=== PATIENT | female | born 1995 | race Caucasian/White ===

== ENCOUNTER 2021-09-29 00:12 | Emergency (ER) | payer OTHER, SELFPAY ==
[2021-09-29 00:45] VITALS: BP 146/98; PULSE 113; RESP 22; TEMP 36.7; O2SAT 97; BMI 19.0
== END 2021-09-29 04:37 | disposition left against medical advice (07) ==
PROVIDERS: Emergency Provider Emergency Medicine
DX: S61.512A Laceration without foreign body of left wrist, initial encounter (principal); W45.8XXA Other foreign body or object entering through skin, initial encounter; Y93.89 Activity, other specified; Y92.9 Unspecified place or not applicable; Y99.9 Unspecified external cause status
CPT/HCPCS: 99281; 99282

== ENCOUNTER 2021-09-29 07:40 | Emergency (ER) | payer OTHER, SELFPAY ==
[2021-09-29 08:26] VITALS: BP 147/110; PULSE 85; RESP 16; TEMP 36.1; O2SAT 100; BMI 18.8
[2021-09-29] MEDS: Lidocaine HCl 2 % MPF 5 ML VIAL SUBCUT (08:56)
--- NOTE | 2021-09-29 09:24 | ED.WOUNDLAC ---
HPI - Wound/Laceration General Chief Complaint: Wound/Laceration Stated Complaint: wrist laceration Time Seen by Provider: 09/29/21 08:42 Source: patient and family Mode of arrival: ambulatory Limitations: no limitations History of Present Illness HPI narrative: 25 yo female here with laceration to left wrist after attempting to remove an AC unit from her window last evening. tetanus UTD. Came last night but to long a wait so came back. Denies numbness, tingling, redness, warmth, drainage or fever. Related Data Allergies Allergy/AdvReac Type Severity Reaction Status Date / Time garcia Allergy Hives Verified 09/29/21 00:49 Review of Systems Review of Systems: Yes all other systems are reviewed and are negative Constitutional: Constitutional: Reports no additional constitutional complaints, Denies body ache(s), Denies chills, Denies fever(s), Denies headache(s) and Denies weakness Eyes: Eyes: Reports no additional eye complaints and Denies change in vision ENT: Reports system reviewed and no additional complaints, except as documented, Denies dizziness, Denies headache(s), Denies nasal congestion, Denies nasal discharge and Denies neck pain Cardiovascular: Cardiovascular: Reports no additional cardiovascular complaints, Denies chest pain, Denies leg edema and Denies dyspnea Respiratory: Respiratory: Reports no additional respiratory complaints, Denies cough and Denies dyspnea Gastrointestinal: Gastrointestinal: Reports no additional gastrointestinal complaints, Denies abdominal pain, Denies diarrhea, Denies nausea and Denies vomiting Genitourinary: Genitourinary: Reports no additional female genitourinary complaints and Denies urinary incontinence Musculoskeletal: Musculoskeletal: Reports no additional musculoskeletal complaints, Denies back pain, Denies arthralgias, Denies joint swelling, Denies neck pain, Denies numbness and Denies tingling Integumentary/Breasts: Skin/Breast: Reports system reviewed and no additional complaints, except as docu and Denies rash Comments: +laceration Neurologic: Reports system reviewed and no additional complaints, except as documented, Denies Abnormal speech present, Denies dizziness, Denies headache(s), Denies numbness, Denies tingling and Denies weakness PMFSH Past Medical History Attestation statement: The following information was validated with the patient. Source: old records reviewed and nursing notes reviewed Medical History Kidney stones Social History Social History Patient Tobacco Use Status: Never used Tobacco Substance Use Type: Marijuana Substance Use Frequency: Daily Any prior treatment program specific to substance use: No Advance Directives: No Advance Directives Information Provided: No Physical Exam Vital Signs: Vital Signs: Last Vital Signs Temp 97.0 F 09/29/21 08:26 Pulse 85 09/29/21 08:26 Resp 16 09/29/21 08:26 BP 147/110 H 09/29/21 08:26 Pulse Ox 100 09/29/21 08:26 BMI result Body Mass Index 18.8 Const: General: cooperative, healthy appearing, comfortable and no acute distress Orientation/consciousness: patient oriented x3 Limitations: no limitations HENMT: Head: Yes normal to inspection Ears: hearing grossly normal bilaterally General nose exam: Normal external nose present Face and sinus: Yes normal facial exam Mouth: Normal oral and palatal mucosa present Throat: Yes posterior oropharynx normal Eyes: General: appearance normal, both eyes and all related structures Pupils: Equal, round and reactive pupils present Neck: Neck: Yes normal visual inspection Chest: Chest palpation & inspection: normal inspection of the chest Resp: Effort & Inspection: normal respiratory effort Auscultation: clear to auscultation bilaterally Cardio: Rate: regular rate Rhythm: regular rhythm Peripheral pulses: Peripheral pulses 2+ throughout GI: Inspection: Yes normal to inspection Palpation (GI): Soft to palpation and nontender Auscultation: normal bowel sounds Back/Spine/Pelvis: Thoracic/Lumbar Spine: thoracic and lumbar spine normal to inspection Skin: General skin exam: no rashes or lesions noted Neuro: General: patient oriented x3, no focal motor deficits and normal sensation to monofilament Cranial nerves: Yes Equal, round and reactive pupils present Cognition (Neuro): normal cognition Speech: No Abnormal speech present Gait exam (Neuro): Normal gait present Motor exam (neuro): 5/5 motor strength present throughout Extrem: Other: Over the volar left wrist there is a 3cm laceration. No active bleeding. NV intact distally. General: Yes normal to inspection Course Course Course Narrative: 25 yo female here with complaints of laceration to left wrist since 11pm. See procedure note. Tetanus UTD. Reviewed worrisome signs/symptoms and when to seek additional care. Comfortable with plan for discharge home. MDM - Wound/Laceration Differential Diagnosis Differential diagnosis: Likely laceration Medical Records Attestation: I reviewed the patient's medical records. Lab Data Attestation: I reviewed the patient's lab results. Procedures Laceration Laceration 1: Site: upper extremity Side (If applicable): left Size (cm): 3 Description: linear Depth: simple, single layer Local Anesthetic: lidocaine 2% Amount of anesthesia used (mL): 5 Pre-repair: wound explored, irrigated extensively and deep structures intact Skin layer closed with: vicryl Size (cm): 5-0 Number of sutures: 3 Technique: simple, interrupted Discharge Plan Discharge Clinical Impression: Laceration Patient Disposition: Home, Self-Care Instructions: Laceration (DC) Additional Instructions: Sutures out in 7-10 days Wash with soap and water daily Referrals: Physician,None [Primary Care Provider] - 2 days Stand Alone Forms: Work/School Release Interventions: ED Discharge Assessment Last Done: 09/29/21 09:34 Discharge Date/Time: 09/29/21 09:35
--- NOTE | 2021-09-29 09:32 | PC.NURSE ---
PT EVALUATED BY PROVIDER. 3 SUTURES TO LEFT WRIST WOUND. SITE CLEANSED AND DRESSED BY PROVIDER. PT AWARE AND AGREEABLE TO DC PLAN. CONTINUES TO DENY INTENT TO HARM SELF. FRIEND AT BEDSIDE. +[facility] NO DISTRESS NOTED.
== END 2021-09-29 09:35 | disposition home or self-care (01) ==
PROVIDERS: Emergency Provider Emergency Medicine
DX: S61.512A Laceration without foreign body of left wrist, initial encounter (principal); W26.8XXA Contact with other sharp object(s), not elsewhere classified, initial encounter; Y93.89 Activity, other specified; Y92.019 Unspecified place in single-family (private) house as the place of occurrence of the external cause; Y99.9 Unspecified external cause status
CPT/HCPCS: 12002; 99284

== ENCOUNTER 2023-04-09 15:43 | Emergency (ER) | payer SELFPAY ==
[2023-04-09 16:24] VITALS: BP 152/100; BP 154/103; PULSE 87; PULSE 98; RESP 19; TEMP 36.8; O2SAT 94; O2SAT 99; BMI 17.7
--- NOTE | 2023-04-09 16:24 | ED_ITS ---
HPI - General Adult General Chief complaint: General Medical Stated complaint: anxiety, depression, high BP Time Seen by Provider: 04/09/23 20:21 Source: patient and family Mode of arrival: EMS Limitations: no limitations History of Present Illness HPI narrative: 27 yo female here with mom and partner had panic attack at home reportedly hyperventilated - patient has hx of low mag and hasn't been taking it. she is vague with me but then mom notes patient has been threatening SI will not stop drinking has lost 4 jobs. patient is refusing detox at this time. she states I am fine and is vague complaint: ETOH abuse panic attacks Onset (ago): week(s) Radiation: non-radiation Severity: moderate Quality: dull Relieving factors: none Exacerbating factors: other (anxiety, etoh use) Associated symptoms: other (had panic attack but denies all medical complaints to me at this time) Treatments prior to arrival: none Related Data Previous Rx's Medication Instructions Recorded hydroxyzine HCl 25 mg tablet 25 mg PO Q8H PRN anxiety #20 tabs 04/09/23 Allergies Allergy/AdvReac Type Severity Reaction Status Date / Time josewi Allergy Hives Verified 09/29/21 00:49 Review of Systems Review of Systems: Constitutional : No Fever, No Chills, No Fatigue ENT/Mouth : No sore throat, No Rhinorrhea Eyes: No Eye Pain, No Swelling, No Redness Cardiovascular : No Chest Pain, No SOB, No Dyspnea on Exertion Respiratory : No Cough, No Sputum Gastrointestinal : No Nausea, No Vomiting, No Diarrhea, No abdominal Pain Genitourinary : No Dysuria, No Urinary Frequency, No Hematuria, Musculoskeletal : No joint pain, No Myalgias, No Joint Swelling Skin : No Skin Lesions, No rash Neuro : No Weakness, No Numbness, No Dizziness, no Headache Psych : pos Anxiety/Panic, pos Depression, denies SI Heme/Lymph: No Bruising, No Bleeding,No Lymphadenopathy Endocrine : No Polyuria, No Polydipsia All other systems reviewed and are negative [facility] Past Medical History Attestation statement: The following information was validated with the patient. Medical History (Updated 04/09/23 @ 21:38 by Chelsy Abreu DO) Alcohol abuse Kidney stones Social History Social History Alcohol intake: current Alcohol intake frequency: 3 or more drinks per day Patient Tobacco Use Status: Never used Tobacco Smoked in Last 30 Days: Yes Use of substances other than those prescribed or required for medical reasons: No Substance Use Type: Marijuana Advance Directives: No Advance Directives Information Provided: No Patient : No Physical Exam ED Vital Signs: Vital Signs - 24 hr 04/09/23 16:24 04/09/23 21:31 Temperature 98.2 F 97.9 F Pulse Rate 87 91 Respiratory Rate 19 18 Blood Pressure 154/103 H 140/108 H Pulse Oximetry 94 98 Oxygen Delivery Method Room Air Room Air BMI result Body Mass Index 17.7 Appearance: Alert. Oriented X3. No acute distress. anxious Eyes: Pupils equal, round and reactive to light. ENT: Pharynx normal. Neck: Normal inspection. Neck supple. CVS: Normal heart rate and rhythm. Pulses normal. Respiratory: No respiratory distress. Breath sounds normal. Abdomen: Soft and nontender. Skin: Skin warm and dry. Normal skin color. Normal skin turgor. Extremities: No lower extremity edema. No calf ttp Neuro: Oriented X 3. No motor deficit. No sensory deficit. Course Course Course Narrative: This is a rapid medical exam: Additional HPI, ROS, PE not included below will be deferred to primary provider. Patient is a 27-year-old female with history of anxiety, depression, presenting to the emergency department with complaint of anxiety and depression, nausea, vomiting, extremity weakness for four days. Also complains of generalized abdominal pain and states I think I'm bulimic because every time I eat I throw up. EMS reports that upon arrival patient was hyperventilating and was noted to have carpal-pedal spasms. Patient stating I can't move my arms as she moves her arms equally in triage, able to answer/speak on phone. NIH score 0. Reports last drank alcohol 3 days ago. Hyperfixating on obtaining weight in triage. EMS reported suicidal ideation which patient denies in triage. Patient states she has history of SI in the past but denies current SI. Denies homicidal ideation, visual or auditory hallucinations. Plan: UA, urine drug screen, labs, ASA/tylenol levels Reevaluation(s) Reevaluation #1: Patient placed in physician observation at 936pm. The indication for observati on is that the patient needs more time to see CARE team given reports of SI although I think this may be concerns for detox on mother's part. At this time the patient is well developed well nourished, lungs clear, CV RRR, abd nontender, neuro is intact. Reevaluation #2: Physician observation ended at 1005pm patient refuses to stay has no SI mom w as the one relaying it and when she asked what she thought the patient would do mom states she'll keep drinking it is not actual attempt at life. at this time no SI/HI. I cannot section her she wants to leave, we did discuss section 35. Plan to dc home. Disposition is for home. Medications Administered Discontinued Medications Generic Name Dose Route Start Last Admin Trade Name Freq PRN Reason Stop Dose Admin Potassium Chloride 40 meq 04/09/23 20:48 04/09/23 20:58 Potassium Chloride Er 20 Meq Tab.Er.Prt PO 04/09/23 20:49 40 meq ONCE ONE Administration Medical Decision Making Medical Decision Making [facility] Narrative: 27 yo female with ETOH abuse here with c/o SI statements at home though she denies this I am not sure if this is 2ndary gain for detox from family - at this time will obtain labs and defer to CARE team as the patient is not forthcoming with me. Differential Diagnosis Differential Diagnoses: The differential diagnosis associated with the presentation includes anxiety, alcohol abuse, SI Admission/Observation Consideration of admission/observation: Escalation of care including admission/observation considered observation until CARE team assessess Lab Data [facility] Lab Attestation statement: I reviewed the patient's lab results. 04/09/23 18:26 04/09/23 18:26 Labs: Lab Results 04/09/23 04/09/23 04/09/23 Range/Units 18:26 18:26 18:26 WBC 3.6 L (4.8-10.8) X10*3/uL RBC 4.84 (4.20-5.50) X10*6/uL Hgb 15.0 (12.0-16.0) g/dl Hct 42.9 (37.0-47.0) % MCV 88.6 (80.0-98.0) fL MCH 31.0 (27.0-33.0) pg MCHC 35.0 (31.0-35.0) g/dl RDW 13.2 (11.0-16.0) % Plt Count 171 (160-400) X10*3/uL MPV 10.5 (9.4-12.3) fL Immature Gran % (Auto) 0.3 (0.0-0.4) % Neut % (Auto) 49.5 (45-73) % Lymph % (Auto) 37.4 (20-40) % Bourbon % (Auto) 7.8 (2-11) % Eos % (Auto) 2.5 (0-4) % Baso % (Auto) 2.5 H (0-2) % Lymph # (Auto) 1.4 (1.2-4.9) X10*3/uL Bourbon # (Auto) 0.3 (0.1-1.2) X10*3/uL Eos # (Auto) 0.1 (0.0-0.4) X10*3/uL Baso # (Auto) 0.1 (0.0-0.2) X10*3/uL Abs Immat Gran (auto) 0.01 (0.00-0.03) X10*3/uL Absolute Neuts (auto) 1.8 L (2.0-8.3) x10*3/uL Absolute Nucleated RBC 0.000 (0.0-0.012) X10*3/uL Nucleated RBC % (auto) 0.0 (0.0-0.2) /100WBC Sodium 147 H (135-145) mmol/L Potassium 3.1 L (3.3-5.1) mmol/L Chloride 106 (96-108) mmol/L Carbon Dioxide 26 (22-29) mmol/L Anion Gap 18 (12-20) BUN 8 L (9-16) mg/dL Creatinine 0.67 (0.5-1.4) mg/dL Estim Creat Clear Calc 89.5 Estimated GFR > 60 Random Glucose 85 (60-115) mg/dL Calcium 9.4 (8.4-10.2) mg/dL Magnesium 1.7 (1.6-2.6) mg/dL Total Bilirubin 0.6 (0.0-1.0) mg/dL AST 342 H (5-31) U/L ALT 137 H (0-31) U/L Alkaline Phosphatase 90 (39-117) U/L Total Protein 8.5 H (6.5-8.0) g/dL Albumin 4.9 (3.5-5.0) g/dL Beta HCG, Quant mIU/mL Urine Color Urine Appearance Urine pH (5.0-9.0) Ur Specific Accident (1.005-1.025) Urine Protein (Neg-Trace) mg/dL Urine Glucose (UA) (Negative) mg/dL Urine Ketones (Negative) mg/dL Urine Blood (Negative) Urine Nitrite (Negative) Ur Leukocyte Esterase (Negative) Urine RBC (0-2) /HPF Urine WBC (0-5) /HPF Ur Squamous Epith Cells (0-2) /HPF Urine Bacteria (None Seen) Hyaline Casts (0-2) /LPF Salicylates < 5.0 L (15-30) mg/dL Urine Opiates Screen (Not Detect) Urine Fentanyl Screen (Not Detect) Acetaminophen < 17 (<30) mcg/mL Ur Barbiturates Screen (Not Detect) Ur Phencyclidine Scrn (Not Detect) Ur Amphetamines Screen (Not Detect) U Benzodiazepines Scrn (Not Detect) Urine Cocaine Screen (Not Detect) U Marijuana (THC) Screen (Not Detect) Ethyl Alcohol 389 H* mg/dL COVID-19 ([facility]) (Negative) COVID-19 Clin Com 04/09/23 04/09/23 04/09/23 Range/Units 18:26 18:26 20:21 WBC (4.8-10.8) X10*3/uL RBC (4.20-5.50) X10*6/uL Hgb (12.0-16.0) g/dl Hct (37.0-47.0) % MCV (80.0-98.0) fL MCH (27.0-33.0) pg MCHC (31.0-35.0) g/dl RDW (11.0-16.0) % Plt Count (160-400) X10*3/uL MPV (9.4-12.3) fL Immature Gran % (Auto) (0.0-0.4) % Neut % (Auto) (45-73) % Lymph % (Auto) (20-40) % Bourbon % (Auto) (2-11) % Eos % (Auto) (0-4) % Baso % (Auto) (0-2) % Lymph # (Auto) (1.2-4.9) X10*3/uL Bourbon # (Auto) (0.1-1.2) X10*3/uL Eos # (Auto) (0.0-0.4) X10*3/uL Baso # (Auto) (0.0-0.2) X10*3/uL Abs Immat Gran (auto) (0.00-0.03) X10*3/uL Absolute Neuts (auto) (2.0-8.3) x10*3/uL Absolute Nucleated RBC (0.0-0.012) X10*3/uL Nucleated RBC % (auto) (0.0-0.2) /100WBC Sodium (135-145) mmol/L Potassium (3.3-5.1) mmol/L Chloride (96-108) mmol/L Carbon Dioxide (22-29) mmol/L Anion Gap (12-20) BUN (9-16) mg/dL Creatinine (0.5-1.4) mg/dL Estim Creat Clear Calc Estimated GFR Random Glucose (60-115) mg/dL Calcium (8.4-10.2) mg/dL Magnesium (1.6-2.6) mg/dL Total Bilirubin (0.0-1.0) mg/dL AST (5-31) U/L ALT (0-31) U/L Alkaline Phosphatase (39-117) U/L Total Protein (6.5-8.0) g/dL Albumin (3.5-5.0) g/dL Beta HCG, Quant < 2 mIU/mL Urine Color Yellow Urine Appearance Clear Urine pH 6.0 (5.0-9.0) Ur Specific Accident <= 1.005 (1.005-1.025) Urine Protein 30 (1+) H (Neg-Trace) mg/dL Urine Glucose (UA) Negative (Negative) mg/dL Urine Ketones Negative (Negative) mg/dL Urine Blood Moderate (2+) H (Negative) Urine Nitrite Negative (Negative) Ur Leukocyte Esterase Trace H (Negative) Urine RBC 0-2 (0-2) /HPF Urine WBC 0-5 (0-5) /HPF Ur Squamous Epith Cells 0-2 (0-2) /HPF Urine Bacteria None Seen (None Seen) Hyaline Casts 0-2 (0-2) /LPF Salicylates (15-30) mg/dL Urine Opiates Screen (Not Detect) Urine Fentanyl Screen (Not Detect) Acetaminophen (<30) mcg/mL Ur Barbiturates Screen (Not Detect) Ur Phencyclidine Scrn (Not Detect) Ur Amphetamines Screen (Not Detect) U Benzodiazepines Scrn (Not Detect) Urine Cocaine Screen (Not Detect) U Marijuana (THC) Screen (Not Detect) Ethyl Alcohol mg/dL COVID-19 ([facility]) Negative (Negative) COVID-19 Clin Com See Note 04/09/23 Range/Units 20:21 WBC (4.8-10.8) X10*3/uL RBC (4.20-5.50) X10*6/uL Hgb (12.0-16.0) g/dl Hct (37.0-47.0) % MCV (80.0-98.0) fL MCH (27.0-33.0) pg MCHC (31.0-35.0) g/dl RDW (11.0-16.0) % Plt Count (160-400) X10*3/uL MPV (9.4-12.3) fL Immature Gran % (Auto) (0.0-0.4) % Neut % (Auto) (45-73) % Lymph % (Auto) (20-40) % Bourbon % (Auto) (2-11) % Eos % (Auto) (0-4) % Baso % (Auto) (0-2) % Lymph # (Auto) (1.2-4.9) X10*3/uL Bourbon # (Auto) (0.1-1.2) X10*3/uL Eos # (Auto) (0.0-0.4) X10*3/uL Baso # (Auto) (0.0-0.2) X10*3/uL Abs Immat Gran (auto) (0.00-0.03) X10*3/uL Absolute Neuts (auto) (2.0-8.3) x10*3/uL Absolute Nucleated RBC (0.0-0.012) X10*3/uL Nucleated RBC % (auto) (0.0-0.2) /100WBC Sodium (135-145) mmol/L Potassium (3.3-5.1) mmol/L Chloride (96-108) mmol/L Carbon Dioxide (22-29) mmol/L Anion Gap (12-20) BUN (9-16) mg/dL Creatinine (0.5-1.4) mg/dL Estim Creat Clear Calc Estimated GFR Random Glucose (60-115) mg/dL Calcium (8.4-10.2) mg/dL Magnesium (1.6-2.6) mg/dL Total Bilirubin (0.0-1.0) mg/dL AST (5-31) U/L ALT (0-31) U/L Alkaline Phosphatase (39-117) U/L Total Protein (6.5-8.0) g/dL Albumin (3.5-5.0) g/dL Beta HCG, Quant mIU/mL Urine Color Urine Appearance Urine pH (5.0-9.0) Ur Specific Accident (1.005-1.025) Urine Protein (Neg-Trace) mg/dL Urine Glucose (UA) (Negative) mg/dL Urine Ketones (Negative) mg/dL Urine Blood (Negative) Urine Nitrite (Negative) Ur Leukocyte Esterase (Negative) Urine RBC (0-2) /HPF Urine WBC (0-5) /HPF Ur Squamous Epith Cells (0-2) /HPF Urine Bacteria (None Seen) Hyaline Casts (0-2) /LPF Salicylates (15-30) mg/dL Urine Opiates Screen Not Detected (Not Detect) Urine Fentanyl Screen Not Detected (Not Detect) Acetaminophen (<30) mcg/mL Ur Barbiturates Screen Not Detected (Not Detect) Ur Phencyclidine Scrn Not Detected (Not Detect) Ur Amphetamines Screen Not Detected (Not Detect) U Benzodiazepines Scrn Not Detected (Not Detect) Urine Cocaine Screen Not Detected (Not Detect) U Marijuana (THC) Screen POSITIVE H (Not Detect) Ethyl Alcohol mg/dL COVID-19 ([facility]) (Negative) COVID-19 Clin Com Independent Historian Clinical information obtained from an independent historian. History obtained from or confirmed by: Parent External Record Review External record reviewed: Inpatient record Discharge Plan Discharge Clinical Impression: Acute hypokalemia, Alcohol abuse Patient Disposition: Home, Self-Care Instructions: Hypokalemia (ED), Abuse of Alcohol (ED) Additional Instructions: you can follow up with [facility] counseling. take your magnesium please consider detox on your own. we are here for you to help at whenever you are ready and need us. [facility] [phone] Prescriptions: New hydroxyzine HCl 25 mg tablet 25 mg PO Q8H PRN (Reason: anxiety) Qty: 20 0RF
[2023-04-09 18:30] LABS: MANUAL DIFF FLAG NO
[2023-04-09 18:44] LABS: COVID-19 Test Negative (Negative); IDNOW Serial# BCCEAD1C
[2023-04-09 18:57] LABS: Basophils Absolute Auto 0.1 X10*3/uL (0.0-0.2); Basophils Percent Auto 2.5 % (0-2); Eosinophils Absolute Auto 0.1 X10*3/uL (0.0-0.4); Eosinophils Percent Auto 2.5 % (0-4); Hematocrit 42.9 % (37.0-47.0); Imm Gran Abs Auto 0.01 X10*3/uL (0.00-0.03); Imm Gran Pct Auto 0.3 % (0.0-0.4); Lymphocytes Absolute Auto 1.4 X10*3/uL (1.2-4.9); Lymphocytes Percent Auto 37.4 % (20-40); Mean Corpuscular Volume 88.6 fL (80.0-98.0); Mean Platelet Volume 10.5 fL (9.4-12.3); Monocytes Absolute Auto 0.3 X10*3/uL (0.1-1.2); Monocytes Percent Auto 7.8 % (2-11); Neutrophils Absolute Auto 1.8 x10*3/uL (2.0-8.3); Neutrophils Percent Auto 49.5 % (45-73); Platelet Count 171 X10*3/uL (160-400); Red Blood Count 4.84 X10*6/uL (4.20-5.50); Red Cell Distribution Width 13.2 % (11.0-16.0); White Blood Count 3.6 X10*3/uL (4.8-10.8)
[2023-04-09 18:58] LABS: Alanine Aminotransferase 137 U/L (0-31); Albumin Level 4.9 g/dL (3.5-5.0); Alkaline Phosphatase 90 U/L (39-117); Anion Gap 18 (12-20); Aspartate Amino Transferase 342 U/L (5-31); Bilirubin Total 0.6 mg/dL (0.0-1.0); Blood Urea Nitrogen 8 mg/dL (9-16); Calcium 9.4 mg/dL (8.4-10.2); Carbon Dioxide 26 mmol/L (22-29); Chloride 106 mmol/L (96-108); Creatinine Clr Calc Pharmacy 89.5; Estimated Glomerular Filt Rate > 60; Ethanol 389 mg/dL; Glucose Random 85 mg/dL (60-115); Potassium 3.1 mmol/L (3.3-5.1); Sodium 147 mmol/L (135-145); Total Protein 8.5 g/dL (6.5-8.0)
[2023-04-09 19:02] LABS: Acetaminophen LAB < 17 mcg/mL (<30); Salicylate < 5.0 mg/dL (15-30)
[2023-04-09 19:07] LABS: HCG Quantitative < 2 mIU/mL
[2023-04-09 20:31] LABS: Appearance Urine Clear; Color Urine Yellow; Glucose Urine UA Negative (Negative); Leukocyte Esterase Urine Trace (Negative); Nitrite Urine Negative (Negative); Specific Gravity - Urine <= 1.005 (1.005-1.025); UMIC TRIGGER UACC YES; Urine Blood Moderate (2+) (Negative); Urine Ketones Negative (Negative); Urine Protein 30 (1+) mg/dL (Neg-Trace)
--- NOTE | 2023-04-09 20:35 | PC.NURSE ---
this rn assumed care of pt @ 2019. pt placed in hallbed. pt changed over into hospital attire. pt mother at bedside. pt calm and cooperative. pt denies si/hi
[2023-04-09 20:40] LABS: Amphetamine Screen Urine Not Detected (Not Detect); Bacteria Urine None Seen (None Seen); Barbiturates, Urine Not Detected (Not Detect); Benzodiazepines Screen Urine Not Detected (Not Detect); Cannabinoid Screen Urine POSITIVE (Not Detect); Cocaine Screen Urine Not Detected (Not Detect); Fentanyl, urine Not Detected (Not Detect); Hyaline Casts Urine 0-2 /LPF (0-2); Opiate Screen Urine Not Detected (Not Detect); Phencyclidine Screen Urine Not Detected (Not Detect); RBC Urine 0-2 /HPF (0-2); Squamous Epithelial Cell Urine 0-2 /HPF (0-2); WBC Urine 0-5 /HPF (0-5)
[2023-04-09] MEDS: Potassium Chloride ER 20 MEQ TAB.ER.PRT 40 MEQ PO (20:58)
[2023-04-09 21:05] LABS: Magnesium 1.7 mg/dL (1.6-2.6)
[2023-04-09 21:31] VITALS: BP 140/108; PULSE 91; RESP 18; TEMP 36.6; O2SAT 98
--- NOTE | 2023-04-09 22:19 | PC.NURSE ---
per dr navarro pt okay to discharge to family. pt continues to deny si/hi at this time. pt restless stating i want to leave, i am not staying here . pt redirectable. family remains at bedside. pt ambulatory at discharge. pt given belongs back at discharge. pt provided with discharge packet. pt and family verbalized understanding of discharge plan
== END 2023-04-09 22:23 | disposition home or self-care (01) ==
PROVIDERS: Registered Nurse Emergency; Emergency Provider Emergency Medicine
DX: F41.1 Generalized anxiety disorder (principal); F33.1 Major depressive disorder, recurrent, moderate; E87.6 Hypokalemia; F10.129 Alcohol abuse with intoxication, unspecified; Y90.8 Blood alcohol level of 240 mg/100 ml or more; Z20.822 Contact with and (suspected) exposure to COVID-19; Z20.828 Contact with and (suspected) exposure to other viral communicable diseases; Z79.899 Other long term (current) drug therapy
CPT/HCPCS: 36415; 80053; 80143; 80179; 80307; 81001; 83735; 84702; 85025; 87635; 99284

== ENCOUNTER 2023-06-13 14:00 | Emergency (ER) | payer MEDICAID, SELFPAY ==
--- NOTE | ~2023-06-13 | CT_ITS ---
EXAMINATION: CT HEAD WITHOUT CONTRAST CT CERVICAL SPINE WITHOUT CONTRAST CLINICAL INFORMATION: Fall. COMPARISON: None available. TECHNIQUE: Contiguous axial imaging was performed from the skull base to vertex without intravenous administration of contrast. Contiguous axial imaging was performed from the upper chest through the skull base without intravenous administration of contrast. Coronal and sagittal reformats were obtained at the acquisition workstation. This CT examination was performed using dose optimization techniques as appropriate, variously including the following: *Automated exposure control. *Adjustment of mA and/or kV according to patient size (this includes techniques or standardized protocols for targeted exams where dose is matched to indication/reason for exam; i.e. extremities or head). *Use of iterative reconstruction technique. DLP: 1329 mGy-cm FINDINGS: Head: There is no evidence of acute intracranial hemorrhage or edematous territorial infarction. Slaughter-white matter differentiation is preserved. There is no abnormal attenuation within the brain parenchyma. The ventricles are normal in morphology and size. No evidence for obstructive hydrocephalus. No abnormal mass effect or midline shift. No extra-axial fluid collections. No acute soft tissue or osseous abnormalities. The mastoid air cells and visualized paranasal sinuses are clear. Cervical Spine: The atlantooccipital and atlantoaxial articulations remain well aligned. Reversal the normal cervical lordosis centered on C5. Otherwise, there is anatomic alignment of the vertebral bodies and posterior elements. No evidence of acute fracture or subluxation. The vertebral body heights and disc spaces are maintained. There is no prevertebral soft tissue swelling. The thyroid gland and remaining cervical soft tissues are within normal limits. The lung apices demonstrate no abnormalities. CT/CT cervical spine wo IV con IMPRESSION: 1. No evidence of acute intracranial hemorrhage or edematous territorial infarction. 2. No evidence of acute fracture or traumatic subluxation of the cervical spine.
--- NOTE | ~2023-06-13 | CT_ITS ---
CT/CT abdomen pelvis w IV con IMPRESSION: 1. No acute traumatic injuries are identified in the chest, abdomen, and pelvis. 2. No fracture or malalignment in the thoracolumbar spine. 3. Minimally obstructing left proximal ureteral stone as above. EXAMINATION: CT CHEST, ABDOMEN AND PELVIS WITH CONTRAST. CT THORACIC AND LUMBAR SPINE WITHOUT CONTRAST (REFORMATS) CLINICAL INFORMATION: Reason for Exam fall left chest flank bruise COMPARISON: No pertinent prior studies are available for comparison TECHNIQUE: Multidetector volumetric imaging was performed from the thoracic inlet through the pubic symphysis following the administration of: Oral contrast: No Intravenous contrast: 130 mL Omnipaque 350 No contrast reaction reported. Sagittal and coronal reformatted images were obtained on the technologist workstation. In addition, thin section, high resolution reconstruction, targeted reformatted images through the thoracic and lumbar spine were obtained with coronal and sagittal high resolution reformatted images as well. This CT examination was performed using dose optimization techniques as appropriate, variously including the following: *Automated exposure control *Adjustment of mA and/or kV according to patient size (this includes techniques or standardized protocols for targeted exams where dose is matched to indication/reason for exam; i.e. extremities or head) *Use of iterative reconstruction technique DLP: 175 and 377 mGy-cm FINDINGS: CHEST: VASCULAR: The aorta is normal; no evidence of dissection, aneurysm, or traumatic aortic injury. The central pulmonary arteries enhance normally. MEDIASTINUM: No mediastinal fluid or hematoma. No hilar or mediastinal lymphadenopathy. LUNG: No nodules, mass, or focal consolidation. PLEURA: No pleural effusion. No pneumothorax. No pleural mass or thickening. CHEST WALL/AXILLA: Unremarkable. ABDOMEN/PELVIS : LIVER : Moderate hepatomegaly changes of diffuse hepatic steatosis. No focal lesion. GALLBLADDER, AND BILIARY TREE The gallbladder is unremarkable with no evidence of radiopaque gallstones, gallbladder wall thickening, or obvious pericholecystic inflammatory changes. PANCREAS: Normal; no mass or surrounding fluid. SPLEEN: Normal size. No focal lesion. ADRENAL GLANDS: Normal; no mass. KIDNEYS AND URETERS: Mild left-sided hydronephrosis secondary to a proximal approximate 4 mm ureteral stone. No tandem stone. Right kidney unremarkable. URINARY BLADDER: No focal mass or wall thickening seen. No bladder calculi. GASTROINTESTINAL TRACT: Stomach and small bowel non-dilated. No colonic wall thickening or pericolonic inflammatory changes. No fluid collection. VASCULAR STRUCTURES: There is no evidence of aortic or iliac injury. The inferior vena cava is intact. LYMPH NODES: No lymphadenopathy. PELVIC VISCERA: Unremarkable. FREE FLUID: None. ABDOMINAL WALL: No significant hernia is appreciated. OSSEOUS STRUCTURES AND THORACIC AND LUMBAR SPINE: No clavicle or scapula fracture. No displaced rib fracture seen. No sternal fracture seen. Normal sagittal alignment of the thoracic and lumbar spine. Vertebral body and disc heights are maintained; no compression fracture. Posterior elements intact. No sacral or pelvic fracture. The visualized hips are intact.
[2023-06-13 14:18] VITALS: BP 140/90; BP 151/101; PULSE 88; PULSE 94; RESP 16; TEMP 36.7; O2SAT 100; O2SAT 97; BMI 17.4
[2023-06-13 14:22] VITALS: TEMP 36.7
[2023-06-13 16:25] LABS: Imm Gran Abs Auto 0.01 X10*3/uL (0.00-0.03); Imm Gran Pct Auto 0.2 % (0.0-0.4); Mean Corpuscular HGB Conc 34.9 g/dl (31.0-35.0); Mean Platelet Volume 9.6 fL (9.4-12.3); PLT CLUMP 1; SCAN SMEAR FLAG 1
[2023-06-13 16:26] LABS: Appearance Urine Clear; Color Urine Yellow; Glucose Urine UA Negative (Negative); Leukocyte Esterase Urine Trace (Negative); Nitrite Urine Negative (Negative); PH 6.5 (5.0-9.0); Specific Gravity - Urine <= 1.005 (1.005-1.025); UMIC TRIGGER UACC YES; Urine Blood Large (3+) (Negative); Urine Ketones Negative (Negative); Urine Protein 100 (2+) mg/dL (Neg-Trace)
[2023-06-13 16:27] LABS: UPreg QC Valid YES; Urine Pregnancy NEGATIVE (NEGATIVE)
[2023-06-13 16:27] LABS: Basophils Absolute Auto 0.1 X10*3/uL (0.0-0.2); Basophils Percent Auto 1.9 % (0-2); Eosinophils Percent Auto 0.7 % (0-4); Hematocrit 39.3 % (37.0-47.0); Hemoglobin 13.7 g/dl (12.0-16.0); Lymphocytes Absolute Auto 0.8 X10*3/uL (1.2-4.9); Mean Corpuscular Hemoglobin 30.9 pg (27.0-33.0); Mean Corpuscular Volume 88.5 fL (80.0-98.0); Monocytes Absolute Auto 0.2 X10*3/uL (0.1-1.2); Monocytes Percent Auto 5.8 % (2-11); Neutrophils Percent Auto 72.4 % (45-73); Red Blood Count 4.44 X10*6/uL (4.20-5.50)
[2023-06-13 16:29] LABS: White Blood Count 4.2 X10*3/uL (4.8-10.8)
[2023-06-13 16:32] LABS: MANUAL DIFF FLAG NO; Platelet Count 143 X10*3/uL (160-400)
[2023-06-13 16:38] LABS: Bacteria Urine None Seen (None Seen); Hyaline Casts Urine 0-2 /LPF (0-2); WBC Urine 0-5 /HPF (0-5)
[2023-06-13 16:41] VITALS: BP 140/78; PULSE 84; RESP 18; TEMP 36.7; O2SAT 98
[2023-06-13 16:51] LABS: Alanine Aminotransferase 95 U/L (0-31); Alkaline Phosphatase 99 U/L (39-117); Anion Gap 24 (12-20); Aspartate Amino Transferase 216 U/L (5-31); Bilirubin Total 0.7 mg/dL (0.0-1.0); Blood Urea Nitrogen 8 mg/dL (9-16); Calcium 9.7 mg/dL (8.4-10.2); Carbon Dioxide 23 mmol/L (22-29); Chloride 102 mmol/L (96-108); Creatinine Clr Calc Pharmacy 96.7; Estimated Glomerular Filt Rate > 60; Ethanol 390 mg/dL; Glucose Random 78 mg/dL (60-115); HCG Quantitative < 2 mIU/mL; Sodium 145 mmol/L (135-145); Total Protein 8.6 g/dL (6.5-8.0)
[2023-06-13] MEDS: iohexoL 350 MG/ML 100 ML INFUS..BTL IV (18:05)
--- NOTE | 2023-06-13 18:55 | ED_ITS ---
HPI - General Adult General Chief complaint: Fall Stated complaint: FALL DOWN STEPS 2 DAYS AGO,HIP/RIB PAIN PER EMS Time Seen by Provider: 06/13/23 15:24 Source: patient Mode of arrival: ambulatory Limitations: no limitations History of Present Illness HPI narrative: 27 yold female presents to the ED for left rib and left hip pain after falling down stairs 2 days ago. Patient admits to drinking alcohol today, but denies falling today. patient denies any dizziness, chest pain, shortness of breath, rectal bleeding, or vomiting blood Related Data Previous Rx's Medication Instructions Recorded hydroxyzine HCl 25 mg tablet 25 mg PO Q8H PRN anxiety #20 tabs 04/09/23 cephalexin 500 mg capsule 500 mg PO QID 7 days #28 caps 06/13/23 naproxen 500 mg tablet 500 mg PO BID PRN pain 7 days #14 06/13/23 tabs tamsulosin 0.4 mg capsule (Flomax) 0.4 mg PO DAILY 7 days #7 caps 06/13/23 Allergies Allergy/AdvReac Type Severity Reaction Status Date / Time kiwi Allergy Hives Verified 09/29/21 00:49 Review of Systems 2 Review of Systems: left rib left hip pain/ bruising fall 2 days ago Yes all other systems are reviewed and are negative [facility] Past Medical History Medical History (Updated 06/14/23 @ 00:01 by Taran Montero) Alcohol abuse Kidney stones Social History Social History Alcohol intake: current Alcohol intake frequency: 3 or more drinks per day Patient Tobacco Use Status: Never used Tobacco Smoked in Last 30 Days: No Substance Use Type: Marijuana Advance Directives: No Advance Directives Information Provided: No Physical Exam ED Vital Signs: Vital Signs - 24 hr 06/13/23 14:18 06/13/23 14:22 06/13/23 16:41 Temperature 98.0 F 98.0 F 98.1 F Pulse Rate 88 84 Respiratory Rate 16 18 Blood Pressure 151/101 H 140/78 H Pulse Oximetry 97 98 Oxygen Delivery Method Room Air Room Air BMI result Body Mass Index 17.4 Const General: cooperative, healthy appearing, comfortable, no acute distress, well developed, alert and awake Orientation/consciousness: oriented to person, oriented to place, oriented to time and patient oriented x3 HENMT Head: Yes normal to inspection, Yes No palpable skull fracture present, Yes normocephalic and Yes atraumatic Eyes General: appearance normal, both eyes and all related structures Neck Neck: Yes normal visual inspection, Yes full ROM, Yes no lymphadenopathy, Yes no meningeal signs, Yes trachea midline, Yes supple, No anterior neck swelling and No tender Chest Chest palpation & inspection: normal inspection of the chest and normal palpation of entire chest wall Chest/axillae images: 2 1. positive for ecchymosis with tenderness on palpation. negative crepitus Resp Effort & Inspection: normal respiratory effort and able to speak in complete sentences Auscultation: clear to auscultation bilaterally Cardio Jugular venous distension: no JVD Heart sounds: S1 normal heart sound present and S2 normal heart sound present GI Inspection: Yes normal to inspection Palpation (GI): Soft to palpation, not firm, nontender, no guarding and not rigid General: No CVA tenderness and Yes no CVA tenderness Back/Spine/Pelvis Back: no CVA tenderness, No CVA tenderness and No back tenderness Back/spine/pelvis image: 2 1. positive for left hip ecchymosis without any crepitus or deformities. Negative external or internal rotation of hip. Negative for erythema. Patient has normal gait Skin General skin exam: no rashes or lesions noted, elasticity normal and turgor normal Neuro General: oriented to person, oriented to place, oriented to time, patient oriented x3, gait normal, tone normal, moves all extremities, Normal light touch and pain sensation, no meningeal signs, no focal motor deficits, CN's II-XI intact bilaterally and normal sensation to monofilament Extrem General: Yes normal to inspection and Yes full ROM Psych Appearance: grossly normal, well kempt and not disheveled Medications Administered Discontinued Medications Generic Name Dose Route Start Last Admin Trade Name Freq PRN Reason Stop Dose Admin Iohexol 100 ml 06/13/23 18:05 06/13/23 18:05 Iohexol 350 Mg/Ml 100 Ml Infus..Btl IV 06/13/23 18:06 75 ml ONCE ONE Administration Medical Decision Making Medical Decision Making MDM Narrative: 27-year-old female presents to ED for left rib and left hip pain after falling 2 days ago. Patient admits to drinking alcohol today but denies falling. Patient denies any suicidal homicidal ideation. Positive for left lower rib flank ecchymosis with left hip ecchymosis. Head, neck, chest, and abdomen negative for any signs of traumatic injury. CT scan of abdomen shows left ureteral stone. UA shows UTI. Patient does not want detox. Patient's friend is coming to belt picker patient Differential Diagnosis Differential Diagnoses: The differential diagnosis associated with the presentation includes ( brain bleed, skull fracture, cervical spine fracture, rib fracture, pneumothorax, hemothorax, left hip fracture, abdominal organ injury) Admission/Observation Consideration of admission/observation: Escalation of care including admission/observation considered Lab Data MDM Lab Attestation statement: I reviewed the patient's lab results. 06/13/23 16:15 06/13/23 16:15 Labs: Lab Results 06/13/23 06/13/23 Range/Units 16:15 16:16 WBC 4.2 L (4.8-10.8) X10*3/uL RBC 4.44 (4.20-5.50) X10*6/uL Hgb 13.7 (12.0-16.0) g/dl Hct 39.3 (37.0-47.0) % MCV 88.5 (80.0-98.0) fL MCH 30.9 (27.0-33.0) pg MCHC 34.9 (31.0-35.0) g/dl RDW 15.0 (11.0-16.0) % Plt Count 143 L (160-400) X10*3/uL MPV 9.6 (9.4-12.3) fL Immature Gran % (Auto) 0.2 (0.0-0.4) % Neut % (Auto) 72.4 (45-73) % Lymph % (Auto) 19.0 L (20-40) % [place] % (Auto) 5.8 (2-11) % Eos % (Auto) 0.7 (0-4) % Baso % (Auto) 1.9 (0-2) % Lymph # (Auto) 0.8 L (1.2-4.9) X10*3/uL [place] # (Auto) 0.2 (0.1-1.2) X10*3/uL Eos # (Auto) 0.0 (0.0-0.4) X10*3/uL Baso # (Auto) 0.1 (0.0-0.2) X10*3/uL Abs Immat Gran (auto) 0.01 (0.00-0.03) X10*3/uL Absolute Neuts (auto) 3.0 (2.0-8.3) x10*3/uL Absolute Nucleated RBC 0.000 (0.0-0.012) X10*3/uL Nucleated RBC % (auto) 0.0 (0.0-0.2) /100WBC Sodium 145 (135-145) mmol/L Potassium 4.0 D (3.3-5.1) mmol/L Chloride 102 (96-108) mmol/L Carbon Dioxide 23 (22-29) mmol/L Anion Gap 24 H (12-20) BUN 8 L (9-16) mg/dL Creatinine 0.63 (0.5-1.4) mg/dL Estim Creat Clear Calc 96.7 Estimated GFR > 60 Random Glucose 78 (60-115) mg/dL Calcium 9.7 (8.4-10.2) mg/dL Total Bilirubin 0.7 (0.0-1.0) mg/dL AST 216 H (5-31) U/L ALT 95 H (0-31) U/L Alkaline Phosphatase 99 (39-117) U/L Total Protein 8.6 H (6.5-8.0) g/dL Albumin 5.0 (3.5-5.0) g/dL Beta HCG, Quant < 2 mIU/mL Urine Color Yellow Urine Appearance Clear Urine pH 6.5 (5.0-9.0) Ur Specific [place] <= 1.005 (1.005-1.025) Urine Protein 100 (2+) H (Neg-Trace) mg/dL Urine Glucose (UA) Negative (Negative) mg/dL Urine Ketones Negative (Negative) mg/dL Urine Blood Large (3+) H (Negative) Urine Nitrite Negative (Negative) Ur Leukocyte Esterase Trace H (Negative) Urine RBC 11-20 H (0-2) /HPF Urine WBC 0-5 (0-5) /HPF Ur Squamous Epith Cells 3-5 (0-2) /HPF Urine Bacteria None Seen (None Seen) Hyaline Casts 0-2 (0-2) /LPF Urine Test NEGATIVE (NEGATIVE) Ethyl Alcohol 390 H* mg/dL Independent Interpretation I performed an independent interpretation of an: CT Scan Radiology Impression Discussion of test interpretation with radiology: I have reviewed the radiologist's reading. Independent Historian Clinical information obtained from an independent historian. History obtained from or confirmed by: EMS External Record Review External record reviewed: Other (Prior ED visits) Discharge Plan Discharge Clinical Impression: Contusion, Calculi, ureter, UTI (urinary tract infection), Alcohol abuse Patient Disposition: Home, Self-Care Instructions: Urinary Tract Infection in Women (ED), Abuse of Alcohol (ED), Contusion in Adults (ED), Ureteral Stones (ED) Additional Instructions: return to ED immediately for any headache, dizziness, nausea, vomiting, abdominal pain, fever, chills, dysuria, hematuria, rectal bleeding, vomiting blood, coughing up blood, tremors, suicidal, homicidal, or any other concerning symptoms. Please follow-up with primary care provider. Prescriptions: New cephalexin 500 mg capsule 500 mg PO QID 7 Days Qty: 28 0RF tamsulosin [Flomax] 0.4 mg capsule 0.4 mg PO DAILY 7 Days Qty: 7 0RF naproxen 500 mg tablet 500 mg PO BID PRN (Reason: pain) 7 Days Qty: 14 0RF No Action hydroxyzine HCl 25 mg tablet 25 mg PO Q8H PRN (Reason: anxiety) Qty: 20 0RF Referrals: [facility] [Provider Group] (Left Uretal stone) Interventions: ED Discharge Assessment Last Done: 06/13/23 19:13 Discharge Date/Time: 06/13/23 19:14 Print Language: Hungarian
== END 2023-06-13 19:14 | disposition home or self-care (01) ==
PROVIDERS: Physician Assistant; Emergency Provider Student in an Organized Health Care Education/Training Program
DX: S20.212A Contusion of left front wall of thorax, initial encounter (principal); S79.912A Unspecified injury of left hip, initial encounter; F10.129 Alcohol abuse with intoxication, unspecified; N39.0 Urinary tract infection, site not specified; N20.1 Calculus of ureter; R10.2 Pelvic and perineal pain; M54.2 Cervicalgia; R51.9 Headache, unspecified; Y90.8 Blood alcohol level of 240 mg/100 ml or more; W10.9XXA Fall (on) (from) unspecified stairs and steps, initial encounter; Y93.9 Activity, unspecified; Y92.9 Unspecified place or not applicable; Y99.9 Unspecified external cause status; Z79.899 Other long term (current) drug therapy
CPT/HCPCS: 36415; 70450; 71260; 72125; 74177; 80053; 80307; 81001; 81025; 84702; 85025; 99284; Q9967

== ENCOUNTER 2023-07-02 22:28 | Emergency (ER) | payer OTHER, SELFPAY ==
--- NOTE | ~2023-07-02 | CT_ITS ---
EXAMINATION: CT head/brain wo IV con CLINICAL INFORMATION: Reason for Exam trauma COMPARISON: CT head without contrast 06/13/2023 TECHNIQUE: Contiguous axial imaging was performed from the skull base to vertex without intravenous contrast. Sagittal and coronal reformatted images were obtained. This CT examination was performed using dose optimization techniques as appropriate, variously including the following: * Automated exposure control * Adjustment of mA and/or kV according to patient size (this includes techniques or standardized protocols for targeted exams where dose is matched to indication/reason for exam; i.e. extremities or head) Use of iterative reconstruction technique DLP: 484 mGy-cm FINDINGS: No acute osseous or soft tissue abnormality. The mastoid air cells and visualized portions of the paranasal sinuses are well aerated. There is no evidence of acute intracranial hemorrhage or territorial infarction. No abnormal mass effect or midline shift is seen. Slaughter to white matter differentiation is well preserved. No extra-axial fluid collections are identified. No hydrocephalus. No significant volume loss. There is no abnormal attenuation within the brain parenchyma. CT/CT head/brain wo IV con IMPRESSION: No acute intracranial abnormality including hemorrhage, mass effect, hydrocephalus, or acute territorial edematous infarction.
[2023-07-02 22:29] VITALS: BP 147/99; PULSE 110; O2SAT 98
[2023-07-02 22:33] VITALS: BP 151/102; PULSE 108; RESP 18; TEMP 36.4; O2SAT 98
[2023-07-02 22:38] VITALS: BMI 16.9
--- NOTE | 2023-07-02 23:37 | ED_ITS ---
HPI - General Adult General Chief complaint: Fall Stated complaint: Lac to forehead due to fall, etoh, per ems Time Seen by Provider: 07/02/23 23:29 Source: patient, RN notes reviewed and old records reviewed Mode of arrival: EMS Limitations: no limitations History of Present Illness HPI narrative: 27-year-old female presents for evaluation after a fall. Patient was at home. She states that her dog walked behind her she did not see the dog pain She tripped and fell backwards into a glass TV stand she complains of right-sided headache and the small laceration she denies loss of consciousness she reports that she felt somewhat dizzy after the fall intermittently denies visual changes, nausea vomiting EMS reported suspected alcohol use tonight Related Data Previous Rx's Medication Instructions Recorded hydroxyzine HCl 25 mg tablet 25 mg PO Q8H PRN anxiety #20 tabs 04/09/23 cephalexin 500 mg capsule 500 mg PO QID 7 days #28 caps 06/13/23 naproxen 500 mg tablet 500 mg PO BID PRN pain 7 days #14 06/13/23 tabs tamsulosin 0.4 mg capsule (Flomax) 0.4 mg PO DAILY 7 days #7 caps 06/13/23 Allergies Allergy/AdvReac Type Severity Reaction Status Date / Time kiwi Allergy Hives Verified 09/29/21 00:49 Review of Systems Constitutional: Constitutional: Denies frequent falls and Reports headache(s) Eyes: Eyes: Denies blurry vision ENT: Reports headache(s) Cardiovascular: Cardiovascular: Denies chest pain, Denies syncope and Denies dyspnea Respiratory: Respiratory: Denies cough and Denies dyspnea Musculoskeletal: Musculoskeletal: Denies back pain Integumentary/Breasts: Skin/Breast: Reports wounds Neurologic: Denies syncope, Denies frequent falls, Reports headache(s) and Denies focal weakness [facility] Past Medical History Medical History (Updated 07/03/23 @ 00:20 by Emerson Enrique) Alcohol abuse Kidney stones Social History Social History Alcohol intake: current Alcohol intake frequency: 0-2 drinks per day Alcohol type: hard liquor Patient Tobacco Use Status: Never used Tobacco Smoked in Last 30 Days: Yes Use of substances other than those prescribed or required for medical reasons: Yes Substance Use Type: Marijuana Advance Directives: No Advance Directives Information Provided: No Patient : No Physical Exam ED Vital Signs: Vital Signs - 24 hr 07/02/23 22:33 Temperature 97.6 F Pulse Rate 108 H Respiratory Rate 18 Blood Pressure 151/102 H Pulse Oximetry 98 Oxygen Delivery Method Room Air BMI result Body Mass Index 16.9 Const General: healthy appearing, comfortable, no acute distress, alert and awake Nutritional Appearance: well nourished Orientation/consciousness: patient oriented x3 HENMT Other: patient has a 1 cm linear full-thickness laceration to the right side of the samaritan region. small subcutaneous hematoma to the right parietal region no open wound to this area Head: No normal to inspection and No atraumatic Eyes Eyelids: Yes eyelids normal Conjunctivae: conjunctivae normal Sclerae: sclerae normal Corneas: corneas normal Pupils: Equal, round and reactive pupils present EOM: EOMs intact bilaterally Neck Neck: Yes full ROM Resp Effort & Inspection: normal respiratory effort, able to speak in complete sentences and not labored Back/Spine/Pelvis Cervical Spine: No Cervical spine tenderness Skin General skin exam: elasticity normal Neuro General: patient oriented x3 Cranial nerves: Yes CN's II-XII intact bilaterally, Yes Equal, round and reactive pupils present and Yes Bilaterally intact EOM present Cognition (Neuro): normal cognition Extrem Other: Moving all extremities well without any obvious deformities Course Reevaluation(s) Reevaluation #1: patient admit that she is not , had negative test recently h as not been sexually active and is on control. She declines serum hCG cannot body and sample. She understands the risks of radiation from CT scan imaging if she were and would like to proceed with CT scan imaging as time regardless. Time: 23:45 Procedures Laceration Laceration 1: Site: face ( right temporal) Side (If applicable): right Size (cm): 1 Description: linear Depth: simple, single layer Local Anesthetic: lidocaine 1% and with epi Amount of anesthesia used (mL): 1 Pre-repair: wound explored and irrigated extensively Skin layer closed with: nylon Size (cm): 6-0 Number of sutures: 2 Technique: simple, interrupted Medical Decision Making Medical Decision Making MDM Narrative: 27-year-old female presents for evaluation after a fall. She has a small laceration that will require closure. She declines tetanus booster. We will CT scan the brain but awaiting U preg at this time. Differential Diagnosis Differential Diagnoses: The differential diagnosis associated with the presentation includes mechanical fall Syncope Alcohol intoxication Laceration Intracranial hemorrhage Independent Interpretation I performed an independent interpretation of an: CT Scan ( No acute intracranial hemorrhage) Radiology Impression Discussion of test interpretation with radiology: I have reviewed the radiologist's reading. ( no acute intracranial abnormality including hemorrhage mass effect hydrocephalus or territorial edematous infarction) Discharge Plan Discharge Clinical Impression: Facial laceration Patient Disposition: Home, Self-Care Instructions: Laceration (ED) Additional Instructions: Your CT scan did not show any traumatic injuries. You had 2 sutures placed today that can be removed in 5-7 days. Keep the area clean and dry in the meantime. You may apply topical antibiotic Prescriptions: No Action hydroxyzine HCl 25 mg tablet 25 mg PO Q8H PRN (Reason: anxiety) Qty: 20 0RF cephalexin 500 mg capsule 500 mg PO QID 7 Days Qty: 28 0RF tamsulosin [Flomax] 0.4 mg capsule 0.4 mg PO DAILY 7 Days Qty: 7 0RF naproxen 500 mg tablet 500 mg PO BID PRN (Reason: pain) 7 Days Qty: 14 0RF
[2023-07-03] MEDS: Lidocaine HCl 1%/Epi 1:100,000 10 ML VIAL INFILTRATI (00:35)
== END 2023-07-03 00:30 | disposition home or self-care (01) ==
PROVIDERS: Emergency Provider Internal Medicine
DX: S01.81XA Laceration without foreign body of other part of head, initial encounter (principal); R51.9 Headache, unspecified; W01.190A Fall on same level from slipping, tripping and stumbling with subsequent striking against furniture, initial encounter; Y93.9 Activity, unspecified; Y92.9 Unspecified place or not applicable; Y99.9 Unspecified external cause status; Z79.899 Other long term (current) drug therapy
CPT/HCPCS: 12011; 70450; 99284

== ENCOUNTER 2023-07-16 22:44 | Inpatient (IN) | payer OTHER, SELFPAY ==
--- NOTE | 2023-07-16 | ECG_ITS ---
Test Reason : HR ELEVATED Blood Pressure : / mmHG Vent. Rate : 125 BPM Atrial Rate : 125 BPM P-R Int : 128 ms QRS Dur : 080 ms QT Int : 358 ms P-R-T Axes : 072 080 -19 degrees QTc Int : [address] & T wave abnormality, consider inferior ischemia Abnormal ECG No previous ECGs available Referred By: Generic ED Physician Electronically Signed By:OLIVE HAGEN MD
--- NOTE | ~2023-07-16 | CT_ITS ---
EXAMINATION: CT ABDOMEN AND PELVIS WITH CONTRAST CLINICAL INFORMATION: Pancreatitis COMPARISON: CT abdomen pelvis 06/13/2023. TECHNIQUE: Multidetector volumetric images were obtained from the superior aspect of the liver through the pubic symphysis following administration 85 mL of Omnipaque 350 intravenous contrast. Sagittal and coronal reformatted images were obtained on the technologist's workstation. Oral contrast: No This CT examination was performed using dose optimization techniques as appropriate, variously including the following: *Automated exposure control *Adjustment of mA and/or kV according to patient size (this includes techniques or standardized protocols for targeted exams where dose is matched to indication/reason for exam; i.e. extremities or head) *Use of iterative reconstruction technique DLP: 270 mGy-cm FINDINGS: LUNG BASES: Unremarkable. LIVER AND BILIARY TREE: Hepatomegaly with liver spanning 20 cm in craniocaudal dimension. Redemonstrated marked diffuse hepatic steatosis. GALLBLADDER: Unremarkable. PANCREAS: Equivocal hazy fat stranding about the pancreatic uncinate process/mesenteric root (series 3, image 27). Otherwise unremarkable. SPLEEN: Unremarkable. ADRENAL GLANDS: Unremarkable. KIDNEYS AND URETERS: Unchanged punctate, 3 mm nonobstructing interpolar left renal calculus. Previously identified proximal left ureteral calculus no longer visualized. GASTROINTESTINAL TRACT: Unremarkable. Normal appendix. VASCULAR: Unremarkable LYMPH NODES: No lymphadenopathy. PERITONEUM: No ascites. BLADDER: Unremarkable. PELVIC VISCERA: Unremarkable. ABDOMINAL AND PELVIC WALL: Unremarkable. OSSEOUS STRUCTURES: Unremarkable. CT/CT abdomen pelvis w IV con IMPRESSION: 1. Minimal hazy fat stranding about the pancreatic uncinate process/mesenteric root, nonspecific but can be seen in the setting of uncomplicated interstitial edematous pancreatitis. Correlate with serum lipase. 2. Hepatomegaly and marked diffuse hepatic steatosis. 3. Unchanged punctate, 3 mm nonobstructing interpolar left renal calculus. Previously identified proximal left ureteral calculus no longer visualized.
[2023-07-16 23:15] VITALS: BP 140/92; PULSE 146; RESP 20; TEMP 36.1; O2SAT 98; BMI 16.8
[2023-07-16] MEDS: Ondansetron ODT 4 MG TAB.RAPDIS TRANSLINGU (23:26)
--- NOTE | 2023-07-16 23:36 | MHC.EDTECH ---
Patient brought back to ED 22,Patient was changed into hospital attire and placed on the sampler and test preparer,EKG taken per order and report given to tech
[2023-07-16 23:39] VITALS: BP 140/105; PULSE 139; RESP 26; O2SAT 97
[2023-07-16 23:47] LABS: Hematocrit 43.7 % (37.0-47.0); Mean Corpuscular HGB Conc 34.3 g/dl (31.0-35.0); Mean Corpuscular Hemoglobin 31.8 pg (27.0-33.0); Mean Corpuscular Volume 92.8 fL (80.0-98.0); Mean Platelet Volume 10.3 fL (9.4-12.3); Platelet Count 173 X10*3/uL (160-400); Red Blood Count 4.71 X10*6/uL (4.20-5.50); Red Cell Distribution Width 13.3 % (11.0-16.0); White Blood Count 5.6 X10*3/uL (4.8-10.8)
--- NOTE | 2023-07-16 23:51 | PC.NURSE ---
this rn assumed care of pt @ 2340 from waiting room. iv line placed in R AC 20 g bloodwork obtained and sent down to lab. pt awaiting to be seen by ed provider
--- NOTE | 2023-07-16 23:51 | ED.GENADULT ---
HPI - General Adult General Chief complaint: General Medical Stated complaint: alcohol withdrawal Time Seen by Provider: 07/16/23 23:51 History of Present Illness HPI narrative: Patient has a long history of alcoholism. She has not been feeling well over the last several days and has therefore not been drinking. She has been vomiting. She feels that she is in alcohol withdrawal. She says that her last regular alcohol use was about 1 week ago. She does not think she has had a fever. She has epigastric discomfort. Related Data Previous Rx's Medication Instructions Recorded hydroxyzine HCl 25 mg tablet 25 mg PO Q8H PRN anxiety #20 tabs 04/09/23 cephalexin 500 mg capsule 500 mg PO QID 7 days #28 caps 06/13/23 naproxen 500 mg tablet 500 mg PO BID PRN pain 7 days #14 06/13/23 tabs tamsulosin 0.4 mg capsule (Flomax) 0.4 mg PO DAILY 7 days #7 caps 06/13/23 Allergies Allergy/AdvReac Type Severity Reaction Status Date / Time kiwi Allergy Hives Verified 07/16/23 23:19 Review of Systems Review of Systems: Yes all other systems are reviewed and are negative [facility] Past Medical History Medical History (Updated 07/17/23 @ 04:19 by Vinh Garrido MD) Alcohol abuse Kidney stones Social History Social History Alcohol intake: current Alcohol intake frequency: 0-2 drinks per day Alcohol type: hard liquor Patient Tobacco Use Status: Never used Tobacco Substance Use Type: Marijuana Advance Directives: No Advance Directives Information Provided: Yes Physical Exam ED Vital Signs: Vital Signs - 24 hr 07/16/23 23:15 07/16/23 23:39 07/17/23 00:29 Temperature 97.0 F Pulse Rate 146 H 139 H 166 H Respiratory Rate 20 26 H Blood Pressure 140/92 H 140/105 H Pulse Oximetry 98 97 Oxygen Delivery Method Room Air Room Air 07/17/23 02:58 Temperature 98.3 F Pulse Rate 113 H Respiratory Rate 18 Blood Pressure 137/96 H Pulse Oximetry 99 Oxygen Delivery Method Room Air BMI result Body Mass Index 16.8 Const Other: Patient is a very cachectic 27-year-old. She is awake and alert. Her mental status seems clear but she looks as if he feels very unwell. She was retching occasionally. HENMT Other: There is some slight bruising to the skin around the right eye. No soft tissue swelling. Mucous membranes are dry. Eyes Other: Pupils are round equal reactive to light. Neck Other: No neck swelling. Moving her neck easily. Resp Other: Lungs are clear bilaterally. Some mild increased respiratory effort. Cardio Other: Patient is tachycardic. She has a regular rate and rhythm with no murmur. GI Other: The abdomen is flat soft. She has epigastric tenderness. Skin Other: The skin is pale and dry. Neuro Other: The patient looks weak and worn out but is awake and coherent. Face is symmetrical. Speech is clear. She moves her extremities symmetrically. No focal finding. No encephalopathy. Extrem Other: No peripheral edema Medications Administered Discontinued Medications Generic Name Dose Route Start Last Admin Trade Name Freq PRN Reason Stop Dose Admin Diphenhydramine HCl 25 mg 07/17/23 02:25 07/17/23 02:32 Diphenhydramine Hcl 50 Mg/Ml Vial IVPUSH 07/17/23 02:26 25 mg ONCE ONE Administration Sodium Chloride 1,000 mls @ 999 mls/hr 07/16/23 23:45 07/17/23 02:14 Ns IV 07/17/23 00:45 Infused .Q1H1M NGHIA Infusion Magnesium Sulfate 2 gm in 50 mls @ 25 mls/hr 07/17/23 00:30 07/17/23 02:47 Magnesium Sulfate/H2o IV 07/17/23 02:29 Infused ONCE ONE Infusion Dextrose/Sodium Chloride 1,000 mls @ 999 mls/hr 07/17/23 00:41 07/17/23 02:15 D5ns IVCONT 07/17/23 01:41 Infused .Q1H1M STA Infusion Thiamine HCl 100 mg/ Sodium 101 mls @ 202 mls/hr 07/17/23 02:07 07/17/23 03:20 Chloride IV 07/17/23 02:36 Infused ONCE ONE Infusion Sodium Chloride 1,000 mls @ 999 mls/hr 07/17/23 02:30 07/17/23 03:49 Ns IV 07/17/23 03:30 Infused .Q1H1M NGHIA Infusion Ondansetron HCl 4 mg 07/16/23 23:21 07/16/23 23:26 Ondansetron Odt 4 Mg Tab.Williammedardo TRANSLINGU 07/16/23 23:22 4 mg ONCE ONE Administration Phenobarbital Sodium 213 mg 07/17/23 00:30 07/17/23 00:31 Phenobarbital Sodium 130 Mg/Ml Im Once IM 07/17/23 00:31 213 mg ONCE ONE Administration Medical Decision Making Medical Decision Making [facility] Narrative: Patient is a 27-year-old female with a long history of alcoholism presents with vomiting and tachycardia. She says that she has been drinking much less than usual over the last week. Given this history and her clinical presentation and given her laboratory findings of a severe anion gap metabolic acidosis I think she most likely has alcoholic ketoacidosis. She was therefore given D5 normal saline in addition to other crystalloid fluids. Her initial EKG showed a prolonged QTC. She had been given magnesium empirically prior to her lab results. With hydration her tachycardia improved slightly. Additionally a repeat EKG showed Lab Data [facility] Lab Attestation statement: I reviewed the patient's lab results. 07/16/23 23:41 07/17/23 03:04 Labs: Lab Results 07/16/23 07/17/23 07/17/23 Range/Units 23:41 01:11 03:04 WBC 5.6 (4.8-10.8) X10*3/uL RBC 4.71 (4.20-5.50) X10*6/uL Hgb 15.0 (12.0-16.0) g/dl Hct 43.7 (37.0-47.0) % MCV 92.8 (80.0-98.0) fL MCH 31.8 (27.0-33.0) pg MCHC 34.3 (31.0-35.0) g/dl RDW 13.3 (11.0-16.0) % Plt Count 173 (160-400) X10*3/uL MPV 10.3 (9.4-12.3) fL Absolute Nucleated RBC 0.000 (0.0-0.012) X10*3/uL Nucleated RBC % (auto) 0.0 (0.0-0.2) /100WBC VBG pH 7.16 L* (7.32-7.43) VBG pCO2 21 mmHg VBG pO2 68 mmHg VBG HCO3 8 L (22-26) mmol/L VBG O2 Saturation 85.0 % VBG Base Excess -18.2 mmol/L Sodium 138 137 (135-145) mmol/L Potassium 4.0 4.1 (3.3-5.1) mmol/L Chloride 96 106 (96-108) mmol/L Carbon Dioxide 7 L* D < 5 L* D (22-29) mmol/L Anion Gap 40 H Not Reportable (12-20) BUN 11 8 L (9-16) mg/dL Creatinine 0.75 0.74 (0.5-1.4) mg/dL Estim Creat Clear Calc 78.3 79.4 Estimated GFR > 60 > 60 Random Glucose 120 H 297 H (60-115) mg/dL Calcium 9.3 6.8 L D (8.4-10.2) mg/dL Phosphorus 2.1 L (2.7-4.5) mg/dL Magnesium 2.1 (1.6-2.6) mg/dL Total Bilirubin 0.7 (0.0-1.0) mg/dL AST 324 H (5-31) U/L ALT 140 H (0-31) U/L Alkaline Phosphatase 140 H (39-117) U/L Total Protein 9.2 H (6.5-8.0) g/dL Albumin 5.0 (3.5-5.0) g/dL Lipase 105 H 148 H (8-78) U/L Beta-Hydroxybutyrate 14.51 H (0.02-0.27) mmol/L Beta HCG, Quant < 2 mIU/mL Urine Color Yellow Urine Appearance Clear Urine pH 6.0 (5.0-9.0) Ur Specific [place] 1.015 (1.005-1.025) Urine Protein 300 (3+) H (Neg-Trace) mg/dL Urine Glucose (UA) >=1000 H (Negative) mg/dL Urine Ketones 80 (Negative) mg/dL Urine Blood Small (1+) H (Negative) Urine Nitrite Negative (Negative) Ur Leukocyte Esterase Negative (Negative) Urine RBC 3-5 H (0-2) /HPF Urine WBC 0-5 (0-5) /HPF Ur Squamous Epith Cells 0-2 (0-2) /HPF Urine Bacteria None Seen (None Seen) Hyaline Casts 3-5 (0-2) /LPF Urine Opiates Screen Not Detected (Not Detect) Urine Fentanyl Screen Not Detected (Not Detect) Ur Barbiturates Screen POSITIVE H (Not Detect) Ur Phencyclidine Scrn Not Detected (Not Detect) Ur Amphetamines Screen Not Detected (Not Detect) U Benzodiazepines Scrn Not Detected (Not Detect) Urine Cocaine Screen Not Detected (Not Detect) U Marijuana (THC) Screen POSITIVE H (Not Detect) Ethyl Alcohol 229 mg/dL 07/17/23 Range/Units 03:11 WBC (4.8-10.8) X10*3/uL RBC (4.20-5.50) X10*6/uL Hgb (12.0-16.0) g/dl Hct (37.0-47.0) % MCV (80.0-98.0) fL MCH (27.0-33.0) pg MCHC (31.0-35.0) g/dl RDW (11.0-16.0) % Plt Count (160-400) X10*3/uL MPV (9.4-12.3) fL Absolute Nucleated RBC (0.0-0.012) X10*3/uL Nucleated RBC % (auto) (0.0-0.2) /100WBC VBG pH 7.21 L (7.32-7.43) VBG pCO2 16 mmHg VBG pO2 191 mmHg VBG HCO3 6 L (22-26) mmol/L VBG O2 Saturation 99.0 % VBG Base Excess -18.6 mmol/L Sodium (135-145) mmol/L Potassium (3.3-5.1) mmol/L Chloride (96-108) mmol/L Carbon Dioxide (22-29) mmol/L Anion Gap (12-20) BUN (9-16) mg/dL Creatinine (0.5-1.4) mg/dL Estim Creat Clear Calc Estimated GFR Random Glucose (60-115) mg/dL Calcium (8.4-10.2) mg/dL Phosphorus (2.7-4.5) mg/dL Magnesium (1.6-2.6) mg/dL Total Bilirubin (0.0-1.0) mg/dL AST (5-31) U/L ALT (0-31) U/L Alkaline Phosphatase (39-117) U/L Total Protein (6.5-8.0) g/dL Albumin (3.5-5.0) g/dL Lipase (8-78) U/L Beta-Hydroxybutyrate (0.02-0.27) mmol/L Beta HCG, Quant mIU/mL Urine Color Urine Appearance Urine pH (5.0-9.0) Ur Specific [place] (1.005-1.025) Urine Protein (Neg-Trace) mg/dL Urine Glucose (UA) (Negative) mg/dL Urine Ketones (Negative) mg/dL Urine Blood (Negative) Urine Nitrite (Negative) Ur Leukocyte Esterase (Negative) Urine RBC (0-2) /HPF Urine WBC (0-5) /HPF Ur Squamous Epith Cells (0-2) /HPF Urine Bacteria (None Seen) Hyaline Casts (0-2) /LPF Urine Opiates Screen (Not Detect) Urine Fentanyl Screen (Not Detect) Ur Barbiturates Screen (Not Detect) Ur Phencyclidine Scrn (Not Detect) Ur Amphetamines Screen (Not Detect) U Benzodiazepines Scrn (Not Detect) Urine Cocaine Screen (Not Detect) U Marijuana (THC) Screen (Not Detect) Ethyl Alcohol mg/dL ABG Data ABG Results: Patient's venous blood gas showed a pH of 7.16 with a pCO2 of 21 Attestation ABG: I personally reviewed and interpreted this ABG as follows: Interpretation: Significant metabolic acidosis Independent Interpretation I performed an independent interpretation of an: EKG Interpretation: Initial EKG showed sinus tachycardia at 125 beats per minute. QTC was 516 A repeat EKG shows sinus tachycardia 133 beats per minute with a QTc of 452. Critical Care Time Critical Care Time Critical Care Time: Yes Total Critical Care Time: 35 Attestation: The patient was critically ill with a high probability of imminent or life-threatening deterioration. I spent greater than 30 minutes of discontinuous time evaluating the patient, delivering critical care at the bedside, discussing evaluating data with consultants. Critical care time does not include time spent performing separately billable procedures or teaching. Time spent performing critical care with 35 minutes. Discharge Plan Discharge Prescriptions: No Action hydroxyzine HCl 25 mg tablet 25 mg PO Q8H PRN (Reason: anxiety) Qty: 20 0RF cephalexin 500 mg capsule 500 mg PO QID 7 Days Qty: 28 0RF tamsulosin [Flomax] 0.4 mg capsule 0.4 mg PO DAILY 7 Days Qty: 7 0RF naproxen 500 mg tablet 500 mg PO BID PRN (Reason: pain) 7 Days Qty: 14 0RF
[2023-07-17] VITALS (22 sets, daily range): BP systolic 128–159; BP diastolic 86–117; PULSE 85–166; RESP 13–24; TEMP 36.8–38; O2SAT 96–100
[2023-07-17] MEDS: 0.9 % Sodium Chloride 1,000 ML 999 ML IV ×2 (00:18→02:33)
[2023-07-17] MEDS: PHENobarbitaL sodium 130 MG/ML IM ONCE 213 MG IM (00:31)
[2023-07-17] MEDS: Magnesium Sulfate/H2O 2 GM/50 ML PIGGYBACK IV ×2 (00:35→20:57)
[2023-07-17 00:41] LABS: Alanine Aminotransferase 140 U/L (0-31); Alkaline Phosphatase 140 U/L (39-117); Anion Gap 40 (12-20); Aspartate Amino Transferase 324 U/L (5-31); Bilirubin Total 0.7 mg/dL (0.0-1.0); Blood Urea Nitrogen 11 mg/dL (9-16); Calcium 9.3 mg/dL (8.4-10.2); Carbon Dioxide 7 mmol/L (22-29); Chloride 96 mmol/L (96-108); Creatinine Clr Calc Pharmacy 78.3; Estimated Glomerular Filt Rate > 60; Ethanol 229 mg/dL; Glucose Random 120 mg/dL (60-115); HCG Quantitative < 2 mIU/mL; Lipase 105 U/L (8-78); Magnesium 2.1 mg/dL (1.6-2.6); Sodium 138 mmol/L (135-145); Total Protein 9.2 g/dL (6.5-8.0)
--- NOTE | 2023-07-17 00:42 | PC.NURSE ---
HR seen to be [address] gallardo and rn to bedside dr gallardo orders placed for iv magnesium. pt medicated according to mar
[2023-07-17] MEDS: Dextrose 5 % and 0.9 % NaCl 1,000 ML 999 ML IVCONT (01:09)
[2023-07-17 01:17] LABS: VBG Base Excess -18.2 mmol/L; VBG HCO3 8 mmol/L (22-26); VBG pCO2 21 mmHg; VBG pH 7.16 (7.32-7.43); VBG pO2 68 mmHg
[2023-07-17 01:18] LABS: Venous Blood Gas Refer to POC result
[2023-07-17 01:35] LABS: Beta-Hydroxybutyrate 14.51 mmol/L (0.02-0.27)
--- NOTE | 2023-07-17 02:24 | ECG_ITS ---
Test Reason : WITHDRAWS Blood Pressure : / mmHG Vent. Rate : 133 BPM Atrial Rate : 133 BPM P-R Int : 126 ms QRS Dur : 078 ms QT Int : 304 ms P-R-T Axes : 070 078 -24 degrees QTc Int : [address] & T wave abnormality, consider inferior ischemia Abnormal ECG When compared with ECG of 16-JUL-2023 23:31, No significant change was found Referred By: Vinh aGrrido Electronically Signed By:OLIVE HAGEN MD
[2023-07-17] MEDS: diphenhydrAMINE HCL 50 MG/ML VIAL 25 MG IVPUSH (02:32)
[2023-07-17] MEDS: Thiamine HCL 100 MG in 0.9 % Sodium Chloride 100 ML 202 MG IV (02:32)
--- NOTE | 2023-07-17 03:01 | MHC.EDTECH ---
This tech assumed care of patient at 0300AM hourly rounds and vitals completed, repeat labs drawn and a urine was obtained and sent to lab.
[2023-07-17 03:13] LABS: Appearance Urine Clear; Color Urine Yellow; Glucose Urine UA >=1000 mg/dL (Negative); Leukocyte Esterase Urine Negative (Negative); Nitrite Urine Negative (Negative); Specific Gravity - Urine 1.015 (1.005-1.025); UMIC TRIGGER UACC YES; Urine Blood Small (1+) (Negative); Urine Ketones 80 mg/dL (Negative); Urine Protein 300 (3+) mg/dL (Neg-Trace)
--- NOTE | 2023-07-17 03:15 | PC.NURSE ---
this rn made dr gallardo aware of ciwa of 11. awaiting new orders
[2023-07-17 03:16] LABS: Venous Blood Gas Refer to POC result
[2023-07-17 03:19] LABS: VBG Base Excess -18.6 mmol/L; VBG HCO3 6 mmol/L (22-26); VBG pCO2 16 mmHg; VBG pH 7.21 (7.32-7.43); VBG pO2 191 mmHg
[2023-07-17 03:21] LABS: Bacteria Urine None Seen (None Seen); Squamous Epithelial Cell Urine 0-2 /HPF (0-2); WBC Urine 0-5 /HPF (0-5)
[2023-07-17 03:23] LABS: Amphetamine Screen Urine Not Detected (Not Detect); Barbiturates, Urine POSITIVE (Not Detect); Benzodiazepines Screen Urine Not Detected (Not Detect); Cannabinoid Screen Urine POSITIVE (Not Detect); Cocaine Screen Urine Not Detected (Not Detect); Fentanyl, urine Not Detected (Not Detect); Opiate Screen Urine Not Detected (Not Detect); Phencyclidine Screen Urine Not Detected (Not Detect)
[2023-07-17 03:49] LABS: Blood Urea Nitrogen 8 mg/dL (9-16); Calcium 6.8 mg/dL (8.4-10.2); Carbon Dioxide < 5 mmol/L (22-29); Chloride 106 mmol/L (96-108); Creatinine Clr Calc Pharmacy 79.4; Estimated Glomerular Filt Rate > 60; Glucose Random 297 mg/dL (60-115); Lipase 148 U/L (8-78); Phosphorus 2.1 mg/dL (2.7-4.5); Potassium 4.1 mmol/L (3.3-5.1); Sodium 137 mmol/L (135-145)
[2023-07-17] MEDS: PHENobarbitaL sodium 130 MG/ML VIAL IM Q3Hx2 160 MG IM ×2 (04:08→08:21)
[2023-07-17] MEDS: droPERidol 5 MG/2 ML VIAL 0.625 MG IVPUSH (04:09)
--- NOTE | 2023-07-17 04:11 | PM.IMHP ---
History of Present Illness Date of Service: 07/17/23 Attending physician on admission: Mayur Jolley Chief Complaint: Alcohol withdrawal 27 year old white female who is an admitted alcoholic presents to the ED accompanied by her significant other for management of alcohol withdrawal. She reports drinking about half a pint of Vodka daily but then decided to stop drinking 3 days ago when she felt unwell and was urged to do so by her boyfriend. Since then, she has had persistent nausea and vomiting and has not been able to tolerate any oral intake since then. She also reports mild abdominal discomfort but denies any fevers, chills or diarrhea. Initial work up done in the ED was notable for HAGMA with a serum bicarbonate of 7, AG of 40, venous pH of 7.16, elevated BOH at 14.51, elevated serum lipase at 105 U/L and elevated liver enzymes with AST of 216 and ALT of 95. She was started on IV fluids and repeat lab work revealed critically low bicarbonate at <5. Although she denied drinking for 3 days, her serum ethanol was elevated at 229. Her urinalysis shows glucosuria, ketonuria and 300+ protenuria. Ner vitals are stable except for persistent tachycardia. Admission was requested for ongoing care. Review of Systems Review of Systems: 12 system review was comleted and is as noted above in the HPI. The rest of the system review was negative. [facility] Medical History (Updated 07/17/23 @ 06:00 by Mayur Jolley MD) Alcohol abuse Kidney stones Functional capacity: independent ambulation Patient : No Social History Alcohol intake: current Alcohol intake frequency: 0-2 drinks per day Alcohol type: hard liquor Patient Tobacco Use Status: Never used Tobacco Substance Use Type: Marijuana Advance Directives: No Advance Directives Information Provided: Yes Meds Allergies Allergy/AdvReac Type Severity Reaction Status Date / Time kiwi Allergy Hives Verified 07/16/23 23:19 Physical Exam Vital Signs and Narrative: Vital Signs: Last Vital Signs Temp 98.3 F 07/17/23 02:58 Pulse 113 H 07/17/23 02:58 Resp 18 07/17/23 02:58 BP 137/96 H 07/17/23 02:58 Pulse Ox 99 07/17/23 02:58 O2 Del Method Room Air 07/17/23 02:58 BMI result Body Mass Index 16.8 General: Ill appearing malnourished WF in bed in obvious discomfort and with keto breath. In no respiratory distress Eyes: No pallor or jaundice. CONG, EOMI HENT: Dry oral mucus membranes. Keto breath. No ally-pharyngeal lesions. Neck: Supple. No cervical adenopathy. No JVD Cardiovascular: Tachycardic but regular. Normal s1/s2. No murmurs, rubs or gallops. No JVD. No peripheral edema. Respiratory: Tachypneic. Not using accessory muscle use. CTAB. Gastrointestinal: Abdomen is scaphoid with mild epigastric discomfort. ND. NABS. No hepatosplenomegally Extremities: No edema. No calf tenderness. Good peripheral pulses Skin - Warm/Dry. No rashes. No motling. Capillary refill is < 2 seconds Neurological - AAOx4. Intact speech & cognition. gait & balance not tested. CN II - XII grossly intact but not individually tested. No motor or sensory deficits Hematologic: No bleeding. No ecchymosis. No swollen or tender lymph nodes. Psychiatric: Cooperative. Teary mood . Results Labs 07/16/23 23:41 07/17/23 03:04 Labs: Laboratory Results - last 24 hr 07/16/23 07/17/23 07/17/23 23:41 01:11 03:04 MCV 92.8 MCH 31.8 MCHC 34.3 RDW 13.3 Plt Count 173 MPV 10.3 Absolute Nucleated RBC 0.000 Nucleated RBC % (auto) 0.0 VBG pH 7.16 L* VBG pCO2 21 VBG pO2 68 VBG HCO3 8 L VBG O2 Saturation 85.0 VBG Base Excess -18.2 Anion Gap 40 H Not Reportable Estim Creat Clear Calc 78.3 79.4 Estimated GFR > 60 > 60 Random Glucose 120 H 297 H Calcium 9.3 6.8 L D Phosphorus 2.1 L Magnesium 2.1 Total Bilirubin 0.7 AST 324 H ALT 140 H Alkaline Phosphatase 140 H Total Protein 9.2 H Albumin 5.0 Lipase 105 H 148 H Beta-Hydroxybutyrate 14.51 H Beta HCG, Quant < 2 Urine Color Yellow Urine Appearance Clear Urine pH 6.0 Ur Specific [place] 1.015 Urine Protein 300 (3+) H Urine Glucose (UA) >=1000 H Urine Ketones 80 Urine Blood Small (1+) H Urine Nitrite Negative Ur Leukocyte Esterase Negative Urine RBC 3-5 H Urine WBC 0-5 Ur Squamous Epith Cells 0-2 Urine Bacteria None Seen Hyaline Casts 3-5 Urine Opiates Screen Not Detected Urine Fentanyl Screen Not Detected Ur Barbiturates Screen POSITIVE H Ur Phencyclidine Scrn Not Detected Ur Amphetamines Screen Not Detected U Benzodiazepines Scrn Not Detected Urine Cocaine Screen Not Detected U Marijuana (THC) Screen POSITIVE H Ethyl Alcohol 229 07/17/23 03:11 MCV MCH MCHC RDW Plt Count MPV Absolute Nucleated RBC Nucleated RBC % (auto) VBG pH 7.21 L VBG pCO2 16 VBG pO2 191 VBG HCO3 6 L VBG O2 Saturation 99.0 VBG Base Excess -18.6 Anion Gap Estim Creat Clear Calc Estimated GFR Random Glucose Calcium Phosphorus Magnesium Total Bilirubin AST ALT Alkaline Phosphatase Total Protein Albumin Lipase Beta-Hydroxybutyrate Beta HCG, Quant Urine Color Urine Appearance Urine pH Ur Specific [place] Urine Protein Urine Glucose (UA) Urine Ketones Urine Blood Urine Nitrite Ur Leukocyte Esterase Urine RBC Urine WBC Ur Squamous Epith Cells Urine Bacteria Hyaline Casts Urine Opiates Screen Urine Fentanyl Screen Ur Barbiturates Screen Ur Phencyclidine Scrn Ur Amphetamines Screen U Benzodiazepines Scrn Urine Cocaine Screen U Marijuana (THC) Screen Ethyl Alcohol ABG ABG results: Venous PH 7.16 => 7.21 ECG ECG interpretation date: 08/16/23 ECG interpretation time: 05:02 Prior ECG tracings: available for review Assessment and Plan (1) Alcoholic ketoacidosis: Status: Acute (2) DKA (diabetic ketoacidosis): Status: Acute (3) High anion gap metabolic acidosis: Status: Acute (4) Alcoholism: Status: Acute Plan 27 year old white female who is an admitted alcoholic here with Alcoholic Ketoacidosis DKA - she is an admitted alcoholic and here with HAGMA and elevated BOH and glucosuria with ketonemia - also with metabolic acidosis with venous pH of 7.16 - she has no h/o diabetes but presentation is concerning for new onset diabetes and possible alcoholic vs starvation ketosis - admit and continue IVF - consult ICU for possible transfer Alcohol abuse Alcohol withdrawal - she has a h/o alcoholism and states that she has not had alcohol for 3 days - however, her serum alcohol level is 220 and she has heto breath - it is likely that she is not withdrawing with such a high serum alcohol level and instead another pathology is driving her lab abnormalities - she was started on Phenobarbital which I will continue - start on CIWA - encourage sobriety Alcoholic pancreatitis - she has elevated serum lipase and also with abdominal pain - likely with alcoholic pancreatitis (vs gastritis) - admt and keep NPO (can have ice chips) Alcoholic hepatitis - noted with elevated AST and ALT - concerning for alcoholic hepatitis - encourage sobriety Hypocalcemia Hypophosphatemia - replete DVT: SC Lovenox CODE STATUS: Full code Admission for at least 2 midnights for management of DKA/alcoholic ketoacidosis [facility] Total time managing care of this patient today: 75 minutes. Quality Stroke Does the patient have a stroke diagnosis?: No VTE Prior VTE?: No VTE Risk Level:: Medical - moderate - high VTE Device Contraindication: N/A - Device Ordered VTE Drug Contraindication: N/A - Med Ordered
[2023-07-17 04:39] LABS: Glucose, Whole Blood 198 mg/dL (60-115)
[2023-07-17] MEDS: Lactated Ringers 1,000 ML 100 ML IVCONT (05:05)
[2023-07-17 05:17] LABS: ABG Base Excess -16.3 mmol/L; ABG HCO3 7 mmol/L (22-26); ABG pCO2 15 mmHg (32-45); ABG pH 7.28 (7.35-7.45); ABG pO2 125 mmHg (83-108)
[2023-07-17 05:22] LABS: ABG Refer to POC result
--- NOTE | 2023-07-17 05:34 | MHC.EDTECH ---
Belonging list completed and copy placed in chart,POC taken and is 173 RN Gerri aware.
[2023-07-17 05:43] LABS: Glucose, Whole Blood 173 mg/dL (60-115)
[2023-07-17] MEDS: Sodium Bicarbonate 8.4% 150 MEQ in Dextrose 5 % 850 ML 100 MEQ IV ×2 (05:53→16:22)
[2023-07-17] MEDS: Insulin Regular/NS 100 UNIT/100 ML PLAST..BAG IVCONT (05:59)
--- NOTE | 2023-07-17 06:03 | W.PM.CCCN ---
History of Present Illness Data of Consult Service Date: 07/17/23 Requesting physician: Mayur Jolley Primary Care Provider: Unknown Physician HPI Reason for consult: Metabolic Acidosis HPI: ?22-year-old female who has a history of alcoholism for several years and drinks half pt or a little over of [place] daily, whose last drink was 3 days ago, presents with her fiance who has been courage in her to stop drinking, patient also has a history of kidney stones with 2 surgical interventions for them, patient presented with complaints of generalized malaise, nausea, vomiting, inability to keep anything down which is unusual for her.? In addition she complains of mid abdominal discomfort which sometimes radiates towards the back, 03/25, sharp in nature, nothing makes it better, trying to drink anything makes it worse. Patient was seen emergency room were her workup showed no abnormal CBC, her chemistry however showed anion gap of 24 and subsequently of 40 with a BUN of 8 and creatinine of 0.63, blood glucose of 78, SAT 216, ALT 95, lipase 105, then 148 , beta hydroxybutyrate acid of 14.5, patient was given IV fluids, magnesium, started on phenobarbital for alcohol withdrawal and subsequently admitted to the hospitalist Service, while boarding in the emergency room, it was noted that the patient was significantly acidotic but they were not sure of the cause therefore this prompted the consult. Upon seeing the patient, she looks very uncomfortable, complaining of abdominal discomfort as above described, she is diaphoretic, nauseous, pale and shaky.? She is sexually active, last menstrual period 2 weeks ago, beta hCG is low.? Labs reviewed, no images available, it is clear to me that the patient is in significant secondary DKA likely new onset diabetic in the setting of alcoholism and pancreatic damage and has acute pancreatitis in addition to that, alcohol withdrawal, the patient will be admitted to the ICU for further care. ROS:? Unable to obtain Past Medical History:? As above Past Surgical History: Shockwave lithotripsy x2 Family history:? Father was type 2 diabetic Social History: ?Lives at home with her boyfriend, has been drinking daily for over 10 years, denies tobacco, denies drugs however her U tox is positive for barbiturates and marijuana, denies IV drug abuse. CODE STATUS: FULL CODE Allergies: NKDA Home Medications: See Med Rec PHYSICAL EXAM: VS: ?142/91, 120, 23, 99% room air, 98.4. ? General:? Alert oriented x3 shaky, diaphoretic, appears to be in pain, in mild distress..? Speaking full sentences.? Speech is well articulated, thought process is coherent.? Following all commands. Skin:? Intact, no lesions, edema, erythema, clubbing or cyanosis.? No ulcers. HEENT:? Head is normocephalic, atraumatic, pupils equal round reactive to light accommodation bilaterally.? Extraocular movements appear intact.? Buccal mucosa is moist, Neck is supple without lymphadenopathy. Cardiac:? Clear S1-S2, no murmurs rubs or gallops. Pulmonary:? Clear to auscultation, no wheezes, rales or rhonchi. Abdomen:? Flat, positive bowel sounds in all 4 quadrants.? Soft, tender in the epigastric area with involuntary guarding, no rebound. Musculoskeletal:? Moving all 4 extremities upon request a major joints, there is no crepitus or tenderness.? The strength is 5/5 bilaterally and throughout all 4 extremities.? There is no leg edema , no calf tenderness , no leg asymmetry.? Gait not assessed at this point. Neurologic:? As above, cranial nerves 2-12 are grossly intact.? No focal deficits noted. Vascular:? 2+ pulses upper and lower extremities distally. SIGNIFICANT LABORATORY DATA:? As above Most recent ABG shows pH of 7.28, pCO2 15, PO2 125, HC03 7. REVIEW OF IMAGES: ?Not available; will order CT abd and pelvis with IV contrast EKG REVIEW: ?To my view this is a poor quality study showing sinus tachycardia ventricular rate of 133 beats per minute.? There is no ST elevations, no true ST depressions.? QTC is 304 milliseconds.? No comparison available. ASSESSMENT : 1. Acute alcohol intoxication and risk of severe withdrawal 2. Diabetic ketoacidosis likely new onset diabetic in the setting of Etoh related Pancreatic damage 3. Acute pancreatitis rule out mass, cyst and pseudocyst, gallbladder disease; hypertriglyceridemia 4. Reactive tachycardia due to illness and withdrawal 5. Acute hypophosphatemia 6. Alcohol related hepatitis 7. Severe glucosuria and proteinuria 8. Polysubstance abuse 9. Severe hypocalcemia with corrected calcium level of 6 PLAN OF CARE: Patient will be admitted to the ICU, monitor vital signs, I's and O's, I do think the patient needs to be started on a Precedex drip at this point for her risk of withdrawal and seizures is high; I do not think the patient is capable taking phenobarbital or other benzodiazepines orally given her acute pancreatitis and recurrent nausea and vomiting. I will start her on insulin drip, check blood sugars every 1 hour, chemistries every 4, replete electrolytes, start her on lactated Ringer's along with D5 with bicarb due to her severe acidosis. ?There is no evidence of infection, I do not think the patient is septic.? Will give her calcium gluconate [address] x 2[address] A [address] of the abdomen and pelvis with IV contrast will be ordered, ?? GI PROPHYLAXIS: ?IV ppi DVT PROPHYLAXIS: ?SubQ Lovenox Critical care time used for critical evaluation of this patient, diagnosis, treatment and coordination of care, review her records and documentation TOTAL CRITICAL CARE TIME??120 MIN . discussion and coordination with consultants, completely separate from any procedures performed. Patient's care was discussed in detail with Dr. Carpenter.? He is aware of all the above as well as the plan of care for this patient. [facility] Past Medical History Medical History (Updated 07/17/23 @ 06:00 by Mayur Jolley MD) Alcohol abuse Kidney stones Functional capacity: independent ambulation Social History Social History Alcohol intake: current Alcohol intake frequency: 3 or more drinks per day Alcohol type: hard liquor Patient Tobacco Use Status: Never used Tobacco Substance Use Type: Marijuana service: No Meds Allergies Allergy/AdvReac Type Severity Reaction Status Date / Time kiwi Allergy Hives Verified 07/16/23 23:19 Active Medications: Current Medications Dextrose (Dextrose 50 % 25 Gm/50 Ml Syringe) 25 gm IVPUSH Q30M PRN PRN Reason: BG < 70 Enoxaparin Sodium (Enoxaparin Sodium 40 Mg/0.4 Ml Syringe) 40 mg SUBCUT Q24H [facility] Sodium Bicarbonate 150 meq/ (Dextrose) 1,000 mls @ 100 mls/hr IV .Q10H [facility] Last Admin: 07/17/23 05:53 Dose: 100 mls/hr Lactated Ringer's (Lr) 1,000 mls @ 100 mls/hr IVCONT .Q10H [facility] Last Admin: 07/17/23 05:05 Dose: 100 mls/hr Potassium Phosphate (Kphos) 15 mmol in 250 mls @ 62.5 mls/hr IV ONCE ONE Stop: 07/17/23 09:09 Insulin Human Regular (Myxredlin) 100 unit in 100 mls @ 5 mls/hr IVCONT .Q20H [facility]; Protocol Last Admin: 07/17/23 05:59 Dose: 5 unit/hr, 5 mls/hr Ondansetron HCl (Ondansetron Hcl 4 Mg/2 Ml Vial) 4 mg IVPUSH Q6H PRN PRN Reason: Nausea and Vomiting Pharmacy Consult (Consult Rx Etoh Phenob Im/Po) 1 each MISCELLANE ONCE PRN; Protocol PRN Reason: Consult order Phenobarbital (Phenobarbital 30 Mg Tablet) 30 mg PO 1000,2200 [facility]; Protocol Stop: 07/18/23 22:01 Phenobarbital (Phenobarbital 15 Mg Tablet) 15 mg PO BID [facility]; Protocol Stop: 07/20/23 21:01 Phenobarbital (Phenobarbital 15 Mg Tablet) 15 mg PO DAILY [facility]; Protocol Stop: 07/22/23 09:01 Phenobarbital Sodium (Phenobarbital Sodium 130 Mg/Ml Vial Im Q3hx2) 160 mg IM Q3H [facility]; Protocol Stop: 07/17/23 06:31 Last Admin: 07/17/23 04:08 Dose: 160 mg Home Medications Medication Instructions Recorded Confirmed Last Taken Type norgestimate-ethinyl estradiol 1 tab PO DAILY 07/17/23 07/17/23 07/15/23 History 0.18 mg/0.215mg/0.25mg-35 mcg(28)tablet (Tri-Estarylla) Physical Exam Vital Signs: Vital Signs: Last Vital Signs Temp 98.4 F 07/17/23 05:13 Pulse 106 H 07/17/23 05:50 Resp 24 H 07/17/23 05:50 BP 140/97 H 07/17/23 05:50 Pulse Ox 98 07/17/23 05:50 O2 Del Method Room Air 07/17/23 05:50 BMI result Body Mass Index 16.8 Results Labs 07/16/23 23:41 07/17/23 17:49 Labs: Short CBC 07/16/23 Range/Units 23:41 WBC 5.6 (4.8-10.8) X10*3/uL Hgb 15.0 (12.0-16.0) g/dl Hct 43.7 (37.0-47.0) % Plt Count 173 (160-400) X10*3/uL BMP 07/16/23 07/17/23 23:41 03:04 Sodium 138 137 Potassium 4.0 4.1 Chloride 96 106 Carbon Dioxide 7 L* D < 5 L* D BUN 11 8 L Creatinine 0.75 0.74 Calcium 9.3 6.8 L D Liver Function 07/16/23 Range/Units 23:41 Total Bilirubin 0.7 (0.0-1.0) mg/dL AST 324 H (5-31) U/L ALT 140 H (0-31) U/L Alkaline Phosphatase 140 H (39-117) U/L Albumin 5.0 (3.5-5.0) g/dL Urine 07/17/23 Range/Units 03:04 Urine Color Yellow Urine Appearance Clear Urine pH 6.0 (5.0-9.0) Ur Specific [place] 1.015 (1.005-1.025) Urine Protein 300 (3+) H (Neg-Trace) mg/dL Urine Glucose (UA) >=1000 H (Negative) mg/dL
--- NOTE | 2023-07-17 06:19 | PC.NURSE ---
revival clerk decided to admit to ICU. orders being placed pt medicated according to cyril unable to administer kphos as medication not available in ED pyxis per nursing medical transcription supervisor make icu nurse aware of this and while wait to administer once in icu
--- NOTE | 2023-07-17 06:28 | MHC.EDTECH ---
POC taken and is 150 RN aware
[2023-07-17 06:33] LABS: Glucose, Whole Blood 150 mg/dL (60-115)
[2023-07-17] MEDS: iohexoL 350 MG/ML 100 ML INFUS..BTL 85 ML IV (06:50)
[2023-07-17 07:06] LABS: Glucose, Whole Blood 101 mg/dL (60-115)
--- NOTE | 2023-07-17 07:09 | PC.NURSE ---
rn to rn report given to otilio fofana in icu. pt transferred to CT prior to transfer to bed assignment. pt calm and cooperative. this rn and seed sorter transferred pt to icu bed assignment
[2023-07-17 07:36] LABS: Estimated Average Glucose 91 mg/dL; Hemoglobin A1c % 4.8 % (<6.0)
[2023-07-17 08:05] LABS: Glucose, Whole Blood 117 mg/dL (60-115)
[2023-07-17] MEDS: Dextrose 5 % and Lactated Ring 1,000 ML 100 ML IVCONT ×3 (08:05→23:23)
[2023-07-17] MEDS: Potassium Phosphate/NS 15 MMOL/250 ML PLAST..BAG 62.5 MMOL IV ×3 (08:07→23:48)
[2023-07-17 08:11] LABS: VBG Base Excess -10.6 mmol/L; VBG HCO3 11 mmol/L (22-26); VBG pCO2 19 mmHg; VBG pH 7.39 (7.32-7.43); VBG pO2 50 mmHg
[2023-07-17 08:25] LABS: Estimated Average Glucose 94 mg/dL; Hemoglobin A1c % 4.9 % (<6.0)
[2023-07-17 08:35] LABS: Lipase 170 U/L (8-78)
--- NOTE | 2023-07-17 08:48 | PM.EVENT ---
Event Note Date of Service: 07/17/23 Event Note: of note, Ms. Boyle's mom was given updates this morning. She expressed that Ms. Boyle has endorsed depression and suicidal ideation in the past and has exhibited self-harm. Upon my evaluation, Ms. Boyle denies active suicidal nor homicidal ideation. We discussed we will continue to care for Ms. Boyle's medical issues, will monitor her safety closely in the ICU, and will have psychiatry see her on Wednesday. Time Spent With Patient Time: Total time managing care of this patient today ____ minutes.
[2023-07-17 08:58] LABS: Triglycerides 1555 mg/dL (<150)
[2023-07-17 09:04] LABS: Lactic Acid 2.4 mmol/L (0.5-2.0)
[2023-07-17 09:10] LABS: Glucose, Whole Blood 149 mg/dL (60-115)
--- NOTE | 2023-07-17 09:22 | PHA.MEDREC ---
Pharmacy Consult ? Medication Reconciliation Pharmacy has completed the medication reconciliation. Spoke to patient and pharmacy to confirm med.
[2023-07-17 10:03] LABS: Reflex Lactate? Lactic Acid Added
--- NOTE | 2023-07-17 10:09 | MHC.CM.PN ---
CM MET WITH PT AT BEDSIDE IN ICU. PT LIVES WITH S/O. [facility]END[facility] [place]. NO HCP BUT MAY BE WILLING TO DO ONE WHEN FEELING BETTER. NO PCP, BROCHURE PROVIDED. DP: HOME, NO SERVICES ANTICIPATED HAS NO PCP. PT WILL NEED DIABETIC TEACHING BEFORE DC. PT HAS OWN RIDE HOME. CM WILL CONTINUE TO FOLLOW FOR ANY CHANGE IN DC PLAN/NEEDS.
[2023-07-17 10:16] LABS: Glucose, Whole Blood 169 mg/dL (60-115)
[2023-07-17] MEDS: Calcium Gluconate/NaCl,Iso-Osm 2 GM/100 ML PLAST..BAG IV ×2 (10:22→12:25)
[2023-07-17] MEDS: PHENobarbitaL 30 MG TABLET PO ×2 (10:25→19:51)
[2023-07-17] MEDS: Pantoprazole Sodium 40 MG/10 ML VIAL IVPUSH ×3 (10:25→16:29)
[2023-07-17] MEDS: Lactated Ringers 500 ML IV ×2 (10:31→11:37)
[2023-07-17 10:46] LABS: ~Lactic Acid-LAB USE ONLY 1.6 mmol/L (0.5-2.0)
[2023-07-17 10:55] LABS: Venous Blood Gas Refer to POC result
[2023-07-17 11:17] LABS: Glucose, Whole Blood 192 mg/dL (60-115)
[2023-07-17 11:42] LABS: VBG Base Excess -6.2 mmol/L; VBG HCO3 16 mmol/L (22-26); VBG pCO2 25 mmHg; VBG pH 7.42 (7.32-7.43); VBG pO2 51 mmHg
[2023-07-17 11:59] LABS: Triglycerides 1173 mg/dL (<150)
[2023-07-17 12:12] LABS: Glucose, Whole Blood 188 mg/dL (60-115)
[2023-07-17 12:14] LABS: Anion Gap 23 (12-20); Blood Urea Nitrogen 4 mg/dL (9-16); Calcium 7.5 mg/dL (8.4-10.2); Carbon Dioxide 14 mmol/L (22-29); Chloride 100 mmol/L (96-108); Creatinine Clr Calc Pharmacy 78.3; Estimated Glomerular Filt Rate > 60; Glucose Random 183 mg/dL (60-115); Potassium 3.3 mmol/L (3.3-5.1); Sodium 134 mmol/L (135-145)
[2023-07-17 12:38] LABS: Venous Blood Gas Refer to POC result
[2023-07-17 12:58] LABS: Glucose, Whole Blood 198 mg/dL (60-115)
[2023-07-17 14:04] LABS: Glucose, Whole Blood 198 mg/dL (60-115)
[2023-07-17] MEDS: Calcium Gluconate/NaCl,Iso-Osm 1 GM/50 ML PLAST..BAG IV (15:04)
[2023-07-17 15:30] LABS: Glucose, Whole Blood 174 mg/dL (60-115)
[2023-07-17 15:38] LABS: VBG Base Excess 3.4 mmol/L; VBG HCO3 25 mmol/L (22-26); VBG pCO2 32 mmHg; VBG pH 7.51 (7.32-7.43); VBG pO2 48 mmHg
[2023-07-17 16:08] LABS: Glucose, Whole Blood 169 mg/dL (60-115)
[2023-07-17] MEDS: ondansetron HCL 4 MG/2 ML VIAL IVPUSH (16:29)
[2023-07-17 17:15] LABS: Glucose, Whole Blood 180 mg/dL (60-115)
[2023-07-17 18:08] LABS: Venous Blood Gas Refer to POC result
[2023-07-17 18:15] LABS: Glucose, Whole Blood 186 mg/dL (60-115)
[2023-07-17 18:27] LABS: Anion Gap 23 (12-20); Blood Urea Nitrogen 3 mg/dL (9-16); Carbon Dioxide 23 mmol/L (22-29); Chloride 91 mmol/L (96-108); Creatinine Clr Calc Pharmacy 73.4; Estimated Glomerular Filt Rate > 60; Glucose Random 168 mg/dL (60-115); Magnesium 1.2 mg/dL (1.6-2.6); Phosphorus < 0.7 mg/dL (2.7-4.5); Potassium 2.7 mmol/L (3.3-5.1); Sodium 134 mmol/L (135-145)
[2023-07-17] MEDS: Magnesium Sulfate/D5W 1 GM/100 ML PIGGYBACK IV (18:44)
[2023-07-17 19:07] LABS: Glucose, Whole Blood 170 mg/dL (60-115)
[2023-07-17 20:06] LABS: Glucose, Whole Blood 176 mg/dL (60-115)
[2023-07-17] MEDS: Sodium,Potassium Phosphates POWD.PACK 2 PACKET PO (20:59)
[2023-07-17 22:27] LABS: Glucose, Whole Blood 126 mg/dL (60-115)
[2023-07-17 22:27] LABS: Glucose, Whole Blood 75 mg/dL (60-115)
[2023-07-17 22:30] LABS: Alanine Aminotransferase 83 U/L (0-31); Albumin Level 4.2 g/dL (3.5-5.0); Alkaline Phosphatase 101 U/L (39-117); Anion Gap 19 (12-20); Aspartate Amino Transferase 108 U/L (5-31); Bilirubin Total 1.2 mg/dL (0.0-1.0); Blood Urea Nitrogen 3 mg/dL (9-16); Calcium 8.7 mg/dL (8.4-10.2); Carbon Dioxide 28 mmol/L (22-29); Chloride 91 mmol/L (96-108); Creatinine Clr Calc Pharmacy 77.3; Estimated Glomerular Filt Rate > 60; Glucose Random 83 mg/dL (60-115); Potassium 2.9 mmol/L (3.3-5.1); Sodium 135 mmol/L (135-145); Total Protein 7.3 g/dL (6.5-8.0)
[2023-07-17 23:22] LABS: Glucose, Whole Blood 93 mg/dL (60-115)
[2023-07-18] VITALS (24 sets, daily range): BP systolic 102–153; BP diastolic 64–112; PULSE 60–130; RESP 11–74; TEMP 36.2–37.2; O2SAT 93–99; BMI 18.8
[2023-07-18 00:15] LABS: Glucose, Whole Blood 114 mg/dL (60-115)
[2023-07-18 01:08] LABS: Glucose, Whole Blood 136 mg/dL (60-115)
[2023-07-18 02:07] LABS: Glucose, Whole Blood 148 mg/dL (60-115)
[2023-07-18 02:32] LABS: Alanine Aminotransferase 77 U/L (0-31); Albumin Level 4.2 g/dL (3.5-5.0); Alkaline Phosphatase 98 U/L (39-117); Anion Gap 22 (12-20); Aspartate Amino Transferase 96 U/L (5-31); Blood Urea Nitrogen < 3 mg/dL (9-16); Calcium 8.3 mg/dL (8.4-10.2); Carbon Dioxide 24 mmol/L (22-29); Chloride 92 mmol/L (96-108); Creatinine Clr Calc Pharmacy 86.4; Estimated Glomerular Filt Rate > 60; Glucose Random 139 mg/dL (60-115); Potassium 2.9 mmol/L (3.3-5.1); Sodium 135 mmol/L (135-145); Total Protein 7.3 g/dL (6.5-8.0)
[2023-07-18 03:00] LABS: Glucose, Whole Blood 155 mg/dL (60-115)
[2023-07-18 04:14] LABS: Glucose, Whole Blood 130 mg/dL (60-115)
--- NOTE | 2023-07-18 04:51 | PC.NURSE ---
Addendum entered by Kp Lomeli RN 07/18/23 05:07: DBP 100'S AT TIMES..ASYMPTOMATIC..PROVIDER AWARE Original Note: CARE ASSUMED 7PM..ALERT..ORIENTED X3...EMMANUEL...MILDLY ANXIOUS..SCHEDULED PO PHENOBARBITOL PER OCT....D5LR 100 CC/HR...INSULIN DRIP TITRATED FROM 0.5 UNITS/HR TO 1 U/HR TO 0.5 U/HR PER ICU PA AND SERIAL POC GLUCOSE LEVELS...MgSO4 AND KPO4 REPLACEMENTS PER OCT....OOB TO BEDSIDE COMMODE MULTIPLE TIMES TO VOID WITH STEADY GAIT...NSR/S.TACH TACH HR 80'S-100'S AT REST...HR TO 140'S WHEN OOB TO COMMODE...PO NEUTRA-PHOS W/O NAUSEA...SERIAL VBG'S HELD BY PA...FOR AM VBG AND LABS ORDERED...DENIES DISCOMFORT...RESPIRATIONS EASY ON ROOM AIR
[2023-07-18 05:37] LABS: VBG Base Excess 10.7 mmol/L; VBG HCO3 32 mmol/L (22-26); VBG pCO2 32 mmHg; VBG pO2 56 mmHg
[2023-07-18 05:39] LABS: Venous Blood Gas Refer to POC result
[2023-07-18 05:52] LABS: Glucose, Whole Blood 119 mg/dL (60-115)
[2023-07-18 06:06] LABS: MANUAL DIFF FLAG NO
[2023-07-18 06:19] LABS: Basophils Percent Auto 0.9 % (0-2); Eosinophils Absolute Auto 0.1 X10*3/uL (0.0-0.4); Eosinophils Percent Auto 2.1 % (0-4); Hematocrit 34.6 % (37.0-47.0); Hemoglobin 12.5 g/dl (12.0-16.0); Imm Gran Abs Auto 0.02 X10*3/uL (0.00-0.03); Imm Gran Pct Auto 0.5 % (0.0-0.4); Lipase 147 U/L (8-78); Lymphocytes Absolute Auto 1.2 X10*3/uL (1.2-4.9); Lymphocytes Percent Auto 26.7 % (20-40); Mean Corpuscular HGB Conc 36.1 g/dl (31.0-35.0); Mean Corpuscular Hemoglobin 31.7 pg (27.0-33.0); Mean Corpuscular Volume 87.8 fL (80.0-98.0); Mean Platelet Volume 11.4 fL (9.4-12.3); Monocytes Absolute Auto 0.3 X10*3/uL (0.1-1.2); Monocytes Percent Auto 6.8 % (2-11); Neutrophils Absolute Auto 2.8 x10*3/uL (2.0-8.3); Platelet Count 104 X10*3/uL (160-400); Red Blood Count 3.94 X10*6/uL (4.20-5.50); Red Cell Distribution Width 12.7 % (11.0-16.0); Triglycerides 392 mg/dL (<150); White Blood Count 4.4 X10*3/uL (4.8-10.8)
[2023-07-18] MEDS: Enoxaparin Sodium 40 MG/0.4 ML SYRINGE 30 MG SUBCUT (06:24)
[2023-07-18] MEDS: Pantoprazole Sodium 40 MG/10 ML VIAL IVPUSH ×2 (06:24→15:42)
[2023-07-18 06:25] LABS: Anion Gap 21 (12-20); Blood Urea Nitrogen < 3 mg/dL (9-16); Calcium 8.3 mg/dL (8.4-10.2); Carbon Dioxide 24 mmol/L (22-29); Chloride 93 mmol/L (96-108); Creatinine Clr Calc Pharmacy 99.5; Estimated Glomerular Filt Rate > 60; Glucose Random 107 mg/dL (60-115); Magnesium 2.2 mg/dL (1.6-2.6); Phosphorus 1.9 mg/dL (2.7-4.5); Potassium 2.8 mmol/L (3.3-5.1); Sodium 135 mmol/L (135-145)
[2023-07-18 07:23] LABS: Glucose, Whole Blood 112 mg/dL (60-115)
[2023-07-18 08:12] LABS: Glucose, Whole Blood 126 mg/dL (60-115)
[2023-07-18] MEDS: PHENobarbitaL 30 MG TABLET PO (08:17)
[2023-07-18] MEDS: Sodium,Potassium Phosphates POWD.PACK 2 PACKET PO (08:18)
[2023-07-18] MEDS: Potassium Chloride Packet 20 MEQ PACKET 40 MEQ PO (08:18)
[2023-07-18] MEDS: dexmedeTOMIDidine HCL/NS 400 MCG/100 ML INFUS..BTL 12.43 MCG IVCONT (08:21)
[2023-07-18] MEDS: Dextrose 5 % and Lactated Ring 1,000 ML 100 ML IVCONT (08:22)
[2023-07-18 09:13] LABS: Glucose, Whole Blood 123 mg/dL (60-115)
--- NOTE | 2023-07-18 09:13 | PM.CCPN ---
Subjective Subjective Date of Service: 07/18/23 Interval History: no significant overnight events Critical Care Time (minutes): 60 Physical Exam Vital Signs: Vital Signs: Last Vital Signs Temp 98.2 F 07/18/23 08:00 Pulse 91 07/18/23 08:00 Resp 13 07/18/23 08:00 BP 131/102 H 07/18/23 08:00 Pulse Ox 98 07/18/23 08:00 O2 Del Method Room Air 07/18/23 08:00 BMI result Body Mass Index 18.8 Const: General: cooperative, comfortable, no acute distress, well developed, alert, awake and Physically active Orientation/consciousness: patient oriented x3 HEENT: Head: Yes normal to inspection, Yes normocephalic and Yes atraumatic Eyes: General: appearance normal, both eyes and all related structures Neck: Neck: Yes normal visual inspection, Yes full ROM and Yes supple Chest: Chest palpation & inspection: normal inspection of the chest Resp: Other: no appreciable rales, rhonchi, wheezing Cardio: Rate: regular rate Rhythm: regular rhythm GI: Inspection: Yes normal to inspection, No Abdominal wall edema and No distended Palpation (GI): Soft to palpation, not firm, nontender, no guarding and not rigid Skin: General skin exam: no rashes or lesions noted Neuro: General: patient oriented x3, tone normal, moves all extremities and no focal motor deficits Extrem: General: Yes normal to inspection, Yes capillary refill normal and Yes no clubbing, cyanosis or edema Psych: Appearance: grossly normal Objective Data Labs 07/18/23 05:24 07/18/23 05:24 Labs: Laboratory Results - last 24 hr 07/17/23 07/17/23 07/17/23 10:12 10:20 11:11 WBC RBC Hgb Hct MCV MCH MCHC RDW Plt Count MPV Immature Gran % (Auto) Neut % (Auto) Lymph % (Auto) [place] % (Auto) Eos % (Auto) Baso % (Auto) Lymph # (Auto) [place] # (Auto) Eos # (Auto) Baso # (Auto) Abs Immat Gran (auto) Absolute Neuts (auto) Absolute Nucleated RBC Nucleated RBC % (auto) VBG pH VBG pCO2 VBG pO2 VBG HCO3 VBG O2 Saturation VBG Base Excess Sodium Potassium Chloride Carbon Dioxide Anion Gap BUN Creatinine Estim Creat Clear Calc Estimated GFR POC Glucose 169 H 192 H Random Glucose Lactic Acid F/U @ 2Hr 1.6 Calcium Phosphorus Magnesium Total Bilirubin AST ALT Alkaline Phosphatase Total Protein Albumin Triglycerides Lipase 07/17/23 07/17/23 07/17/23 11:35 11:37 12:07 WBC RBC Hgb Hct MCV MCH MCHC RDW Plt Count MPV Immature Gran % (Auto) Neut % (Auto) Lymph % (Auto) [place] % (Auto) Eos % (Auto) Baso % (Auto) Lymph # (Auto) [place] # (Auto) Eos # (Auto) Baso # (Auto) Abs Immat Gran (auto) Absolute Neuts (auto) Absolute Nucleated RBC Nucleated RBC % (auto) VBG pH 7.42 VBG pCO2 25 VBG pO2 51 VBG HCO3 16 L VBG O2 Saturation 83.0 VBG Base Excess -6.2 Sodium 134 L Potassium 3.3 Chloride 100 Carbon Dioxide 14 L Anion Gap 23 H BUN 4 L Creatinine 0.75 Estim Creat Clear Calc 78.3 Estimated GFR > 60 POC Glucose 188 H Random Glucose 183 H Lactic Acid F/U @ 2Hr Calcium 7.5 L D Phosphorus Magnesium Total Bilirubin AST ALT Alkaline Phosphatase Total Protein Albumin Triglycerides 1173 H Lipase 07/17/23 07/17/23 07/17/23 12:55 14:00 15:26 WBC RBC Hgb Hct MCV MCH MCHC RDW Plt Count MPV Immature Gran % (Auto) Neut % (Auto) Lymph % (Auto) [place] % (Auto) Eos % (Auto) Baso % (Auto) Lymph # (Auto) [place] # (Auto) Eos # (Auto) Baso # (Auto) Abs Immat Gran (auto) Absolute Neuts (auto) Absolute Nucleated RBC Nucleated RBC % (auto) VBG pH VBG pCO2 VBG pO2 VBG HCO3 VBG O2 Saturation VBG Base Excess Sodium Potassium Chloride Carbon Dioxide Anion Gap BUN Creatinine Estim Creat Clear Calc Estimated GFR POC Glucose 198 H 198 H 174 H Random Glucose Lactic Acid F/U @ 2Hr Calcium Phosphorus Magnesium Total Bilirubin AST ALT Alkaline Phosphatase Total Protein Albumin Triglycerides Lipase 07/17/23 07/17/23 07/17/23 15:32 16:05 17:11 WBC RBC Hgb Hct MCV MCH MCHC RDW Plt Count MPV Immature Gran % (Auto) Neut % (Auto) Lymph % (Auto) [place] % (Auto) Eos % (Auto) Baso % (Auto) Lymph # (Auto) [place] # (Auto) Eos # (Auto) Baso # (Auto) Abs Immat Gran (auto) Absolute Neuts (auto) Absolute Nucleated RBC Nucleated RBC % (auto) VBG pH 7.51 H VBG pCO2 32 VBG pO2 48 VBG HCO3 25 VBG O2 Saturation 83.0 VBG Base Excess 3.4 Sodium Potassium Chloride Carbon Dioxide Anion Gap BUN Creatinine Estim Creat Clear Calc Estimated GFR POC Glucose 169 H 180 H Random Glucose Lactic Acid F/U @ 2Hr Calcium Phosphorus Magnesium Total Bilirubin AST ALT Alkaline Phosphatase Total Protein Albumin Triglycerides Lipase 07/17/23 07/17/23 07/17/23 17:49 17:50 18:00 WBC RBC Hgb Hct MCV MCH MCHC RDW Plt Count MPV Immature Gran % (Auto) Neut % (Auto) Lymph % (Auto) [place] % (Auto) Eos % (Auto) Baso % (Auto) Lymph # (Auto) [place] # (Auto) Eos # (Auto) Baso # (Auto) Abs Immat Gran (auto) Absolute Neuts (auto) Absolute Nucleated RBC Nucleated RBC % (auto) VBG pH VBG pCO2 VBG pO2 VBG HCO3 VBG O2 Saturation VBG Base Excess Sodium 134 L Potassium 2.7 L Chloride 91 L Carbon Dioxide 23 Anion Gap 23 H BUN 3 L Creatinine 0.80 Estim Creat Clear Calc 73.4 Estimated GFR > 60 POC Glucose Random Glucose 168 H Lactic Acid F/U @ 2Hr Calcium 9.0 D Cancelled Phosphorus < 0.7 L* Cancelled Magnesium 1.2 L* Cancelled Total Bilirubin AST ALT Alkaline Phosphatase Total Protein Albumin Triglycerides Lipase 07/17/23 07/17/23 07/17/23 18:11 19:03 20:02 WBC RBC Hgb Hct MCV MCH MCHC RDW Plt Count MPV Immature Gran % (Auto) Neut % (Auto) Lymph % (Auto) [place] % (Auto) Eos % (Auto) Baso % (Auto) Lymph # (Auto) [place] # (Auto) Eos # (Auto) Baso # (Auto) Abs Immat Gran (auto) Absolute Neuts (auto) Absolute Nucleated RBC Nucleated RBC % (auto) VBG pH VBG pCO2 VBG pO2 VBG HCO3 VBG O2 Saturation VBG Base Excess Sodium Potassium Chloride Carbon Dioxide Anion Gap BUN Creatinine Estim Creat Clear Calc Estimated GFR POC Glucose 186 H 170 H 176 H Random Glucose Lactic Acid F/U @ 2Hr Calcium Phosphorus Magnesium Total Bilirubin AST ALT Alkaline Phosphatase Total Protein Albumin Triglycerides Lipase 07/17/23 07/17/23 07/17/23 20:59 22:09 22:23 WBC RBC Hgb Hct MCV MCH MCHC RDW Plt Count MPV Immature Gran % (Auto) Neut % (Auto) Lymph % (Auto) [place] % (Auto) Eos % (Auto) Baso % (Auto) Lymph # (Auto) [place] # (Auto) Eos # (Auto) Baso # (Auto) Abs Immat Gran (auto) Absolute Neuts (auto) Absolute Nucleated RBC Nucleated RBC % (auto) VBG pH VBG pCO2 VBG pO2 VBG HCO3 VBG O2 Saturation VBG Base Excess Sodium 135 Potassium 2.9 L Chloride 91 L Carbon Dioxide 28 Anion Gap 19 BUN 3 L Creatinine 0.76 Estim Creat Clear Calc 77.3 Estimated GFR > 60 POC Glucose 126 H 75 Random Glucose 83 Lactic Acid F/U @ 2Hr Calcium 8.7 Phosphorus Magnesium Total Bilirubin 1.2 H AST 108 H ALT 83 H Alkaline Phosphatase 101 Total Protein 7.3 Albumin 4.2 Triglycerides Lipase 07/17/23 07/18/23 07/18/23 23:18 00:10 01:04 WBC RBC Hgb Hct MCV MCH MCHC RDW Plt Count MPV Immature Gran % (Auto) Neut % (Auto) Lymph % (Auto) [place] % (Auto) Eos % (Auto) Baso % (Auto) Lymph # (Auto) [place] # (Auto) Eos # (Auto) Baso # (Auto) Abs Immat Gran (auto) Absolute Neuts (auto) Absolute Nucleated RBC Nucleated RBC % (auto) VBG pH VBG pCO2 VBG pO2 VBG HCO3 VBG O2 Saturation VBG Base Excess Sodium Potassium Chloride Carbon Dioxide Anion Gap BUN Creatinine Estim Creat Clear Calc Estimated GFR POC Glucose 93 114 136 H Random Glucose Lactic Acid F/U @ 2Hr Calcium Phosphorus Magnesium Total Bilirubin AST ALT Alkaline Phosphatase Total Protein Albumin Triglycerides Lipase 07/18/23 07/18/23 07/18/23 02:04 02:07 02:56 WBC RBC Hgb Hct MCV MCH MCHC RDW Plt Count MPV Immature Gran % (Auto) Neut % (Auto) Lymph % (Auto) [place] % (Auto) Eos % (Auto) Baso % (Auto) Lymph # (Auto) [place] # (Auto) Eos # (Auto) Baso # (Auto) Abs Immat Gran (auto) Absolute Neuts (auto) Absolute Nucleated RBC Nucleated RBC % (auto) VBG pH VBG pCO2 VBG pO2 VBG HCO3 VBG O2 Saturation VBG Base Excess Sodium 135 Potassium 2.9 L Chloride 92 L Carbon Dioxide 24 Anion Gap 22 H BUN < 3 L Creatinine 0.68 Estim Creat Clear Calc 86.4 Estimated GFR > 60 POC Glucose 148 H 155 H Random Glucose 139 H Lactic Acid F/U @ 2Hr Calcium 8.3 L Phosphorus Magnesium Total Bilirubin 1.0 AST 96 H ALT 77 H Alkaline Phosphatase 98 Total Protein 7.3 Albumin 4.2 Triglycerides Lipase 07/18/23 07/18/23 07/18/23 04:10 05:24 05:30 WBC 4.4 L RBC 3.94 L Hgb 12.5 Hct 34.6 L D MCV 87.8 D MCH 31.7 MCHC 36.1 H RDW 12.7 Plt Count 104 L D MPV 11.4 Immature Gran % (Auto) 0.5 H Neut % (Auto) 63.0 Lymph % (Auto) 26.7 [place] % (Auto) 6.8 Eos % (Auto) 2.1 Baso % (Auto) 0.9 Lymph # (Auto) 1.2 [place] # (Auto) 0.3 Eos # (Auto) 0.1 Baso # (Auto) 0.0 Abs Immat Gran (auto) 0.02 Absolute Neuts (auto) 2.8 Absolute Nucleated RBC 0.000 Nucleated RBC % (auto) 0.0 VBG pH 7.60 H* VBG pCO2 32 VBG pO2 56 VBG HCO3 32 H VBG O2 Saturation 89.0 VBG Base Excess 10.7 Sodium 135 Potassium 2.8 L Chloride 93 L Carbon Dioxide 24 Anion Gap 21 H BUN < 3 L Creatinine 0.66 Estim Creat Clear Calc 99.5 Estimated GFR > 60 POC Glucose 130 H Random Glucose 107 Lactic Acid F/U @ 2Hr Calcium 8.3 L Phosphorus 1.9 L Magnesium 2.2 Total Bilirubin AST ALT Alkaline Phosphatase Total Protein Albumin Triglycerides 392 H Lipase 147 H 07/18/23 07/18/23 07/18/23 05:49 07:10 08:09 WBC RBC Hgb Hct MCV MCH MCHC RDW Plt Count MPV Immature Gran % (Auto) Neut % (Auto) Lymph % (Auto) [place] % (Auto) Eos % (Auto) Baso % (Auto) Lymph # (Auto) [place] # (Auto) Eos # (Auto) Baso # (Auto) Abs Immat Gran (auto) Absolute Neuts (auto) Absolute Nucleated RBC Nucleated RBC % (auto) VBG pH VBG pCO2 VBG pO2 VBG HCO3 VBG O2 Saturation VBG Base Excess Sodium Potassium Chloride Carbon Dioxide Anion Gap BUN Creatinine Estim Creat Clear Calc Estimated GFR POC Glucose 119 H 112 126 H Random Glucose Lactic Acid F/U @ 2Hr Calcium Phosphorus Magnesium Total Bilirubin AST ALT Alkaline Phosphatase Total Protein Albumin Triglycerides Lipase 07/18/23 09:09 WBC RBC Hgb Hct MCV MCH MCHC RDW Plt Count MPV Immature Gran % (Auto) Neut % (Auto) Lymph % (Auto) [place] % (Auto) Eos % (Auto) Baso % (Auto) Lymph # (Auto) [place] # (Auto) Eos # (Auto) Baso # (Auto) Abs Immat Gran (auto) Absolute Neuts (auto) Absolute Nucleated RBC Nucleated RBC % (auto) VBG pH VBG pCO2 VBG pO2 VBG HCO3 VBG O2 Saturation VBG Base Excess Sodium Potassium Chloride Carbon Dioxide Anion Gap BUN Creatinine Estim Creat Clear Calc Estimated GFR POC Glucose 123 H Random Glucose Lactic Acid F/U @ 2Hr Calcium Phosphorus Magnesium Total Bilirubin AST ALT Alkaline Phosphatase Total Protein Albumin Triglycerides Lipase Progress Note: A&P Assessment and plan (1) DKA (diabetic ketoacidosis): Status: Acute (2) Alcoholic ketoacidosis: Status: Acute (3) High anion gap metabolic acidosis: Status: Acute (4) Alcoholism: Status: Acute Plan Patient is a 27 Y F with alcohol misuse, p/w nausea, found to have pancreatitis, c/b hypertriglyceridemia and hyperglycemia, resulting in anion-gap metabolic acidosis N: no acute issues CV: no acute issues R: no acute issues GI: NPO while on insulin gtt; pancreatitis c/b hypertriglyceridemia and hyperglycemia : no acute issues; anion-gap metabolic acidosis, previously on bicarbonate gtt, slowly improving H: no acute issues ID: no acute issues E: hyperglycemia, on insulin gtt P: prior suicidal ideation, currently does not endorse suicidal nor homicidal ideation; intermittent anxiety, though re-directable; psychiatry consult placed; alcohol misuse, on phenobarbital protocol Quality Stroke Does the patient have a stroke diagnosis?: No VTE Prior VTE?: No VTE Risk Level:: Medical - moderate - high VTE Device Contraindication: N/A - Device Ordered VTE Drug Contraindication: N/A - Med Ordered
[2023-07-18 10:06] LABS: Glucose, Whole Blood 123 mg/dL (60-115)
[2023-07-18 10:35] LABS: Anion Gap 19 (12-20); Blood Urea Nitrogen < 3 mg/dL (9-16); Calcium 7.8 mg/dL (8.4-10.2); Carbon Dioxide 24 mmol/L (22-29); Chloride 95 mmol/L (96-108); Creatinine Clr Calc Pharmacy 113.2; Estimated Glomerular Filt Rate > 60; Glucose Random 131 mg/dL (60-115); Magnesium 2.1 mg/dL (1.6-2.6); Phosphorus 1.7 mg/dL (2.7-4.5); Potassium 2.9 mmol/L (3.3-5.1); Sodium 135 mmol/L (135-145)
[2023-07-18 11:22] LABS: Glucose, Whole Blood 154 mg/dL (60-115)
[2023-07-18 11:59] LABS: Glucose, Whole Blood 160 mg/dL (60-115)
[2023-07-18 12:32] LABS: Alanine Aminotransferase 61 U/L (0-31); Albumin Level 3.7 g/dL (3.5-5.0); Alkaline Phosphatase 82 U/L (39-117); Anion Gap 20 (12-20); Aspartate Amino Transferase 71 U/L (5-31); Bilirubin Total 0.8 mg/dL (0.0-1.0); Blood Urea Nitrogen < 3 mg/dL (9-16); Calcium 7.8 mg/dL (8.4-10.2); Carbon Dioxide 24 mmol/L (22-29); Chloride 97 mmol/L (96-108); Creatinine Clr Calc Pharmacy 117.3; Estimated Glomerular Filt Rate > 60; Glucose Random 149 mg/dL (60-115); Magnesium 2.2 mg/dL (1.6-2.6); Phosphorus 2.4 mg/dL (2.7-4.5); Potassium 2.9 mmol/L (3.3-5.1); Sodium 138 mmol/L (135-145); Total Protein 6.5 g/dL (6.5-8.0); Triglycerides 346 mg/dL (<150)
[2023-07-18 13:10] LABS: Glucose, Whole Blood 158 mg/dL (60-115)
[2023-07-18 14:05] LABS: Glucose, Whole Blood 145 mg/dL (60-115)
[2023-07-18 14:34] LABS: Anion Gap 18 (12-20); Blood Urea Nitrogen < 3 mg/dL (9-16); Carbon Dioxide 24 mmol/L (22-29); Chloride 99 mmol/L (96-108); Creatinine Clr Calc Pharmacy 109.5; Estimated Glomerular Filt Rate > 60; Glucose Random 131 mg/dL (60-115); Magnesium 2.1 mg/dL (1.6-2.6); Phosphorus 2.3 mg/dL (2.7-4.5); Potassium 3.3 mmol/L (3.3-5.1); Sodium 138 mmol/L (135-145)
[2023-07-18 15:15] LABS: Glucose, Whole Blood 117 mg/dL (60-115)
[2023-07-18] MEDS: dexmedeTOMIDidine HCL/NS 400 MCG/100 ML INFUS..BTL 7.46 MCG IVCONT (15:42)
[2023-07-18] MEDS: Potassium Phosphate/NS 15 MMOL/250 ML PLAST..BAG 62.5 MMOL IV (15:42)
[2023-07-18 16:26] LABS: Glucose, Whole Blood 90 mg/dL (60-115)
[2023-07-18 16:40] LABS: Glucose, Whole Blood 88 mg/dL (60-115)
[2023-07-18 17:09] LABS: Glucose, Whole Blood 108 mg/dL (60-115)
[2023-07-18] MEDS: Dextrose 5 % and Lactated Ring 1,000 ML 150 ML IVCONT (17:29)
[2023-07-18 18:17] LABS: Glucose, Whole Blood 135 mg/dL (60-115)
[2023-07-18 18:17] LABS: Anion Gap 17 (12-20); Blood Urea Nitrogen < 3 mg/dL (9-16); Calcium 7.8 mg/dL (8.4-10.2); Carbon Dioxide 24 mmol/L (22-29); Chloride 98 mmol/L (96-108); Creatinine Clr Calc Pharmacy 111.4; Estimated Glomerular Filt Rate > 60; Glucose Random 117 mg/dL (60-115); Magnesium 1.9 mg/dL (1.6-2.6); Phosphorus 2.7 mg/dL (2.7-4.5); Potassium 3.2 mmol/L (3.3-5.1); Sodium 136 mmol/L (135-145)
[2023-07-18 19:08] LABS: Glucose, Whole Blood 142 mg/dL (60-115)
[2023-07-18 20:13] LABS: Glucose, Whole Blood 158 mg/dL (60-115)
[2023-07-18] MEDS: Insulin Regular/NS 100 UNIT/100 ML PLAST..BAG IVCONT (20:56)
[2023-07-18] MEDS: Magnesium Sulfate/H2O 2 GM/50 ML PIGGYBACK IV (20:57)
[2023-07-18 21:14] LABS: Glucose, Whole Blood 131 mg/dL (60-115)
[2023-07-18 22:11] LABS: Glucose, Whole Blood 115 mg/dL (60-115)
[2023-07-18 22:27] LABS: Anion Gap 15 (12-20); Blood Urea Nitrogen < 3 mg/dL (9-16); Carbon Dioxide 26 mmol/L (22-29); Chloride 99 mmol/L (96-108); Creatinine Clr Calc Pharmacy 117.3; Estimated Glomerular Filt Rate > 60; Glucose Random 123 mg/dL (60-115); Magnesium 2.5 mg/dL (1.6-2.6); Phosphorus 2.1 mg/dL (2.7-4.5); Potassium 3.1 mmol/L (3.3-5.1); Sodium 137 mmol/L (135-145)
[2023-07-18 22:58] LABS: Glucose, Whole Blood 122 mg/dL (60-115)
[2023-07-19] VITALS (21 sets, daily range): BP systolic 119–169; BP diastolic 77–126; PULSE 58–112; RESP 15–20; TEMP 36.1–36.9; O2SAT 95–99; BMI 18.5; BMI 19.4
[2023-07-19] MEDS: Sodium,Potassium Phosphates POWD.PACK 2 PACKET PO ×2 (00:01→05:15)
[2023-07-19] MEDS: Potassium Chloride Packet 20 MEQ PACKET 40 MEQ PO (00:01)
[2023-07-19 00:02] LABS: Glucose, Whole Blood 122 mg/dL (60-115)
[2023-07-19] MEDS: Dextrose 5 % and Lactated Ring 1,000 ML 150 ML IVCONT ×2 (00:03→06:08)
[2023-07-19 01:07] LABS: Glucose, Whole Blood 84 mg/dL (60-115)
[2023-07-19 02:04] LABS: Glucose, Whole Blood 126 mg/dL (60-115)
[2023-07-19 03:08] LABS: Glucose, Whole Blood 151 mg/dL (60-115)
[2023-07-19 03:21] LABS: Anion Gap 12 (12-20); Blood Urea Nitrogen < 3 mg/dL (9-16); Calcium 8.1 mg/dL (8.4-10.2); Carbon Dioxide 27 mmol/L (22-29); Chloride 103 mmol/L (96-108); Creatinine Clr Calc Pharmacy 115.3; Estimated Glomerular Filt Rate > 60; Glucose Random 146 mg/dL (60-115); Magnesium 2.4 mg/dL (1.6-2.6); Phosphorus 2.4 mg/dL (2.7-4.5); Potassium 3.9 mmol/L (3.3-5.1); Sodium 138 mmol/L (135-145)
[2023-07-19 04:08] LABS: Glucose, Whole Blood 144 mg/dL (60-115)
[2023-07-19] MEDS: dexmedeTOMIDidine HCL/NS 400 MCG/100 ML INFUS..BTL 9.94 MCG IVCONT (05:08)
[2023-07-19] MEDS: Pantoprazole Sodium 40 MG/10 ML VIAL IVPUSH (05:09)
[2023-07-19] MEDS: Enoxaparin Sodium 40 MG/0.4 ML SYRINGE 30 MG SUBCUT (05:15)
[2023-07-19 05:16] LABS: Glucose, Whole Blood 159 mg/dL (60-115)
[2023-07-19 06:11] LABS: Glucose, Whole Blood 162 mg/dL (60-115)
[2023-07-19 07:05] LABS: Glucose, Whole Blood 158 mg/dL (60-115)
[2023-07-19 07:25] LABS: Imm Gran Abs Auto 0.01 X10*3/uL (0.00-0.03); Imm Gran Pct Auto 0.3 % (0.0-0.4); Mean Corpuscular Hemoglobin 31.9 pg (27.0-33.0); Red Cell Distribution Width 13.2 % (11.0-16.0)
[2023-07-19 07:27] LABS: Basophils Absolute Auto 0.1 X10*3/uL (0.0-0.2); Basophils Percent Auto 1.9 % (0-2); Eosinophils Absolute Auto 0.2 X10*3/uL (0.0-0.4); Eosinophils Percent Auto 6.8 % (0-4); Hematocrit 31.9 % (37.0-47.0); Hemoglobin 11.1 g/dl (12.0-16.0); Lymphocytes Absolute Auto 1.1 X10*3/uL (1.2-4.9); Lymphocytes Percent Auto 35.3 % (20-40); Mean Corpuscular HGB Conc 34.8 g/dl (31.0-35.0); Mean Corpuscular Volume 91.7 fL (80.0-98.0); Mean Platelet Volume 11.1 fL (9.4-12.3); Monocytes Absolute Auto 0.2 X10*3/uL (0.1-1.2); Monocytes Percent Auto 7.1 % (2-11); Neutrophils Absolute Auto 1.5 x10*3/uL (2.0-8.3); Neutrophils Percent Auto 48.6 % (45-73); Red Blood Count 3.48 X10*6/uL (4.20-5.50)
[2023-07-19 07:30] LABS: Platelet Count 80 X10*3/uL (160-400); White Blood Count 3.1 X10*3/uL (4.8-10.8)
[2023-07-19] MEDS: PHENobarbitaL 15 MG TABLET PO ×2 (07:34→20:44)
[2023-07-19 07:39] LABS: Anion Gap 11 (12-20); Blood Urea Nitrogen < 3 mg/dL (9-16); Carbon Dioxide 27 mmol/L (22-29); Chloride 104 mmol/L (96-108); Cholesterol 419 mg/dL (<200); Creatinine Clr Calc Pharmacy 111.7; Estimated Glomerular Filt Rate > 60; Glucose Random 138 mg/dL (60-115); HDL Cholesterol 45 mg/dL (>40); LDL Cholesterol Calculated 345 mg/dL (<100); Magnesium 2.1 mg/dL (1.6-2.6); Phosphorus 2.9 mg/dL (2.7-4.5); Potassium 3.7 mmol/L (3.3-5.1); Sodium 138 mmol/L (135-145); Triglycerides 145 mg/dL (<150)
[2023-07-19] MEDS: Insulin Glargine,Hum.rec.anlog 100 UNIT/ML 10 ML VIAL SUBCUT (08:52)
[2023-07-19 11:24] LABS: Glucose, Whole Blood 79 mg/dL (60-115)
--- NOTE | 2023-07-19 11:27 | PM.CCPN ---
Subjective Subjective Date of Service: 07/19/23 Interval History: 27-year-old lady with underlying alcohol abuse admitted on 07/17/2023 with pancreatitis, alcohol intoxication, hyperglyceridemia, and diabetic ketoacidosis requiring insulin drip. CT abdomen pelvis with no evidence pancreatic necrosis. Triglycerides improved on insulin drip. Diabetic ketoacidosis resolved. No events overnight. Titrated off insulin drip. Critical Care Time (minutes): 0 Physical Exam Vital Signs: Vital Signs: Last Vital Signs Temp 97.8 F 07/19/23 08:00 Pulse 103 H 07/19/23 11:00 Resp 15 07/19/23 11:00 BP 153/123 H 07/19/23 11:00 Pulse Ox 95 07/19/23 11:00 O2 Del Method Room Air 07/19/23 11:00 BMI result Body Mass Index 19.4 Const: General: no acute distress, alert and awake Eyes: Sclerae: sclerae normal EOM: EOMs intact bilaterally Neck: Neck: Yes no lymphadenopathy, Yes trachea midline and Yes supple Resp: Effort & Inspection: normal respiratory effort and no respiratory distress Auscultation: clear to auscultation bilaterally Cardio: Rate: regular rate Rhythm: regular rhythm Heart sounds: no gallops, no murmurs and no rubs GI: Palpation (GI): Soft to palpation and Other GI palpation findings present ( Nontender) Auscultation: normal bowel sounds Extrem: General: Yes no pedal edema, No clubbing and No cyanosis Objective Data Labs 07/19/23 07:19 07/19/23 07:19 Labs: Laboratory Results - last 24 hr 07/18/23 07/18/23 07/18/23 11:55 12:05 13:06 WBC RBC Hgb Hct MCV MCH MCHC RDW Plt Count MPV Immature Gran % (Auto) Neut % (Auto) Lymph % (Auto) [place] % (Auto) Eos % (Auto) Baso % (Auto) Lymph # (Auto) [place] # (Auto) Eos # (Auto) Baso # (Auto) Abs Immat Gran (auto) Absolute Neuts (auto) Absolute Nucleated RBC Nucleated RBC % (auto) Sodium 138 Potassium 2.9 L Chloride 97 Carbon Dioxide 24 Anion Gap 20 BUN < 3 L Creatinine 0.56 Estim Creat Clear Calc 117.3 Estimated GFR > 60 POC Glucose 160 H 158 H Random Glucose 149 H Calcium 7.8 L Phosphorus 2.4 L Magnesium 2.2 Total Bilirubin 0.8 AST 71 H ALT 61 H Alkaline Phosphatase 82 Total Protein 6.5 Albumin 3.7 Triglycerides 346 H Cholesterol LDL Cholesterol, Calc HDL Cholesterol 07/18/23 07/18/23 07/18/23 14:01 14:12 15:11 WBC RBC Hgb Hct MCV MCH MCHC RDW Plt Count MPV Immature Gran % (Auto) Neut % (Auto) Lymph % (Auto) [place] % (Auto) Eos % (Auto) Baso % (Auto) Lymph # (Auto) [place] # (Auto) Eos # (Auto) Baso # (Auto) Abs Immat Gran (auto) Absolute Neuts (auto) Absolute Nucleated RBC Nucleated RBC % (auto) Sodium 138 Potassium 3.3 Chloride 99 Carbon Dioxide 24 Anion Gap 18 BUN < 3 L Creatinine 0.60 Estim Creat Clear Calc 109.5 Estimated GFR > 60 POC Glucose 145 H 117 H Random Glucose 131 H Calcium 8.0 L Phosphorus 2.3 L Magnesium 2.1 Total Bilirubin AST ALT Alkaline Phosphatase Total Protein Albumin Triglycerides Cholesterol LDL Cholesterol, Calc HDL Cholesterol 07/18/23 07/18/23 07/18/23 16:09 16:36 17:05 WBC RBC Hgb Hct MCV MCH MCHC RDW Plt Count MPV Immature Gran % (Auto) Neut % (Auto) Lymph % (Auto) [place] % (Auto) Eos % (Auto) Baso % (Auto) Lymph # (Auto) [place] # (Auto) Eos # (Auto) Baso # (Auto) Abs Immat Gran (auto) Absolute Neuts (auto) Absolute Nucleated RBC Nucleated RBC % (auto) Sodium Potassium Chloride Carbon Dioxide Anion Gap BUN Creatinine Estim Creat Clear Calc Estimated GFR POC Glucose 90 88 108 Random Glucose Calcium Phosphorus Magnesium Total Bilirubin AST ALT Alkaline Phosphatase Total Protein Albumin Triglycerides Cholesterol LDL Cholesterol, Calc HDL Cholesterol 07/18/23 07/18/23 07/18/23 17:51 18:11 19:04 WBC RBC Hgb Hct MCV MCH MCHC RDW Plt Count MPV Immature Gran % (Auto) Neut % (Auto) Lymph % (Auto) [place] % (Auto) Eos % (Auto) Baso % (Auto) Lymph # (Auto) [place] # (Auto) Eos # (Auto) Baso # (Auto) Abs Immat Gran (auto) Absolute Neuts (auto) Absolute Nucleated RBC Nucleated RBC % (auto) Sodium 136 Potassium 3.2 L Chloride 98 Carbon Dioxide 24 Anion Gap 17 BUN < 3 L Creatinine 0.59 Estim Creat Clear Calc 111.4 Estimated GFR > 60 POC Glucose 135 H 142 H Random Glucose 117 H Calcium 7.8 L Phosphorus 2.7 Magnesium 1.9 Total Bilirubin AST ALT Alkaline Phosphatase Total Protein Albumin Triglycerides Cholesterol LDL Cholesterol, Calc HDL Cholesterol 07/18/23 07/18/23 07/18/23 20:10 21:11 22:00 WBC RBC Hgb Hct MCV MCH MCHC RDW Plt Count MPV Immature Gran % (Auto) Neut % (Auto) Lymph % (Auto) [place] % (Auto) Eos % (Auto) Baso % (Auto) Lymph # (Auto) [place] # (Auto) Eos # (Auto) Baso # (Auto) Abs Immat Gran (auto) Absolute Neuts (auto) Absolute Nucleated RBC Nucleated RBC % (auto) Sodium 137 Potassium 3.1 L Chloride 99 Carbon Dioxide 26 Anion Gap 15 BUN < 3 L Creatinine 0.56 Estim Creat Clear Calc 117.3 Estimated GFR > 60 POC Glucose 158 H 131 H Random Glucose 123 H Calcium 8.0 L Phosphorus 2.1 L Magnesium 2.5 Total Bilirubin AST ALT Alkaline Phosphatase Total Protein Albumin Triglycerides Cholesterol LDL Cholesterol, Calc HDL Cholesterol 07/18/23 07/18/23 07/18/23 22:08 22:54 23:58 WBC RBC Hgb Hct MCV MCH MCHC RDW Plt Count MPV Immature Gran % (Auto) Neut % (Auto) Lymph % (Auto) [place] % (Auto) Eos % (Auto) Baso % (Auto) Lymph # (Auto) [place] # (Auto) Eos # (Auto) Baso # (Auto) Abs Immat Gran (auto) Absolute Neuts (auto) Absolute Nucleated RBC Nucleated RBC % (auto) Sodium Potassium Chloride Carbon Dioxide Anion Gap BUN Creatinine Estim Creat Clear Calc Estimated GFR POC Glucose 115 122 H 122 H Random Glucose Calcium Phosphorus Magnesium Total Bilirubin AST ALT Alkaline Phosphatase Total Protein Albumin Triglycerides Cholesterol LDL Cholesterol, Calc HDL Cholesterol 07/19/23 07/19/23 07/19/23 01:03 02:00 03:00 WBC RBC Hgb Hct MCV MCH MCHC RDW Plt Count MPV Immature Gran % (Auto) Neut % (Auto) Lymph % (Auto) [place] % (Auto) Eos % (Auto) Baso % (Auto) Lymph # (Auto) [place] # (Auto) Eos # (Auto) Baso # (Auto) Abs Immat Gran (auto) Absolute Neuts (auto) Absolute Nucleated RBC Nucleated RBC % (auto) Sodium 138 Potassium 3.9 D Chloride 103 Carbon Dioxide 27 Anion Gap 12 BUN < 3 L Creatinine 0.57 Estim Creat Clear Calc 115.3 Estimated GFR > 60 POC Glucose 84 126 H Random Glucose 146 H Calcium 8.1 L Phosphorus 2.4 L Magnesium 2.4 Total Bilirubin AST ALT Alkaline Phosphatase Total Protein Albumin Triglycerides Cholesterol LDL Cholesterol, Calc HDL Cholesterol 07/19/23 07/19/23 07/19/23 03:05 04:05 05:07 WBC RBC Hgb Hct MCV MCH MCHC RDW Plt Count MPV Immature Gran % (Auto) Neut % (Auto) Lymph % (Auto) [place] % (Auto) Eos % (Auto) Baso % (Auto) Lymph # (Auto) [place] # (Auto) Eos # (Auto) Baso # (Auto) Abs Immat Gran (auto) Absolute Neuts (auto) Absolute Nucleated RBC Nucleated RBC % (auto) Sodium Potassium Chloride Carbon Dioxide Anion Gap BUN Creatinine Estim Creat Clear Calc Estimated GFR POC Glucose 151 H 144 H 159 H Random Glucose Calcium Phosphorus Magnesium Total Bilirubin AST ALT Alkaline Phosphatase Total Protein Albumin Triglycerides Cholesterol LDL Cholesterol, Calc HDL Cholesterol 07/19/23 07/19/23 07/19/23 06:06 07:02 07:19 WBC 3.1 L RBC 3.48 L Hgb 11.1 L Hct 31.9 L MCV 91.7 MCH 31.9 MCHC 34.8 RDW 13.2 Plt Count 80 L MPV 11.1 Immature Gran % (Auto) 0.3 Neut % (Auto) 48.6 Lymph % (Auto) 35.3 [place] % (Auto) 7.1 Eos % (Auto) 6.8 H Baso % (Auto) 1.9 Lymph # (Auto) 1.1 L [place] # (Auto) 0.2 Eos # (Auto) 0.2 Baso # (Auto) 0.1 Abs Immat Gran (auto) 0.01 Absolute Neuts (auto) 1.5 L Absolute Nucleated RBC 0.000 Nucleated RBC % (auto) 0.0 Sodium 138 Potassium Chloride Carbon Dioxide Anion Gap BUN Creatinine Estim Creat Clear Calc Estimated GFR POC Glucose 162 H 158 H Random Glucose Calcium Phosphorus Magnesium Total Bilirubin AST ALT Alkaline Phosphatase Total Protein Albumin Triglycerides Cholesterol LDL Cholesterol, Calc HDL Cholesterol 07/19/23 07/19/23 07/19/23 07:19 07:19 07:19 WBC RBC Hgb Hct MCV MCH MCHC RDW Plt Count MPV Immature Gran % (Auto) Neut % (Auto) Lymph % (Auto) [place] % (Auto) Eos % (Auto) Baso % (Auto) Lymph # (Auto) [place] # (Auto) Eos # (Auto) Baso # (Auto) Abs Immat Gran (auto) Absolute Neuts (auto) Absolute Nucleated RBC Nucleated RBC % (auto) Sodium Cancelled Potassium 3.7 Cancelled Chloride 104 Cancelled Carbon Dioxide 27 Anion Gap BUN Creatinine Estim Creat Clear Calc Estimated GFR POC Glucose Random Glucose Calcium Phosphorus Magnesium Total Bilirubin AST ALT Alkaline Phosphatase Total Protein Albumin Triglycerides Cholesterol LDL Cholesterol, Calc HDL Cholesterol 07/19/23 07/19/23 07/19/23 07:19 07:19 07:19 WBC RBC Hgb Hct MCV MCH MCHC RDW Plt Count MPV Immature Gran % (Auto) Neut % (Auto) Lymph % (Auto) [place] % (Auto) Eos % (Auto) Baso % (Auto) Lymph # (Auto) [place] # (Auto) Eos # (Auto) Baso # (Auto) Abs Immat Gran (auto) Absolute Neuts (auto) Absolute Nucleated RBC Nucleated RBC % (auto) Sodium Potassium Chloride Carbon Dioxide Cancelled Anion Gap 11 L Cancelled BUN < 3 L Cancelled Creatinine 0.58 Estim Creat Clear Calc Estimated GFR POC Glucose Random Glucose Calcium Phosphorus Magnesium Total Bilirubin AST ALT Alkaline Phosphatase Total Protein Albumin Triglycerides Cholesterol LDL Cholesterol, Calc HDL Cholesterol 07/19/23 07/19/23 07/19/23 07:19 07:19 07:19 WBC RBC Hgb Hct MCV MCH MCHC RDW Plt Count MPV Immature Gran % (Auto) Neut % (Auto) Lymph % (Auto) [place] % (Auto) Eos % (Auto) Baso % (Auto) Lymph # (Auto) [place] # (Auto) Eos # (Auto) Baso # (Auto) Abs Immat Gran (auto) Absolute Neuts (auto) Absolute Nucleated RBC Nucleated RBC % (auto) Sodium Potassium Chloride Carbon Dioxide Anion Gap BUN Creatinine Cancelled Estim Creat Clear Calc 111.7 Cancelled Estimated GFR > 60 Cancelled POC Glucose Random Glucose 138 H Calcium Phosphorus Magnesium Total Bilirubin AST ALT Alkaline Phosphatase Total Protein Albumin Triglycerides Cholesterol LDL Cholesterol, Calc HDL Cholesterol 07/19/23 07/19/23 07/19/23 07:19 07:19 07:19 WBC RBC Hgb Hct MCV MCH MCHC RDW Plt Count MPV Immature Gran % (Auto) Neut % (Auto) Lymph % (Auto) [place] % (Auto) Eos % (Auto) Baso % (Auto) Lymph # (Auto) [place] # (Auto) Eos # (Auto) Baso # (Auto) Abs Immat Gran (auto) Absolute Neuts (auto) Absolute Nucleated RBC Nucleated RBC % (auto) Sodium Potassium Chloride Carbon Dioxide Anion Gap BUN Creatinine Estim Creat Clear Calc Estimated GFR POC Glucose Random Glucose Cancelled Calcium 8.0 L Cancelled Phosphorus 2.9 Cancelled Magnesium 2.1 Total Bilirubin AST ALT Alkaline Phosphatase Total Protein Albumin Triglycerides Cholesterol LDL Cholesterol, Calc HDL Cholesterol 07/19/23 07/19/23 07:19 11:21 WBC RBC Hgb Hct MCV MCH MCHC RDW Plt Count MPV Immature Gran % (Auto) Neut % (Auto) Lymph % (Auto) [place] % (Auto) Eos % (Auto) Baso % (Auto) Lymph # (Auto) [place] # (Auto) Eos # (Auto) Baso # (Auto) Abs Immat Gran (auto) Absolute Neuts (auto) Absolute Nucleated RBC Nucleated RBC % (auto) Sodium Potassium Chloride Carbon Dioxide Anion Gap BUN Creatinine Estim Creat Clear Calc Estimated GFR POC Glucose 79 Random Glucose Calcium Phosphorus Magnesium Cancelled Total Bilirubin AST ALT Alkaline Phosphatase Total Protein Albumin Triglycerides 145 Cholesterol 419 H LDL Cholesterol, Calc 345 H HDL Cholesterol 45 Progress Note: A&P Assessment and plan (1) Pancreatitis: Status: Acute (2) Hypertriglyceridemia: Status: Acute (3) DKA (diabetic ketoacidosis): Status: Acute (4) Alcoholism: Status: Acute Plan Assessment: 27-year-old lady with underlying history of alcohol abuse admitted with alcoholic/hypertriglyceridemia pancreatitis and diabetic ketoacidosis Plan: Neuro: No acute issues. Cardiac: No acute issues. Pulmonary: No acute issues. Renal: No acute issues. Endo: Pancreatitis secondary to alcohol abuse/hypertriglyceridemia, improving. Now pancreatic necrosis on initial CT scan. Diabetic ketoacidosis resolved, titrated off insulin drip. Continue on SC insulin. GI: No acute issues. ID: No acute issues Heme/Onc: No acute issues. Psych: No acute issues. Miscellaneous: No acute issues. Prophylaxis: Heparin Diet: Full liquid Quality Stroke Does the patient have a stroke diagnosis?: No VTE Prior VTE?: No VTE Risk Level:: Medical - moderate - high VTE Device Contraindication: N/A - Device Ordered VTE Drug Contraindication: N/A - Med Ordered
[2023-07-19 12:35] LABS: Anion Gap 13 (12-20); Blood Urea Nitrogen < 3 mg/dL (9-16); Calcium 8.6 mg/dL (8.4-10.2); Carbon Dioxide 27 mmol/L (22-29); Chloride 104 mmol/L (96-108); Creatinine Clr Calc Pharmacy 118.7; Estimated Glomerular Filt Rate > 60; Glucose Random 85 mg/dL (60-115); Potassium 3.5 mmol/L (3.3-5.1); Sodium 140 mmol/L (135-145)
[2023-07-19 15:20] LABS: Glucose, Whole Blood 97 mg/dL (60-115)
[2023-07-19] MEDS: gemfibroziL 600 MG TABLET PO (16:29)
--- NOTE | 2023-07-19 18:18 | PC.NURSE ---
no need to continue with Telemetry per Dr. Landrum
--- NOTE | 2023-07-19 20:54 | PC.NURSE ---
BP elevated 162/110 pulse 77,patient feeling anxious and has tremors,Dr. Jolley notified.
[2023-07-19 20:57] LABS: Glucose, Whole Blood 98 mg/dL (60-115)
[2023-07-19] MEDS: PHENobarbitaL sodium 130 MG/ML VIAL 260 MG IM (21:45)
[2023-07-20] VITALS (9 sets, daily range): BP systolic 128–162; BP diastolic 88–120; PULSE 65–118; RESP 16–18; TEMP 35.9–36.6; O2SAT 97–100; BMI 18.8
--- NOTE | 2023-07-20 07:04 | PC.NURSE ---
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 Attempts x2. day RN made aware, hospitalist also. patient is independent with position change and also ambulating
[2023-07-20 07:49] LABS: Glucose, Whole Blood 91 mg/dL (60-115)
--- NOTE | 2023-07-20 07:54 | PC.NURSE ---
pt refusing medications and vitals stating that she wants to be left alone and doesn't want to be bothered. Dr Mendosa aware
--- NOTE | 2023-07-20 08:25 | PC.NURSE ---
BP 158/[address] Mendosa aware.
[2023-07-20 09:34] LABS: MANUAL DIFF FLAG NO
[2023-07-20 09:37] LABS: Venous Blood Gas Refer to POC result
[2023-07-20 09:40] LABS: VBG HCO3 29 mmol/L (22-26); VBG pCO2 43 mmHg; VBG pH 7.44 (7.32-7.43); VBG pO2 32 mmHg
[2023-07-20 09:45] LABS: Mean Corpuscular HGB Conc 34.7 g/dl (31.0-35.0); PLT CLUMP 1; SCAN SMEAR FLAG 1
[2023-07-20 09:47] LABS: Basophils Percent Auto 1.1 % (0-2); Eosinophils Absolute Auto 0.2 X10*3/uL (0.0-0.4); Eosinophils Percent Auto 5.5 % (0-4); Estimated Average Glucose 94 mg/dL; Hematocrit 37.5 % (37.0-47.0); Hemoglobin A1c % 4.9 % (<6.0); Imm Gran Abs Auto 0.01 X10*3/uL (0.00-0.03); Imm Gran Pct Auto 0.3 % (0.0-0.4); Lymphocytes Absolute Auto 0.8 X10*3/uL (1.2-4.9); Lymphocytes Percent Auto 22.6 % (20-40); Mean Corpuscular Hemoglobin 31.7 pg (27.0-33.0); Mean Corpuscular Volume 91.5 fL (80.0-98.0); Mean Platelet Volume 11.3 fL (9.4-12.3); Monocytes Absolute Auto 0.3 X10*3/uL (0.1-1.2); Monocytes Percent Auto 8.5 % (2-11); Neutrophils Absolute Auto 2.3 x10*3/uL (2.0-8.3); Platelet Count 110 X10*3/uL (160-400); Red Cell Distribution Width 12.7 % (11.0-16.0); White Blood Count 3.6 X10*3/uL (4.8-10.8)
[2023-07-20 09:53] LABS: Alanine Aminotransferase 96 U/L (0-31); Albumin Level 4.3 g/dL (3.5-5.0); Alkaline Phosphatase 102 U/L (39-117); Anion Gap 15 (12-20); Aspartate Amino Transferase 206 U/L (5-31); Bilirubin Total 0.9 mg/dL (0.0-1.0); Blood Urea Nitrogen 4 mg/dL (9-16); Calcium 9.9 mg/dL (8.4-10.2); Carbon Dioxide 26 mmol/L (22-29); Chloride 97 mmol/L (96-108); Creatinine Clr Calc Pharmacy 104.3; Estimated Glomerular Filt Rate > 60; Glucose Random 140 mg/dL (60-115); Magnesium 1.6 mg/dL (1.6-2.6); Phosphorus 3.2 mg/dL (2.7-4.5); Sodium 135 mmol/L (135-145); Total Protein 7.4 g/dL (6.5-8.0)
--- NOTE | 2023-07-20 09:57 | HO.PM.IMPN ---
Subjective Subjective Date of Service: 07/20/23 Interval History: acute pancreatitis ,alcohol withdrawals,hypertriglyceremia Review of Systems has abd pain tramulous and anxious Physical Exam Vital Signs: Vital Signs: Last Vital Signs Temp 97.2 F 07/20/23 08:00 Pulse 118 H 07/20/23 08:00 Resp 16 07/20/23 08:00 BP 158/120 H 07/20/23 08:00 Pulse Ox 100 07/20/23 08:00 O2 Del Method Room Air 07/20/23 08:00 BMI result Body Mass Index 18.8 Appearance: Alert.? Oriented X3. cvs: rrr, [id number] , no murmur res: clear to auscultation ,no rhonchii or wheezing abd: no rebound or guarding ,abd pain, bs present. ext pulses present , no cyanosis . neuro: axo3 , nonfocal. Objective Data Active Medications Clonidine HCl (Clonidine Hcl 0.1 Mg Tablet) 0.1 mg PO BID [facility]; Protocol Dextrose (Dextrose 50 % 25 Gm/50 Ml Syringe) 25 gm IVPUSH Q30M PRN PRN Reason: BG < 70 Gemfibrozil (Gemfibrozil 600 Mg Tablet) 600 mg PO BIDAC [facility] Last Admin: 07/20/23 08:21 Dose: Not Given Documented By: CALLUM Non-Admin Reason: Physician Approved Insulin Glargine (Insulin Glargine,Hum.Rec.Anlog 100 Unit/Ml 10 Ml Vial) 5 unit SUBCUT DAILY [facility] Last Admin: 07/20/23 07:56 Dose: Not Given Documented By: CALLUM Non-Admin Reason: Physician Approved Insulin Human Lispro (Insulin Lispro 100 Unit/Ml 3 Ml Vial) 0 unit SUBCUT QIDACHS [facility]; Protocol Last Admin: 07/20/23 07:50 Dose: Not Given Documented By: CALLUM Non-Admin Reason: No Insulin Coverage Ondansetron HCl (Ondansetron Hcl 4 Mg/2 Ml Vial) 4 mg IVPUSH Q6H PRN PRN Reason: Nausea and Vomiting Last Admin: 07/17/23 16:29 Dose: 4 mg Documented By: MICHELLE Pharmacy Consult (Consult Rx Etoh Phenob Im/Po) 1 each MISCELLANE ONCE PRN; Protocol PRN Reason: Consult order Phenobarbital (Phenobarbital 15 Mg Tablet) 15 mg PO DAILY [facility]; Protocol Stop: 07/22/23 09:01 Phenobarbital (Phenobarbital 15 Mg Tablet) 15 mg PO BID [facility]; Protocol Stop: 07/20/23 21:01 Last Admin: 07/19/23 20:44 Dose: 15 mg Documented By: CONOR Labs 07/20/23 09:29 07/20/23 09:29 Labs: Laboratory Results - last 24 hr 07/19/23 07/19/23 07/19/23 11:21 12:08 15:16 MCV MCH MCHC RDW Plt Count MPV Immature Gran % (Auto) Neut % (Auto) Lymph % (Auto) [place] % (Auto) Eos % (Auto) Baso % (Auto) Lymph # (Auto) [place] # (Auto) Eos # (Auto) Baso # (Auto) Abs Immat Gran (auto) Absolute Neuts (auto) Absolute Nucleated RBC Nucleated RBC % (auto) VBG pH VBG pCO2 VBG pO2 VBG HCO3 VBG O2 Saturation VBG Base Excess Anion Gap 13 Estim Creat Clear Calc 118.7 Estimated GFR > 60 POC Glucose 79 97 Random Glucose 85 Estimat Average Glucose Hemoglobin A1c % Calcium 8.6 D Phosphorus Magnesium Total Bilirubin AST ALT Alkaline Phosphatase Total Protein Albumin 07/19/23 07/20/23 07/20/23 20:17 07:44 09:29 MCV 91.5 MCH 31.7 MCHC 34.7 RDW 12.7 Plt Count 110 L D MPV 11.3 Immature Gran % (Auto) 0.3 Neut % (Auto) 62.0 Lymph % (Auto) 22.6 [place] % (Auto) 8.5 Eos % (Auto) 5.5 H Baso % (Auto) 1.1 Lymph # (Auto) 0.8 L [place] # (Auto) 0.3 Eos # (Auto) 0.2 Baso # (Auto) 0.0 Abs Immat Gran (auto) 0.01 Absolute Neuts (auto) 2.3 Absolute Nucleated RBC 0.000 Nucleated RBC % (auto) 0.0 VBG pH VBG pCO2 VBG pO2 VBG HCO3 VBG O2 Saturation VBG Base Excess Anion Gap 15 Estim Creat Clear Calc Estimated GFR POC Glucose 98 91 Random Glucose Estimat Average Glucose Hemoglobin A1c % Calcium Phosphorus Magnesium Total Bilirubin AST ALT Alkaline Phosphatase Total Protein Albumin 12/01/0507/20/23 07/20/23 09:29 09:29 09:29 MCV MCH MCHC RDW Plt Count MPV Immature Gran % (Auto) Neut % (Auto) Lymph % (Auto) [place] % (Auto) Eos % (Auto) Baso % (Auto) Lymph # (Auto) [place] # (Auto) Eos # (Auto) Baso # (Auto) Abs Immat Gran (auto) Absolute Neuts (auto) Absolute Nucleated RBC Nucleated RBC % (auto) VBG pH VBG pCO2 VBG pO2 VBG HCO3 VBG O2 Saturation VBG Base Excess Anion Gap Cancelled Estim Creat Clear Calc 104.3 Cancelled Estimated GFR > 60 Cancelled POC Glucose Random Glucose 140 H Estimat Average Glucose Hemoglobin A1c % Calcium Phosphorus Magnesium Total Bilirubin AST ALT Alkaline Phosphatase Total Protein Albumin 07/20/23 07/20/23 07/20/23 09:29 09:29 09:35 MCV MCH MCHC RDW Plt Count MPV Immature Gran % (Auto) Neut % (Auto) Lymph % (Auto) [place] % (Auto) Eos % (Auto) Baso % (Auto) Lymph # (Auto) [place] # (Auto) Eos # (Auto) Baso # (Auto) Abs Immat Gran (auto) Absolute Neuts (auto) Absolute Nucleated RBC Nucleated RBC % (auto) VBG pH 7.44 H VBG pCO2 43 VBG pO2 32 VBG HCO3 29 H VBG O2 Saturation 44.0 VBG Base Excess 5.0 Anion Gap Estim Creat Clear Calc Estimated GFR POC Glucose Random Glucose Cancelled Estimat Average Glucose 94 Hemoglobin A1c % 4.9 Calcium 9.9 D Cancelled Phosphorus 3.2 Magnesium 1.6 Total Bilirubin 0.9 AST 206 H ALT 96 H Alkaline Phosphatase 102 Total Protein 7.4 Albumin 4.3 Assessment and Plan (1) Hypertriglyceridemia: Status: Acute (2) Pancreatitis: Status: Acute (3) Alcoholism: Status: Acute (4) High anion gap metabolic acidosis: Status: Acute Plan 27-year-old lady with underlying alcohol abuse admitted on 07/17/2023 with pancreatitis, alcohol intoxication, hyperglyceridemia, and diabetic ketoacidosis requiring insulin drip. CT abdomen pelvis with no evidence pancreatic necrosis. Triglycerides improved on insulin drip and ketoacidosis resolved. Alcohol withdrawals anxious and tramulous anxious ,elevated bp reading continue ciwa and pheobarbital,thiamine and folic acid,clonidine . elevated bp reading -multifactorial( alcohol withdrawal,pain) added clonidine ,moniter bp. acute pancreatitis abd pain improving TG improving start diet , pain management, off insulin drip ? Diabetes ( as per Icu Note it says dka )-possible elevated fs in setting of pancreatitis /TG , alcohol use might also be contributing hba1c 4.9 fs mostly all below 200,repeat Hba1c levels added placed call for endocrinlogy but could not reach today,try again in am. moniter fs with sliding scale coverage ,hold lantus transamnitis :possible releated to alcohol use/hepatic steatois on abd ct. hepatitis profile . dvt prophylax: low risk,advised ambulation,patient not interested in chemo prophylax. ongoing hospitlisation need:Alcohol withdrawals,panncreatiitis ,elevated bp: need phenobarbital ,ciwa monitering, tansamnitis workup,bp monitering Quality Stroke Does the patient have a stroke diagnosis?: No VTE Prior VTE?: No VTE Risk Level:: Medical - moderate - high VTE Device Contraindication: N/A - Device Ordered VTE Drug Contraindication: N/A - Med Ordered
[2023-07-20] MEDS: PHENobarbitaL 15 MG TABLET PO ×2 (10:28→20:10)
[2023-07-20 11:36] LABS: Glucose, Whole Blood 123 mg/dL (60-115)
[2023-07-20] MEDS: cloNIDine HCL 0.1 MG TABLET PO ×2 (11:51→20:09)
--- NOTE | 2023-07-20 12:23 | MHC.RECOVRN ---
Met with pt in 373 after consult placed to Addiction Medicine for alcohol use. Pt had presented to the ED on 07/16 vomiting, tachycardic, hypertensive, reporting alcohol use-last drink on . Upon ED evaluation, pt admitted to ICU for DKA, high anion gap metabolic acidosis, and alcohol use. Pt has since been moved from ICU to S3. Pt sitting in bed, awake, alert, easily engages in conversation, tearful at times. Pt reports drinking 1/2-1 pint Sofia x 6 years. Pt reports she had been mixing it with Red Bull but over time has grown accustomed to drinking it without mixing. Pt reports alcohol use increased 6 years ago after ending a relationship. Pt has been to tx for AUD x1, [facility] approx 1 year ago. Pt reports she spent 5 weeks at that facility and returned to use when discharged. Pt reports current hospitalization is longest she has gone without alcohol in 6 years, other than [facility] admission. Pt reports family hx AUD/LEXIS, including parents and aunts and uncles. For supports, pt identifies mother and boyfriend, however, mother is currently drinking nearly 30 beers daily. Pt reports cravings for alcohol are strong. Educated pt on recovery support options and resources, pt is interested in naltrexone and initiating care at the [facility]. Pt is interested in decreasing use, not necessarily abstinence. However, pt is aware of health issues that are being caused by alcohol use and agrees they are concerning. Pt was provided with written recovery resources and information, plan for pt to look it over and t/w to return to answer any questions or concerns at that time. Disucssed with Almita Archer APRN.
[2023-07-20] MEDS: Potassium Chloride Packet 20 MEQ PACKET 40 MEQ PO (15:07)
--- NOTE | 2023-07-20 15:51 | HO.ADDICTPRO ---
Subjective Subjective Date of Service: 07/20/23 Reason For Visit: alcohol ketoacidosis; alcohol withdrawal; dka Interim History: Patient is a 27 year old female with alcohol use disorder currently medically admitted with pancreatitis and DKA (however no dx of DM). Chart review shows that since March patient has presented to [facility] 4 times for alcohol related issues, including falls. Seen in room 373 with guest service host (who had seen patient earlier in the day and provided resources and reviewed treatment options). Patient awake, alert and engaged in interview. She states she has been drinking alcohol since she was 16 years old, and started drinking heavily 5-6 years ago following the end of a relationship. One treatment admission about a year ago. No other substance use. Patient sharing various ways AUD has impacted her life--weight loss, inability to maintain employment, health implications. When seen by this screenplay writer she had several questions related to IOP. Questions answered. Discussed medications, particularly naltrexone. She has never taken medications for AUD, and is open to it now. Reviewed indications for medication, side effects, and goals of treatment. Discussed recovery supports in addition to medication. Review of Systems Constitutional: Reports as per HPI Mental Status Exam Mental Status Exam Patient Appearance: Well Grooomed and Appropriate Patient Orientation: Person, Place, Time and Situation Level of Consciousness: Awake, Appropriate and Alert Patient Behavior: Appropriate and Talkative Mood Description: Calm Affect Description: Calm Diagnostics Vital Signs (24Hr): Vital Signs - 24 hr 07/19/23 16:14 07/19/23 20:00 07/19/23 20:49 Temperature 97.6 F 96.9 F Pulse Rate 79 112 H Respiratory Rate 18 20 Blood Pressure 156/92 H 160/126 H 162/110 H Pulse Oximetry 96 98 Oxygen Delivery Method Room Air Room Air 07/19/23 20:50 07/19/23 21:44 07/20/23 00:00 Temperature 97.8 F Pulse Rate 77 82 90 Respiratory Rate 20 16 Blood Pressure 169/115 H Pulse Oximetry 100 Oxygen Delivery Method Room Air 07/20/23 00:27 07/20/23 03:43 07/20/23 05:48 Temperature 96.8 F Pulse Rate 98 Respiratory Rate 16 16 Blood Pressure 152/98 H 140/111 H Pulse Oximetry 100 Oxygen Delivery Method Room Air 07/20/23 08:00 07/20/23 11:38 Temperature 97.2 F Pulse Rate 118 H 116 H Respiratory Rate 16 18 Blood Pressure 158/120 H 138/110 H Pulse Oximetry 100 100 Oxygen Delivery Method Room Air Room Air BMI result Body Mass Index 18.8 Labs 07/20/23 09:29 07/20/23 09:29 Labs: Laboratory Results - last 48 hr 07/18/23 07/18/23 07/18/23 16:09 16:36 17:05 WBC RBC Hgb Hct MCV MCH MCHC RDW Plt Count MPV Immature Gran % (Auto) Neut % (Auto) Lymph % (Auto) [place] % (Auto) Eos % (Auto) Baso % (Auto) Lymph # (Auto) [place] # (Auto) Eos # (Auto) Baso # (Auto) Abs Immat Gran (auto) Absolute Neuts (auto) Absolute Nucleated RBC Nucleated RBC % (auto) VBG pH VBG pCO2 VBG pO2 VBG HCO3 VBG O2 Saturation VBG Base Excess Sodium Potassium Chloride Carbon Dioxide Anion Gap BUN Creatinine Estim Creat Clear Calc Estimated GFR POC Glucose 90 88 108 Random Glucose Estimat Average Glucose Hemoglobin A1c % Calcium Phosphorus Magnesium Total Bilirubin AST ALT Alkaline Phosphatase Total Protein Albumin Triglycerides Cholesterol LDL Cholesterol, Calc HDL Cholesterol 07/18/23 07/18/23 07/18/23 17:51 18:11 19:04 WBC RBC Hgb Hct MCV MCH MCHC RDW Plt Count MPV Immature Gran % (Auto) Neut % (Auto) Lymph % (Auto) [place] % (Auto) Eos % (Auto) Baso % (Auto) Lymph # (Auto) [place] # (Auto) Eos # (Auto) Baso # (Auto) Abs Immat Gran (auto) Absolute Neuts (auto) Absolute Nucleated RBC Nucleated RBC % (auto) VBG pH VBG pCO2 VBG pO2 VBG HCO3 VBG O2 Saturation VBG Base Excess Sodium 136 Potassium 3.2 L Chloride 98 Carbon Dioxide 24 Anion Gap 17 BUN < 3 L Creatinine 0.59 Estim Creat Clear Calc 111.4 Estimated GFR > 60 POC Glucose 135 H 142 H Random Glucose 117 H Estimat Average Glucose Hemoglobin A1c % Calcium 7.8 L Phosphorus 2.7 Magnesium 1.9 Total Bilirubin AST ALT Alkaline Phosphatase Total Protein Albumin Triglycerides Cholesterol LDL Cholesterol, Calc HDL Cholesterol 07/18/23 07/18/23 07/18/23 20:10 21:11 22:00 WBC RBC Hgb Hct MCV MCH MCHC RDW Plt Count MPV Immature Gran % (Auto) Neut % (Auto) Lymph % (Auto) [place] % (Auto) Eos % (Auto) Baso % (Auto) Lymph # (Auto) [place] # (Auto) Eos # (Auto) Baso # (Auto) Abs Immat Gran (auto) Absolute Neuts (auto) Absolute Nucleated RBC Nucleated RBC % (auto) VBG pH VBG pCO2 VBG pO2 VBG HCO3 VBG O2 Saturation VBG Base Excess Sodium 137 Potassium 3.1 L Chloride 99 Carbon Dioxide 26 Anion Gap 15 BUN < 3 L Creatinine 0.56 Estim Creat Clear Calc 117.3 Estimated GFR > 60 POC Glucose 158 H 131 H Random Glucose 123 H Estimat Average Glucose Hemoglobin A1c % Calcium 8.0 L Phosphorus 2.1 L Magnesium 2.5 Total Bilirubin AST ALT Alkaline Phosphatase Total Protein Albumin Triglycerides Cholesterol LDL Cholesterol, Calc HDL Cholesterol 07/18/23 07/18/23 07/18/23 22:08 22:54 23:58 WBC RBC Hgb Hct MCV MCH MCHC RDW Plt Count MPV Immature Gran % (Auto) Neut % (Auto) Lymph % (Auto) [place] % (Auto) Eos % (Auto) Baso % (Auto) Lymph # (Auto) [place] # (Auto) Eos # (Auto) Baso # (Auto) Abs Immat Gran (auto) Absolute Neuts (auto) Absolute Nucleated RBC Nucleated RBC % (auto) VBG pH VBG pCO2 VBG pO2 VBG HCO3 VBG O2 Saturation VBG Base Excess Sodium Potassium Chloride Carbon Dioxide Anion Gap BUN Creatinine Estim Creat Clear Calc Estimated GFR POC Glucose 115 122 H 122 H Random Glucose Estimat Average Glucose Hemoglobin A1c % Calcium Phosphorus Magnesium Total Bilirubin AST ALT Alkaline Phosphatase Total Protein Albumin Triglycerides Cholesterol LDL Cholesterol, Calc HDL Cholesterol 07/19/23 07/19/23 07/19/23 01:03 02:00 03:00 WBC RBC Hgb Hct MCV MCH MCHC RDW Plt Count MPV Immature Gran % (Auto) Neut % (Auto) Lymph % (Auto) [place] % (Auto) Eos % (Auto) Baso % (Auto) Lymph # (Auto) [place] # (Auto) Eos # (Auto) Baso # (Auto) Abs Immat Gran (auto) Absolute Neuts (auto) Absolute Nucleated RBC Nucleated RBC % (auto) VBG pH VBG pCO2 VBG pO2 VBG HCO3 VBG O2 Saturation VBG Base Excess Sodium 138 Potassium 3.9 D Chloride 103 Carbon Dioxide 27 Anion Gap 12 BUN < 3 L Creatinine 0.57 Estim Creat Clear Calc 115.3 Estimated GFR > 60 POC Glucose 84 126 H Random Glucose 146 H Estimat Average Glucose Hemoglobin A1c % Calcium 8.1 L Phosphorus 2.4 L Magnesium 2.4 Total Bilirubin AST ALT Alkaline Phosphatase Total Protein Albumin Triglycerides Cholesterol LDL Cholesterol, Calc HDL Cholesterol 07/19/23 07/19/23 07/19/23 03:05 04:05 05:07 WBC RBC Hgb Hct MCV MCH MCHC RDW Plt Count MPV Immature Gran % (Auto) Neut % (Auto) Lymph % (Auto) [place] % (Auto) Eos % (Auto) Baso % (Auto) Lymph # (Auto) [place] # (Auto) Eos # (Auto) Baso # (Auto) Abs Immat Gran (auto) Absolute Neuts (auto) Absolute Nucleated RBC Nucleated RBC % (auto) VBG pH VBG pCO2 VBG pO2 VBG HCO3 VBG O2 Saturation VBG Base Excess Sodium Potassium Chloride Carbon Dioxide Anion Gap BUN Creatinine Estim Creat Clear Calc Estimated GFR POC Glucose 151 H 144 H 159 H Random Glucose Estimat Average Glucose Hemoglobin A1c % Calcium Phosphorus Magnesium Total Bilirubin AST ALT Alkaline Phosphatase Total Protein Albumin Triglycerides Cholesterol LDL Cholesterol, Calc HDL Cholesterol 07/19/23 07/19/23 07/19/23 06:06 07:02 07:19 WBC 3.1 L RBC 3.48 L Hgb 11.1 L Hct 31.9 L MCV 91.7 MCH 31.9 MCHC 34.8 RDW 13.2 Plt Count 80 L MPV 11.1 Immature Gran % (Auto) 0.3 Neut % (Auto) 48.6 Lymph % (Auto) 35.3 [place] % (Auto) 7.1 Eos % (Auto) 6.8 H Baso % (Auto) 1.9 Lymph # (Auto) 1.1 L [place] # (Auto) 0.2 Eos # (Auto) 0.2 Baso # (Auto) 0.1 Abs Immat Gran (auto) 0.01 Absolute Neuts (auto) 1.5 L Absolute Nucleated RBC 0.000 Nucleated RBC % (auto) 0.0 VBG pH VBG pCO2 VBG pO2 VBG HCO3 VBG O2 Saturation VBG Base Excess Sodium 138 Potassium Chloride Carbon Dioxide Anion Gap BUN Creatinine Estim Creat Clear Calc Estimated GFR POC Glucose 162 H 158 H Random Glucose Estimat Average Glucose Hemoglobin A1c % Calcium Phosphorus Magnesium Total Bilirubin AST ALT Alkaline Phosphatase Total Protein Albumin Triglycerides Cholesterol LDL Cholesterol, Calc HDL Cholesterol 07/19/23 07/19/23 07/19/23 07:19 07:19 07:19 WBC RBC Hgb Hct MCV MCH MCHC RDW Plt Count MPV Immature Gran % (Auto) Neut % (Auto) Lymph % (Auto) [place] % (Auto) Eos % (Auto) Baso % (Auto) Lymph # (Auto) [place] # (Auto) Eos # (Auto) Baso # (Auto) Abs Immat Gran (auto) Absolute Neuts (auto) Absolute Nucleated RBC Nucleated RBC % (auto) VBG pH VBG pCO2 VBG pO2 VBG HCO3 VBG O2 Saturation VBG Base Excess Sodium Cancelled Potassium 3.7 Cancelled Chloride 104 Cancelled Carbon Dioxide 27 Anion Gap BUN Creatinine Estim Creat Clear Calc Estimated GFR POC Glucose Random Glucose Estimat Average Glucose Hemoglobin A1c % Calcium Phosphorus Magnesium Total Bilirubin AST ALT Alkaline Phosphatase Total Protein Albumin Triglycerides Cholesterol LDL Cholesterol, Calc HDL Cholesterol 07/19/23 07/19/23 07/19/23 07:19 07:19 07:19 WBC RBC Hgb Hct MCV MCH MCHC RDW Plt Count MPV Immature Gran % (Auto) Neut % (Auto) Lymph % (Auto) [place] % (Auto) Eos % (Auto) Baso % (Auto) Lymph # (Auto) [place] # (Auto) Eos # (Auto) Baso # (Auto) Abs Immat Gran (auto) Absolute Neuts (auto) Absolute Nucleated RBC Nucleated RBC % (auto) VBG pH VBG pCO2 VBG pO2 VBG HCO3 VBG O2 Saturation VBG Base Excess Sodium Potassium Chloride Carbon Dioxide Cancelled Anion Gap 11 L Cancelled BUN < 3 L Cancelled Creatinine 0.58 Estim Creat Clear Calc Estimated GFR POC Glucose Random Glucose Estimat Average Glucose Hemoglobin A1c % Calcium Phosphorus Magnesium Total Bilirubin AST ALT Alkaline Phosphatase Total Protein Albumin Triglycerides Cholesterol LDL Cholesterol, Calc HDL Cholesterol 07/19/23 07/19/23 07/19/23 07:19 07:19 07:19 WBC RBC Hgb Hct MCV MCH MCHC RDW Plt Count MPV Immature Gran % (Auto) Neut % (Auto) Lymph % (Auto) [place] % (Auto) Eos % (Auto) Baso % (Auto) Lymph # (Auto) [place] # (Auto) Eos # (Auto) Baso # (Auto) Abs Immat Gran (auto) Absolute Neuts (auto) Absolute Nucleated RBC Nucleated RBC % (auto) VBG pH VBG pCO2 VBG pO2 VBG HCO3 VBG O2 Saturation VBG Base Excess Sodium Potassium Chloride Carbon Dioxide Anion Gap BUN Creatinine Cancelled Estim Creat Clear Calc 111.7 Cancelled Estimated GFR > 60 Cancelled POC Glucose Random Glucose 138 H Estimat Average Glucose Hemoglobin A1c % Calcium Phosphorus Magnesium Total Bilirubin AST ALT Alkaline Phosphatase Total Protein Albumin Triglycerides Cholesterol LDL Cholesterol, Calc HDL Cholesterol 07/19/23 07/19/23 07/19/23 07:19 07:19 07:19 WBC RBC Hgb Hct MCV MCH MCHC RDW Plt Count MPV Immature Gran % (Auto) Neut % (Auto) Lymph % (Auto) [place] % (Auto) Eos % (Auto) Baso % (Auto) Lymph # (Auto) [place] # (Auto) Eos # (Auto) Baso # (Auto) Abs Immat Gran (auto) Absolute Neuts (auto) Absolute Nucleated RBC Nucleated RBC % (auto) VBG pH VBG pCO2 VBG pO2 VBG HCO3 VBG O2 Saturation VBG Base Excess Sodium Potassium Chloride Carbon Dioxide Anion Gap BUN Creatinine Estim Creat Clear Calc Estimated GFR POC Glucose Random Glucose Cancelled Estimat Average Glucose Hemoglobin A1c % Calcium 8.0 L Cancelled Phosphorus 2.9 Cancelled Magnesium 2.1 Total Bilirubin AST ALT Alkaline Phosphatase Total Protein Albumin Triglycerides Cholesterol LDL Cholesterol, Calc HDL Cholesterol 07/19/23 07/19/23 07/19/23 07:19 11:21 12:08 WBC RBC Hgb Hct MCV MCH MCHC RDW Plt Count MPV Immature Gran % (Auto) Neut % (Auto) Lymph % (Auto) [place] % (Auto) Eos % (Auto) Baso % (Auto) Lymph # (Auto) [place] # (Auto) Eos # (Auto) Baso # (Auto) Abs Immat Gran (auto) Absolute Neuts (auto) Absolute Nucleated RBC Nucleated RBC % (auto) VBG pH VBG pCO2 VBG pO2 VBG HCO3 VBG O2 Saturation VBG Base Excess Sodium 140 Potassium 3.5 Chloride 104 Carbon Dioxide 27 Anion Gap 13 BUN < 3 L Creatinine 0.57 Estim Creat Clear Calc 118.7 Estimated GFR > 60 POC Glucose 79 Random Glucose 85 Estimat Average Glucose Hemoglobin A1c % Calcium 8.6 D Phosphorus Magnesium Cancelled Total Bilirubin AST ALT Alkaline Phosphatase Total Protein Albumin Triglycerides 145 Cholesterol 419 H LDL Cholesterol, Calc 345 H HDL Cholesterol 45 07/19/23 07/19/23 07/20/23 15:16 20:17 07:44 WBC RBC Hgb Hct MCV MCH MCHC RDW Plt Count MPV Immature Gran % (Auto) Neut % (Auto) Lymph % (Auto) [place] % (Auto) Eos % (Auto) Baso % (Auto) Lymph # (Auto) [place] # (Auto) Eos # (Auto) Baso # (Auto) Abs Immat Gran (auto) Absolute Neuts (auto) Absolute Nucleated RBC Nucleated RBC % (auto) VBG pH VBG pCO2 VBG pO2 VBG HCO3 VBG O2 Saturation VBG Base Excess Sodium Potassium Chloride Carbon Dioxide Anion Gap BUN Creatinine Estim Creat Clear Calc Estimated GFR POC Glucose 97 98 91 Random Glucose Estimat Average Glucose Hemoglobin A1c % Calcium Phosphorus Magnesium Total Bilirubin AST ALT Alkaline Phosphatase Total Protein Albumin Triglycerides Cholesterol LDL Cholesterol, Calc HDL Cholesterol 07/20/23 07/20/23 07/20/23 09:29 09:29 09:29 WBC 3.6 L RBC 4.10 L Hgb 13.0 Hct 37.5 MCV 91.5 MCH 31.7 MCHC 34.7 RDW 12.7 Plt Count 110 L D MPV 11.3 Immature Gran % (Auto) 0.3 Neut % (Auto) 62.0 Lymph % (Auto) 22.6 [place] % (Auto) 8.5 Eos % (Auto) 5.5 H Baso % (Auto) 1.1 Lymph # (Auto) 0.8 L [place] # (Auto) 0.3 Eos # (Auto) 0.2 Baso # (Auto) 0.0 Abs Immat Gran (auto) 0.01 Absolute Neuts (auto) 2.3 Absolute Nucleated RBC 0.000 Nucleated RBC % (auto) 0.0 VBG pH VBG pCO2 VBG pO2 VBG HCO3 VBG O2 Saturation VBG Base Excess Sodium 135 Cancelled Potassium 3.0 L Cancelled Chloride 97 Carbon Dioxide Anion Gap BUN Creatinine Estim Creat Clear Calc Estimated GFR POC Glucose Random Glucose Estimat Average Glucose Hemoglobin A1c % Calcium Phosphorus Magnesium Total Bilirubin AST ALT Alkaline Phosphatase Total Protein Albumin Triglycerides Cholesterol LDL Cholesterol, Calc HDL Cholesterol 07/20/23 07/20/23 07/20/23 09:29 09:29 09:29 WBC RBC Hgb Hct MCV MCH MCHC RDW Plt Count MPV Immature Gran % (Auto) Neut % (Auto) Lymph % (Auto) [place] % (Auto) Eos % (Auto) Baso % (Auto) Lymph # (Auto) [place] # (Auto) Eos # (Auto) Baso # (Auto) Abs Immat Gran (auto) Absolute Neuts (auto) Absolute Nucleated RBC Nucleated RBC % (auto) VBG pH VBG pCO2 VBG pO2 VBG HCO3 VBG O2 Saturation VBG Base Excess Sodium Potassium Chloride Cancelled Carbon Dioxide 26 Cancelled Anion Gap 15 Cancelled BUN 4 L Creatinine Estim Creat Clear Calc Estimated GFR POC Glucose Random Glucose Estimat Average Glucose Hemoglobin A1c % Calcium Phosphorus Magnesium Total Bilirubin AST ALT Alkaline Phosphatase Total Protein Albumin Triglycerides Cholesterol LDL Cholesterol, Calc HDL Cholesterol 07/20/23 07/20/23 07/20/23 09:29 09:29 09:29 WBC RBC Hgb Hct MCV MCH MCHC RDW Plt Count MPV Immature Gran % (Auto) Neut % (Auto) Lymph % (Auto) [place] % (Auto) Eos % (Auto) Baso % (Auto) Lymph # (Auto) [place] # (Auto) Eos # (Auto) Baso # (Auto) Abs Immat Gran (auto) Absolute Neuts (auto) Absolute Nucleated RBC Nucleated RBC % (auto) VBG pH VBG pCO2 VBG pO2 VBG HCO3 VBG O2 Saturation VBG Base Excess Sodium Potassium Chloride Carbon Dioxide Anion Gap BUN Cancelled Creatinine 0.63 Cancelled Estim Creat Clear Calc 104.3 Cancelled Estimated GFR > 60 POC Glucose Random Glucose Estimat Average Glucose Hemoglobin A1c % Calcium Phosphorus Magnesium Total Bilirubin AST ALT Alkaline Phosphatase Total Protein Albumin Triglycerides Cholesterol LDL Cholesterol, Calc HDL Cholesterol 07/20/23 07/20/23 07/20/23 09:29 09:29 09:29 WBC RBC Hgb Hct MCV MCH MCHC RDW Plt Count MPV Immature Gran % (Auto) Neut % (Auto) Lymph % (Auto) [place] % (Auto) Eos % (Auto) Baso % (Auto) Lymph # (Auto) [place] # (Auto) Eos # (Auto) Baso # (Auto) Abs Immat Gran (auto) Absolute Neuts (auto) Absolute Nucleated RBC Nucleated RBC % (auto) VBG pH VBG pCO2 VBG pO2 VBG HCO3 VBG O2 Saturation VBG Base Excess Sodium Potassium Chloride Carbon Dioxide Anion Gap BUN Creatinine Estim Creat Clear Calc Estimated GFR Cancelled POC Glucose Random Glucose 140 H Cancelled Estimat Average Glucose 94 Hemoglobin A1c % 4.9 Calcium 9.9 D Cancelled Phosphorus 3.2 Magnesium 1.6 Total Bilirubin 0.9 AST 206 H ALT 96 H Alkaline Phosphatase 102 Total Protein 7.4 Albumin 4.3 Triglycerides Cholesterol LDL Cholesterol, Calc HDL Cholesterol 07/20/23 07/20/23 09:35 11:27 WBC RBC Hgb Hct MCV MCH MCHC RDW Plt Count MPV Immature Gran % (Auto) Neut % (Auto) Lymph % (Auto) [place] % (Auto) Eos % (Auto) Baso % (Auto) Lymph # (Auto) [place] # (Auto) Eos # (Auto) Baso # (Auto) Abs Immat Gran (auto) Absolute Neuts (auto) Absolute Nucleated RBC Nucleated RBC % (auto) VBG pH 7.44 H VBG pCO2 43 VBG pO2 32 VBG HCO3 29 H VBG O2 Saturation 44.0 VBG Base Excess 5.0 Sodium Potassium Chloride Carbon Dioxide Anion Gap BUN Creatinine Estim Creat Clear Calc Estimated GFR POC Glucose 123 H Random Glucose Estimat Average Glucose Hemoglobin A1c % Calcium Phosphorus Magnesium Total Bilirubin AST ALT Alkaline Phosphatase Total Protein Albumin Triglycerides Cholesterol LDL Cholesterol, Calc HDL Cholesterol Imaging Radiology Impressions: ITS Impressions Abdomen/Pelvis CT 07/17/23 06:52 IMPRESSION: 1. Minimal hazy fat stranding about the pancreatic uncinate process/mesenteric root, nonspecific but can be seen in the setting of uncomplicated interstitial edematous pancreatitis. Correlate with serum lipase. 2. Hepatomegaly and marked diffuse hepatic steatosis. 3. Unchanged punctate, 3 mm nonobstructing interpolar left renal calculus. Previously identified proximal left ureteral calculus no longer visualized. Medications Medications Current Medications Clonidine HCl (Clonidine Hcl 0.1 Mg Tablet) 0.1 mg PO BID [facility]; Protocol Last Admin: 07/20/23 11:51 Dose: 0.1 mg Dextrose (Dextrose 50 % 25 Gm/50 Ml Syringe) 25 gm IVPUSH Q30M PRN PRN Reason: BG < 70 Gemfibrozil (Gemfibrozil 600 Mg Tablet) 600 mg PO BIDAC [facility] Last Admin: 07/20/23 08:21 Dose: Not Given Insulin Glargine (Insulin Glargine,Hum.Rec.Anlog 100 Unit/Ml 10 Ml Vial) 5 unit SUBCUT DAILY [facility] Last Admin: 07/20/23 07:56 Dose: Not Given Insulin Human Lispro (Insulin Lispro 100 Unit/Ml 3 Ml Vial) 0 unit SUBCUT QIDACHS [facility]; Protocol Last Admin: 07/20/23 11:48 Dose: Not Given Ondansetron HCl (Ondansetron Hcl 4 Mg/2 Ml Vial) 4 mg IVPUSH Q6H PRN PRN Reason: Nausea and Vomiting Last Admin: 07/17/23 16:29 Dose: 4 mg Pharmacy Consult (Consult Rx Etoh Phenob Im/Po) 1 each MISCELLANE ONCE PRN; Protocol PRN Reason: Consult order Phenobarbital (Phenobarbital 15 Mg Tablet) 15 mg PO DAILY [facility]; Protocol Stop: 07/22/23 09:01 Phenobarbital (Phenobarbital 15 Mg Tablet) 15 mg PO BID [facility]; Protocol Stop: 07/20/23 21:01 Last Admin: 07/20/23 10:28 Dose: 15 mg Allergies Allergies Allergy/AdvReac Type Severity Reaction Status Date / Time kiwi Allergy Hives Verified 07/16/23 23:19 Assessment & Plan Assessment & Plan (1) Alcohol use disorder, severe, dependence: Status: Acute Code(s): F10.20 - Alcohol dependence, uncomplicated Assessment and Plan: would like to trial naltrexone prior to discharge and follow up outpatient with [facility] guest service host to follow up to review plan and resources provided including IOP and safer drinking strategies Total time managing care of this patient today ___45_ minutes.
[2023-07-20 16:34] LABS: Glucose, Whole Blood 100 mg/dL (60-115)
[2023-07-20] MEDS: gemfibroziL 600 MG TABLET PO (17:51)
[2023-07-20 20:48] LABS: Glucose, Whole Blood 92 mg/dL (60-115)
[2023-07-21 03:48] VITALS: BP 138/86; PULSE 87; RESP 18; TEMP 36.6; O2SAT 100
[2023-07-21 06:00] VITALS: BMI 17.4
[2023-07-21 07:08] VITALS: BP 132/93; PULSE 97; RESP 18; TEMP 36.1; O2SAT 98
[2023-07-21 07:18] LABS: Alanine Aminotransferase 102 U/L (0-31); Albumin Level 4.1 g/dL (3.5-5.0); Alkaline Phosphatase 92 U/L (39-117); Anion Gap 14 (12-20); Aspartate Amino Transferase 191 U/L (5-31); Bilirubin Total 0.6 mg/dL (0.0-1.0); Blood Urea Nitrogen 7 mg/dL (9-16); Calcium 10.1 mg/dL (8.4-10.2); Carbon Dioxide 25 mmol/L (22-29); Chloride 100 mmol/L (96-108); Estimated Glomerular Filt Rate > 60; Glucose Random 99 mg/dL (60-115); Potassium 3.3 mmol/L (3.3-5.1); Sodium 136 mmol/L (135-145); Total Protein 7.1 g/dL (6.5-8.0)
[2023-07-21 07:38] LABS: Glucose, Whole Blood 105 mg/dL (60-115)
[2023-07-21 08:22] LABS: HBS Num1 0.26 mIU/mL (0-7.99); HBc Num1 0.22 S/CO (0.00-0.79); HBsAGNum1 0.34 S/CO (0.00-0.99); Hepatitis B Core Antibody Nonreactive (Nonreactive); Hepatitis B Surface Antigen Negative (Negative); ~HepC Num1 0.31 S/CO (0.00-0.79); ~Hepatitis A Antibody IgM Nonreactive (Nonreactive); ~Hepatitis B Surface Antibody NONREACTIVE (Nonreactive); ~Hepatitis C Antibody Nonreactive (Nonreactive)
--- NOTE | 2023-07-21 09:13 | P.DS_ITS ---
DS: Providers Provider Date of Service: 07/21/23 Date of admission: 07/17/23 05:48 Primary care physician: Unknown Physician Consults: 07/17/23 08:47 Consult to Psychiatry Routine Consulting Provider: Psych Covering Reason for consultation: Depression, Anxiety, ?Passive Suicidal Ideation Has provider been notified: No 07/18/23 15:13 Addiction Medicine Stat Consulting Provider: Addiction Covering Reason for consultation: Alcohol Misuse Has provider been notified: No 07/19/23 15:21 Consult to Care Team Routine Comment: Reason for consultation: Alcohol abuse DS: Diagnosis Discharge Diagnosis (1) Alcohol use disorder, severe, dependence: Status: Acute DS: Summary Hospital Course Hospital Course: from initial hpi: 27 year old white female who is an admitted alcoholic presents to the ED accompanied by her significant other for management of alcohol withdrawal. She reports drinking about half a pint of Vodka daily but then decided to stop drinking 3 days ago when she felt unwell and was urged to do so by her boyfriend. Since then, she has had persistent nausea and vomiting and has not been able to tolerate any oral intake since then. She also reports mild abdominal discomfort but denies any fevers, chills or diarrhea. Initial work up done in the ED was notable for HAGMA with a serum bicarbonate of 7, AG of 40, venous pH of 7.16, elevated BOH at 14.51, elevated serum lipase at 105 U/L and elevated liver enzymes with AST of 216 and ALT of 95. She was started on IV fluids and repeat lab work revealed critically low bicarbonate at <5. Although she denied drinking for 3 days, her serum ethanol was elevated at 229. Her urinalysis shows glucosuria, ketonuria and 300+ protenuria. Ner vitals are stable except for persistent tachycardia. Admission was requested for ongoing care. hospital course: Patient was admitted for acute pancreatitis due to alcohol and hypertriglyceridemia. She was admitted to the intensive care unit and received IV insulin infusion. Triglycerides improved and patient was able to tolerate solid diet. Course was complicated by alcohol dependence with withdrawal and mild acute alcoholic hepatitis. She was treated with phenobarbital and wit hdrawal symptoms significantly improved. No evidence of diabetes, hemoglobin A1c was 4.9. Hyperglycemia likely transient due to pancreatitis. Time Attestation Discharge coordination time: Greater than 30 minutes Quality: Safe Use of Opioids Does Pt have an Active Cancer Diagnosis on the Problem List?: No Quality: Stroke Does the patient have a stroke diagnosis?: No Physical Exam Vital Signs: Vital Signs: Last Vital Signs Temp 96.9 F 07/21/23 07:08 Pulse 97 07/21/23 07:08 Resp 18 07/21/23 07:08 BP 132/93 H 07/21/23 07:08 Pulse Ox 98 07/21/23 07:08 O2 Del Method Room Air 07/21/23 07:08 BMI result Body Mass Index 17.4 General: AO X 3, no acute distress Resp: CTA bilateral, no accessory muscles used CVS: S1,S2,RRR GI: soft, non tender, non distended Neuro: motor grossly intact, alert Psych: appropriate affect, appropriate insight DS: Data Data Completed and Pending Labs on day of discharge: Laboratory Results - last 24 hr 07/20/23 07/20/23 07/20/23 09:29 09:29 09:29 WBC 3.6 L RBC 4.10 L Hgb 13.0 Hct 37.5 MCV 91.5 MCH 31.7 MCHC 34.7 RDW 12.7 Plt Count 110 L D MPV 11.3 Immature Gran % (Auto) 0.3 Neut % (Auto) 62.0 Lymph % (Auto) 22.6 [place] % (Auto) 8.5 Eos % (Auto) 5.5 H Baso % (Auto) 1.1 Lymph # (Auto) 0.8 L [place] # (Auto) 0.3 Eos # (Auto) 0.2 Baso # (Auto) 0.0 Abs Immat Gran (auto) 0.01 Absolute Neuts (auto) 2.3 Absolute Nucleated RBC 0.000 Nucleated RBC % (auto) 0.0 Hold Purple Top VBG pH VBG pCO2 VBG pO2 VBG HCO3 VBG O2 Saturation VBG Base Excess Sodium 135 Cancelled Potassium 3.0 L Cancelled Chloride 97 Carbon Dioxide Anion Gap BUN Creatinine Estim Creat Clear Calc Estimated GFR POC Glucose Random Glucose Estimat Average Glucose Hemoglobin A1c % Calcium Phosphorus Magnesium Total Bilirubin AST ALT Alkaline Phosphatase Total Protein Albumin Hepatitis A IgM Ab Hep Bs Antigen Hep Bs Antibody Hep B Core Total Ab Hepatitis C Ab (EIA) 07/20/23 07/20/23 07/20/23 09:29 09:29 09:29 WBC RBC Hgb Hct MCV MCH MCHC RDW Plt Count MPV Immature Gran % (Auto) Neut % (Auto) Lymph % (Auto) [place] % (Auto) Eos % (Auto) Baso % (Auto) Lymph # (Auto) [place] # (Auto) Eos # (Auto) Baso # (Auto) Abs Immat Gran (auto) Absolute Neuts (auto) Absolute Nucleated RBC Nucleated RBC % (auto) Hold Purple Top VBG pH VBG pCO2 VBG pO2 VBG HCO3 VBG O2 Saturation VBG Base Excess Sodium Potassium Chloride Cancelled Carbon Dioxide 26 Cancelled Anion Gap 15 Cancelled BUN 4 L Creatinine Estim Creat Clear Calc Estimated GFR POC Glucose Random Glucose Estimat Average Glucose Hemoglobin A1c % Calcium Phosphorus Magnesium Total Bilirubin AST ALT Alkaline Phosphatase Total Protein Albumin Hepatitis A IgM Ab Hep Bs Antigen Hep Bs Antibody Hep B Core Total Ab Hepatitis C Ab (EIA) 07/20/23 07/20/23 07/20/23 09:29 09:29 09:29 WBC RBC Hgb Hct MCV MCH MCHC RDW Plt Count MPV Immature Gran % (Auto) Neut % (Auto) Lymph % (Auto) [place] % (Auto) Eos % (Auto) Baso % (Auto) Lymph # (Auto) [place] # (Auto) Eos # (Auto) Baso # (Auto) Abs Immat Gran (auto) Absolute Neuts (auto) Absolute Nucleated RBC Nucleated RBC % (auto) Hold Purple Top VBG pH VBG pCO2 VBG pO2 VBG HCO3 VBG O2 Saturation VBG Base Excess Sodium Potassium Chloride Carbon Dioxide Anion Gap BUN Cancelled Creatinine 0.63 Cancelled Estim Creat Clear Calc 104.3 Cancelled Estimated GFR > 60 POC Glucose Random Glucose Estimat Average Glucose Hemoglobin A1c % Calcium Phosphorus Magnesium Total Bilirubin AST ALT Alkaline Phosphatase Total Protein Albumin Hepatitis A IgM Ab Hep Bs Antigen Hep Bs Antibody Hep B Core Total Ab Hepatitis C Ab (EIA) 07/20/23 07/20/23 07/20/23 09:29 09:29 09:29 WBC RBC Hgb Hct MCV MCH MCHC RDW Plt Count MPV Immature Gran % (Auto) Neut % (Auto) Lymph % (Auto) [place] % (Auto) Eos % (Auto) Baso % (Auto) Lymph # (Auto) [place] # (Auto) Eos # (Auto) Baso # (Auto) Abs Immat Gran (auto) Absolute Neuts (auto) Absolute Nucleated RBC Nucleated RBC % (auto) Hold Purple Top VBG pH VBG pCO2 VBG pO2 VBG HCO3 VBG O2 Saturation VBG Base Excess Sodium Potassium Chloride Carbon Dioxide Anion Gap BUN Creatinine Estim Creat Clear Calc Estimated GFR Cancelled POC Glucose Random Glucose 140 H Cancelled Estimat Average Glucose 94 Hemoglobin A1c % 4.9 Calcium 9.9 D Cancelled Phosphorus 3.2 Magnesium 1.6 Total Bilirubin 0.9 AST 206 H ALT 96 H Alkaline Phosphatase 102 Total Protein 7.4 Albumin 4.3 Hepatitis A IgM Ab Hep Bs Antigen Hep Bs Antibody Hep B Core Total Ab Hepatitis C Ab (EIA) 07/20/23 07/20/23 07/20/23 09:35 11:27 15:12 WBC RBC Hgb Hct MCV MCH MCHC RDW Plt Count MPV Immature Gran % (Auto) Neut % (Auto) Lymph % (Auto) [place] % (Auto) Eos % (Auto) Baso % (Auto) Lymph # (Auto) [place] # (Auto) Eos # (Auto) Baso # (Auto) Abs Immat Gran (auto) Absolute Neuts (auto) Absolute Nucleated RBC Nucleated RBC % (auto) Hold Purple Top VBG pH 7.44 H VBG pCO2 43 VBG pO2 32 VBG HCO3 29 H VBG O2 Saturation 44.0 VBG Base Excess 5.0 Sodium Potassium Chloride Carbon Dioxide Anion Gap BUN Creatinine Estim Creat Clear Calc Estimated GFR POC Glucose 123 H Random Glucose Estimat Average Glucose Hemoglobin A1c % Calcium Phosphorus Magnesium Total Bilirubin AST ALT Alkaline Phosphatase Total Protein Albumin Hepatitis A IgM Ab Nonreactive Hep Bs Antigen Negative Hep Bs Antibody NONREACTIVE Hep B Core Total Ab Nonreactive Hepatitis C Ab (EIA) Nonreactive 07/20/23 07/20/23 07/21/23 16:31 20:30 05:55 WBC RBC Hgb Hct MCV MCH MCHC RDW Plt Count MPV Immature Gran % (Auto) Neut % (Auto) Lymph % (Auto) [place] % (Auto) Eos % (Auto) Baso % (Auto) Lymph # (Auto) [place] # (Auto) Eos # (Auto) Baso # (Auto) Abs Immat Gran (auto) Absolute Neuts (auto) Absolute Nucleated RBC Nucleated RBC % (auto) Hold Purple Top SEE NOTE VBG pH VBG pCO2 VBG pO2 VBG HCO3 VBG O2 Saturation VBG Base Excess Sodium 136 Potassium 3.3 Chloride 100 Carbon Dioxide 25 Anion Gap 14 BUN 7 L Creatinine 0.64 Estim Creat Clear Calc 95.0 Estimated GFR > 60 POC Glucose 100 92 Random Glucose 99 Estimat Average Glucose Hemoglobin A1c % Calcium 10.1 Phosphorus Magnesium Total Bilirubin 0.6 AST 191 H ALT 102 H Alkaline Phosphatase 92 Total Protein 7.1 Albumin 4.1 Hepatitis A IgM Ab Hep Bs Antigen Hep Bs Antibody Hep B Core Total Ab Hepatitis C Ab (EIA) 07/21/23 07:13 WBC RBC Hgb Hct MCV MCH MCHC RDW Plt Count MPV Immature Gran % (Auto) Neut % (Auto) Lymph % (Auto) [place] % (Auto) Eos % (Auto) Baso % (Auto) Lymph # (Auto) [place] # (Auto) Eos # (Auto) Baso # (Auto) Abs Immat Gran (auto) Absolute Neuts (auto) Absolute Nucleated RBC Nucleated RBC % (auto) Hold Purple Top VBG pH VBG pCO2 VBG pO2 VBG HCO3 VBG O2 Saturation VBG Base Excess Sodium Potassium Chloride Carbon Dioxide Anion Gap BUN Creatinine Estim Creat Clear Calc Estimated GFR POC Glucose 105 Random Glucose Estimat Average Glucose Hemoglobin A1c % Calcium Phosphorus Magnesium Total Bilirubin AST ALT Alkaline Phosphatase Total Protein Albumin Hepatitis A IgM Ab Hep Bs Antigen Hep Bs Antibody Hep B Core Total Ab Hepatitis C Ab (EIA) Discharge Plan Discharge Anticipated Discharge Date/Time: 07/21/23 09:10 Patient Disposition: Home, Self-Care Discharge Diagnosis: pancreatitis, etoh withdrawal, high TG Referrals: Physician,Unknown J [Primary Care Provider] - 1 Week Discharge Medications: New gemfibrozil 600 mg Tablet 600 mg PO BIDAC Qty: 60 0RF chlordiazepoxide HCl 10 mg capsule 20 mg PO BID PRN (Reason: anxiety) Qty: 10 0RF Rx Instructions: 20mg bid for 1 day, then 10mg bid for 1 day, then 10mg at bedtime for 4 days Continued norgestimate-ethinyl estradiol [Tri-Estarylla] 0.18/0.215/0.25 mg-35 mcg (28) Tablet 1 tab PO DAILY Discharge Orders: Discharge Order (Routine); Ordered 07/21/23 Ordered By: Broderick Munoz Diet: Low fat, low cholesterol Activity on Discharge: As tolerated Stand Alone Forms: Patient Portal Discharge page Care Plan Goals: avoid pancreatitis Health Concerns: etoh, hyperTG Plan of Treatment: avoid etoh and fatty foods, start tricor, librium taper Assessment: see above
[2023-07-21] MEDS: gemfibroziL 600 MG TABLET PO (09:35)
[2023-07-21] MEDS: PHENobarbitaL 15 MG TABLET PO (09:35)
[2023-07-21] MEDS: cloNIDine HCL 0.1 MG TABLET PO (09:35)
--- NOTE | 2023-07-21 09:48 | MHC.CM.PN ---
Patient is discharged to home self care. She transported home via [facility] shuttle. A gift card for the coffee shop was provided. The patient was instructed to check in with transportation in the front loby. She will wait in the discharge lounge for the ride home.
--- NOTE | 2023-07-21 11:11 | MHC.RECOVRN ---
Met with pt to follow up and provide support. Pt awake, alert, easily engages in conversation, preparing for discharge. Discussed [facility] follow up appointment, pt does not want to make appt at this time, informs t/w she will call to make an appt. Pt reports she is staying with her mother for a period of time and will make appt for the [facility] when she returns home. Pt denies questions or concerns for t/w. Discussed with Almita Archer APRN. Naltrexone prescription sent to pts pharmacy.
== END 2023-07-21 11:15 | disposition home or self-care (01) | DRG 282 ==
LOC: HO.ED 07-17 04:19 → HO.EDOVER 07-17 06:02 → HO.ICU 07-17 06:22 → HO.S3 07-19 14:40
PROVIDERS: Internal Medicine; Internal Medicine Critical Care Medicine; Internal Medicine Pulmonary Disease; Physician Assistant Medical; Admitting Provider Internal Medicine; Emergency Provider Emergency Medicine; Visit Provider Internal Medicine
DX: K85.20 Alcohol induced acute pancreatitis without necrosis or infection (principal); K70.10 Alcoholic hepatitis without ascites; E83.39 Other disorders of phosphorus metabolism; K76.0 Fatty (change of) liver, not elsewhere classified; E83.51 Hypocalcemia; E78.1 Pure hyperglyceridemia; F19.10 Other psychoactive substance abuse, uncomplicated; F10.229 Alcohol dependence with intoxication, unspecified; F10.239 Alcohol dependence with withdrawal, unspecified; Y90.7 Blood alcohol level of 200-239 mg/100 ml; Z79.899 Other long term (current) drug therapy
CPT/HCPCS: 36415; 74177; 80048; 80053; 80061; 80307; 81001; 82010; 82803; 82947; 83036; 83605; 83690; 83735; 84100; 84478; 84702; 85025; 85027; 86704; 86706; 86709; 86803; 87340; 93005; 99285; C9113; J0613; J1200; J1650; J1790; J2405; J2560; J3411; J3475; J7120; Q9967

== ENCOUNTER → 2023-07-16 23:31 | Outpatient (BNV) | payer OTHER, SELFPAY | PROVIDERS: Admitting Provider Internal Medicine; Emergency Provider Emergency Medicine; Visit Provider Internal Medicine Cardiovascular Disease | DX: R00.0 Tachycardia, unspecified (principal); R94.31 Abnormal electrocardiogram [ECG] [EKG] | CPT/HCPCS: 93010 ==

== ENCOUNTER → 2023-07-17 02:24 | Outpatient (BNV) | payer OTHER, SELFPAY | PROVIDERS: Admitting Provider Internal Medicine; Emergency Provider Emergency Medicine; Visit Provider Internal Medicine Cardiovascular Disease | DX: R00.0 Tachycardia, unspecified (principal); R94.31 Abnormal electrocardiogram [ECG] [EKG] | CPT/HCPCS: 93010 ==

== ENCOUNTER → 2023-07-17 05:48 | Outpatient (BNV) | payer OTHER, SELFPAY | PROVIDERS: Admitting Provider Internal Medicine; Emergency Provider Emergency Medicine; Visit Provider Nurse Practitioner Psychiatric/Mental Health | DX: F10.20 Alcohol dependence, uncomplicated (principal) | CPT/HCPCS: 99232 ==

== ENCOUNTER → 2023-07-17 05:48 | Outpatient (BNV) | payer OTHER, SELFPAY | PROVIDERS: Admitting Provider Internal Medicine; Emergency Provider Emergency Medicine; Visit Provider Internal Medicine Critical Care Medicine | DX: F10.20 Alcohol dependence, uncomplicated (principal); E11.10 Type 2 diabetes mellitus with ketoacidosis without coma; E87.29 Other acidosis | CPT/HCPCS: 99291; 99292; 99499 ==

== ENCOUNTER → 2023-07-17 05:48 | Outpatient (BNV) | payer OTHER, SELFPAY | PROVIDERS: Admitting Provider Internal Medicine; Emergency Provider Emergency Medicine; Visit Provider Internal Medicine Pulmonary Disease | DX: E11.10 Type 2 diabetes mellitus with ketoacidosis without coma (principal); K85.90 Acute pancreatitis without necrosis or infection, unspecified; E78.1 Pure hyperglyceridemia; F10.20 Alcohol dependence, uncomplicated | CPT/HCPCS: 99232 ==

== ENCOUNTER → 2023-07-17 05:48 | Outpatient (BNV) | payer OTHER, SELFPAY | PROVIDERS: Admitting Provider Internal Medicine; Emergency Provider Emergency Medicine; Visit Provider Internal Medicine | DX: E11.10 Type 2 diabetes mellitus with ketoacidosis without coma (principal); F10.230 Alcohol dependence with withdrawal, uncomplicated; E87.29 Other acidosis | CPT/HCPCS: 99223; 99232; 99239 ==

== ENCOUNTER 2023-09-20 14:02 | Emergency (ER) | payer OTHER, SELFPAY ==
[2023-09-20 14:23] VITALS: BP 113/74; BP 124/84; PULSE 106; PULSE 113; RESP 20; TEMP -17.7; TEMP 0; O2SAT 0; O2SAT 100; BMI 20.2
--- NOTE | 2023-09-20 14:30 | PC.NURSE ---
Pt escorted out of dept by PD
== END 2023-09-20 21:49 ==
LOC: HO.ED 14:41
PROVIDERS: Emergency Provider Emergency Medicine
DX: F10.129 Alcohol abuse with intoxication, unspecified (principal)
CPT/HCPCS: 99281

== ENCOUNTER 2024-01-08 14:02 | Emergency (ER) | payer OTHER, SELFPAY ==
[2024-01-08 14:15] VITALS: BP 112/86; BP 167/116; PULSE 106; PULSE 97; RESP 16; TEMP 36.2; O2SAT 99; BMI 17.2
--- NOTE | 2024-01-08 14:35 | PC.NURSE ---
patient changed over into hospital attire, sitter at bedside, patient belongings sent to the pod, in laundry closet
[2024-01-08 15:31] LABS: Appearance Urine Clear; Color Urine Yellow; Glucose Urine UA Negative (Negative); Leukocyte Esterase Urine Negative (Negative); Nitrite Urine Negative (Negative); PH 7.5 (5.0-9.0); Specific Gravity - Urine <= 1.005 (1.005-1.025); UMIC TRIGGER UACC YES; Urine Blood Negative (Negative); Urine Ketones Negative (Negative); Urine Protein 100 (2+) mg/dL (Neg-Trace)
[2024-01-08 15:33] LABS: Urine Pregnancy NEGATIVE (NEGATIVE)
[2024-01-08 15:34] LABS: UPreg QC Valid YES
[2024-01-08 15:35] LABS: Bacteria Urine None Seen (None Seen); Hyaline Casts Urine 0-2 /LPF (0-2); RBC Urine 0-2 /HPF (0-2); WBC Urine 0-5 /HPF (0-5)
[2024-01-08 15:40] LABS: Basophils Percent Auto 1.7 % (0-2); Eosinophils Percent Auto 0.9 % (0-4); Hematocrit 39.6 % (37.0-47.0); Hemoglobin 13.9 g/dl (12.0-16.0); Imm Gran Abs Auto 0.02 X10*3/uL (0.00-0.03); Imm Gran Pct Auto 0.9 % (0.0-0.4); Lymphocytes Absolute Auto 0.9 X10*3/uL (1.2-4.9); Lymphocytes Percent Auto 37.7 % (20-40); MANUAL DIFF FLAG SCAN; Mean Corpuscular HGB Conc 35.1 g/dl (31.0-35.0); Mean Corpuscular Hemoglobin 29.8 pg (27.0-33.0); Mean Corpuscular Volume 84.8 fL (80.0-98.0); Mean Platelet Volume 9.6 fL (9.4-12.3); Monocytes Absolute Auto 0.2 X10*3/uL (0.1-1.2); Monocytes Percent Auto 9.1 % (2-11); Neutrophils Absolute Auto 1.2 x10*3/uL (2.0-8.3); Neutrophils Percent Auto 49.7 % (45-73); Platelet Count 59 X10*3/uL (160-400); Red Blood Count 4.67 X10*6/uL (4.20-5.50); Red Cell Distribution Width 16.1 % (11.0-16.0); SCAN SMEAR FLAG 1; White Blood Count 2.3 X10*3/uL (4.8-10.8)
[2024-01-08 15:56] LABS: SLIDE REVIEW VERIFIED
[2024-01-08 16:04] LABS: Alanine Aminotransferase 193 U/L (0-31); Albumin Level 4.5 g/dL (3.5-5.0); Alkaline Phosphatase 109 U/L (39-117); Anion Gap 20 (12-20); Aspartate Amino Transferase 582 U/L (5-31); Bilirubin Total 0.6 mg/dL (0.0-1.0); Blood Urea Nitrogen 9 mg/dL (9-16); Calcium 9.1 mg/dL (8.4-10.2); Carbon Dioxide 25 mmol/L (22-29); Chloride 106 mmol/L (96-108); Creatinine Clr Calc Pharmacy 102.4; Estimated Glomerular Filt Rate > 60; Ethanol 492 mg/dL; Glucose Random 81 mg/dL (60-115); Potassium 3.2 mmol/L (3.3-5.1); Sodium 148 mmol/L (135-145); Total Protein 7.6 g/dL (6.5-8.0)
[2024-01-08 16:06] LABS: Amphetamine Screen Urine Not Detected (Not Detect); Barbiturates, Urine Not Detected (Not Detect); Benzodiazepines Screen Urine Not Detected (Not Detect); Buprenorphine Scr Not Detected (Not Detect); Cannabinoid Screen Urine POSITIVE (Not Detect); Cocaine Screen Urine Not Detected (Not Detect); Fentanyl, urine Not Detected (Not Detect); Methadone Screen, Urine Not Detected (Not Detect); Opiate Screen Urine Not Detected (Not Detect); Oxycodone Screen Urine Not Detected (Not Detect); Phencyclidine Screen Urine Not Detected (Not Detect)
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
[2024-01-08 17:35] VITALS: BP 153/96; PULSE 93; RESP 18; TEMP 36.4; O2SAT 99
[2024-01-08] MEDS: Potassium Chloride Packet 20 MEQ PACKET 30 MEQ PO (17:53)
--- NOTE | 2024-01-08 17:55 | PC.NURSE ---
patient keeps becoming angry and swearing at staff when she is told that she has to stay and talk to care team. patient is also upset that she can not have her phone out of her belongings.
--- NOTE | 2024-01-08 18:28 | PC.NURSE ---
patient requests mom not know she is here
[2024-01-08 20:42] VITALS: BP 146/107; PULSE 89; RESP 20; TEMP 36.8; O2SAT 100
[2024-01-08] MEDS: LORazepam 1 MG TABLET 2 MG PO (20:48)
--- NOTE | 2024-01-08 23:26 | PC.NURSE ---
client rec'd phone call from mother
[2024-01-09 00:57] VITALS: BP 124/84; PULSE 110; RESP 20; O2SAT 98
[2024-01-09] MEDS: LORazepam 1 MG TABLET 2 MG PO ×2 (01:00→04:07)
[2024-01-09 04:06] VITALS: BP 138/101; PULSE 117; RESP 20; TEMP 37.3; O2SAT 98
[2024-01-09] MEDS: Ondansetron ODT 4 MG TAB.RAPDIS TRANSLINGU (05:47)
--- NOTE | 2024-01-09 07:04 | PC.NURSE ---
Assumed care of patient at 0645. Patient is observed resting quietly in their bed. No signs of distress observed. Breathing is even and unlabored. Will continue plan of care.
[2024-01-09 08:57] VITALS: BP 145/102; PULSE 115; RESP 18; TEMP 36.7; O2SAT 99
[2024-01-09] MEDS: chlordiazePOXIDE HCl 25 MG CAPSULE PO (13:28)
[2024-01-09 17:38] VITALS: BP 159/114; PULSE 109; RESP 18; TEMP 36.3; O2SAT 100
[2024-01-09] MEDS: chlordiazePOXIDE HCl 25 MG CAPSULE 50 MG PO (17:49)
[2024-01-09 17:52] VITALS: BP 159/114; PULSE 109; RESP 18; TEMP 36.3; O2SAT 100
--- NOTE | 2024-01-19 16:48 | MHC.CARE ---
Patient's mother Lori Boyle returned call from [place], said she is available if necessary and gets out of work at 2:30 weekdays if she wants to call again.
== END 2024-01-09 18:14 | disposition home or self-care (01) ==
PROVIDERS: Emergency Provider Internal Medicine
DX: F10.220 Alcohol dependence with intoxication, uncomplicated (principal); Y90.8 Blood alcohol level of 240 mg/100 ml or more; R45.851 Suicidal ideations
CPT/HCPCS: 36415; 80053; 80307; 81001; 81025; 85025; 99284; 99285; S9485

== ENCOUNTER 2024-02-22 08:11 | Outpatient (AMB) | payer OTHER, SELFPAY ==
--- NOTE | 2024-02-22 08:13 | AM.OFFWIN_ITS ---
Intake Vital Signs 02/22/24 08:14 Height 5 ft 6 in Weight 97 lb 6 oz BMI 15.7 BP 118/76 Blood Pressure Location Rt brachial Position Sitting Pulse 86 Pulse Source Pulse Oximeter Temp 97.3 F Temp Source Temporal Artery Scan Pulse Oximetry (%) 98 Intake Visit Reasons: EP numbness tingling of feet 2 mths Intake Note: pt is here for numbness with tingling in feet for 2 months, possibly newly diagnosed with DM Patient Tobacco Use Status: Never used Tobacco Allergies kiwi Allergy (Verified 02/22/24 08:14) Hives Do you need a note to return to daycare/school/sports/work: No HPI HPI Comments History of Present Illness Details 28-year-old female presents today compla ining of bilateral tingling in her feet. She is quite teary and concerned that she has diabetes. She does have a long history of alcohol addiction. She relates she had 1 shot of Sofia before coming to her appointment today she denies any back pain fevers chills sweats denies any injury or trauma denies any incontinence or bladder PFSH Medical History Alcohol abuse Kidney stones Social History Alcohol intake: current Alcohol intake frequency: 3 or more drinks per day Alcohol type: hard liquor Comment: pt refuses alarm or telesiter Patient Tobacco Use Status: Never used Tobacco Substance Use Type: Marijuana service: No Review of Systems Const All systems reviewed & are unremarkable except as noted in HPI and below Physical Exam Vital Signs: Last Vital Signs Temp 97.3 F 02/22/24 08:14 Pulse 86 02/22/24 08:14 BP 118/76 02/22/24 08:14 Pulse Ox 98 02/22/24 08:14 BMI result Body Mass Index 15.7 Const General: anxious Nutritional Appearance: thin Orientation/consciousness: oriented to person, oriented to place and oriented to time HEENT Head: Yes normal to inspection, Yes normocephalic and Yes atraumatic Ears: hearing grossly normal bilaterally General nose exam: Normal external nose present Face and sinus: Yes normal facial exam Throat: Yes posterior oropharynx normal Eyes General: appearance normal, both eyes and all related structures Eyelids: Yes eyelids normal Conjunctivae: conjunctivae normal Sclerae: sclerae normal Corneas: corneas normal Pupils: Equal, round and reactive pupils present Neck Neck: Yes no meningeal signs Resp Auscultation: clear to auscultation bilaterally Cardio Rate: regular rate Rhythm: regular rhythm Heart sounds: S1 normal heart sound present and S2 normal heart sound present Neuro General: oriented to person, oriented to place, oriented to time, Normal light touch and pain sensation (describes tingling ), no meningeal signs and deep tendon reflexes 2+ bilaterally Cranial nerves: Yes Equal, round and reactive pupils present Cognition (Neuro): normal cognition Gait exam (Neuro): Normal gait present Results AMB Random Glucose (hemocue) AMB Random Glucose (hemocue) 107 mg/dL Last Edit by Cody Zamarripa CMA o n 02/22/24 08:52 AMB Hemoglobin A1c AMB Hemoglobin A1c 5.3 % Last Edit by Cody Zamarripa CMA on 02/22/24 08: 53 AMB Urinalysis, Automated UA Leukoctes 0 Yudy/uL Last Edit by Cody Zamarripa CMA on 02/22/24 08:53 UA Nitrite Negative Last Edit by Cody Zamarripa CMA on 02/22/24 08:53 UA Urobilinogen 0.2 mg/dL Last Edit by Cody Zamarripa CMA on 02/22/24 08 :53 UA Protein 100 mg/dL Last Edit by Cody Zamarripa CMA on 02/22/24 08:53 UA pH 7.0 Last Edit by Cody Zamarripa CMA on 02/22/24 08:53 UA Blood 10 Kevin/uL Last Edit by Cody Zamarripa CMA on 02/22/24 08:53 UA Specific [place] 1.005 Last Edit by Cody Zamarripa CMA on 02/22/24 08:53 UA Ketone Negative Last Edit by Cody Zamarripa CMA on 02/22/24 08:53 UA Bilirubin 0 mg/dL Last Edit by Cody Zamarripa CMA on 02/22/24 08:53 UA Glucose 0 mg/dL Last Edit by Cody Zamarripa CMA on 02/22/24 08:53 Results Reviewed Results Reviewed: Point of care glucose and A1c were all within normal limits. This was reviewed with the patient Assessment & Plan Assessment & Plan (1) Paresthesia of both feet: Code(s): R20.2 - Paresthesia of skin Plan: See plan Plan The patient will follow up with her PCP. She was relieved to hear she did not have diabetes today. We discussed controlling her alcohol consumption. She states she is going to AA and does not eat any further assistance at this time Orders: Orders AMB Random Glucose (hemocue) Today Z13.9 - Encounter for screening, unspecified AMB Hemoglobin A1c Today Z13.9 - Encounter for screening, unspecified AMB Urinalysis Automated Today Z13.9 - Encounter for screening, unspecified Medications: Discontinued chlordiazepoxide HCl until symptoms controlled Discontinued Reason: Patient Completed Course 50 mg (2 x 25 mg) PO Q4H PRN 12 caps 0RF alcohol withdrawal Coding Level of Care Code Est Pt Level 3 (59783) Diagnoses Paresthesia of both feet R20.2
[2024-02-22 08:14] VITALS: BP 118/76; PULSE 86; TEMP 36.3; O2SAT 98; BMI 15.7
== END 2024-02-22 09:01 | disposition home or self-care (01) ==
PROVIDERS: Visit Provider Physician Assistant Medical
DX: R20.2 Paresthesia of skin (principal); F10.20 Alcohol dependence, uncomplicated
CPT/HCPCS: 81003; 82948; 83036; 99213

== ENCOUNTER 2024-06-10 19:30 | Emergency (ER) | payer OTHER, SELFPAY ==
[2024-06-10] VITALS (11 sets, daily range): BP systolic 95–135; BP diastolic 47–104; PULSE 71–122; RESP 13–20; TEMP 36.4–36.9; O2SAT 93–97; BMI 17.9
--- NOTE | 2024-06-10 20:00 | PC.NURSE ---
Pt. on clinical research monitor at this time.
--- NOTE | 2024-06-10 20:13 | ECG_ITS ---
Test Reason : ETOH Blood Pressure : / mmHG Vent. Rate : 084 BPM Atrial Rate : 084 BPM P-R Int : 134 ms QRS Dur : 084 ms QT Int : 406 ms P-R-T Axes : 055 062 059 degrees QTc Int : 479 ms Normal sinus rhythm Normal ECG When compared with ECG of 17-JUL-2023 02:46, Vent. rate has decreased BY 49 BPM T wave inversion no longer evident in Inferior leads Nonspecific T wave abnormality no longer evident in Lateral leads Referred By: Nenita Rae Electronically Signed By:Pb Hernandez
[2024-06-10] MEDS: PHENobarbitaL sodium 130 MG/ML VIAL IVPUSH (20:21)
[2024-06-10] MEDS: 0.9 % Sodium Chloride 1,000 ML 999 ML IV (20:23)
--- NOTE | 2024-06-10 20:28 | PC.NURSE ---
20G peripheral IV inserted to pt.'s RAC. Tolerated well. Good blood return.
--- NOTE | 2024-06-10 20:29 | PC.NURSE ---
Pt. medicated per OCT.
[2024-06-10 20:30] LABS: MANUAL DIFF FLAG NO
[2024-06-10 20:31] LABS: Basophils Absolute Auto 0.1 X10*3/uL (0.0-0.2); Basophils Percent Auto 1.1 % (0-2); Eosinophils Percent Auto 0.6 % (0-4); Hematocrit 41.8 % (37.0-47.0); Hemoglobin 14.5 g/dl (12.0-16.0); Imm Gran Abs Auto 0.02 X10*3/uL (0.00-0.03); Imm Gran Pct Auto 0.4 % (0.0-0.4); Lymphocytes Absolute Auto 1.7 X10*3/uL (1.2-4.9); Lymphocytes Percent Auto 35.8 % (20-40); Mean Corpuscular HGB Conc 34.7 g/dl (31.0-35.0); Mean Corpuscular Hemoglobin 30.4 pg (27.0-33.0); Mean Corpuscular Volume 87.6 fL (80.0-98.0); Mean Platelet Volume 9.7 fL (9.4-12.3); Monocytes Absolute Auto 0.3 X10*3/uL (0.1-1.2); Monocytes Percent Auto 5.3 % (2-11); Neutrophils Absolute Auto 2.7 x10*3/uL (2.0-8.3); Neutrophils Percent Auto 56.8 % (45-73); Platelet Count 141 X10*3/uL (160-400); Red Blood Count 4.77 X10*6/uL (4.20-5.50); Red Cell Distribution Width 13.6 % (11.0-16.0); White Blood Count 4.7 X10*3/uL (4.8-10.8)
[2024-06-10 20:57] LABS: Alanine Aminotransferase 34 U/L (0-31); Albumin Level 4.9 g/dL (3.5-5.0); Alkaline Phosphatase 93 U/L (39-117); Anion Gap 22 (12-20); Aspartate Amino Transferase 121 U/L (5-31); Bilirubin Total 0.5 mg/dL (0.0-1.0); Blood Urea Nitrogen 7 mg/dL (9-16); Calcium 9.6 mg/dL (8.4-10.2); Carbon Dioxide 25 mmol/L (22-29); Chloride 103 mmol/L (96-108); Creatinine Clr Calc Pharmacy 95.1; Estimated Glomerular Filt Rate > 60; Ethanol 477 mg/dL; Glucose Random 87 mg/dL (60-115); HCG Quantitative < 2 mIU/mL; Magnesium 1.8 mg/dL (1.6-2.6); Potassium 3.3 mmol/L (3.3-5.1); Sodium 147 mmol/L (135-145)
--- NOTE | 2024-06-10 21:00 | PC.NURSE ---
Pt. calm, resting in bed. Verbally expresses gratitude to this RN, stating you have been so great to me. Thank you
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
[2024-06-10] MEDS: Haloperidol Lactate 5 MG/ML VIAL IM (21:17)
[2024-06-10] MEDS: LORazepam 2 MG/ML VIAL IM (21:17)
--- NOTE | 2024-06-10 21:17 | PC.NURSE ---
Pt. medicated per MAR with IM Haldol and IM Ativan. Awaiting medication effect
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
--- NOTE | 2024-06-10 23:53 | PC.NURSE ---
SHADIA 7. DARIEL Rae aware.
[2024-06-11] VITALS (11 sets, daily range): BP systolic 95–114; BP diastolic 51–71; PULSE 72–124; RESP 13–20; TEMP 36.5; O2SAT 93–99
--- NOTE | 2024-06-11 00:39 | PC.NURSE ---
Now sleeping. Vitals stable. Fluids infused completely. DARIEL Rae entered phenobarb protocol, awaiting review/approval by pharmacy department.
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
--- NOTE | 2024-06-11 02:30 | PC.NURSE ---
Called nursing supervisor newspaper deliveries (Ne Noel) to bring Phenobarbital to ED for administration. Insufficient quantity of medication in ED Pyxis and pharmacy staff unavailable at this time. Medication to be administered upon arrival to ED.
[2024-06-11] MEDS: PHENobarbitaL sodium 130 MG/ML IM ONCE 283 MG IM (02:44)
--- NOTE | 2024-06-11 03:18 | PC.NURSE ---
nsr on monitor. no obvious signs/symptoms of distress noted, respirations even and unlabored.
--- NOTE | 2024-06-11 03:43 | PC.NURSE ---
phenobarb protocol cancelled, prn phenobarb and ativan ordered. remains obs pending potential chief engineer drilling and recovery and detox
--- NOTE | 2024-06-11 06:07 | PC.NURSE ---
Addendum entered by Jessica Landrum 06/11/24 06:12: denies si/hi, no desire for detox Original Note: patient awake, calm and cooperative a&o x3. requesting to go home at this time
== END 2024-06-11 06:47 | disposition home or self-care (01) ==
PROVIDERS: Physician Assistant Medical; Emergency Provider Emergency Medicine
DX: F10.120 Alcohol abuse with intoxication, uncomplicated (principal); Y90.8 Blood alcohol level of 240 mg/100 ml or more; R45.6 Violent behavior; Z79.899 Other long term (current) drug therapy
CPT/HCPCS: 36415; 80053; 80307; 83735; 84702; 85025; 93005; 96361; 96372; 96374; 99285; J1630; J2060; J2560

== ENCOUNTER → 2024-06-10 20:13 | Outpatient (BNV) | payer OTHER, SELFPAY | PROVIDERS: Emergency Provider Emergency Medicine; Visit Provider Internal Medicine Cardiovascular Disease | DX: F10.220 Alcohol dependence with intoxication, uncomplicated (principal) | CPT/HCPCS: 93010 ==

== ENCOUNTER 2024-06-22 20:28 | Emergency (ER) | payer OTHER, SELFPAY ==
--- NOTE | 2024-06-22 | ECG_ITS ---
Test Reason : ETOH Blood Pressure : / mmHG Vent. Rate : 076 BPM Atrial Rate : 077 BPM P-R Int : 168 ms QRS Dur : 084 ms QT Int : 428 ms P-R-T Axes : 035 060 063 degrees QTc Int : 481 ms Normal sinus rhythm Nonspecific T wave abnormality Prolonged QT Abnormal ECG When compared with ECG of 10-JUN-2024 20:10, Nonspecific T wave abnormality now evident in Inferior leads Nonspecific T wave abnormality, worse in Anterior leads Referred By: Generic ED Physician Electronically Signed By:OLIVE HAGEN MD
[2024-06-22 20:49] VITALS: BP 137/101; BP 146/95; PULSE 85; PULSE 94; RESP 18; TEMP 36.8; O2SAT 96; O2SAT 98; BMI 17.8
[2024-06-22 21:20] LABS: MANUAL DIFF FLAG NO
--- NOTE | 2024-06-22 21:20 | ED.ALCOHOL ---
HPI - Alcohol General Chief Complaint: ETOH/Substance Use Stated Complaint: ETOH,?LOC Time Seen by Provider: 06/22/24 21:14 Source: patient and EMS Mode of arrival: EMS Limitations: no limitations History of Present Illness ED Provider: DR. Smith HPI narrative: 28-year-old female with history of alcohol abuse patient reported that she has been drinking lately, drank heavy liquor last night came in for evaluation of symptoms of generalized body ache, runny nose, joint pain, it COVID testing was negative, no SI, no HI, no hallucination, able episode last night, patient is apparently drunk. Related Data Home Medications ?Medication ?Instructions ?Recorded ?Confirmed gemfibrozil 600 mg tablet 600 mg PO BID 02/22/24 hydroxyzine pamoate 50 mg capsule 100 mg PO BID 02/22/24 naltrexone microspheres 380 mg mg IM 02/22/24 intramuscular suspension,extended release (Vivitrol) propranolol 10 mg tablet 10 mg PO TID 02/22/24 sertraline 25 mg tablet 25 mg PO DAILY 02/22/24 Allergies Allergy/AdvReac Type Severity Reaction Status Date / Time No Known Allergies Allergy Verified 06/22/24 20:53 Review of Systems Review of Systems: All other systems are reviewed and are negative Constitutional: Reports as per HPI and Reports no additional constitutional complaints Eyes: Reports as per HPI and Reports no additional eye complaints Reports system reviewed and no additional complaints, except as documented Cardiovascular: Reports as per HPI and Reports no additional cardiovascular complaints Respiratory: Reports as per HPI and Reports no additional respiratory complaints Gastrointestinal: Reports as per HPI and Reports no additional gastrointestinal complaints Genitourinary: Reports no additional female genitourinary complaints Musculoskeletal: Reports no additional musculoskeletal complaints Skin/Breast: Reports system reviewed and no additional complaints, except as docu Psychiatric: Reports no additional psychiatric complaints Endocrine: Reports no additional endocrine complaints Hematologic/Lymphatic: Reports no additional hematologic/lymphatic complaints Allergic/Immunologic: Reports no additional allergic/immunologic complaints Reports system reviewed and no additional complaints, except as documented and Reports Abnormal speech present FOR[facility]LY [facility] Past Medical History Medical History Alcohol abuse Kidney stones Social History Social History Alcohol intake: current Alcohol intake frequency: 3 or more drinks per day Alcohol type: hard liquor Comment: pt refuses alarm or telesiter Patient Tobacco Use Status: Never used Tobacco Smoked in Last 30 Days: Yes Use of substances other than those prescribed or required for medical reasons: Yes Substance Use Type: Marijuana Advance Directives: No service: No Physical Exam ED Vital Signs: Vital Signs - 24 hr 06/22/24 20:49 06/22/24 22:22 Temperature 98.2 F 97.6 F Pulse Rate 85 99 Respiratory Rate 18 15 Blood Pressure 146/95 H 126/94 H Pulse Oximetry 96 99 Oxygen Delivery Method Room Air Room Air BMI result Body Mass Index 17.8 Vital signs have been reviewed and appear to be correct. Blood pressure elevated. Heart rate normal. Respiratory rate normal. Temperature normal. Oxygen saturation normal. Appearance: Alert. Oriented X3. No acute distress. Head: Normal external exam. Normocephalic. Atraumatic. No Kramer signs noted. No raccoon eyes noted Eyes: PERRLA. EOMI. Conjunctiva and sclera normal. Eyelids normal. ENT: TM's Normal. Pharynx normal. Uvula midline. Moist mucous membranes. No trismus noted. No drooling noted. No muffled voice noted. Neck: Normal inspection. Neck supple. FROM. No adenopathy. Thyroid Normal. No meningeal signs. No neck mass noted. CVS: Normal heart rate and rhythm. Heart sound normal. No murmurs noted. Pulses normal throughout. Respiratory: No respiratory distress. Painless inspiration. Breath sounds normal. No wheezes/rales/rhonchi noted. Chest nontender. No accessory muscle usage noted or decreased air movement noted. Abdomen: Soft and nontender. Bowel sounds normal in all 4 quadrants. No distention noted. No organomegaly noted. No visible injury noted. Back: No CVA tenderness. Full range of motion noted. Skin: Skin warm and dry. Normal skin color. Normal skin turgor. No rashes/lesions/lacerations noted. Extremities: No lower extremity edema. Extremities exhibit normal range of motion. Extremities nontender. Neuro: Oriented X 3. Cranial nerve exam: II-XII are grossly intact No motor deficit. No sensory deficit. Reflexes normal. Course Reevaluation(s) Reevaluation #1: Patient now is AAO x3, labs are unremarkable, patient is sober, able to ambulate with steady gait, no SI, no HI due to highly alcohol level in her blood patient has a sober adult personal will be given her right to home., patient is declining help for detox in rehab. Time: 02:58 Medical Decision Making Differential Diagnosis Differential Diagnoses: The differential diagnosis associated with the presentation includes (Upper respiratory infection, electrolyte derangement, severe anemia, severe alcohol intoxication, alcohol withdrawal.) Admission/Observation Consideration of admission/observation: Escalation of care including admission/observation considered Lab Data MDM Lab Attestation statement: I reviewed the patient's lab results. 06/22/24 21:09 06/22/24 21:09 Labs: Lab Results 06/22/24 06/22/24 Range/Units 21:05 21:09 WBC 4.0 L (4.8-10.8) X10*3/uL RBC 4.48 (4.20-5.50) X10*6/uL Hgb 13.8 (12.0-16.0) g/dl Hct 38.9 (37.0-47.0) % MCV 86.8 (80.0-98.0) fL MCH 30.8 (27.0-33.0) pg MCHC 35.5 H (31.0-35.0) g/dl RDW 14.3 (11.0-16.0) % Plt Count 170 (160-400) X10*3/uL MPV 9.4 (9.4-12.3) fL Immature Gran % (Auto) 0.3 (0.0-0.4) % Neut % (Auto) 45.1 (45-73) % Lymph % (Auto) 41.5 H (20-40) % Allen % (Auto) 10.8 (2-11) % Eos % (Auto) 0.8 (0-4) % Baso % (Auto) 1.5 (0-2) % Lymph # (Auto) 1.7 (1.2-4.9) X10*3/uL Allen # (Auto) 0.4 (0.1-1.2) X10*3/uL Eos # (Auto) 0.0 (0.0-0.4) X10*3/uL Baso # (Auto) 0.1 (0.0-0.2) X10*3/uL Abs Immat Gran (auto) 0.01 (0.00-0.03) X10*3/uL Absolute Neuts (auto) 1.8 L (2.0-8.3) x10*3/uL Absolute Nucleated RBC 0.000 (0.0-0.012) X10*3/uL Nucleated RBC % (auto) 0.0 (0.0-0.2) /100WBC Sodium 145 (135-145) mmol/L Potassium 2.9 L* (3.3-5.1) mmol/L Chloride 104 (96-108) mmol/L Carbon Dioxide 23 (22-29) mmol/L Anion Gap 21 H (12-20) BUN 6 L (9-16) mg/dL Creatinine 0.60 (0.5-1.4) mg/dL Estim Creat Clear Calc 102.9 Estimated GFR > 60 Random Glucose 81 (60-115) mg/dL Calcium 8.4 D (8.4-10.2) mg/dL Total Bilirubin 0.4 (0.0-1.0) mg/dL AST 146 H (5-31) U/L ALT 50 H (0-31) U/L Alkaline Phosphatase 83 (39-117) U/L Total Protein 7.5 (6.5-8.0) g/dL Albumin 4.4 (3.5-5.0) g/dL Urine Color Yellow Urine Appearance Cloudy Urine pH 6.5 (5.0-9.0) Ur Specific [place] <= 1.005 (1.005-1.025) Urine Protein 30 (1+) H (Neg-Trace) mg/dL Urine Glucose (UA) Negative (Negative) mg/dL Urine Ketones 15 (Negative) mg/dL Urine Blood Small (1+) H (Negative) Urine Nitrite Negative (Negative) Ur Leukocyte Esterase Small (1+) H (Negative) Urine RBC 0-2 (0-2) /HPF Urine WBC 21-50 H (0-5) /HPF Ur Squamous Epith Cells >20 (0-2) /HPF Urine Bacteria 4+ (None Seen) Hyaline Casts 0-2 (0-2) /LPF Urine Test NEGATIVE (NEGATIVE) Ethyl Alcohol 510 H* mg/dL Influenza Type A (PCR) NEGATIVE (Negative) Influenza Type B (PCR) NEGATIVE (Negative) RSV RNA Qual (PCR) NEGATIVE (Negative) SARS-CoV-2 RNA (RT-PCR) NEGATIVE (Negative) S. pyogenes GrpA GAEL Negative (Negative) Medications Administered Discontinued Medications Generic Name Dose Route Start Last Admin Trade Name Freq PRN Reason Stop Dose Admin Potassium Chloride 10 meq in 100 mls @ 100 mls/hr 06/22/24 21:41 06/22/24 22:58 Potassium Chloride/H20 IV 06/22/24 22:40 Infused ONCE ONE Infusion Sodium Chloride 1,000 mls @ 999 mls/hr 06/22/24 22:02 06/23/24 00:24 Ns IV 06/22/24 23:02 Infused .Q1H1M ONE Infusion Potassium Chloride 40 meq 06/22/24 21:41 06/22/24 21:55 Potassium Chloride Packet 20 Meq Packet PO 06/22/24 21:42 40 meq ONCE ONE Administration Discharge Plan Discharge Clinical Impression: Alcohol use disorder, severe, dependence, Alcoholic intoxication, Acute hypokalemia Patient Disposition: Home, Self-Care Instructions: Alcohol Use Disorder (ED) Prescriptions: No Action gemfibrozil 600 mg tablet 600 mg PO BID sertraline 25 mg tablet 25 mg PO DAILY Vivitrol 380 mg suspension,extended rel recon IM propranolol 10 mg tablet 10 mg PO TID hydroxyzine pamoate 50 mg capsule 100 mg PO BID Print Language: Slovak
[2024-06-22 21:29] LABS: Appearance Urine Cloudy; Color Urine Yellow; Glucose Urine UA Negative (Negative); Leukocyte Esterase Urine Small (1+) (Negative); Nitrite Urine Negative (Negative); PH 6.5 (5.0-9.0); Specific Gravity - Urine <= 1.005 (1.005-1.025); UMIC TRIGGER UACC YES; Urine Blood Small (1+) (Negative); Urine Ketones 15 mg/dL (Negative); Urine Protein 30 (1+) mg/dL (Neg-Trace)
[2024-06-22 21:31] LABS: UPreg QC Valid YES; Urine Pregnancy NEGATIVE (NEGATIVE)
[2024-06-22 21:41] LABS: Alanine Aminotransferase 50 U/L (0-31); Albumin Level 4.4 g/dL (3.5-5.0); Alkaline Phosphatase 83 U/L (39-117); Anion Gap 21 (12-20); Aspartate Amino Transferase 146 U/L (5-31); Bilirubin Total 0.4 mg/dL (0.0-1.0); Blood Urea Nitrogen 6 mg/dL (9-16); Calcium 8.4 mg/dL (8.4-10.2); Carbon Dioxide 23 mmol/L (22-29); Chloride 104 mmol/L (96-108); Creatinine Clr Calc Pharmacy 102.9; Estimated Glomerular Filt Rate > 60; Ethanol 510 mg/dL; Glucose Random 81 mg/dL (60-115); Potassium 2.9 mmol/L (3.3-5.1); Sodium 145 mmol/L (135-145); Total Protein 7.5 g/dL (6.5-8.0)
[2024-06-22 21:52] LABS: IDNOW Serial# 6674DD1D; Strep A Nucleic Acid Negative (Negative)
[2024-06-22 21:54] LABS: Bacteria Urine 4+ (None Seen); Hyaline Casts Urine 0-2 /LPF (0-2); RBC Urine 0-2 /HPF (0-2); Squamous Epithelial Cell Urine >20 /HPF (0-2); UACC Culture Trigger YES; WBC Urine 21-50 /HPF (0-5)
[2024-06-22] MEDS: Potassium Chloride Packet 20 MEQ PACKET 40 MEQ PO (21:55)
[2024-06-22] MEDS: Potassium Chloride/H20 10 MEQ/100 ML PIGGYBACK 100 MEQ IV (21:58)
[2024-06-22] MEDS: 0.9 % Sodium Chloride 1,000 ML 999 ML IV (22:00)
[2024-06-22 22:07] LABS: Basophils Absolute Auto 0.1 X10*3/uL (0.0-0.2); Basophils Percent Auto 1.5 % (0-2); Eosinophils Percent Auto 0.8 % (0-4); Hematocrit 38.9 % (37.0-47.0); Hemoglobin 13.8 g/dl (12.0-16.0); Imm Gran Abs Auto 0.01 X10*3/uL (0.00-0.03); Imm Gran Pct Auto 0.3 % (0.0-0.4); Lymphocytes Absolute Auto 1.7 X10*3/uL (1.2-4.9); Lymphocytes Percent Auto 41.5 % (20-40); Mean Corpuscular HGB Conc 35.5 g/dl (31.0-35.0); Mean Corpuscular Hemoglobin 30.8 pg (27.0-33.0); Mean Corpuscular Volume 86.8 fL (80.0-98.0); Mean Platelet Volume 9.4 fL (9.4-12.3); Monocytes Absolute Auto 0.4 X10*3/uL (0.1-1.2); Monocytes Percent Auto 10.8 % (2-11); Neutrophils Absolute Auto 1.8 x10*3/uL (2.0-8.3); Neutrophils Percent Auto 45.1 % (45-73); Platelet Count 170 X10*3/uL (160-400); Red Blood Count 4.48 X10*6/uL (4.20-5.50); Red Cell Distribution Width 14.3 % (11.0-16.0)
[2024-06-22 22:20] LABS: Influenza A PCR NEGATIVE (Negative); Influenza B PCR NEGATIVE (Negative); Resp Syncy Virus RNA Qual PCR NEGATIVE (Negative); SARS COV2 PCR INHOUSE NEGATIVE (Negative)
[2024-06-22 22:22] VITALS: BP 126/94; PULSE 99; RESP 15; TEMP 36.4; O2SAT 99
[2024-06-23 03:00] VITALS: BP 127/84; PULSE 99; RESP 16; TEMP 36.6; O2SAT 99
== END 2024-06-23 03:02 | disposition home or self-care (01) ==
PROVIDERS: Emergency Provider Emergency Medicine
DX: F10.229 Alcohol dependence with intoxication, unspecified (principal); E87.6 Hypokalemia; Y90.8 Blood alcohol level of 240 mg/100 ml or more; M79.10 Myalgia, unspecified site; R94.31 Abnormal electrocardiogram [ECG] [EKG]; Z03.818 Encounter for observation for suspected exposure to other biological agents ruled out; Z79.899 Other long term (current) drug therapy
CPT/HCPCS: 0241U; 80053; 80307; 81001; 81025; 85025; 87086; 87651; 93005; 96361; 96365; 99285; J3480

== ENCOUNTER → 2024-06-22 21:29 | Outpatient (BNV) | payer OTHER, SELFPAY | PROVIDERS: Emergency Provider Emergency Medicine; Visit Provider Internal Medicine Cardiovascular Disease | DX: R94.31 Abnormal electrocardiogram [ECG] [EKG] (principal) | CPT/HCPCS: 93010 ==

== ENCOUNTER 2024-07-15 15:35 | Emergency (ER) | payer OTHER, SELFPAY ==
[2024-07-15 15:38] VITALS: BP 160/110; PULSE 130; RESP 20; TEMP 36.4; O2SAT 97; BMI 17.3
--- NOTE | 2024-07-15 15:41 | ED_ITS ---
HPI - General Adult General Chief complaint: ETOH/Substance Use Stated complaint: alcohol detox/scared Time Seen by Provider: 07/15/24 16:01 Source: patient, RN notes reviewed and old records reviewed Mode of arrival: ambulatory Limitations: no limitations History of Present Illness ED Provider: Iva CALLOWAY narrative: 28-year-old female with past medical history significant for alcohol use disorder presents for evaluation of alcohol dependence. Patient reports that she drinks heavily every day and would like to stop drinking. She states that if she stopped drinking herself she gets nauseous and vomits. She reports if she drinks alcohol she still vomits She drinks 1-1-1/2 pt of Sofia daily. Her last drink was at 2:00 p.m. today She denies any history of alcohol withdrawal seizures but does report a history of hallucinations She denies any abdominal pain currently She reports that she has been to detox 7 times without success of getting clean She has no other complaints or concerns at this time Related Data Home Medications ?Medication ?Instructions ?Recorded ?Confirmed gemfibrozil 600 mg tablet 600 mg PO BID 02/22/24 hydroxyzine pamoate 50 mg capsule 100 mg PO BID 02/22/24 naltrexone microspheres 380 mg mg IM 02/22/24 intramuscular suspension,extended release (Vivitrol) propranolol 10 mg tablet 10 mg PO TID 02/22/24 sertraline 25 mg tablet 25 mg PO DAILY 02/22/24 Allergies Allergy/AdvReac Type Severity Reaction Status Date / Time kiwi Allergy Rash Verified 07/15/24 15:42 Penicillins Allergy Unknown Verified 07/15/24 15:42 Review of Systems 2 Constitutional: Constitutional: Denies body ache(s), Denies chills, Denies fever(s) and Denies headache(s) Eyes: Eyes: Denies blurry vision ENT: Denies vertigo, Denies dizziness and Denies headache(s) Cardiovascular: Cardiovascular: Denies chest pain Gastrointestinal: Gastrointestinal: Denies abdominal pain, Denies nausea and Denies vomiting Musculoskeletal: Musculoskeletal: Denies back pain Integumentary/Breasts: Skin/Breast: Denies rash Neurologic: Denies vertigo, Denies dizziness and Denies headache(s) Psychiatric: Psychiatric: Denies anxiety PMFSH Past Medical History Medical History Alcohol abuse Kidney stones Social History Social History Alcohol intake: current Alcohol intake frequency: 3 or more drinks per day Alcohol type: hard liquor Comment: pt refuses alarm or telesiter Patient Tobacco Use Status: Never used Tobacco Smoked in Last 30 Days: Yes Substance Use Type: Marijuana Substance Use Frequency: Daily Last Used Substance: Hours (ago) Advance Directives: No Advance Directives Information Provided: No Do you have a plan to hurt others: No Plan Patient : No service: No Physical Exam ED Vital Signs: Vital Signs - 24 hr 07/15/24 15:38 07/15/24 16:04 07/15/24 18:04 Temperature 97.5 F 98.2 F 98.4 F Pulse Rate 130 H 106 H 94 Respiratory Rate 20 16 19 Blood Pressure 160/110 H 137/97 H 128/95 H Pulse Oximetry 97 95 95 Oxygen Delivery Method Room Air Room Air Room Air 07/15/24 19:00 Temperature 98.6 F Pulse Rate 95 Respiratory Rate 18 Blood Pressure 140/95 H Pulse Oximetry 97 Oxygen Delivery Method Room Air BMI result Body Mass Index 17.3 Const General: healthy appearing, comfortable, no acute distress, alert and awake Orientation/consciousness: patient oriented x3 HENMT Head: Yes normocephalic and Yes atraumatic Eyes Eyelids: Yes eyelids normal Conjunctivae: conjunctivae normal Sclerae: sclerae normal Corneas: corneas normal Pupils: Equal, round and reactive pupils present EOM: EOMs intact bilaterally Neck Neck: Yes full ROM Resp Effort & Inspection: normal respiratory effort, able to speak in complete sentences and not labored Cardio Rate: regular rate Rhythm: regular rhythm GI Inspection: No distended Palpation (GI): Soft to palpation, not firm, nontender, no guarding and not rigid Skin General skin exam: elasticity normal Neuro General: patient oriented x3 Cranial nerves: Yes CN's II-XII intact bilaterally, Yes Equal, round and reactive pupils present and Yes Bilaterally intact EOM present Cognition (Neuro): normal cognition Extrem Other: Moving all extremities well without any obvious deformities Course Course Course Narrative: This is a Rapid Medical Examination (RME) performed by Cristy Rivera PA-C in triage. Full HPI, ROS, assessment and treatment plan per primary provider in the Main ED. 28 yo female hx of etoh dependence and pancreatitis here seeking detox. states that she would like to be detoxed in the hospital. does not wish to go to rehab. admits to drinking approximately 1 pint of [place] a day. 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 denies SI/HI. also reports b/l foot numbness. states she would like to be tested for diabetes. Plan: medical clearance, addiction med consult Reevaluation(s) Reevaluation #1: Patient's repeat labs show improvement in her potassium, her anion gap has decreased from 26-21. I discussed remaining in the hospital for detox referrals. The patient would like to be discharged home she will take outpatient information to follow up for detox on her own time. The patient does have a sober ride home Time: 20:42 Medications Administered Discontinued Medications Generic Name Dose Route Start Last Admin Trade Name Freq PRN Reason Stop Dose Admin Sodium Chloride 1,000 mls @ 999 mls/hr 07/15/24 16:30 07/15/24 17:24 Ns IV 07/15/24 17:30 Infused .Q1H1M NGHIA Infusion Thiamine HCl 500 mg/ Sodium 105 mls @ 210 mls/hr 07/15/24 16:26 07/15/24 17:21 Chloride IV 07/15/24 16:55 Infused ONCE ONE Infusion Folic Acid 1 mg/ Sodium 50.2 mls @ 100.4 mls/hr 07/15/24 16:26 07/15/24 17:52 Chloride IV 07/15/24 16:55 Infused ONCE ONE Infusion Lactated Ringer's 1,000 mls @ 999 mls/hr 07/15/24 18:30 07/15/24 19:58 Lr IV 07/15/24 19:30 Infused .Q1H1M NGHIA Infusion Potassium Chloride 40 meq 07/15/24 18:29 07/15/24 18:36 Potassium Chloride Packet 20 Meq Packet PO 07/15/24 18:30 40 meq ONCE ONE Administration Medical Decision Making Medical Decision Making MDM Narrative: 28-year-old female presents for evaluation of alcohol intoxication/dependence. She is not suicidal but is interested in detox. She is tachycardic, her labs are significant for a mild leukopenia which is consistent with her baseline and may be related to alcoholic liver disease. She is hypokalemic with a potassium of 3.2. Her sodium is elevated to 148 she has an anion gap of 26, this is likely related to alcoholic ketosis she has a mild transaminitis again likely related to alcohol use. Plan to treat with IV fluids, thiamine, folate. We will determine if the patient requires admission for management of alcohol withdrawal/alcoholic ketosis depending on how her course in the ED goes. Differential Diagnosis Differential Diagnoses: The differential diagnosis associated with the presentation includes Alcohol intoxication Alcohol dependence Alcohol withdrawal Hypokalemia Dehydration MEGA Lab Data MDM Lab Attestation statement: I reviewed the patient's lab results. See above 07/15/24 15:47 07/15/24 20:12 Labs: Lab Results 07/15/24 07/15/24 07/15/24 Range/Units 15:47 15:57 20:12 WBC 4.5 L (4.8-10.8) X10*3/uL RBC 4.28 (4.20-5.50) X10*6/uL Hgb 13.1 (12.0-16.0) g/dl Hct 36.6 L (37.0-47.0) % MCV 85.5 (80.0-98.0) fL MCH 30.6 (27.0-33.0) pg MCHC 35.8 H (31.0-35.0) g/dl RDW 15.9 (11.0-16.0) % Plt Count 109 L D (160-400) X10*3/uL MPV 9.4 (9.4-12.3) fL Immature Gran % (Auto) 0.0 (0.0-0.4) % Neut % (Auto) 65.3 (45-73) % Lymph % (Auto) 26.2 (20-40) % [place] % (Auto) 6.7 (2-11) % Eos % (Auto) 0.2 (0-4) % Baso % (Auto) 1.6 (0-2) % Lymph # (Auto) 1.2 (1.2-4.9) X10*3/uL [place] # (Auto) 0.3 (0.1-1.2) X10*3/uL Eos # (Auto) 0.0 (0.0-0.4) X10*3/uL Baso # (Auto) 0.1 (0.0-0.2) X10*3/uL Abs Immat Gran (auto) 0.00 (0.00-0.03) X10*3/uL Absolute Neuts (auto) 3.0 (2.0-8.3) x10*3/uL Absolute Nucleated RBC 0.000 (0.0-0.012) X10*3/uL Nucleated RBC % (auto) 0.0 (0.0-0.2) /100WBC Sodium 148 H 147 H (135-145) mmol/L Potassium 3.2 L 3.6 (3.3-5.1) mmol/L Chloride 103 108 (96-108) mmol/L Carbon Dioxide 22 22 (22-29) mmol/L Anion Gap 26 H 21 H (12-20) BUN 7 L 5 L (9-16) mg/dL Creatinine 0.65 0.60 (0.5-1.4) mg/dL Estim Creat Clear Calc 92.3 100.0 Estimated GFR > 60 > 60 Random Glucose 109 97 (60-115) mg/dL Calcium 8.5 7.8 L D (8.4-10.2) mg/dL Magnesium 1.7 (1.6-2.6) mg/dL Total Bilirubin 0.6 (0.0-1.0) mg/dL AST 323 H (5-31) U/L ALT 91 H (0-31) U/L Alkaline Phosphatase 120 H (39-117) U/L Total Protein 7.7 (6.5-8.0) g/dL Albumin 4.4 (3.5-5.0) g/dL Vitamin B12 971 H (200-900) pg/mL Folate 6.8 (> or = 4.0) ng/mL Urine Color Yellow Urine Appearance Cloudy Urine pH 6.5 (5.0-9.0) Ur Specific [place] 1.015 (1.005-1.025) Urine Protein 300 (3+) H (Neg-Trace) mg/dL Urine Glucose (UA) Negative (Negative) mg/dL Urine Ketones Trace (Negative) mg/dL Urine Blood Small (1+) H (Negative) Urine Nitrite Positive H (Negative) Ur Leukocyte Esterase Trace H (Negative) Urine RBC 3-5 H (0-2) /HPF Urine WBC 21-50 H (0-5) /HPF Ur Squamous Epith Cells 3-5 (0-2) /HPF Urine Bacteria 4+ (None Seen) Hyaline Casts 0-2 (0-2) /LPF Urine Test NEGATIVE (NEGATIVE) Urine Opiates Screen Not Detected (Not Detect) Ur Buprenorphine Scrn Not Detected (Not Detect) ng/mL Ur Oxycodone Screen Not Detected (Not Detect) ng/mL Urine Methadone Screen Not Detected (Not Detect) ng/mL Urine Fentanyl Screen Not Detected (Not Detect) Ur Barbiturates Screen POSITIVE H (Not Detect) Ur Phencyclidine Scrn Not Detected (Not Detect) Ur Amphetamines Screen Not Detected (Not Detect) U Benzodiazepines Scrn Not Detected (Not Detect) Urine Cocaine Screen Not Detected (Not Detect) U Marijuana (THC) Screen POSITIVE H (Not Detect) Ethyl Alcohol 473 H* mg/dL Discharge Plan Discharge Clinical Impression: Alcoholism Patient Disposition: Home, Self-Care Instructions: Alcohol Dependence (ED) Additional Instructions: Your blood work showed that you were somewhat dehydrated, your potassium was low and your sodium was slightly elevated. Your liver enzymes were also elevated. This is all likely a side effect of your excessive drinking I do recommend that you try to follow up with detox when you are able Prescriptions: No Action gemfibrozil 600 mg tablet 600 mg PO BID sertraline 25 mg tablet 25 mg PO DAILY Vivitrol 380 mg suspension,extended rel recon IM propranolol 10 mg tablet 10 mg PO TID hydroxyzine pamoate 50 mg capsule 100 mg PO BID Print Language: St Helen[place]
--- NOTE | 2024-07-15 15:50 | ECG_ITS ---
Test Reason : tachycardic Blood Pressure : / mmHG Vent. Rate : 095 BPM Atrial Rate : 095 BPM P-R Int : 126 ms QRS Dur : 090 ms QT Int : 406 ms P-R-T Axes : 051 051 043 degrees QTc Int : 510 ms Normal sinus rhythm Prolonged QT Abnormal ECG When compared with ECG of 22-JUN-2024 21:29, Nonspecific T wave abnormality, improved in Anterolateral leads Referred By: Pau Rivera Electronically Signed By:JENIFER DOWNING
[2024-07-15 15:54] LABS: Eosinophils Percent Auto 0.2 % (0-4); Hematocrit 36.6 % (37.0-47.0); Mean Corpuscular Volume 85.5 fL (80.0-98.0); PLT CLUMP 1; Red Blood Count 4.28 X10*6/uL (4.20-5.50); Red Cell Distribution Width 15.9 % (11.0-16.0); SCAN SMEAR FLAG 1
[2024-07-15 15:55] LABS: Basophils Absolute Auto 0.1 X10*3/uL (0.0-0.2); Basophils Percent Auto 1.6 % (0-2); Hemoglobin 13.1 g/dl (12.0-16.0); Lymphocytes Absolute Auto 1.2 X10*3/uL (1.2-4.9); Lymphocytes Percent Auto 26.2 % (20-40); Mean Corpuscular HGB Conc 35.8 g/dl (31.0-35.0); Mean Corpuscular Hemoglobin 30.6 pg (27.0-33.0); Mean Platelet Volume 9.4 fL (9.4-12.3); Monocytes Absolute Auto 0.3 X10*3/uL (0.1-1.2); Monocytes Percent Auto 6.7 % (2-11); Neutrophils Percent Auto 65.3 % (45-73)
[2024-07-15 16:02] LABS: MANUAL DIFF FLAG NO; Platelet Count 109 X10*3/uL (160-400); White Blood Count 4.5 X10*3/uL (4.8-10.8)
[2024-07-15 16:04] VITALS: BP 137/97; PULSE 106; RESP 16; TEMP 36.8; O2SAT 95
[2024-07-15 16:06] LABS: Appearance Urine Cloudy; Color Urine Yellow; Glucose Urine UA Negative (Negative); Leukocyte Esterase Urine Trace (Negative); Nitrite Urine Positive (Negative); PH 6.5 (5.0-9.0); Specific Gravity - Urine 1.015 (1.005-1.025); UMIC TRIGGER UACC YES; Urine Blood Small (1+) (Negative); Urine Ketones Trace mg/dL (Negative); Urine Protein 300 (3+) mg/dL (Neg-Trace)
--- NOTE | 2024-07-15 16:08 | PC.NURSE ---
Pt comes to ED today c/o pain to bilat feel, hand contracture (during intercourse) and calf cramping--she believes these are related to her abuse of ETOH. A&Ox3, tearful at times but also makes light jokes VSS and afebrile. Pt reports using 0.5 pint of liquor today and her daily use is 0.5 to 1 pint of hard liquor per day. She reports several rehab stays, last was earlier this year. Denies SI/HI Reports a hx hallucination with ETOH w/d. NAD noted at this time. Significant other at bedside.
[2024-07-15 16:09] LABS: UPreg QC Valid YES; Urine Pregnancy NEGATIVE (NEGATIVE)
[2024-07-15 16:12] LABS: Alanine Aminotransferase 91 U/L (0-31); Albumin Level 4.4 g/dL (3.5-5.0); Alkaline Phosphatase 120 U/L (39-117); Anion Gap 26 (12-20); Aspartate Amino Transferase 323 U/L (5-31); Bilirubin Total 0.6 mg/dL (0.0-1.0); Blood Urea Nitrogen 7 mg/dL (9-16); Calcium 8.5 mg/dL (8.4-10.2); Carbon Dioxide 22 mmol/L (22-29); Chloride 103 mmol/L (96-108); Creatinine Clr Calc Pharmacy 92.3; Estimated Glomerular Filt Rate > 60; Ethanol 473 mg/dL; Glucose Random 109 mg/dL (60-115); Magnesium 1.7 mg/dL (1.6-2.6); Potassium 3.2 mmol/L (3.3-5.1); Sodium 148 mmol/L (135-145); Total Protein 7.7 g/dL (6.5-8.0)
[2024-07-15 16:16] LABS: Amphetamine Screen Urine Not Detected (Not Detect); Barbiturates, Urine POSITIVE (Not Detect); Benzodiazepines Screen Urine Not Detected (Not Detect); Buprenorphine Scr Not Detected (Not Detect); Cannabinoid Screen Urine POSITIVE (Not Detect); Cocaine Screen Urine Not Detected (Not Detect); Fentanyl, urine Not Detected (Not Detect); Methadone Screen, Urine Not Detected (Not Detect); Opiate Screen Urine Not Detected (Not Detect); Oxycodone Screen Urine Not Detected (Not Detect); Phencyclidine Screen Urine Not Detected (Not Detect)
[2024-07-15] MEDS: 0.9 % Sodium Chloride 1,000 ML 999 ML IV (16:37)
[2024-07-15] MEDS: Thiamine HCL 500 MG in 0.9 % Sodium Chloride 100 ML 210 MG IV (16:38)
[2024-07-15 16:44] LABS: Folate 6.8 ng/mL (> or = 4.0); Vitamin B12 971 pg/mL (200-900)
[2024-07-15 17:17] LABS: Bacteria Urine 4+ (None Seen); Hyaline Casts Urine 0-2 /LPF (0-2); UACC Culture Trigger YES; WBC Urine 21-50 /HPF (0-5)
[2024-07-15] MEDS: Folic Acid 1 MG in 0.9 % Sodium Chloride 50 ML 100.4 MG IV (17:22)
[2024-07-15 18:04] VITALS: BP 128/95; PULSE 94; RESP 19; TEMP 36.9; O2SAT 95
[2024-07-15] MEDS: Potassium Chloride Packet 20 MEQ PACKET 40 MEQ PO (18:36)
[2024-07-15] MEDS: Lactated Ringers 1,000 ML 999 ML IV (18:38)
[2024-07-15 19:00] VITALS: BP 140/95; PULSE 95; RESP 18; TEMP 37; O2SAT 97
--- NOTE | 2024-07-15 19:20 | MHC.EDTECH ---
This tech took over care of patient at 1900,rounded and introduced self to pt,vitals taken,patient ambulated w/a steady gait to the bathroom,patient is resting quietly,boyfriend at bedside,call junior in reach
[2024-07-15 20:35] LABS: Anion Gap 21 (12-20); Blood Urea Nitrogen 5 mg/dL (9-16); Calcium 7.8 mg/dL (8.4-10.2); Carbon Dioxide 22 mmol/L (22-29); Chloride 108 mmol/L (96-108); Estimated Glomerular Filt Rate > 60; Glucose Random 97 mg/dL (60-115); Potassium 3.6 mmol/L (3.3-5.1); Sodium 147 mmol/L (135-145)
[2024-07-15 20:52] VITALS: BP 135/97; PULSE 82; RESP 16; TEMP 36.8; O2SAT 98
[2024-07-15 20:54] VITALS: BP 135/97; PULSE 82; RESP 16; TEMP 36.8; O2SAT 98
== END 2024-07-15 20:54 | disposition home or self-care (01) ==
PROVIDERS: Physician Assistant; Physician Assistant Medical; Emergency Provider Emergency Medicine Emergency Medical Services
DX: F10.20 Alcohol dependence, uncomplicated (principal); Y90.8 Blood alcohol level of 240 mg/100 ml or more; R44.3 Hallucinations, unspecified; K85.90 Acute pancreatitis without necrosis or infection, unspecified; F12.90 Cannabis use, unspecified, uncomplicated
CPT/HCPCS: 36415; 80048; 80053; 80307; 81001; 81025; 82607; 82746; 83735; 85025; 87086; 87088; 87186; 93005; 96361; 96365; 96367; 99285; J3411; J7120

== ENCOUNTER → 2024-07-15 15:50 | Outpatient (BNV) | payer OTHER, SELFPAY | PROVIDERS: Emergency Provider Emergency Medicine Emergency Medical Services; Visit Provider Internal Medicine | DX: R94.31 Abnormal electrocardiogram [ECG] [EKG] (principal) | CPT/HCPCS: 93010 ==

== ENCOUNTER 2024-07-23 18:35 | Emergency (ER) | payer OTHER, SELFPAY ==
[2024-07-23 18:42] VITALS: BP 150/100; PULSE 92; O2SAT 96
[2024-07-23 18:45] VITALS: BP 137/94; PULSE 90; RESP 16; TEMP 36.4; O2SAT 95; BMI 20.1
[2024-07-23 19:29] LABS: MANUAL DIFF FLAG NO
[2024-07-23 19:32] LABS: Appearance Urine Clear; Basophils Percent Auto 1.2 % (0-2); Color Urine Yellow; Eosinophils Percent Auto 0.9 % (0-4); Glucose Urine UA Negative (Negative); Hematocrit 37.5 % (37.0-47.0); Hemoglobin 13.3 g/dl (12.0-16.0); Imm Gran Abs Auto 0.01 X10*3/uL (0.00-0.03); Imm Gran Pct Auto 0.3 % (0.0-0.4); Leukocyte Esterase Urine Trace (Negative); Lymphocytes Absolute Auto 0.9 X10*3/uL (1.2-4.9); Mean Corpuscular HGB Conc 35.5 g/dl (31.0-35.0); Mean Corpuscular Hemoglobin 30.4 pg (27.0-33.0); Mean Corpuscular Volume 85.8 fL (80.0-98.0); Mean Platelet Volume 9.3 fL (9.4-12.3); Monocytes Absolute Auto 0.4 X10*3/uL (0.1-1.2); Neutrophils Percent Auto 58.6 % (45-73); Nitrite Urine Negative (Negative); PH 6.5 (5.0-9.0); Platelet Count 110 X10*3/uL (160-400); Red Blood Count 4.37 X10*6/uL (4.20-5.50); Red Cell Distribution Width 15.9 % (11.0-16.0); Specific Gravity - Urine <= 1.005 (1.005-1.025); UMIC TRIGGER UACC YES; Urine Blood Negative (Negative); Urine Ketones Negative (Negative); Urine Protein 30 (1+) mg/dL (Neg-Trace); White Blood Count 3.4 X10*3/uL (4.8-10.8)
[2024-07-23 19:33] LABS: UPreg QC Valid YES; Urine Pregnancy NEGATIVE (NEGATIVE)
[2024-07-23 19:41] LABS: Amphetamine Screen Urine Not Detected (Not Detect); Barbiturates, Urine Not Detected (Not Detect); Benzodiazepines Screen Urine Not Detected (Not Detect); Buprenorphine Scr Not Detected (Not Detect); Cannabinoid Screen Urine POSITIVE (Not Detect); Cocaine Screen Urine Not Detected (Not Detect); Fentanyl, urine Not Detected (Not Detect); Methadone Screen, Urine Not Detected (Not Detect); Opiate Screen Urine Not Detected (Not Detect); Oxycodone Screen Urine Not Detected (Not Detect); Phencyclidine Screen Urine Not Detected (Not Detect)
[2024-07-23 19:44] LABS: Bacteria Urine 1+ (None Seen); Hyaline Casts Urine 0-2 /LPF (0-2); RBC Urine 0-2 /HPF (0-2); WBC Urine 0-5 /HPF (0-5)
[2024-07-23 19:55] LABS: Alanine Aminotransferase 98 U/L (0-31); Albumin Level 4.2 g/dL (3.5-5.0); Alkaline Phosphatase 124 U/L (39-117); Anion Gap 21 (12-20); Aspartate Amino Transferase 213 U/L (5-31); Bilirubin Total 0.4 mg/dL (0.0-1.0); Blood Urea Nitrogen 6 mg/dL (9-16); Calcium 9.5 mg/dL (8.4-10.2); Carbon Dioxide 26 mmol/L (22-29); Chloride 106 mmol/L (96-108); Creatinine Clr Calc Pharmacy 108.4; Estimated Glomerular Filt Rate > 60; Ethanol 513 mg/dL; Glucose Random 155 mg/dL (60-115); Potassium 2.8 mmol/L (3.3-5.1); Sodium 150 mmol/L (135-145); Total Protein 7.5 g/dL (6.5-8.0)
[2024-07-23 20:13] LABS: Magnesium 1.6 mg/dL (1.6-2.6)
[2024-07-23] MEDS: 0.9 % Sodium Chloride 1,000 ML 999 ML IV (21:36)
[2024-07-23] MEDS: Potassium Chloride/H20 10 MEQ/100 ML PIGGYBACK 100 MEQ IV ×2 (21:37→22:45)
[2024-07-23] MEDS: Potassium Chloride ER 20 MEQ TAB.ER.PRT PO (21:37)
[2024-07-23] MEDS: Magnesium Sulfate/H2O 2 GM/50 ML PIGGYBACK IV (21:45)
--- NOTE | 2024-07-23 22:01 | ED.ALCOHOL ---
HPI - Alcohol General Chief Complaint: ETOH/Substance Use Stated Complaint: etoh Time Seen by Provider: 07/23/24 21:14 Source: patient Mode of arrival: EMS Limitations: no limitations History of Present Illness ED Provider: HPI narrative: Patient alcoholic been drinking heavy for last 2 years requested go to detox been to detox multiple times last detox was a month ago. No other substance abuse no nausea no vomiting feels dehydrated lasting for prior to arrival no history of DTs or seizure Related Data Home Medications ?Medication ?Instructions ?Recorded ?Confirmed gemfibrozil 600 mg tablet 600 mg PO BID 02/22/24 hydroxyzine pamoate 50 mg capsule 100 mg PO BID 02/22/24 naltrexone microspheres 380 mg mg IM 02/22/24 intramuscular suspension,extended release (Vivitrol) propranolol 10 mg tablet 10 mg PO TID 02/22/24 sertraline 25 mg tablet 25 mg PO DAILY 02/22/24 Allergies Allergy/AdvReac Type Severity Reaction Status Date / Time kiwi Allergy Rash Verified 07/23/24 18:48 Penicillins Allergy Unknown Verified 07/23/24 18:48 Review of Systems Review of Systems: Yes all other systems are reviewed and are negative [facility] Past Medical History Medical History Alcohol abuse Kidney stones Social History Social History Alcohol intake: current Alcohol intake frequency: 3 or more drinks per day Alcohol type: hard liquor Comment: pt refuses alarm or telesiter Patient Tobacco Use Status: Never used Tobacco Smoked in Last 30 Days: Yes Use of substances other than those prescribed or required for medical reasons: Yes Substance Use Type: Marijuana Advance Directives: No Advance Directives Information Provided: No Patient : No service: No Physical Exam ED Vital Signs: Vital Signs - 24 hr 07/23/24 18:45 07/23/24 22:40 07/24/24 01:05 Temperature 97.6 F 98.3 F 98.1 F Pulse Rate 90 80 111 H Respiratory Rate 16 16 20 Blood Pressure 137/94 H 132/103 H 159/138 H Pulse Oximetry 95 98 98 Oxygen Delivery Method Room Air Room Air Room Air 07/24/24 01:08 07/24/24 02:40 Temperature 0 F L Pulse Rate 78 Respiratory Rate 16 Blood Pressure 155/113 H 00/00 L Pulse Oximetry 0 L Oxygen Delivery Method BMI result Body Mass Index 20.1 Appearance: Alert. Oriented X3. No acute distress. ETOH++ Eyes: PERRLA, No Nystagmus ENT: Pharynx normal. Oral Mucosa Dry Neck: Normal inspection. Neck supple. CVS: Normal heart rate and rhythm. Pulses normal. Respiratory: No respiratory distress. Equal air entry bilateral, no wheezing/rales/rhonchi Abdomen: Soft and nontender. Bowel sounds are present, no mass palpable, no CVA tenderness Skin: Skin warm and dry. Normal skin color. Normal skin turgor. Extremities: No lower extremity edema. No calf tenderness Neuro: Oriented X 3. No motor deficit. No sensory deficit.No cerebellar signs , cranial nerves II-XII intact Medical Decision Making Medical Decision Making [facility] Narrative: Patient alcoholic with hyponatremia dehydration and hypokalemia received IV fluids does not want to stay in the ER to go to rehab will like to go to rehab morning of her own received IV potassium and p.o. potassium patient's boyfriend at bedside patient has been here with similar symptoms in the past Patient's potassium level was 3.0 does not want to stay longer was given another 10 mEq of potassium along with 50meq of p.o. advised to stop drinking patient was walking in his steady gait went home with her boyfriend Differential Diagnosis Differential Diagnoses: The differential diagnosis associated with the presentation includes Lab Data [facility] Lab Attestation statement: I reviewed the patient's lab results. 07/23/24 19:21 07/24/24 01:15 Labs: Lab Results 07/23/24 07/24/24 Range/Units 19:21 01:15 WBC 3.4 L (4.8-10.8) X10*3/uL RBC 4.37 (4.20-5.50) X10*6/uL Hgb 13.3 (12.0-16.0) g/dl Hct 37.5 (37.0-47.0) % MCV 85.8 (80.0-98.0) fL MCH 30.4 (27.0-33.0) pg MCHC 35.5 H (31.0-35.0) g/dl RDW 15.9 (11.0-16.0) % Plt Count 110 L (160-400) X10*3/uL MPV 9.3 L (9.4-12.3) fL Immature Gran % (Auto) 0.3 (0.0-0.4) % Neut % (Auto) 58.6 (45-73) % Lymph % (Auto) 28.0 (20-40) % Vilas % (Auto) 11.0 (2-11) % Eos % (Auto) 0.9 (0-4) % Baso % (Auto) 1.2 (0-2) % Lymph # (Auto) 0.9 L (1.2-4.9) X10*3/uL Vilas # (Auto) 0.4 (0.1-1.2) X10*3/uL Eos # (Auto) 0.0 (0.0-0.4) X10*3/uL Baso # (Auto) 0.0 (0.0-0.2) X10*3/uL Abs Immat Gran (auto) 0.01 (0.00-0.03) X10*3/uL Absolute Neuts (auto) 2.0 (2.0-8.3) x10*3/uL Absolute Nucleated RBC 0.000 (0.0-0.012) X10*3/uL Nucleated RBC % (auto) 0.0 (0.0-0.2) /100WBC Sodium 150 H 140 (135-145) mmol/L Potassium 2.8 L* D 3.0 L (3.3-5.1) mmol/L Chloride 106 100 (96-108) mmol/L Carbon Dioxide 26 25 (22-29) mmol/L Anion Gap 21 H 18 (12-20) BUN 6 L 5 L (9-16) mg/dL Creatinine 0.55 0.71 (0.5-1.4) mg/dL Estim Creat Clear Calc 108.4 83.9 Estimated GFR > 60 > 60 Random Glucose 155 H 321 H (60-115) mg/dL Calcium 9.5 D 8.1 L D (8.4-10.2) mg/dL Magnesium 1.6 (1.6-2.6) mg/dL Total Bilirubin 0.4 (0.0-1.0) mg/dL AST 213 H (5-31) U/L ALT 98 H (0-31) U/L Alkaline Phosphatase 124 H (39-117) U/L Total Protein 7.5 (6.5-8.0) g/dL Albumin 4.2 (3.5-5.0) g/dL Urine Color Yellow Urine Appearance Clear Urine pH 6.5 (5.0-9.0) Ur Specific [place] <= 1.005 (1.005-1.025) Urine Protein 30 (1+) H (Neg-Trace) mg/dL Urine Glucose (UA) Negative (Negative) mg/dL Urine Ketones Negative (Negative) mg/dL Urine Blood Negative (Negative) Urine Nitrite Negative (Negative) Ur Leukocyte Esterase Trace H (Negative) Urine RBC 0-2 (0-2) /HPF Urine WBC 0-5 (0-5) /HPF Ur Squamous Epith Cells 3-5 (0-2) /HPF Urine Bacteria 1+ (None Seen) Hyaline Casts 0-2 (0-2) /LPF Urine Test NEGATIVE (NEGATIVE) Urine Opiates Screen Not Detected (Not Detect) Ur Buprenorphine Scrn Not Detected (Not Detect) ng/mL Ur Oxycodone Screen Not Detected (Not Detect) ng/mL Urine Methadone Screen Not Detected (Not Detect) ng/mL Urine Fentanyl Screen Not Detected (Not Detect) Ur Barbiturates Screen Not Detected (Not Detect) Ur Phencyclidine Scrn Not Detected (Not Detect) Ur Amphetamines Screen Not Detected (Not Detect) U Benzodiazepines Scrn Not Detected (Not Detect) Urine Cocaine Screen Not Detected (Not Detect) U Marijuana (THC) Screen POSITIVE H (Not Detect) Ethyl Alcohol 513 H* mg/dL Medications Administered Discontinued Medications Generic Name Dose Route Start Last Admin Trade Name Freq PRN Reason Stop Dose Admin Potassium Chloride 10 meq in 100 mls @ 100 mls/hr 07/23/24 21:30 07/24/24 00:15 Potassium Chloride/H20 IV 07/23/24 23:29 Infused Q1H NGHIA Infusion Sodium Chloride 1,000 mls @ 999 mls/hr 07/23/24 21:35 07/23/24 23:44 Ns IV 07/23/24 22:35 Infused .Q1H1M ONE Infusion Magnesium Sulfate 2 gm in 50 mls @ 150 mls/hr 07/23/24 21:35 07/23/24 22:10 Magnesium Sulfate/H2o IV 07/23/24 21:54 Infused ONCE ONE Infusion Dextrose 1,000 mls @ 999 mls/hr 07/23/24 22:14 07/24/24 00:56 D5w IVCONT 07/23/24 23:14 Infused .Q1H1M ONE Infusion Potassium Chloride 10 meq in 100 mls @ 100 mls/hr 07/24/24 01:58 07/24/24 02:35 Potassium Chloride/H20 IV 07/24/24 02:57 0 mls/hr ONCE ONE Infusion Lorazepam 1 mg 07/24/24 01:11 07/24/24 01:27 Lorazepam 2 Mg/Ml Vial IVPUSH 07/24/24 01:12 1 mg ONCE ONE Administration Potassium Bicarbonate 50 meq 07/24/24 01:58 07/24/24 02:09 Potassium Bicarbonate/Cit Ac 25 Meq Tablet.Eff PO 07/24/24 01:59 50 meq ONCE ONE Administration Potassium Chloride 20 meq 07/23/24 21:27 07/23/24 21:37 Potassium Chloride Er 20 Meq Tab.Er.Prt PO 07/23/24 21:28 20 meq ONCE ONE Administration Discharge Plan Discharge Clinical Impression: Alcoholic intoxication, Acute hypokalemia Patient Disposition: Home, Self-Care Instructions: Hypokalemia (ED), Alcohol Intoxication (ED) Additional Instructions: Stop drinking alcohol Follow detox in a.m. as planned Prescriptions: No Action gemfibrozil 600 mg tablet 600 mg PO BID sertraline 25 mg tablet 25 mg PO DAILY Vivitrol 380 mg suspension,extended rel recon IM propranolol 10 mg tablet 10 mg PO TID hydroxyzine pamoate 50 mg capsule 100 mg PO BID Interventions: ED Discharge Assessment Last Done: 07/24/24 02:40 Discharge Date/Time: 07/24/24 02:45 Print Language: Faroese
[2024-07-23 22:40] VITALS: BP 132/103; PULSE 80; RESP 16; TEMP 36.8; O2SAT 98
[2024-07-23] MEDS: Dextrose 5 % 1,000 ML 999 ML IVCONT (23:43)
[2024-07-24 01:05] VITALS: BP 159/138; PULSE 111; RESP 20; TEMP 36.7; O2SAT 98
[2024-07-24 01:08] VITALS: BP 155/113
[2024-07-24] MEDS: LORazepam 2 MG/ML VIAL 1 MG IVPUSH (01:27)
[2024-07-24 01:35] LABS: Anion Gap 18 (12-20); Blood Urea Nitrogen 5 mg/dL (9-16); Calcium 8.1 mg/dL (8.4-10.2); Carbon Dioxide 25 mmol/L (22-29); Chloride 100 mmol/L (96-108); Creatinine Clr Calc Pharmacy 83.9; Estimated Glomerular Filt Rate > 60; Glucose Random 321 mg/dL (60-115); Sodium 140 mmol/L (135-145)
[2024-07-24] MEDS: Potassium Chloride/H20 10 MEQ/100 ML PIGGYBACK 100 MEQ IV (02:04)
[2024-07-24] MEDS: Potassium Bicarbonate/Cit AC 25 MEQ TABLET.EFF 50 MEQ PO (02:09)
[2024-07-24 02:40] VITALS: BP 00/00; PULSE 78; RESP 16; TEMP -17.7; TEMP 0; O2SAT 0
--- OUTSIDE RECORDS SUMMARY | 2024-07-26 12:13 | XMS_ITS | Data Portability ---
Author Organization [facility] [address] Address [address] [place] [address] Assessment No assessment recorded. Plan of Treatment Reminders Order Date Submit Date Provider Last Modified By Organization Details Last Modified Time Details Appointments None recorded. Lab rapid [facility], [address] [place] [address], [phone], 3 17:17:34 rapid flu (A+B) 2022 [facility]23 [facility], [address] [place] [address], [phone], 3 17:17:34 Referral None recorded. Procedures None recorded. Surgeries None recorded. Imaging None recorded. Medication Orders amoxicillin 875 mg-potchetanu m clavulanate 125 mg tablet 2022 023 [facility], [address] [place], [address], 3 12:39:59 prednisone 20 mg tablet 2022 023 [facility], [address] [place], [address], 3 12:40:01 prednisone 20 mg tablet 2022 023 [facility], [address] [facility] [place], [address], 17:17:39 benzonatate 100 mg capsule 2022 023 [facility], [address] [place], [address], 17:17:37 fexofenadin e-pseudoeph edrine ER 180 mg-240 mg tablet,ext. release 24 hr 2022 023 [facility], [address] [place], [address], 17:17:36 Patient TargetsNo targets recorded. Patient Instructions Encounter Date Encounter Id Patient Instructions Last Modified By Organization Details Last Modified Time 08/31/2022 [id number] cough: care instructions Not available 08/31/2022 12:39:57 - Use the medications prescribed. - Decongestants if tolerated. - Recommend recheck if fever develops or no improvement in 5-7 days. - Use saline nasal spray or neti-pot flushes once to twice a day to loosen mucus in sinuses. - I recommend having your ear rechecked in in 2 weeks with your primary provider to verify infection has resolved. -.Use a cool mist humidifier in the room that you sleep to add moisture to the air, which should soothe the airways and help loosen any mucus that may be present. -Call 911 or proceed to nearest Emergency Department if you develop shortness of breath, chest pain, severe headache or other symptoms that concern you. Not available 08/31/2022 12:38:52 Sinusitis is an infection of the lining of the sinus cavities in your head. Sinusitis often follows a cold. It causes pain and pressure in your head and face. In most cases, sinusitis gets better on its own in 1 to 2 weeks. But some mild symptoms may last for several weeks. Sometimes antibiotics are needed. if you are having problems. It's also a good idea to know your test results and keep a list of the medicines you take. How can you care for yourself at home? Take an zvsn-efe-mnkbnxv pain medicine. Avoid Ibuprofen, Aleve and Aspirin if . If the doctor prescribed antibiotics, take them as directed. Do not stop taking them just because you feel better. You need to take the full course of antibiotics. Be careful when taking mnbq-vzb-qptqbzp cold or influenza (flu) medicines and Tylenol at the same time. Many of these medicines have acetaminophen, which is Tylenol. Read the labels to make sure that you are not taking more than the recommended dose. Too much acetaminophen (Tylenol) can be harmful. Breathe warm, moist air from a steamy shower, a hot bath, or a sink filled with hot water. Avoid cold, dry air. Using a humidifier in your home may help. Follow the directions for cleaning the machine. Use saline (saltwater) nasal washes. This can help keep your nasal passages open and wash out mucus and bacteria. You can buy saline nose drops at a grocery store or drugstore. Or you can make your own at home by adding 1 teaspoon (5 millilitres) of salt and 1 teaspoon (5 millilitres) of baking soda to 2 cups (500 mL) of distilled water. If you make your own, fill a bulb syringe with the solution, insert the tip into your nostril, and squeeze gently. Blow your nose. Put a hot, wet towel or a warm gel pack on your face 3 or 4 times a day for 5 to 10 minutes each time. Try a decongestant nasal spray like oxymetazoline (Drixoral). Do not use it for more than 3 days in a row. Using it for more than 3 days can make your congestion worse. [email or web address] Not available 08/31/2022 12:39:01 09/07/2022 [id number] sore throat: car e instructions Not available 09/07/2022 17:17:34 Sinusitis is an infection of the lining of the sinus cavities in your head. Sinusitis often follows a cold. It causes pain and pressure in your head and face. In most cases, sinusitis gets better on its own in 1 to 2 weeks. But some mild symptoms may last for several weeks. Sometimes antibiotics are needed. if you are having problems. It's also a good idea to know your test results and keep a list of the medicines you take. How can you care for yourself at home? Take an ahwu-vrc-zkizhoy pain medicine. Avoid Ibuprofen, Aleve and Aspirin if . If the doctor prescribed antibiotics, take them as directed. Do not stop taking them just because you feel better. You need to take the full course of antibiotics. Be careful when taking dtum-zge-hkqapxa cold or influenza (flu) medicines and Tylenol at the same time. Many of these medicines have acetaminophen, which is Tylenol. Read the labels to make sure that you are not taking more than the recommended dose. Too much acetaminophen (Tylenol) can be harmful. Breathe warm, moist air from a steamy shower, a hot bath, or a sink filled with hot water. Avoid cold, dry air. Using a humidifier in your home may help. Follow the directions for cleaning the machine. Use saline (saltwater) nasal washes. This can help keep your nasal passages open and wash out mucus and bacteria. You can buy saline nose drops at a grocery store or drugstore. Or you can make your own at home by adding 1 teaspoon (5 millilitres) of salt and 1 teaspoon (5 millilitres) of baking soda to 2 cups (500 mL) of distilled water. If you make your own, fill a bulb syringe with the solution, insert the tip into your nostril, and squeeze gently. Blow your nose. Put a hot, wet towel or a warm gel pack on your face 3 or 4 times a day for 5 to 10 minutes each time. Try a decongestant nasal spray like oxymetazoline (Drixoral). Do not use it for more than 3 days in a row. Using it for more than 3 days can make your congestion worse. Not available 09/07/2022 17:16:10 Reason for Referral None Reported. Results Created Date Observation Date Name Description Value Unit Range Abnormal Flag Note LastModifiedBy Organization Detail LastModifiedTime 09/07/1909/07/2022 rapid flu (A+B) Unknown Analyte Normal = Negati ve Not Available [facility] [address] [place] [address], [place], [phone], 09/07/2022 15:33:40 09/07/1909/07/2022 rapid flu (A+B) Unknown Analyte Normal = Negati ve Not Available [address] [place] [address] [place], [address], 09/07/2022 15:33:40 09/07/19 23 09/07/2022 rapid flu (A+B) Unknown Analyte negati ve Not Available [address] [place] [address], [place], [address], 09/07/2022 15:33:40 09/07/19 23 09/07/2022 rapid flu (A+B) Unknown Analyte negati ve Not Available [address] [place] [address], [place], [address], 09/07/2022 15:33:40 09/07/19 23 09/07/2022 rapid strep group A, throa t Unknown Analyte Normal = Negati ve Not Available [address] [place] [address], [place], [address], 09/07/2022 15:32:43 09/07/1909/07/2022 rapid strep group A, throa t Unknown Analyte negati ve Not Available [address] [place] [address], [address], 09/07/2022 15:32:43 Result Notes None recorded. Problems Name Problem SNOMED Code Status Onset Date Resolution Date Notes Provider Name and Address Organization Details Recorded Time Anxiety 32566395 Active 2022 DEDE ALVAREZ null, [place] - [facility] 3 12:27:07 Hypomagnesemia 682959630 Active 2022 DEDE ALVAREZ null, [place] - [facility] 3 12:27:17 History of calculus of kidney 513864489 Active 2022 DEDE ALVAREZ null, [place] - [facility] 3 12:27:38 Problem Notes None recorded. Procedures Surgical History Date Name Laterality Status Provider Name and Address Organization Details Recorded Time ureterorenoscopy with fragmentation and removal of calculus of kidney completed DEDE ALVAREZ [employer] - [facility] 08/31/2022 12:29:34 Imaging Results None recorded. Procedure Notes None recorded. Medical Equipment None Reported. Allergies Allergen ID Allergen Name Allergen Category Reaction Reaction Severity Criticality Documentation Date Start Date Code Code System Note Provider Name and Address Organization Details Recorded Time 902202 kiwi fruit extract food Not available Not available Not available 08/31/2022 69922 01 RxNorm DEDE ALVAREZ chris PA - [facility] 3 12:25:29 No known drug allergies Medications Name Sig Start Date Stop Date Status Note LastModified by Organization Details LastModified Time prednisone 20 mg tablet Take 2 tablets every day by oral route in the morning for 4 days. active Not Available Not Available Not Avai lable benzonatate 100 mg capsule Take 1 capsule 3 times a day by oral route for 7 days. active Not Available Not Available Not Avai lable amoxicillin 875 mg-potassium clavulanate 125 mg tablet Take 1 tablet every 12 hours by oral route with meals for 10 days. active Not Available Not Available Not Avai lable fexofenadine- pseudoephedri ne ER 180 mg-240 mg tablet,ext.re lease 24 hr Take 1 tablet every day by oral route in the evening for 10 days. 023 active Not Available Not Available Not Avai lable magnesium active Not Available Not Marie ilable Not Available trazodone 15 mg daily active Not Available Not Available No t Available Tri-Estarylla (28) 0.18 mg(7)/0.215 mg(7)/0.25 mg(7)-35 mcg tablet Take 1 tablet every day by oral route. active Not Available Not Available No t Available Vitals Date Recorded Body height Body mass index (BMI) Body weight Body temperature Oxygen saturation Oxygen saturation in Arterial blood by Pulse oximetry Heart rate Respiratory rate Systolic blood pressure Diastolic blood pressure Provider Name and Address Organization Details Last Updated DateTime 3 162.56 cm 18.9 kg/m2 94694.1 6 g 97 [degF] 97 % 97 % 85 /min 16 /min 130 mm[Hg] 90 mm[Hg] DEDE ALVAREZ PA - [facility] 3 12:31:14 Date Recorded Body height Body mass index (BMI) Body weight Oxygen saturation Oxygen saturation in Arterial blood by Pulse oximetry Heart rate Respiratory rate Body temperature Systolic blood pressure Diastolic blood pressure Provider Name and Address Organization Details Last Updated DateTime 3 162.56 cm 18.9 kg/m2 24051.1 6 g 98 % 98 % 98 /min 20 /min 98.3 [degF] 129 mm[Hg] 91 mm[Hg] Analilia Aguirrebe PA - [facility] 3 15:35:15 Social History Question Answer Notes LastModified by Organizat ion Details LastModified Time Tobacco Smoking Status Never Smoker DEDE ALVAREZ chris PA - [facility] 08/31/2022 12:28:51 What Is Your Level Of Alcohol Consumption? Occasional [email or web address] Information not available 08/31/2022 Which Illicit Or Recreational Drugs Have You Used? Marijuana Occas [email or web address] Information not available 08/31/2022 Do You Use Any Illicit Or Recreational Drugs? Yes [email or web address] Information not available 08/31/2022 Have You Recently Traveled Abroad? No Information not available 08/31/2022 Do You Or Have You Ever Used Any Other Forms Of Tobacco Or Nicotine? No [email or web address] Information not available 08/31/2022 Sex: Unknown Functional Status None recorded. Mental Status None recorded. Family History Relationship Description Onset Age of this Age Resolved Age Notes LastModified by Organization Details LastModified Time Father Diabetes mellitus Not available 2022 12:28:06 Father Crohn's disease [email or web address] Not available 2022 12:28:13 Medical History No medical history recorded. Gynecological History Statement/Question Response Date of LMP 08/10/2022 Obstetrics History GPAL:G 0 P 0 0 0 0 Past Encounters Encounter ID Performer Location Encounter Start Date Encounter Closed Date Diagnosis/Indication Diagnosis SNOMED-CT Code Diagnosis ICD10 Code [id number] [address] [address] 05/13/2016 17:02:25 05/13/2016 17:37:45 [id number] [facility] [facility] [place] [address] 11/21/2020 10:20:54 11/21/2020 12:04:31 [id number] [address] [facility] [place] [address] 10/18/2017 15:42:25 10/18/2017 16:31:39 [id number] [facility] [place] [address] [place] [address] 02/14/2020 17:49:34 02/14/2020 19:29:55 [id number] Gorge Nunez NP [address] [address] [facility] [place] [address] 08/31/2022 12:07:07 08/31/2022 12:47:12 Acute sinusitis 67457120 J01.90 [id number] Gorge Nunez NP [facility] [address] [place] [address] [place] [address] 09/07/2022 14:20:20 09/07/2022 17:27:07 Acute sinusitis 35666100 J01.90 Health Concerns Section Related Observation LastModified by Organization Detai ls LastModified Time None Recorded Concern Status LastModified by Organization Details LastModified Time None Recorded Advance Directives Directive None Recorded Payers Encounter Date Sequence Insurance Name Policy Number Policy [place] Covered Member ID [place] Member ID Guarantor Name 08/31/2022 PROMPT PAY Steve Boyle 09/07/2022 PROMPT PAY Am tony Boyle Notes Date Note Type Note Provider Name and Address Organization Details Recorded Time 3 text/html CongestionReported bypatient.Notes:nasal congestion with post nasal drip x 2 weeks. denies nay fever or fever with chills. no SOB or respiratory distress. Gorge Nunez NP [address] [place], [address], [place] - [facility] 08/31/2022 12:40:31 3 text/html Sore throatReported bypatient.Source of patient informationInformation obtained from patient; Patient arrived at Urgent Care ambulatory; learning styles: auditory Location:throat Severity:moderate Quality:sharp Onset/Timin weeks Associated Symptoms:no cough; no sputum production; no shortness of breath; no wheezing; no sinus pain; no vomiting; no nausea; No hoarseness;sore throat Context:no sick contacts; no foreign travel; non-smoker Gorge Nunez NP [address] [place], [address], [place] - [facility] 09/07/2022 17:41:00 OBGyn Episode No OBEpisode recorded.
== END 2024-07-24 02:45 | disposition home or self-care (01) ==
PROVIDERS: Emergency Provider Internal Medicine
DX: F10.129 Alcohol abuse with intoxication, unspecified (principal); Y90.8 Blood alcohol level of 240 mg/100 ml or more; R11.0 Nausea; Z71.41 Alcohol abuse counseling and surveillance of alcoholic; Z51.81 Encounter for therapeutic drug level monitoring; Z79.899 Other long term (current) drug therapy
CPT/HCPCS: 36415; 80048; 80053; 80307; 81001; 81025; 83735; 85025; 96361; 96365; 96366; 96367; 96375; 99285; J2060; J3475; J3480

== ENCOUNTER 2024-08-29 17:26 | Inpatient (IN) | payer OTHER, SELFPAY ==
--- NOTE | 2024-08-29 | ECG_ITS ---
Test Reason : CP Blood Pressure : */* mmHG Vent. Rate : 83 BPM Atrial Rate : * BPM P-R Int : * ms QRS Dur : 90 ms QT Int : 376 ms P-R-T Axes : * 75 51 degrees QTcB Int : 441 ms Artifact in tracing Likely sinus rhythm Nonspecific T wave abnormality Abnormal ECG When compared with ECG of 15-Jul-2024 16:00, QT has shortened Referred By: Generic ED Physician Electronically Signed By: Pb Hernandez
--- NOTE | ~2024-08-29 | CT_ITS ---
CLINICAL HISTORY: pancreatitis elevated lipase CT abdomen and pelvis with contrast Comparison: CT/REG/VT/SR - CT ABDOMEN PELVIS W IV CON - 07/17/23 06:39 EST Findings: Motion and streak artifact limit evaluation. The lung bases are clear. Marked hepatomegaly with steatosis. Diffuse pancreatic glandular edema, with fluid stranding. No discrete fluid collections or evidence of necrosis. Mildly distended gallbladder. Nonobstructive 2 mm calculus in the left lower pole kidney. Tiny left-sided hypodense renal cysts. Duodenal mural thickening with mucosal hyperemia likely reactive duodenitis. Additional small bowel mural thickening throughout the left abdomen. There is diffuse colonic mural thickening with submucosal edema, extending through the terminal ileum. Pelvic contents unremarkable. Normal appendix. Mildly distended bladder. Small volume ascites. No acute fracture. IMPRESSION: 1. Acute interstitial edematous pancreatitis. 2. Findings suggestive of reactive enterocolitis. 3. Nonobstructive 2 mm calculus in the left lower pole kidney. 4. Small volume ascites. This document has been electronically signed by: Saman Hurtado MD on 08/29/2024 21:37:55
[2024-08-29 17:37] VITALS: BP 135/93; PULSE 90; RESP 18; TEMP 36.7; BMI 16.5
[2024-08-29 18:04] LABS: MANUAL DIFF FLAG NO
[2024-08-29 18:08] LABS: Basophils Absolute Auto 0.1 X10*3/uL (0.0-0.2); Basophils Percent Auto 1.1 % (0-2); Eosinophils Percent Auto 0.4 % (0-4); Hematocrit 39.7 % (37.0-47.0); Hemoglobin 14.1 g/dl (12.0-16.0); Imm Gran Abs Auto 0.01 X10*3/uL (0.00-0.03); Imm Gran Pct Auto 0.2 % (0.0-0.4); Lymphocytes Absolute Auto 0.7 X10*3/uL (1.2-4.9); Lymphocytes Percent Auto 15.6 % (20-40); Mean Corpuscular HGB Conc 35.5 g/dl (31.0-35.0); Mean Corpuscular Hemoglobin 31.3 pg (27.0-33.0); Mean Platelet Volume 9.8 fL (9.4-12.3); Monocytes Absolute Auto 0.3 X10*3/uL (0.1-1.2); Monocytes Percent Auto 5.9 % (2-11); Neutrophils Absolute Auto 3.5 x10*3/uL (2.0-8.3); Neutrophils Percent Auto 76.8 % (45-73); Red Blood Count 4.51 X10*6/uL (4.20-5.50); Red Cell Distribution Width 13.8 % (11.0-16.0); White Blood Count 4.6 X10*3/uL (4.8-10.8)
[2024-08-29 18:10] LABS: Platelet Count 98 X10*3/uL (160-400)
[2024-08-29 18:21] LABS: Alanine Aminotransferase 80 U/L (0-31); Alkaline Phosphatase 153 U/L (39-117); Anion Gap 20 (12-20); Aspartate Amino Transferase 273 U/L (5-31); Bilirubin Total 1.3 mg/dL (0.0-1.0); Blood Urea Nitrogen 11 mg/dL (9-16); Calcium 8.6 mg/dL (8.4-10.2); Carbon Dioxide 25 mmol/L (22-29); Chloride 100 mmol/L (96-108); Creatinine Clr Calc Pharmacy 87.7; Estimated Glomerular Filt Rate > 60; Glucose Random 136 mg/dL (60-115); Magnesium 1.5 mg/dL (1.6-2.6); Sodium 142 mmol/L (135-145); Total Protein 7.1 g/dL (6.5-8.0)
[2024-08-29 18:30] LABS: Troponin-I High Sensitivity < 2.7 ng/L (<3.5-17.0)
--- OUTSIDE RECORDS SUMMARY | 2024-08-29 18:34 | XMS_ITS | Data Portability ---
Author Organization [facility], [address] Address [address] [place] [address] Assessment No assessment recorded. Plan of Treatment Reminders Order Date Submit Date Provider Last Modified By Organization Details Last Modified Time Details Appointments None recorded. Lab rapid strep group A, throat 2022 023 [facility], [address] [place] [address], [phone], 3 17:17:34 rapid flu (A+B) 2022 023 [facility], [address] [place] [address], [phone], 3 17:17:34 Referral None recorded. Procedures None recorded. Surgeries None recorded. Imaging None recorded. Medication Orders amoxicillin 875 mg-potchetanu m clavulanate 125 mg tablet 2022 023 [facility], [address] [place], [address], 3 12:39:59 prednisone 20 mg tablet 2022 023 [facility], [address] [place], [address], 3 12:40:01 prednisone 20 mg tablet 2022 023 [facility], [address] [facility] [place], [address], 17:17:39 benzonatate 100 mg capsule 2022 023 [facility], [address] [place], [address], 17:17:37 fexofenadin e-pseudoeph edrine ER 180 mg-240 mg tablet,ext. release 24 hr 2022 023 [facility], [address] [place], [address], 17:17:36 Patient TargetsNo targets recorded. Patient Instructions Encounter Date Encounter Id Patient Instructions Last Modified By Organization Details Last Modified Time 08/31/2022 [id number] cough: care instructions Not available 08/31/2022 12:39:57 [...] care for yourself at home? Take an ggdr-omv-lxuvmpj pain medicine. Avoid Ibuprofen, Aleve and Aspirin if . If the doctor prescribed antibiotics, take them as directed. Do not stop taking them just because you feel better. You need to take the full course of antibiotics. Be careful when taking hxxl-tio-gapouec cold or influenza (flu) medicines and Tylenol [...] worse. [email or web address] Not available 08/31/2022 12:39:01 09/07/2022 [id number] sore throat: car e instructions Not available [...] care for yourself at home? Take an cgex-nla-vhxmvpm pain medicine. Avoid Ibuprofen, Aleve and Aspirin if . If the doctor prescribed antibiotics, take them as directed. Do not stop taking them just because you feel better. You need to take the full course of antibiotics. Be careful when taking sxmy-axx-yivyprd cold or influenza (flu) medicines and Tylenol [...] Negati ve Not Available [facility] [address] [place] [address], [place], [phone], 09/07/2022 15:33:40 09/07/1909/07/2022 rapid flu (A+B) Unknown Analyte Normal = Negati ve Not Available [address] [place] [address] [place], [phone], 09/07/2022 15:33:40 09/07/19 23 09/07/2022 rapid flu (A+B) Unknown Analyte negati ve Not Available [address] [place] [address], [place], [address], 09/07/2022 15:33:40 09/07/19 23 09/07/2022 rapid flu (A+B) Unknown Analyte negati ve Not Available [address] [place] [address], [place], [address], 09/07/2022 15:33:40 09/07/19 23 09/07/2022 rapid strep group A, throa t Unknown Analyte Normal = Negati ve Not Available [address] [place] [address], [place], [address], 09/07/2022 15:32:43 09/07/1909/07/2022 rapid strep group A, throa t Unknown Analyte negati ve Not Available [address] [place] [address], [phone], 09/07/2022 15:32:43 Result Notes None recorded. Problems Name Problem SNOMED Code Status Onset Date Resolution Date Notes Provider Name and Address Organization Details Recorded Time Anxiety 61402666 Active 2022 DEDE ALVAREZ null, PA - [facility] 3 12:27:07 Hypomagnesemia 828450548 Active 2022 DEDE ALVAREZ null, PA - [facility] 3 12:27:17 History of calculus of kidney 734063909 Active 2022 DEDE ALVAREZ null, PA - [facility] 3 12:27:38 Problem Notes None recorded. Procedures Surgical History Date Name Laterality Status Provider Name and Address Organization Details Recorded Time ureterorenoscopy with fragmentation and removal of calculus of kidney completed DEDE ALVAREZ [employer] - [facility] 08/31/2022 12:29:34 Imaging Results None recorded. Procedure Notes None recorded. Medical Equipment None Reported. Allergies Allergen ID Allergen Name Allergen Category Reaction Reaction Severity Criticality Documentation Date Start Date Code Code System Note Provider Name and Address Organization Details Recorded Time 113562 kiwi fruit extract food Not available Not available Not available 08/31/2022 85290 01 RxNorm DEDE ALVAREZ chris PA - [facility] 3 12:25:29 No known drug allergies [...] Updated DateTime 3 162.56 cm 18.9 kg/m2 57035.1 6 g 97 [degF] 97 % 97 [...] Updated DateTime 3 162.56 cm 18.9 kg/m2 07321.1 6 g 98 % 98 % 98 /min 20 /min 98.3 [degF] 129 mm[Hg] 91 mm[Hg] Analilia Aguirrebe PA - [facility] 3 15:35:15 Social History Question Answer Notes LastModified by Organizat ion Details LastModified Time Tobacco Smoking Status Never Smoker DEDE ALVAREZ chris PA - [facility] 08/31/2022 12:28:51 What Is Your Level Of Alcohol Consumption? Occasional [email or web address] Information not available 08/31/2022 Which Illicit Or Recreational Drugs Have You Used? Marijuana Occas [email or web address] Information not available 08/31/2022 Do You Use Any Illicit Or Recreational Drugs? Yes [email or web address] Information not available 08/31/2022 Have You Recently Traveled Abroad? No [email or web address] Information not available 08/31/2022 Do You Or Have You Ever Used Any Other Forms Of Tobacco Or Nicotine? No [email or web address] Information not available 08/31/2022 Sex: Unknown Functional Status None recorded. Mental Status None recorded. Family History Relationship Description Onset Age of this Age Resolved Age Notes LastModified by Organization Details LastModified Time Father Diabetes mellitus [email or web address] Not available 2022 12:28:06 Father Crohn's disease Not available 2022 12:28:13 Medical History No medical history recorded. Gynecological History Statement/Question Response Date of LMP 08/10/2022 Obstetrics History GPAL:G 0 P 0 0 0 0 Past Encounters Encounter ID Performer Location Encounter Start Date Encounter Closed Date Diagnosis/Indication Diagnosis SNOMED-CT Code Diagnosis ICD10 Code Diagnosis Note [id number] [address] [address] [address] 05/13/2016 17:02:25 05/13/2016 17:37:45 [id number] [facility] [address] [facility] [place] [address] 11/21/2020 10:20:54 11/21/2020 12:04:31 [id number] [facility] [address] [facility] [place] [address] 10/18/2017 15:42:25 10/18/2017 16:31:39 [id number] [facility] [address] [place] [address] [place] [address] 02/14/2020 17:49:34 02/14/2020 19:29:55 [id number] Gorge Nunez NP [facility] [address] [facility] [place] [address] 08/31/2022 12:07:07 08/31/2022 12:47:12 Acute sinusitis 82795792 J01.90 [id number] Gorge Nunez NP [address] [place] [address] 09/07/2022 14:20:20 09/07/2022 17:27:07 Acute sinusitis 68192138 J01.90 Health Concerns Section Related Observation LastModified by Organization Detai ls LastModified Time None Recorded Concern Status LastModified by Organization Details LastModified Time None Recorded Advance Directives Directive None Recorded Payers Encounter Date Sequence Insurance Name Policy Number Policy [place] Covered Member ID [place] Member ID Guarantor Name 08/31/2022 PROMPT PAY Steve oByle 09/07/2022 PROMPT PAY Am tony Boyle Notes Date Note Type Note Provider Name and Address Organization Details Recorded Time 3 text/html CongestionReported bypatient.Notes:nasal congestion with post nasal drip x 2 weeks. denies nay fever or fever with chills. no SOB or respiratory distress. Gorge Nunez NP [address] [place], [address], PA - [facility] 08/31/2022 12:40:31 3 [...] Nunez NP [address] [place], [address], PA - [facility] 09/07/2022 17:41:00 OBGyn Episode No OBEpisode recorded.
[2024-08-29 18:37] LABS: Lipase 369 U/L (8-78)
--- NOTE | 2024-08-29 18:45 | ED.GENADULT ---
HPI - General Adult General Chief complaint: General Medical Stated complaint: tachy, n/abd pain , dizzy Time Seen by Provider: 08/29/24 18:36 Source: patient Mode of arrival: ambulatory Limitations: no limitations History of Present Illness ED Provider: Dr. Willoughby HPI narrative: 28-year-old alcoholic history of recurrent pancreatitis presents emergency department after drinking heavily for some time started having nausea vomiting and is complaining of epigastric pain. Patient admits to drinking she is requesting pain medications as I enter the room and as I leave labs done in triage shows pancreatitis Related Data Home Medications ?Medication ?Instructions ?Recorded ?Confirmed gemfibrozil 600 mg tablet 600 mg PO BID 02/22/24 hydroxyzine pamoate 50 mg capsule 100 mg PO BID 02/22/24 naltrexone microspheres 380 mg mg IM 02/22/24 intramuscular suspension,extended release (Vivitrol) propranolol 10 mg tablet 10 mg PO TID 02/22/24 sertraline 25 mg tablet 25 mg PO DAILY 02/22/24 Allergies Allergy/AdvReac Type Severity Reaction Status Date / Time kiwi Allergy Rash Verified 08/29/24 17:38 Penicillins Allergy Unknown Verified 08/29/24 17:38 Review of Systems Review of Systems: Review of systems: General: Patient denies any fever chills recent illness or falls Musculoskeletal: Denies back pain or body aches or other injuries HEENT: denies headache, runny nose, ear pain Respiratory: denies shortness of breath, cough Cardiovascular: no chest pain or palpitations : denies dysuria, frequency Abdomen: nausea vomiting abdominal pain Extremities: no swelling, no pain Skin: no diaphoresis Yes all other systems are reviewed and are negative [facility] Past Medical History Medical History Alcohol abuse Kidney stones Social History Social History Alcohol intake: current Alcohol intake frequency: 3 or more drinks per day Alcohol type: hard liquor Comment: pt refuses alarm or telesiter Patient Tobacco Use Status: Never used Tobacco Substance Use Type: Marijuana Advance Directives: No Advance Directives Information Provided: Yes service: No Physical Exam ED Vital Signs: Vital Signs - 24 hr 08/29/24 17:37 08/29/24 19:30 Temperature 98.0 F Pulse Rate 90 Respiratory Rate 18 21 H Blood Pressure 135/93 H Oxygen Delivery Method Room Air BMI result Body Mass Index 16.5 General: Ill-appearing thin in ddjd-zi-pdksclyo signs of distress HEENT: Normocephalic atraumatic Neck: No signs of JVD, no masses no tenderness or lymphadenopathy Cardiovascular: Regular rate and rhythm Respiratory: Clear to auscultation bilaterally Abdomen: Soft patient is tender all over no masses Extremities: Normal pedal pulses no signs of edema Skin: Dry warm no rashes Back: No tenderness full ROM Course Course Course Narrative: Patient found to have hypokalemia and hypomagnesemia which I will replete at this time. Reevaluation(s) Reevaluation #1: Patient noted to have heart rates in the 160s 150s while waiting for medications after medications the patient sleeping comfortably vitals have normalized with a blood pressure in the 1 teens and heart rate in the 70s I do feel the patient will be safe for the floor as long as they continue with oral medications for pain control and alcohol withdrawal. Time: 20:23 Reevaluation #2: Patient looks well is at CT now. I will sign out to Dr. Robles pending CT and admission. Medications Administered Discontinued Medications Generic Name Dose Route Start Last Admin Trade Name Freq PRN Reason Stop Dose Admin Famotidine 20 mg 08/29/24 18:43 08/29/24 19:31 Famotidine/Pf 20 Mg/2 Ml Vial IVPUSH 08/29/24 18:44 20 mg ONCE ONE Administration Haloperidol Lactate 5 mg 08/29/24 18:43 08/29/24 19:30 Haloperidol Lactate 5 Mg/Ml Vial IVPUSH 08/29/24 18:44 5 mg ONCE ONE Administration Sodium Chloride 1,000 mls @ 999 mls/hr 08/29/24 18:45 08/29/24 19:28 Ns IV 08/29/24 19:45 999 mls/hr .Q1H1M NGHIA Administration Acetaminophen 1,000 mg in 100 mls @ 400 mls/hr 08/29/24 18:43 08/29/24 19:30 Ofirmev IV 08/29/24 18:57 400 mls/hr ONCE ONE Administration Magnesium Sulfate/Dextrose 1 gm in 100 mls @ 100 mls/hr 08/29/24 19:00 08/29/24 19:30 Magnesium Sulfate/D5w IV 08/29/24 19:59 100 mls/hr ONCE ONE Administration Phenobarbital Sodium 430 mg/ 103.3077 mls @ 200 mls/hr 08/29/24 19:15 08/29/24 19:35 Sodium Chloride IV 08/29/24 19:45 200 mls/hr ONCE ONE Administration Iohexol 100 ml 08/29/24 20:46 08/29/24 20:47 Iohexol 350 Mg/Ml 100 Ml Infus..Btl IV 08/29/24 20:47 85 ml ONCE ONE Administration Ketorolac Tromethamine 15 mg 08/29/24 18:43 08/29/24 19:29 Ketorolac Tromethamine 15 Mg/Ml Vial IVPUSH 08/29/24 18:44 15 mg ONCE ONE Administration Morphine Sulfate 4 mg 08/29/24 18:43 08/29/24 19:30 Morphine Sulfate 4 Mg/Ml Cartridge IVPUSH 08/29/24 18:44 4 mg ONCE ONE Administration Protocol Medical Decision Making Medical Decision Making MDM Narrative: She did not get labs were done she does have signs of pancreatitis with an elevated lipase I will send patient for CT scan I will treat the patient with couple of L of fluid as she has acetaminophen IV Pepcid IV haloperidol Toradol and morphine interesting she is not showing any signs of withdrawal then she is slightly tachycardic she is not hypotensive or shaky Differential Diagnosis Differential Diagnoses: The differential diagnosis associated with the presentation includes Liver failure pancreatitis dehydration electrolyte abnormality DKA alcohol use disorder alcohol withdrawal Admission/Observation Consideration of admission/observation: Escalation of care including admission/observation considered Consult Healthcare Provider Management of the patient was discussed with: Hospitalist Lab Data [facility] Lab Attestation statement: I reviewed the patient's lab results. 08/29/24 18:00 08/29/24 18:00 Labs: Lab Results 08/29/24 Range/Units 18:00 WBC 4.6 L (4.8-10.8) X10*3/uL RBC 4.51 (4.20-5.50) X10*6/uL Hgb 14.1 (12.0-16.0) g/dl Hct 39.7 (37.0-47.0) % MCV 88.0 (80.0-98.0) fL MCH 31.3 (27.0-33.0) pg MCHC 35.5 H (31.0-35.0) g/dl RDW 13.8 (11.0-16.0) % Plt Count 98 L (160-400) X10*3/uL MPV 9.8 (9.4-12.3) fL Immature Gran % (Auto) 0.2 (0.0-0.4) % Neut % (Auto) 76.8 H (45-73) % Lymph % (Auto) 15.6 L (20-40) % [place] % (Auto) 5.9 (2-11) % Eos % (Auto) 0.4 (0-4) % Baso % (Auto) 1.1 (0-2) % Lymph # (Auto) 0.7 L (1.2-4.9) X10*3/uL [place] # (Auto) 0.3 (0.1-1.2) X10*3/uL Eos # (Auto) 0.0 (0.0-0.4) X10*3/uL Baso # (Auto) 0.1 (0.0-0.2) X10*3/uL Abs Immat Gran (auto) 0.01 (0.00-0.03) X10*3/uL Absolute Neuts (auto) 3.5 (2.0-8.3) x10*3/uL Absolute Nucleated RBC 0.000 (0.0-0.012) X10*3/uL Nucleated RBC % (auto) 0.0 (0.0-0.2) /100WBC Sodium 142 (135-145) mmol/L Potassium 3.0 L (3.3-5.1) mmol/L Chloride 100 (96-108) mmol/L Carbon Dioxide 25 (22-29) mmol/L Anion Gap 20 (12-20) BUN 11 (9-16) mg/dL Creatinine 0.65 (0.5-1.4) mg/dL Estim Creat Clear Calc 87.7 Estimated GFR > 60 Random Glucose 136 H (60-115) mg/dL Calcium 8.6 D (8.4-10.2) mg/dL Magnesium 1.5 L (1.6-2.6) mg/dL Total Bilirubin 1.3 H (0.0-1.0) mg/dL AST 273 H (5-31) U/L ALT 80 H (0-31) U/L Alkaline Phosphatase 153 H (39-117) U/L Troponin I High Sens < 2.7 (<3.5-17.0) ng/L Total Protein 7.1 (6.5-8.0) g/dL Albumin 4.0 (3.5-5.0) g/dL Triglycerides 395 H (<150) mg/dL Lipase 369 H (8-78) U/L Beta HCG, Quant < 2 mIU/mL Ethyl Alcohol 369 H* mg/dL Independent Interpretation I performed an independent interpretation of an: EKG, Plain X-Ray and CT Scan Interpretation: Rate 83 lots of artifact no signs of ischemia no change from previous interpreted by me Radiology Impression Discussion of test interpretation with radiology: I have reviewed the radiologist's reading. External Record Review External record reviewed: Inpatient record, Office record, Outpatient record, Prior outpatient labs and Prior outpatient radiology Discharge Plan Discharge Clinical Impression: Alcoholism, Pancreatitis, Alcohol use disorder, severe, dependence, Acute hypokalemia, Hypomagnesemia Patient Disposition: Still a Patient Prescriptions: No Action gemfibrozil 600 mg tablet 600 mg PO BID sertraline 25 mg tablet 25 mg PO DAILY Vivitrol 380 mg suspension,extended rel recon IM propranolol 10 mg tablet 10 mg PO TID hydroxyzine pamoate 50 mg capsule 100 mg PO BID Print Language: Bolivian
[2024-08-29 18:57] LABS: Ethanol 369 mg/dL; Triglycerides 395 mg/dL (<150)
[2024-08-29] MEDS: 0.9 % Sodium Chloride 1,000 ML 999 ML IV ×2 (19:28→21:14)
[2024-08-29] MEDS: Ketorolac Tromethamine 15 MG/ML VIAL IVPUSH (19:29)
[2024-08-29 19:30] VITALS: RESP 21
[2024-08-29] MEDS: Morphine Sulfate 4 MG/ML CARTRIDGE IVPUSH (19:30)
[2024-08-29] MEDS: Magnesium Sulfate/D5W 1 GM/100 ML PIGGYBACK IV (19:30)
[2024-08-29] MEDS: Haloperidol Lactate 5 MG/ML VIAL IVPUSH (19:30)
[2024-08-29] MEDS: Acetaminophen 1,000 MG/100 ML PIGGYBACK 400 MG IV (19:30)
[2024-08-29] MEDS: Famotidine/PF 20 MG/2 ML VIAL IVPUSH (19:31)
[2024-08-29] MEDS: SODIUM CHLORIDE 0.9% IV (19:35)
[2024-08-29] MEDS: PHENOBARBITAL SODIUM IV (19:35)
[2024-08-29 20:35] LABS: HCG Quantitative < 2 mIU/mL
[2024-08-29] MEDS: iohexoL 350 MG/ML 100 ML INFUS..BTL IV (20:47)
[2024-08-29 21:11] VITALS: BP 122/85; PULSE 71; RESP 12; TEMP 36.4; O2SAT 97
[2024-08-29 21:25] VITALS: BP 122/89; PULSE 76; RESP 14; TEMP 36.8; O2SAT 98
--- NOTE | 2024-08-29 21:43 | PM.IMHP ---
History of Present Illness Date of Service: 08/29/24 Chief Complaint: Abdominal pain This is a 28-year-old female with pertinent history of alcoholic pancreatitis, mood disorder, alcohol use disorder, hypertriglyceridemia, opiate use disorder who presents to the emergency department for evaluation of abdominal pain. Patient states pain started in the day of presentation. It is in the epigastric region, constant, progressive and radiating to the sides. Does have associated nausea and multiple episodes of nonbloody emesis. Her last drink was on the day of presentation. Does have a history of alcohol withdrawal but no history of alcohol withdrawal seizures. No fever, chills, chest pain, palpitations, shortness of breath, changes in urinary or bowel habits. In the emergency department, imaging with a acute interstitial edematous pancreatitis and lipase found to be elevated. Review of Systems Constitutional: Constitutional: Reports fatigue, Reports malaise and Reports poor appetite Cardiovascular: Cardiovascular: Reports no additional cardiovascular complaints Respiratory: Respiratory: Reports no additional respiratory complaints Gastrointestinal: Gastrointestinal: Reports abdominal pain, Reports nausea and Reports vomiting Genitourinary: Genitourinary: Reports no additional female genitourinary complaints Endocrine: Endocrine: Reports fatigue [facility] Medical History Alcohol abuse Kidney stones Pertinent family history: No family history of early CAD Social History Alcohol intake: current Alcohol intake frequency: 3 or more drinks per day Alcohol type: hard liquor Comment: pt refuses alarm or telesiter Patient Tobacco Use Status: Never used Tobacco Substance Use Type: Marijuana Advance Directives: No Advance Directives Information Provided: Yes service: No Meds Allergies Allergy/AdvReac Type Severity Reaction Status Date / Time kiwi Allergy Rash Verified 08/29/24 17:38 Penicillins Allergy Unknown Verified 08/29/24 17:38 Active Medications: Current Medications Potassium Chloride (Potassium Chloride/H20) 10 meq in 100 mls @ 100 mls/hr IV Q1H NGHIA Stop: 08/29/24 21:59 Home Medications ?Medication ?Instructions ?Recorded ?Confirmed ?Last Taken ?Type gemfibrozil 600 mg tablet 600 mg PO BID 02/22/24 Unknown History hydroxyzine pamoate 50 mg capsule 100 mg PO BID 02/22/24 Unknown History naltrexone microspheres 380 mg mg IM 02/22/24 Unknown History intramuscular suspension,extended release (Vivitrol) propranolol 10 mg tablet 10 mg PO TID 02/22/24 Unknown History sertraline 25 mg tablet 25 mg PO DAILY 02/22/24 Unknown History Physical Exam Vital Signs and Narrative: Vital Signs: Last Vital Signs Temp 98.2 F 08/29/24 21:25 Pulse 76 08/29/24 21:25 Resp 14 08/29/24 21:25 BP 122/89 08/29/24 21: Pulse Ox 98 08/29/24 21:25 O2 Del Method Room Air 08/29/24 21:25 BMI result Body Mass Index 16.5 Middle-aged female lying in bed in no distress Neck supple, no JVD Regular rate and rhythm, S1-S2 heard Regular breath sounds bilaterally, no wheezing or crackles appreciated Abdomen with a epigastric tenderness Patient is awake, alert and oriented to self, place, time and person ; no focal motor deficit Psych: Normal mood No pedal edema Results Labs 08/29/24 18:00 08/29/24 18:00 Labs: Laboratory Results - last 24 hr 08/29/24 18:00 MCV 88.0 MCH 31.3 MCHC 35.5 H RDW 13.8 Plt Count 98 L MPV 9.8 Immature Gran % (Auto) 0.2 Neut % (Auto) 76.8 H Lymph % (Auto) 15.6 L [place] % (Auto) 5.9 Eos % (Auto) 0.4 Baso % (Auto) 1.1 Lymph # (Auto) 0.7 L [place] # (Auto) 0.3 Eos # (Auto) 0.0 Baso # (Auto) 0.1 Abs Immat Gran (auto) 0.01 Absolute Neuts (auto) 3.5 Absolute Nucleated RBC 0.000 Nucleated RBC % (auto) 0.0 Anion Gap 20 Estim Creat Clear Calc 87.7 Estimated GFR > 60 Random Glucose 136 H Calcium 8.6 D Magnesium 1.5 L Total Bilirubin 1.3 H AST 273 H ALT 80 H Alkaline Phosphatase 153 H Troponin I High Sens < 2.7 Total Protein 7.1 Albumin 4.0 Triglycerides 395 H Lipase 369 H Beta HCG, Quant < 2 Ethyl Alcohol 369 H* Assessment and Plan (1) Acute pancreatitis: Status: Acute Plan This is a 28-year-old female with pertinent history of alcoholic pancreatitis, mood disorder, alcohol use disorder, hypertriglyceridemia, opiate use disorder who presents to the emergency department for evaluation of abdominal pain. #. Acute recurrent alcoholic pancreatitis: Will admit patient and continue IV crystalloid resuscitation. NPO for bowel rest. Symptomatic treatment with IV opiates p.r.n. for analgesia and IV antiemetics #. Alcohol use disorder: Initiated phenobarb protocol and thiamine. Monitor CIWA. Consulted Addiction Team. Counseled regarding abstinence #. Elevated liver enzymes and thrombocytopenia due to alcoholism: Defer prophylactic Lovenox #. Hypokalemia and hypomagnesemia: Repleted #. Mood disorder: Continue home mood stabilizers #. Hypertriglyceridemia: Alcohol use contributing. On gemfibrozil. Discontinue beta-dhaval Med rec pending DVT prophylaxis: Unable to do Lovenox due to thrombocytopenia Full code Admit as inpatient and will require two night minimum hospital stay for management of acute pancreatitis with IV opiates p.r.n., IV crystalloid resuscitation, monitoring of bowel function, treatment of alcohol withdrawal (as above), which is not possible in a lesser acute setting. Quality Stroke Does the patient have a stroke diagnosis?: No VTE Prior VTE?: No VTE Risk Level:: Medical - moderate - high VTE Device Contraindication: Treatment Not Indicated VTE Drug Contraindication: N/A - Med Ordered
[2024-08-29 22:00] VITALS: BP 131/97; PULSE 70; RESP 22; TEMP 36.7; O2SAT 96
[2024-08-29] MEDS: Potassium Chloride/H20 10 MEQ/100 ML PIGGYBACK 100 MEQ IV ×2 (22:05→23:30)
[2024-08-29 22:09] LABS: Lactic Acid 2.2 mmol/L (0.5-2.0)
[2024-08-29 23:26] VITALS: BP 150/109; PULSE 104; RESP 16; O2SAT 97
[2024-08-29] MEDS: Thiamine HCL 200 MG in 0.9 % Sodium Chloride 100 ML 204 MG IV (23:29)
[2024-08-29] MEDS: 0.9 % Sodium Chloride 1,000 ML 200 ML IVCONT (23:41)
[2024-08-29 23:45] LABS: Reflex Lactate? Lactic Acid Added
[2024-08-30] VITALS (14 sets, daily range): BP systolic 118–154; BP diastolic 79–113; PULSE 74–104; RESP 11–21; TEMP 36.7–37.5; O2SAT 96–100; BMI 16.5
--- NOTE | 2024-08-30 00:41 | PC.NURSE ---
rn observed new orders for phenobarbital per our IM protocol. Hospitalist made aware of patient's previous IV phenobarb infusion and order for IM protocol questioned. Per hospitalist it is our protocol to provide IM pheno. At 2335 we were instructed to hold on the first dose of the pt's pheno oren and to continue on with the remaining 2 IM doses per OCT/protocol. Pt is resting comfortably in her stretcher, arousable to verbal stimuli and offering no complaints at this time. pt has been provided with food and beverage per her request and has been able to tolerate this without issue.
[2024-08-30] MEDS: 0.9 % Sodium Chloride Flush 3 ML SYRINGE IVFLUSH (00:51)
[2024-08-30] MEDS: Potassium Chloride/H20 10 MEQ/100 ML PIGGYBACK 100 MEQ IV ×4 (00:52→04:49)
[2024-08-30 00:57] LABS: ~Lactic Acid-LAB USE ONLY 2.6 mmol/L (0.5-2.0)
[2024-08-30] MEDS: PHENobarbitaL sodium 130 MG/ML VIAL IM Q3Hx2 156 MG IM ×2 (02:40→05:52)
[2024-08-30] MEDS: 0.9 % Sodium Chloride 1,000 ML 200 ML IVCONT (04:49)
[2024-08-30 04:51] LABS: MANUAL DIFF FLAG NO
[2024-08-30 04:53] LABS: Basophils Percent Auto 0.3 % (0-2); Eosinophils Percent Auto 0.6 % (0-4); Hematocrit 29.7 % (37.0-47.0); Hemoglobin 10.3 g/dl (12.0-16.0); Imm Gran Abs Auto 0.02 X10*3/uL (0.00-0.03); Imm Gran Pct Auto 0.6 % (0.0-0.4); Lymphocytes Absolute Auto 0.9 X10*3/uL (1.2-4.9); Lymphocytes Percent Auto 29.2 % (20-40); Mean Corpuscular HGB Conc 34.7 g/dl (31.0-35.0); Mean Corpuscular Hemoglobin 30.9 pg (27.0-33.0); Mean Corpuscular Volume 89.2 fL (80.0-98.0); Monocytes Absolute Auto 0.2 X10*3/uL (0.1-1.2); Monocytes Percent Auto 7.1 % (2-11); Neutrophils Absolute Auto 1.9 x10*3/uL (2.0-8.3); Neutrophils Percent Auto 62.2 % (45-73); Red Blood Count 3.33 X10*6/uL (4.20-5.50); Red Cell Distribution Width 13.9 % (11.0-16.0); White Blood Count 3.1 X10*3/uL (4.8-10.8)
[2024-08-30 04:56] LABS: Platelet Count 56 X10*3/uL (160-400)
[2024-08-30 05:11] LABS: Anion Gap 16 (12-20); Blood Urea Nitrogen 6 mg/dL (9-16); Calcium 7.2 mg/dL (8.4-10.2); Carbon Dioxide 19 mmol/L (22-29); Chloride 107 mmol/L (96-108); Creatinine Clr Calc Pharmacy 111.9; Estimated Glomerular Filt Rate > 60; Glucose Random 89 mg/dL (60-115); Magnesium 1.5 mg/dL (1.6-2.6); Potassium 4.1 mmol/L (3.3-5.1); Sodium 138 mmol/L (135-145)
--- NOTE | 2024-08-30 07:02 | PC.NURSE ---
Late entry from [facility] hospitalist jayda around 0535. made aware of the pt's elevated diastolic bps with no new orders or adjustments received.
--- NOTE | 2024-08-30 07:50 | HO.PM.IMPN ---
Subjective Subjective Date of Service: 08/30/24 Interval History: f/u on alcoholic pancreatitis pain is better and wants to try food Physical Exam Vital Signs: Vital Signs: Last Vital Signs Temp 98.5 F 08/30/24 06:58 Pulse 95 08/30/24 06:58 Resp 18 08/30/24 06:58 BP 149/106 H 08/30/24 06:58 Pulse Ox 99 08/30/24 06:58 O2 Del Method Room Air 08/30/24 06:58 BMI result Body Mass Index 16.5 General: AO X 3, no acute distress Resp: CTA bilateral CVS: S1,S2,RRR GI: +BS, NT, no distention Skin: No rash Neuro: motor grossly intact Psych: appropriate affect Const: Other: General: AO X 3, no acute distress Resp: CTA bilateral CVS: S1,S2,RRR GI: +BS, NT, no distention Skin: No rash Neuro: motor grossly intact Psych: appropriate affect Objective Data Active Medications Acetaminophen (Acetaminophen 325 Mg Tablet) 650 mg PO Q6H PRN PRN Reason: Pain, Mild 1-3,fever,headache Calcium Carbonate (Calcium Carbonate 750 Mg Tab.Chew) 750 mg PO Q4H PRN PRN Reason: Heartburn Sodium Chloride (Ns) 1,000 mls @ 200 mls/hr IVCONT .Q5H [facility] Last Admin: 08/30/24 04:49 Dose: 200 mls/hr Documented By: SANDOR Thiamine HCl 100 mg/ Sodium (Chloride) 101 mls @ 202 mls/hr IV DAILY [facility] Magnesium Hydroxide (Milk Of Magnesia 30 Ml Oral.Susp) 30 ml PO DAILY PRN PRN Reason: Constipation Melatonin (Melatonin 3 Mg Tablet) 6 mg PO BEDTIME PRN PRN Reason: Insomnia Morphine Sulfate (Morphine Sulfate 4 Mg/Ml Cartridge) 4 mg IVPUSH Q4H PRN; Protocol PRN Reason: Pain, Severe (Pain Scale 7-10) Ondansetron HCl (Ondansetron Hcl 4 Mg/2 Ml Vial) 4 mg IVPUSH Q8H PRN PRN Reason: Nausea and Vomiting Pharmacy Consult (Consult Rx Etoh Phenob Im/Po) 1 each MISCELLANE ONCE PRN; Protocol PRN Reason: Consult order Phenobarbital (Phenobarbital 30 Mg Tablet) 30 mg PO BID [facility] Stop: 08/31/24 21:01 Phenobarbital (Phenobarbital 15 Mg Tablet) 15 mg PO BID [facility] Stop: 09/02/24 21:01 Phenobarbital (Phenobarbital 15 Mg Tablet) 15 mg PO DAILY [facility] Stop: 09/04/24 09:01 Sodium Chloride (0.9 % Sodium Chloride Flush 3 Ml Syringe) 3 ml IVFLUSH QSHIFT [facility] Last Admin: 08/30/24 00:51 Dose: 3 ml Documented By: SANDOR Labs 08/30/24 04:17 08/30/24 04:17 Labs: Laboratory Results - last 24 hr 08/29/24 08/29/24 08/30/24 18:00 21:43 00:19 MCV 88.0 MCH 31.3 MCHC 35.5 H RDW 13.8 Plt Count 98 L MPV 9.8 Immature Gran % (Auto) 0.2 Neut % (Auto) 76.8 H Lymph % (Auto) 15.6 L [place] % (Auto) 5.9 Eos % (Auto) 0.4 Baso % (Auto) 1.1 Lymph # (Auto) 0.7 L [place] # (Auto) 0.3 Eos # (Auto) 0.0 Baso # (Auto) 0.1 Abs Immat Gran (auto) 0.01 Absolute Neuts (auto) 3.5 Absolute Nucleated RBC 0.000 Nucleated RBC % (auto) 0.0 Anion Gap 20 Estim Creat Clear Calc 87.7 Estimated GFR > 60 Random Glucose 136 H Lactic Acid 2.2 H* Lactic Acid F/U @ 2Hr 2.6 H* Calcium 8.6 D Magnesium 1.5 L Total Bilirubin 1.3 H AST 273 H ALT 80 H Alkaline Phosphatase 153 H Troponin I High Sens < 2.7 Total Protein 7.1 Albumin 4.0 Triglycerides 395 H Lipase 369 H Beta HCG, Quant < 2 Ethyl Alcohol 369 H* 08/30/24 04:17 MCV 89.2 MCH 30.9 MCHC 34.7 RDW 13.9 Plt Count 56 L D MPV 10.0 Immature Gran % (Auto) 0.6 H Neut % (Auto) 62.2 Lymph % (Auto) 29.2 [place] % (Auto) 7.1 Eos % (Auto) 0.6 Baso % (Auto) 0.3 Lymph # (Auto) 0.9 L [place] # (Auto) 0.2 Eos # (Auto) 0.0 Baso # (Auto) 0.0 Abs Immat Gran (auto) 0.02 Absolute Neuts (auto) 1.9 L Absolute Nucleated RBC 0.000 Nucleated RBC % (auto) 0.0 Anion Gap 16 Estim Creat Clear Calc 111.9 Estimated GFR > 60 Random Glucose 89 Lactic Acid Lactic Acid F/U @ 2Hr Calcium 7.2 L D Magnesium 1.5 L Total Bilirubin AST ALT Alkaline Phosphatase Troponin I High Sens Total Protein Albumin Triglycerides Lipase Beta HCG, Quant Ethyl Alcohol Assessment and Plan (1) Alcoholism: Status: Acute (2) Alcohol use disorder, severe, dependence: Status: Acute (3) Acute pancreatitis: Status: Acute (4) Pancytopenia: Status: Acute Plan 28-year-old female with pertinent history of alcoholic pancreatitis, mood disorder, alcohol use disorder, hypertriglyceridemia, opiate use disorder who presents to the emergency department for evaluation of abdominal pain and found to have acute pancreatitis Acute recurrent alcoholic pancreatitis -symptomatic treatment with analgesic, antiemetics, and IVF and slowly advance diet Alcohol use disorder at risk for withdrawal -continue phenobarbital protocol to mitigatewithdrawal symptoms -Monitor CIWA, vitamin replacement - Counseled on abstinence -addiction med consult Mild acute lactic acidosis, d/t liver disease Mild hyperchloremic metabolic acicosis d/t NS -LR and recheck Elevated liver enzymes d/t above Pancytopenia, d/t aclohol liver disease -monitor cbc, avoid antiocoagulants Hypokalemia and hypomagnesemia -replete and rechec Mood disorder: Continue home mood stabilizers Hypertriglyceridemia: Alcohol use contributing. On gemfibrozil. Discontinue beta-dhaval DVT prophylaxis: Unable to do Lovenox due to thrombocytopenia Full code Quality Stroke Does the patient have a stroke diagnosis?: No VTE Prior VTE?: No VTE Risk Level:: Medical - moderate - high VTE Device Contraindication: Treatment Not Indicated VTE Drug Contraindication: N/A - Med Ordered
--- NOTE | 2024-08-30 08:26 | PC.NURSE ---
pr Dr. Casey, stop NS order and start LR
[2024-08-30 08:39] LABS: Lipase 1295 U/L (8-78)
[2024-08-30] MEDS: Thiamine HCL 100 MG in 0.9 % Sodium Chloride 100 ML 202 MG IV (08:45)
[2024-08-30] MEDS: PHENobarbitaL 30 MG TABLET PO ×2 (08:48→20:49)
[2024-08-30] MEDS: Lactated Ringers 1,000 ML 125 ML IVCONT ×2 (08:49→17:08)
--- NOTE | 2024-08-30 09:46 | PHA.MEDREC ---
Addendum entered by Cyndi Pond RPh 08/30/24 10:28: Reviewed by [facility] Original Note: Pharmacy Consult ? Medication Reconciliation Pharmacy has completed the medication reconciliation. Spoke to patient to confirm med list. Patient states she is no longer taking Acamprosate 666 mg, Gemfibrozil 600 mg, Hydroxyzine nallely 50 mg, Naltroxone Microspheres 380 mg injection( not on 50 mg tablets). patient states she hasn't took any of her medications in over a week.
--- NOTE | 2024-08-30 09:52 | MHC.CM.PN ---
Pt lives alone, she is independent, no DME. She does not have a PCP, brochure will be given with contact info for [facility] and [facility] PCP offices. Pt will need assistance with transport home at [place]. DCP: home, self care. CM to follow for DC needs.
--- NOTE | 2024-08-30 14:29 | MHC.CLN ---
NUTRITION DIET=CLEAR LIQUIDS. PATIENT RECEPTIVE TO HAVING ENSURE SUPPLEMENT. ADDING ENSURE CLEAR TID TO PROVIDE 720 KCALS, 24 G PROTEIN. NO OBSERVED SIGNS OF DEPLETED BODY FAT OR MUSCLE MASS. PATIENT IS UNDERWEIGHT WITH LIKLEY POOR NUTRITION DUE TO ETOH USE AND ALCOHOLIC PANCREATITIS. FOLLOW FOR DIET ADVANCEMENT AND PO INTAKE. SEE CLINICAL NUTRITION ASSESSMENT 08/30/24.
[2024-08-30] MEDS: cloNIDine HCL 0.1 MG TABLET PO (17:07)
[2024-08-31] MEDS: Lactated Ringers 1,000 ML 125 ML IVCONT ×2 (00:51→07:49)
[2024-08-31 03:18] VITALS: BP 138/89; PULSE 95; RESP 16; TEMP 36.7; O2SAT 98
--- NOTE | 2024-08-31 07:07 | P.CDIM_ITS ---
PROVIDER RESPONSE TEXT: To clarify, the appropriate diagnosis supported by the clinical indicators: Underweight QUERY TEXT: PHYSICIAN'S DOCUMENTATION REQUEST Date of Query: 08/30/2024 10:59 AM EST Patient Name: Chuyita Boyle Admit Date: 08/30/2024 Dear Temo Casey MD, A review of the medical record indicates additional documentation may be needed. Please review below and update the documentation accordingly. Clinical Indicators: Height: 5ft 4in Weight: 43.545kg BMI: 16.5 Reports fatigue, malaise, poor appetite, alcohol abuse. If possible, please provide an associated diagnosis related to the abnormal BMI, such as: Underweight Weight loss Cachexia Anorexia Malnourished mild, moderate, severe Other (explain) Clinically unable to determine (explain) Thank you, Sissy Rubio, CCS, CDIS Use of terms such as suspected, likely, concern for, or probable (associated with a specific diagnosi s that is being evaluated, monitored, or treated as if it exists) are acceptable and can be coded in the inpatient se tting, when documented at the time of discharge. Please use your independent medical judgment in providing your response. THIS QUERY IS PART OF THE PERMANENT MEDICAL RECORD
[2024-08-31 07:26] VITALS: BP 150/100; PULSE 89; RESP 16; TEMP 37.2; O2SAT 99
[2024-08-31] MEDS: PHENobarbitaL 30 MG TABLET PO ×2 (07:48→21:32)
[2024-08-31] MEDS: Thiamine HCL 100 MG in 0.9 % Sodium Chloride 100 ML 202 MG IV (07:48)
[2024-08-31] MEDS: 0.9 % Sodium Chloride Flush 3 ML SYRINGE IVFLUSH ×3 (07:48→21:33)
[2024-08-31 09:16] LABS: Anion Gap 14 (12-20); Blood Urea Nitrogen < 3 mg/dL (9-16); Calcium 8.3 mg/dL (8.4-10.2); Carbon Dioxide 26 mmol/L (22-29); Chloride 95 mmol/L (96-108); Creatinine Clr Calc Pharmacy 129.5; Estimated Glomerular Filt Rate > 60; Glucose Random 89 mg/dL (60-115); Magnesium 1.1 mg/dL (1.6-2.6); Potassium 2.8 mmol/L (3.3-5.1); Sodium 132 mmol/L (135-145)
[2024-08-31] MEDS: Magnesium Oxide 400 MG TABLET PO ×2 (10:29→18:06)
[2024-08-31] MEDS: Potassium Chloride ER 20 MEQ TAB.ER.PRT 40 MEQ PO (10:29)
[2024-08-31] MEDS: Magnesium Sulfate/H2O 2 GM/50 ML PIGGYBACK IV (10:29)
--- NOTE | 2024-08-31 11:46 | MHC.RECOVRN ---
AUDIT-C Brief Intervention Pt had positive screen for unhealthy alcohol use on admission, subsequently met with t/w to discuss alcohol use and recovery supports/options. This service writer met with patient to discuss current alcohol use and concerns related to increased risk of alcohol related problems.? Pt reports 1/2-1 radha Coelho daily x 1.5 months. Discussed how alcohol use has impacted health, including negative impact on physical health and new diagnosis of pancreatitis. 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 Provided pt with written resources including information on inpatient and outpatient treatment, DIMIT[facility], harm reduction, and recovery coaching. Pt plans to continue attending AA, review resources, and possibly connect to the [facility]. Pt provided with t/w contact information if questions or concerns arise. Denies other questions or concerns at this time.?
[2024-08-31 14:22] LABS: Anion Gap 17 (12-20); Blood Urea Nitrogen < 3 mg/dL (9-16); Calcium 9.3 mg/dL (8.4-10.2); Carbon Dioxide 24 mmol/L (22-29); Chloride 95 mmol/L (96-108); Creatinine Clr Calc Pharmacy 109.6; Estimated Glomerular Filt Rate > 60; Glucose Random 118 mg/dL (60-115); Potassium 4.1 mmol/L (3.3-5.1); Sodium 132 mmol/L (135-145)
[2024-08-31 15:13] VITALS: BP 125/101; PULSE 117; RESP 16; TEMP 37.2; O2SAT 100
[2024-08-31 15:16] LABS: Magnesium 1.7 mg/dL (1.6-2.6)
--- NOTE | 2024-08-31 15:45 | HO.PM.IMPN ---
Subjective Subjective Date of Service: 08/31/24 Interval History: f/u on alcoholic pancreatitis no pain and tolerating regular diet feeling anxious and Physical Exam Vital Signs: Vital Signs: Last Vital Signs Temp 98.9 F 08/31/24 15:13 Pulse 117 H 08/31/24 15:13 Resp 16 08/31/24 15:13 BP 125/101 H 08/31/24 15:13 Pulse Ox 100 08/31/24 15:13 O2 Del Method Room Air 08/31/24 15:13 BMI result Body Mass Index 16.5 General: AO X 3, no acute distress Resp: CTA bilateral CVS: S1,S2,RRR GI: +BS, NT, no distention Skin: No rash Neuro: motor grossly intact Psych: appropriate affect Objective Data Active Medications Acetaminophen (Acetaminophen 325 Mg Tablet) 650 mg PO Q6H PRN PRN Reason: Pain, Mild 1-3,fever,headache Calcium Carbonate (Calcium Carbonate 750 Mg Tab.Chew) 750 mg PO Q4H PRN PRN Reason: Heartburn Thiamine HCl 100 mg/ Sodium (Chloride) 101 mls @ 202 mls/hr IV DAILY [facility] Last Infusion: 08/31/24 08:52 Dose: Infused Documented By: JULIANA Lactated Ringer's (Lr) 1,000 mls @ 125 mls/hr IVCONT .Q8H [facility] Last Admin: 08/31/24 07:49 Dose: 125 mls/hr Documented By: JULIANA Magnesium Hydroxide (Milk Of Magnesia 30 Ml Oral.Susp) 30 ml PO DAILY PRN PRN Reason: Constipation Magnesium Oxide (Magnesium Oxide 400 Mg Tablet) 400 mg PO BIDPC [facility] Last Admin: 08/31/24 10:29 Dose: 400 mg Documented By: JULIANA Melatonin (Melatonin 3 Mg Tablet) 6 mg PO BEDTIME PRN PRN Reason: Insomnia Morphine Sulfate (Morphine Sulfate 4 Mg/Ml Cartridge) 4 mg IVPUSH Q4H PRN; Protocol PRN Reason: Pain, Severe (Pain Scale 7-10) Ondansetron HCl (Ondansetron Hcl 4 Mg/2 Ml Vial) 4 mg IVPUSH Q8H PRN PRN Reason: Nausea and Vomiting Pharmacy Consult (Consult Rx Etoh Phenob Im/Po) 1 each MISCELLANE ONCE PRN; Protocol PRN Reason: Consult order Phenobarbital (Phenobarbital 30 Mg Tablet) 30 mg PO BID [facility] Stop: 08/31/24 21:01 Last Admin: 08/31/24 07:48 Dose: 30 mg Documented By: JULIANA Phenobarbital (Phenobarbital 15 Mg Tablet) 15 mg PO BID [facility] Stop: 09/02/24 21:01 Phenobarbital (Phenobarbital 15 Mg Tablet) 15 mg PO DAILY [facility] Stop: 09/04/24 09:01 Sodium Chloride (0.9 % Sodium Chloride Flush 3 Ml Syringe) 3 ml IVFLUSH QSHIFT [facility] Last Admin: 08/31/24 07:48 Dose: 3 ml Documented By: JULIANA Labs 08/30/24 04:17 09/01/24 05:16 Labs: Laboratory Results - last 24 hr 08/31/24 08/31/24 08:17 14:00 Anion Gap 14 17 Estim Creat Clear Calc 129.5 109.6 Estimated GFR > 60 > 60 Random Glucose 89 118 H Calcium 8.3 L D 9.3 D Magnesium 1.1 L* 1.7 Assessment and Plan (1) Alcoholism: Status: Acute (2) Alcohol use disorder, severe, dependence: Status: Acute (3) Acute pancreatitis: Status: Acute (4) Pancytopenia: Status: Acute Plan 28-year-old female with pertinent history of alcoholic pancreatitis, mood disorder, alcohol use disorder, hypertriglyceridemia, opiate use disorder who presents to the emergency department for evaluation of abdominal pain and found to have acute pancreatitis Acute recurrent alcoholic pancreatitis -symptomatic treatment with analgesic, antiemetics -advance diet and possibly dc ivf Alcohol use disorder at risk for withdrawal -continue phenobarbital protocol to mitigatewithdrawal symptoms -Monitor CIWA, vitamin replacement - Counseled on abstinence -addiction med consult Mild acute lactic acidosis, d/t liver disease Mild hyperchloremic metabolic acicosis d/t NS -resolved Elevated liver enzymes d/t above Pancytopenia, d/t aclohol liver disease -monitor cbc, avoid antiocoagulants Hypokalemia and hypomagnesemia -replete and rechec ? seizure --continue keppra Mood disorder: Continue home mood stabilizers Hypertriglyceridemia: Alcohol use contributing. On gemfibrozil. Discontinue beta-dhaval DVT prophylaxis: Unable to do Lovenox due to thrombocytopenia Full code Quality Stroke Does the patient have a stroke diagnosis?: No VTE Prior VTE?: No VTE Risk Level:: Medical - moderate - high VTE Device Contraindication: Treatment Not Indicated VTE Drug Contraindication: N/A - Med Ordered
[2024-08-31] MEDS: hydrOXYzine HCL 25 MG TABLET PO (15:54)
[2024-08-31 16:11] VITALS: BP 125/101; PULSE 109
[2024-08-31] MEDS: Propranolol HCL 10 MG TABLET PO ×2 (16:11→21:32)
[2024-08-31 17:53] VITALS: BP 138/92; RESP 115
[2024-08-31] MEDS: levETIRAcetam 500 MG TABLET PO (18:06)
[2024-08-31 19:46] VITALS: BP 126/90; PULSE 92; RESP 18; TEMP 36.6; O2SAT 99
[2024-08-31] MEDS: traZODone HCL 50 MG TABLET PO (21:32)
[2024-09-01 04:00] VITALS: BP 129/92; PULSE 97; RESP 18; TEMP 36.7; O2SAT 92
[2024-09-01 06:30] LABS: Anion Gap 15 (12-20); Blood Urea Nitrogen 5 mg/dL (9-16); Calcium 9.5 mg/dL (8.4-10.2); Carbon Dioxide 25 mmol/L (22-29); Chloride 94 mmol/L (96-108); Creatinine Clr Calc Pharmacy 109.6; Estimated Glomerular Filt Rate > 60; Glucose Random 103 mg/dL (60-115); Magnesium 1.6 mg/dL (1.6-2.6); Potassium 3.4 mmol/L (3.3-5.1); Sodium 131 mmol/L (135-145)
--- NOTE | 2024-09-01 07:24 | PM.DS ---
DS: Providers Provider Date of Service: 09/01/24 Date of admission: 08/29/24 21:41 Date of discharge: 09/01/24 Primary care physician: Neno Physician Consults: 08/29/24 21:41 Addiction Medicine Routine Consulting Provider: Judd Cueva Reason for consultation: alcohol use disorder DS: Diagnosis Discharge Diagnosis (1) Alcoholism: Status: Acute (2) Alcohol use disorder, severe, dependence: Status: Acute (3) Acute pancreatitis: Status: Acute (4) Pancytopenia: Status: Acute DS: Summary Hospital Course Hospital Course: admission hpi Chief Complaint: Abdominal pain This is a 28-year-old female with pertinent history of alcoholic pancreatitis, mood disorder, alcohol use disorder, hypertriglyceridemia, opiate use disorder who presents to the emergency department for evaluation of abdominal pain. Patient states pain started in the day of presentation. It is in the epigastric region, constant, progressive and radiating to the sides. Does have associated nausea and multiple episodes of nonbloody emesis. Her last drink was on the day of presentation. Does have a history of alcohol withdrawal but no history of alcohol withdrawal seizures. No fever, chills, chest pain, palpitations, shortness of breath, changes in urinary or bowel habits. In the emergency department, imaging with a acute interstitial edematous pancreatitis and lipase found to be elevated. Hospital course: The patient has a known history of chronic alcohol use disorder and recurrent pancreatitis. They presented with abdominal pain and were diagnosed with acute pancreatitis related to alcohol use. The patient was admitted for further management, which included phenobarbital administration to prevent full-blown alcohol withdrawal. The pancreatitis was managed conservatively with intravenous fluids, and the patient's diet was gradually advanced. Currently, the patient reports no abdominal pain and is tolerating a regular diet. Additionally, hypokalemia and hypomagnesemia, attributed to chronic alcohol use, were identified and treated with intravenous and oral supplementation. At present, the patient?s potassium and magnesium levels are within the normal range. They will be prescribed magnesium supplements and advised to consume potassium-rich foods. The patient is instructed to follow up with their primary care physician and the recovery team for ongoing management. Time Attestation Discharge Coordination Time (in mins): 35 Quality: Safe Use of Opioids Does Pt have an Active Cancer Diagnosis on the Problem List?: No Quality: Stroke Does the patient have a stroke diagnosis?: No Physical Exam Vital Signs: Vital Signs: Last Vital Signs Temp 98.0 F 09/01/24 04:00 Pulse 97 09/01/24 04:00 Resp 18 09/01/24 04:00 BP 129/92 H 09/01/24 04:00 Pulse Ox 92 09/01/24 04:00 O2 Del Method Room Air 09/01/24 04:00 BMI result Body Mass Index 16.5 General: AO X 3, no acute distress Resp: CTA bilateral CVS: S1,S2,RRR GI: +BS, NT, no distention Skin: No rash Neuro: motor grossly intact Psych: appropriate affect DS: Data Data Completed and Pending Completed studies during hospitalization [Text1]: Procedures Detoxification Services for Substance Abuse Treatment (07/17/23) Labs on day of discharge: Laboratory Results - last 24 hr 08/31/24 08/31/24 09/01/24 08:17 14:00 05:16 Sodium 132 L 132 L 131 L Potassium 2.8 L* D 4.1 D 3.4 Chloride 95 L 95 L 94 L Carbon Dioxide 26 24 25 Anion Gap 14 17 15 BUN < 3 L < 3 L 5 L Creatinine 0.44 L 0.52 0.52 Estim Creat Clear Calc 129.5 109.6 109.6 Estimated GFR > 60 > 60 > 60 Random Glucose 89 118 H 103 Calcium 8.3 L D 9.3 D 9.5 Magnesium 1.1 L* 1.7 1.6 Discharge Plan Discharge Anticipated Discharge Date/Time: 09/01/24 07:19 Patient Disposition: Home, Self-Care Discharge Diagnosis: Pancreatitis, alcohol dependency, alcohol withdrawal Referrals: Physician,None [Primary Care Provider] - 1 Week Discharge Medications: New magnesium oxide 400 mg (241.3 mg magnesium) Tablet 400 mg PO BIDPC Qty: 60 0RF Continued trazodone 50 mg tablet 50 mg PO BEDTIME levetiracetam 500 mg tablet 500 mg PO BID naltrexone 50 mg tablet 50 mg PO DAILY propranolol 10 mg tablet 10 mg PO TID Diet: Advance to usual diet Activity on Discharge: As tolerated Stand Alone Forms: Patient Portal Discharge page Print Language: Tajik Care Plan Goals: recovery from pancratitis, alcohol withdrawal and Health Concerns: Chronic alcohol use disorder Recurrent pancreatitis Hypomagnesemia Hypokalemia Plan of Treatment: Avoid use of alcohol and follow through the recesses given to you by the recovery team. Consume food rich in potassium such as bananas on a daily basis to have maintained banana level Take magnesium supplements Take all of your other medication as recommended, follow-up with your primary care doctor within a week, call for appointment. Assessment: See above
[2024-09-01 07:36] VITALS: BP 129/93; PULSE 97; RESP 16; TEMP 36.9; O2SAT 99
[2024-09-01] MEDS: Naltrexone HCl 50 MG TABLET PO (08:08)
[2024-09-01] MEDS: Magnesium Oxide 400 MG TABLET PO (08:08)
[2024-09-01] MEDS: levETIRAcetam 500 MG TABLET PO (08:09)
[2024-09-01] MEDS: Propranolol HCL 10 MG TABLET PO (08:09)
[2024-09-01] MEDS: PHENobarbitaL 15 MG TABLET PO (08:09)
[2024-09-01] MEDS: 0.9 % Sodium Chloride Flush 3 ML SYRINGE IVFLUSH (08:11)
--- NOTE | 2024-09-01 08:40 | MHC.CM.PN ---
Patient is discharged today to home self care. Transportation [place] been [place] [facility] [place]
== END 2024-09-01 08:29 | disposition home or self-care (01) | DRG 282 ==
LOC: HO.ED 20:58 → HO.EDOVER 23:00 → HO.S3 08-30 12:34
PROVIDERS: Student in an Organized Health Care Education/Training Program; Admitting Provider Student in an Organized Health Care Education/Training Program; Emergency Provider Emergency Medicine Emergency Medical Services; Visit Provider Internal Medicine
DX: K85.20 Alcohol induced acute pancreatitis without necrosis or infection (principal); D61.818 Other pancytopenia; E87.21 Acute metabolic acidosis; E78.1 Pure hyperglyceridemia; R63.6 Underweight; F17.210 Nicotine dependence, cigarettes, uncomplicated; Z68.1 Body mass index [BMI] 19.9 or less, adult; Z71.6 Tobacco abuse counseling; F10.239 Alcohol dependence with withdrawal, unspecified; E87.6 Hypokalemia; E83.42 Hypomagnesemia; F39 Unspecified mood [affective] disorder; Y90.8 Blood alcohol level of 240 mg/100 ml or more; Z79.899 Other long term (current) drug therapy
CPT/HCPCS: 36415; 74177; 80048; 80053; 80307; 83605; 83690; 83735; 84478; 84484; 84702; 85025; 93005; 99285; J0131; J1630; J1885; J2270; J2560; J3411; J3475; J3480; J7120; Q9967; S9485

== ENCOUNTER → 2024-08-29 17:45 | Outpatient (BNV) | payer OTHER, SELFPAY | PROVIDERS: Admitting Provider Student in an Organized Health Care Education/Training Program; Emergency Provider Emergency Medicine Emergency Medical Services; Visit Provider Internal Medicine Cardiovascular Disease | DX: R94.31 Abnormal electrocardiogram [ECG] [EKG] (principal) | CPT/HCPCS: 93010 ==

== ENCOUNTER → 2024-08-29 17:59 | Outpatient (BNV) | payer OTHER, SELFPAY | PROVIDERS: Emergency Provider Emergency Medicine Emergency Medical Services; Visit Provider Student in an Organized Health Care Education/Training Program | DX: F10.20 Alcohol dependence, uncomplicated (principal); K85.90 Acute pancreatitis without necrosis or infection, unspecified; D61.818 Other pancytopenia | CPT/HCPCS: 99223; 99232; 99233 ==

== ENCOUNTER → 2024-08-29 18:43 | Outpatient (BNV) | payer OTHER, SELFPAY | PROVIDERS: Emergency Provider Emergency Medicine Emergency Medical Services; Visit Provider Radiology Diagnostic Radiology | DX: K85.90 Acute pancreatitis without necrosis or infection, unspecified (principal) | CPT/HCPCS: 74177 ==

== ENCOUNTER 2024-09-25 02:55 | Inpatient (IN) | payer OTHER, SELFPAY ==
[2024-09-25] VITALS (8 sets, daily range): BP systolic 122–152; BP diastolic 78–110; PULSE 90–130; RESP 12–20; TEMP 36.1–37.1; O2SAT 97–100; BMI 17.0; BMI 15.7
--- NOTE | ~2024-09-25 | CT_ITS ---
EXAMINATION: CT CHEST WITHOUT CONTRAST CLINICAL INFORMATION: 09/25/24. COMPARISON: Follow-up pneumomediastinum. TECHNIQUE: Multidetector volumetric CT imaging of the chest was done. Axial MIP volume rendering provided. Sagittal and coronal reformatted images were obtained. This CT examination was performed using dose optimization techniques as appropriate, variously including the following: *Automated exposure control *Adjustment of mA and/or kV according to patient size (this includes techniques or standardized protocols for targeted exams where dose is matched to indication/reason for exam; i.e. extremities or head) *Use of iterative reconstruction technique FINDINGS: LUNGS: The lungs are clear bilaterally. No airspace disease or abnormal opacities. No pneumothorax. Small airways appear normal. Large airways appear patent. There are no nodules or masses. MEDIASTINUM: Pneumomediastinum is again noted, essentially unchanged in extent. There is a small amount of pneumopericardium. This extends into the lower neck soft tissues through the thoracic inlet. This also involves the GE junction, but does not extend into the upper abdomen. Normal thyroid incompletely imaged. Normal aorta, main pulmonary artery, and heart. Normal esophagus. There is no adenopathy or mass. CORONARY ARTERY CALCIFICATION: None visualized on this study. PLEURA: There is no pleural effusion. No pleural mass or thickening. There is no pneumothorax. AXILLA: No lymphadenopathy. UPPER ABDOMEN: Hepatomegaly with marked hepatic steatosis. There is a 3 mm nonobstructing calculus in the left kidney upper pole. Kidneys are incompletely imaged. OSSEOUS STRUCTURES: Unremarkable. CT/CT chest wo IV con IMPRESSION: 1. No significant change in pneumomediastinum mild pneumopericardium. Gas also extends into the inferior neck soft tissues. 2. There is no pneumothorax. The lungs are clear. 3. There is marked hepatic steatosis with hepatomegaly, partially imaged. 4. Nonobstructing left renal 3 mm calculus. Electronically signed by: Lavelle Lugo MD 09/27/2024 02:08 PM [facility]
--- NOTE | ~2024-09-25 | CT_ITS ---
CLINICAL HISTORY: LUQ pain CT abdomen and pelvis with contrast Comparison: None Findings: No consolidation or effusion. There is pneumomediastinum. The appearance of the liver suggests fatty infiltration without focal lesion. The gallbladder and solid organs are otherwise within normal limits. No renal stones. No bowel obstruction, pneumoperitoneum, or pneumatosis. The colon is mostly decompressed limiting evaluation. Pelvic contents unremarkable. Normal appendix. The bones are intact. IMPRESSION: 1. Pneumomediastinum, etiology indeterminate. 2. Hepatic steatosis This document has been electronically signed by: Tal Jasso MD on 09/25/2024 05:18:10
--- NOTE | ~2024-09-25 | CT_ITS ---
CLINICAL HISTORY: Pneumomediastinum, rule out pneumothorax CT chest without contrast Comparison: 06/13/2023 Findings: The heart is normal size. There is pneumomediastinum extending into the base of the neck. There is pneumopericardium. The visualized thyroid and mediastinum are otherwise unremarkable. The lungs are clear. The appearance of the liver suggests fatty infiltration without focal lesion. The upper abdomen is otherwise unremarkable. No acute fractures. IMPRESSION: 1. Pneumomediastinum and pneumopericardium. 2. Hepatic steatosis. This document has been electronically signed by: Tal Jasso MD on 09/25/2024 06:55:15
[2024-09-25] MEDS: Morphine Sulfate 4 MG/ML CARTRIDGE IVPUSH ×4 (03:30→08:26)
[2024-09-25] MEDS: 0.9 % Sodium Chloride 1,000 ML 999 ML IV (03:31)
[2024-09-25] MEDS: ondansetron HCL 4 MG/2 ML VIAL IVPUSH ×2 (03:31→08:26)
[2024-09-25 03:43] LABS: MANUAL DIFF FLAG NO
[2024-09-25 03:45] LABS: Basophils Percent Auto 0.4 % (0-2); Eosinophils Percent Auto 0.2 % (0-4); Imm Gran Abs Auto 0.04 X10*3/uL (0.00-0.03); Imm Gran Pct Auto 0.4 % (0.0-0.4); Lymphocytes Absolute Auto 0.5 X10*3/uL (1.2-4.9); Lymphocytes Percent Auto 5.3 % (20-40); Mean Corpuscular HGB Conc 34.2 g/dl (31.0-35.0); Mean Corpuscular Hemoglobin 32.3 pg (27.0-33.0); Mean Corpuscular Volume 94.3 fL (80.0-98.0); Monocytes Absolute Auto 0.5 X10*3/uL (0.1-1.2); Monocytes Percent Auto 4.6 % (2-11); Neutrophils Percent Auto 89.1 % (45-73); Red Blood Count 4.03 X10*6/uL (4.20-5.50); Red Cell Distribution Width 13.6 % (11.0-16.0); White Blood Count 10.1 X10*3/uL (4.8-10.8)
[2024-09-25 03:48] LABS: Platelet Count 94 X10*3/uL (160-400)
[2024-09-25 04:08] LABS: Alanine Aminotransferase 68 U/L (0-31); Albumin Level 4.6 g/dL (3.5-5.0); Alkaline Phosphatase 146 U/L (39-117); Aspartate Amino Transferase 206 U/L (5-31); Bilirubin Total 1.5 mg/dL (0.0-1.0); Blood Urea Nitrogen 12 mg/dL (9-16); Calcium 8.4 mg/dL (8.4-10.2); Carbon Dioxide < 5 mmol/L (22-29); Chloride 99 mmol/L (96-108); Creatinine Clr Calc Pharmacy 79.6; Estimated Glomerular Filt Rate > 60; Glucose Random 83 mg/dL (60-115); HCG Quantitative < 2 mIU/mL; Lipase 55 U/L (8-78); Magnesium 1.7 mg/dL (1.6-2.6); Potassium 4.1 mmol/L (3.3-5.1); Sodium 139 mmol/L (135-145); Total Protein 8.5 g/dL (6.5-8.0)
--- NOTE | 2024-09-25 04:08 | ED_ITS ---
HPI - General Adult General Chief complaint: Abdominal Pain Stated complaint: AB pain x1 day, sharp pain across the midline Time Seen by Provider: 09/25/24 03:23 Source: patient Limitations: no limitations History of Present Illness ED Provider: Nenita Desir PA-C HPI narrative: 28-year-old female with severe alcohol use disorder, with prior alcohol withdrawal and seizure activity, prior pancreatitis, presents with severe abdominal pain with nausea vomiting since earlier this evening. Pain over upper abdomen with radiation to her left mid back, the patient states it feels like her prior episode of pancreatitis. Denies sick contacts with similar symptoms, no fever. Patient has been drinking this week, however she denies alcohol consumption overnight. Related Data Home Medications ?Medication ?Instructions ?Recorded ?Confirmed propranolol 10 mg tablet 10 mg PO TID 02/22/24 09/25/24 levetiracetam 500 mg tablet 500 mg PO BID 08/30/24 09/25/24 naltrexone 50 mg tablet 50 mg PO DAILY 08/30/24 09/25/24 trazodone 50 mg tablet 50 mg PO BEDTIME 08/30/24 09/25/24 acamprosate 333 mg tablet,delayed 333 mg PO 3XD 09/25/24 09/25/24 release Previous Rx's ?Medication ?Instructions ?Recorded magnesium oxide 400 mg (241.3 mg 400 mg PO BIDPC #60 tabs 09/01/24 magnesium) tablet Allergies Allergy/AdvReac Type Severity Reaction Status Date / Time kiwi Allergy Rash Verified 08/29/24 17:38 Penicillins Allergy Unknown Verified 09/25/24 03:09 Review of Systems 2 Review of Systems: Yes all other systems are reviewed and are negative Constitutional: Constitutional: Denies fatigue and Denies fever(s) Cardiovascular: Cardiovascular: Denies chest pain and Denies dyspnea Respiratory: Respiratory: Denies dyspnea Gastrointestinal: Gastrointestinal: Reports abdominal pain, Denies diarrhea, Reports nausea and Reports vomiting Musculoskeletal: Musculoskeletal: Reports back pain Endocrine: Endocrine: Denies fatigue PMF Past Medical History Attestation statement: The following information was validated with the patient. Medical History Alcohol abuse Kidney stones Social History Social History Household Members: None Housing: House Do you presently have visiting nurse or other home services: No Alcohol intake: current Alcohol intake frequency: a few times a week Alcohol type: hard liquor Comment: DECLINES BED ALARM, NOTED STEADY, DISCUSSION TO SAFETY Patient Tobacco Use Status: Current everyday Tobacco user Tobacco use type: Cigarette Substance Use Type: Marijuana Advance Directives: No Advance Directives Information Provided: Yes Do you have a plan to hurt others: No Plan service: No Physical Exam ED Vital Signs: Vital Signs - 24 hr 09/25/24 03:41 09/25/24 04:09 09/25/24 06:02 Temperature 98.8 F 98.8 F Pulse Rate 130 H 120 H 112 H Respiratory Rate 20 20 20 Blood Pressure 152/108 H 152/108 H 151/110 H Pulse Oximetry 98 98 97 Oxygen Delivery Method Room Air Room Air Room Air BMI result Body Mass Index 17.0 Const Other: Alert, ill-appearing, crying and actively vomiting Orientation/consciousness: patient oriented x3 HENMT Other: Dry oral mucosa Resp Other: Tachypneic Cardio Other: Normal peripheral perfusion GI Other: Abdomen is not distended, moderate to severe tenderness to palpation with guarding throughout entire abdomen Skin Other: Warm dry no rash Neuro General: patient oriented x3, no focal motor deficits and CN's II-XI intact bilaterally Psych Other: Anxious tearful Course Course Course Narrative: Signed out to night team pending labs imaging and final disposition Medications Administered Generic Name Dose Route Start Last Admin Trade Name Freq PRN Reason Stop Dose Admin Dextrose/Sodium Chloride 1,000 mls @ 250 mls/hr 09/25/24 04:30 09/25/24 09:44 D51/2ns IVCONT 250 mls/hr .Q4H [facility]IA Administration Sodium Bicarbonate 150 meq/ 1,000 mls @ 125 mls/hr 09/25/24 10:00 09/25/24 09:54 Dextrose IV 125 mls/hr .Q8H [facility]IA Administration Discontinued Medications Generic Name Dose Route Start Last Admin Trade Name Freq PRN Reason Stop Dose Admin Diatrizoate Meglum/Diatrizoate Sod 30 ml 09/25/24 06:26 09/25/24 06:26 Diatrizoate Meglumine, Sodium 30 Ml Solution PO 09/25/24 06:27 30 ml ONCE ONE Administration Folic Acid 1 mg 09/25/24 07:27 09/25/24 07:53 Folic Acid 1 Mg Tablet PO 09/25/24 07:28 1 mg ONCE ONE Administration Sodium Chloride 1,000 mls @ 999 mls/hr 09/25/24 03:15 09/25/24 04:19 Ns IV 09/25/24 04:15 0 mls/hr .Q1H1M [facility]IA Infusion Iohexol 85 ml 09/25/24 04:28 09/25/24 04:29 Iohexol 350 Mg/Ml 100 Ml Infus..Btl IV 09/25/24 04:29 85 ml ONCE ONE Administration Morphine Sulfate 4 mg 09/25/24 03:24 09/25/24 03:30 Morphine Sulfate 4 Mg/Ml Cartridge IVPUSH 09/25/24 03:25 4 mg ONCE ONE Administration Protocol Morphine Sulfate 4 mg 09/25/24 04:29 09/25/24 04:50 Morphine Sulfate 4 Mg/Ml Cartridge IVPUSH 09/25/24 04:30 4 mg ONCE STA Administration Protocol Morphine Sulfate 4 mg 09/25/24 05:50 09/25/24 05:58 Morphine Sulfate 4 Mg/Ml Cartridge IVPUSH 09/25/24 05:51 4 mg ONCE STA Administration Protocol Morphine Sulfate 4 mg 09/25/24 08:09 09/25/24 08:26 Morphine Sulfate 4 Mg/Ml Cartridge IVPUSH 09/25/24 08:10 4 mg ONCE STA Administration Protocol Ondansetron HCl 4 mg 09/25/24 03:12 09/25/24 03:31 Ondansetron Hcl 4 Mg/2 Ml Vial IVPUSH 09/25/24 03:13 4 mg ONCE ONE Administration Ondansetron HCl 4 mg 09/25/24 08:09 09/25/24 08:26 Ondansetron Hcl 4 Mg/2 Ml Vial IVPUSH 09/25/24 08:10 4 mg ONCE ONE Administration Phenobarbital Sodium 262 mg 09/25/24 07:00 09/25/24 07:52 Phenobarbital Sodium 130 Mg/Ml Im Once IM 09/25/24 07:01 262 mg ONCE ONE Administration Protocol Sodium Bicarbonate 50 meq 09/25/24 08:55 09/25/24 09:27 Sodium Bicarbonate 8.4% 50 Meq/50 Ml Syringe IVPUSH 09/25/24 08:56 50 meq ONCE ONE Administration Thiamine HCl 100 mg 09/25/24 07:27 09/25/24 07:53 Thiamine Hcl 100 Mg Tablet PO 09/25/24 07:28 100 mg ONCE ONE Administration Medical Decision Making Medical Decision Making [facility] Narrative: 28-year-old female with severe alcohol use disorder, with prior alcohol withdrawal and seizure activity, prior pancreatitis, presents with severe abdominal pain with nausea vomiting since earlier this evening. Pain over upper abdomen with radiation to her left mid back, the patient states it feels like her prior episode of pancreatitis. Denies sick contacts with similar symptoms, no fever. Patient has been drinking this week, however she denies alcohol consumption overnight. Problem: Severe alcohol use disorder, prior pancreatitis History: Per patient I have considered the following differential diagnoses: Biliary colic, cholecystitis, alcoholic gastritis, pancreatitis, necrotizing pancreatitis Plan: We will be obtaining a CT scan based on the patient's exam. She has had severe pancreatitis in the past, her presentation is consistent with prior episodes of pancreatitis. We will be screening basic labs, LFTs, lipase, serum ethanol we will be giving IV fluid Zofran and morphine for her discomfort. She is also tachycardic we will add a EKG. I have independently reviewed the following tests: Labs: No leukocytosis, not anemic, thrombocytopenic at 94, bicarb less than 5, sodium 139, chloride 99 potassium 4.1, magnesium 1.7, LFTs are at her baseline including T bili, lipase 55 she is not , added on serum ethanol transitioning fluids to D5 normal saline 09/25/2024 Dr. Silver Connolly's notes 05:51 I assumed care of this patient from my colleague, physician assistant speech language pathologist Nenita Desir at 04:00 hours, pending the patient's laboratory and CT abdomen/pelvis result. My independent interpretation patient's laboratory evaluation is as follows: Low platelet count [id number]. Elevated AST, ALT and alk-phos of 206, 68 and 146. Elevated bilirubin 1.5. Patient's bicarb was below detectable limits. Ethanol level was low at 34. COVID-19, RSV and influenza were negative. Lipase was normal at 55. CT scan of the abdomen pelvis revealed no evidence for pancreatitis or other explanation for her abdominal pain. Patient does have hepatic steatosis. Patient was also noted to have pneumomediastinum which I suspect is secondary to the patient's vomiting and dry heaving. On my examination the patient had diffuse abdominal tenderness with increased tenderness in the epigastric area. At this time I suspect that the patient has alcoholic gastritis with severe alcoholic ketoacidosis based on the undetectable bicarb. Patient was treated with morphine 4 mg IV x2 with only minimal relief for pain. I ordered a 3rd dose of morphine 4 mg IV. Patient also is tremulous and given her low alcohol level I think that she was in alcohol withdrawal. She states she drinks a pint of Sofia daily. Patient was ordered to get phenobarbital 12 milligrams/kilogram IM as per protocol. I did order a CT scan of the chest Gastrografin to evaluate the patient for possible pneumothorax duration 07:[address] scan of the chest revealed no pneumothorax and no perforation of the esophagus. The radiologist did no pneumomediastinum and pneumopericardium which again is most likely secondary to her retching and vomiting. I did discuss this with the covering thoracic surgeon, Dr. Romero and he states he was no treatment needed at this time. I did discuss admission over tiger text for alcoholic gastritis, alcohol withdrawal severe alcoholic ketoacidosis with the covering hospitalist, Dr. Abebe. 09:01 Patient's VBG revealed a pH of 7.18. I ordered 1 amp of sodium bicarb IV and a sodium bicarb drip 150 mEq/1 L of D5 W at 125 cc/hour. 10:14 The patient's bicarb went from below detectable his 2 7. Anion gap is now 30. Beta hydroxybutyrate was 10.95. Patient will be admitted to the hospitalist service on the medical telemetry unit for further management. I did order a CIWA scale q.4 hours. Lab Data 09/25/24 03:38 09/25/24 08:34 Labs: Lab Results 09/25/24 09/25/24 09/25/24 Range/Units 03:38 08:34 08:38 WBC 10.1 (4.8-10.8) X10*3/uL RBC 4.03 L D (4.20-5.50) X10*6/uL Hgb 13.0 D (12.0-16.0) g/dl Hct 38.0 D (37.0-47.0) % MCV 94.3 (80.0-98.0) fL MCH 32.3 (27.0-33.0) pg MCHC 34.2 (31.0-35.0) g/dl RDW 13.6 (11.0-16.0) % Plt Count 94 L D (160-400) X10*3/uL MPV 11.0 (9.4-12.3) fL Immature Gran % (Auto) 0.4 (0.0-0.4) % Neut % (Auto) 89.1 H (45-73) % Lymph % (Auto) 5.3 L (20-40) % [place] % (Auto) 4.6 (2-11) % Eos % (Auto) 0.2 (0-4) % Baso % (Auto) 0.4 (0-2) % Lymph # (Auto) 0.5 L (1.2-4.9) X10*3/uL [place] # (Auto) 0.5 (0.1-1.2) X10*3/uL Eos # (Auto) 0.0 (0.0-0.4) X10*3/uL Baso # (Auto) 0.0 (0.0-0.2) X10*3/uL Abs Immat Gran (auto) 0.04 H (0.00-0.03) X10*3/uL Absolute Neuts (auto) 9.0 H (2.0-8.3) x10*3/uL Absolute Nucleated RBC 0.000 (0.0-0.012) X10*3/uL Nucleated RBC % (auto) 0.0 (0.0-0.2) /100WBC VBG pH 7.18 L* (7.32-7.43) VBG pCO2 21 mmHg VBG pO2 41 mmHg VBG HCO3 8 L (22-26) mmol/L VBG O2 Saturation 44.0 % VBG Base Excess -17.9 mmol/L Sodium 139 134 L (135-145) mmol/L Potassium 4.1 D 4.2 (3.3-5.1) mmol/L Chloride 99 101 (96-108) mmol/L Carbon Dioxide < 5 L* D 7 L* D (22-29) mmol/L Anion Gap Not Reportable 30 H BUN 12 8 L (9-16) mg/dL Creatinine 0.74 0.90 (0.5-1.4) mg/dL Estim Creat Clear Calc 79.6 65.5 Estimated GFR > 60 > 60 Random Glucose 83 203 H (60-115) mg/dL Lactic Acid 1.1 (0.5-2.0) mmol/L Calcium 8.4 D 7.6 L D (8.4-10.2) mg/dL Magnesium 1.7 (1.6-2.6) mg/dL Total Bilirubin 1.5 H (0.0-1.0) mg/dL AST 206 H (5-31) U/L ALT 68 H (0-31) U/L Alkaline Phosphatase 146 H (39-117) U/L Total Protein 8.5 H (6.5-8.0) g/dL Albumin 4.6 (3.5-5.0) g/dL Lipase 55 (8-78) U/L Beta-Hydroxybutyrate 10.95 H (0.02-0.27) mmol/L Beta HCG, Quant < 2 mIU/mL Ethyl Alcohol 34 mg/dL Radiology Impression Discussion of test interpretation with radiology: I have reviewed the radiologist's reading. Radiologist Impression: CT abdomen and pelvis with contrast Comparison: None Findings: No consolidation or effusion. There is pneumomediastinum. The appearance of the liver suggests fatty infiltration without focal lesion. The gallbladder and solid organs are otherwise within normal limits. No renal stones. No bowel obstruction, pneumoperitoneum, or pneumatosis. The colon is mostly decompressed limiting evaluation. Pelvic contents unremarkable. Normal appendix. The bones are intact. IMPRESSION: 1. Pneumomediastinum, etiology indeterminate. 2. Hepatic steatosis This document has been electronically signed by: Tal Jasso MD on 09/25/2024 05:18:10 Dictated By: Tal Jasso MD Critical Care Time Critical Care Time Critical Care Time: Yes Total Critical Care Time: 45 Attestation: Critical Care: The patient was critically ill with a high probability of imminent or life threatening deterioration. I spent greater than 30 minutes of discontinuous time evaluating the patient,delivering critical care at the bedside, discussing and evaluating pertinent data with consultants. Critical care time does not include time spent performing separately billable procedures or teaching. Total time spent performing critical care was 45 minutes. Discharge Plan Discharge Clinical Impression: Acute alcoholic gastritis, Acute alcoholic hepatitis, Nausea & vomiting, Pneumomediastinum, Pneumopericardium, Alcoholic ketoacidosis Patient Disposition: Admitted As Inpatient Print Language: Pashto
--- NOTE | 2024-09-25 04:10 | ECG_ITS ---
Test Reason : tachy Blood Pressure : */* mmHG Vent. Rate : 125 BPM Atrial Rate : 125 BPM P-R Int : 124 ms QRS Dur : 76 ms QT Int : 338 ms P-R-T Axes : 82 79 62 degrees QTcB Int : 487 ms Sinus tachycardia Otherwise normal ECG When compared with ECG of 29-Aug-2024 17:45, Sinus rhythm has replaced Junctional rhythm Vent. rate has increased by 42 bpm Nonspecific T wave abnormality, improved in Anterior leads Referred By: Nenita Desir Electronically Signed By: OLIVE HAGEN MD
[2024-09-25 04:20] LABS: Ethanol 34 mg/dL
[2024-09-25] MEDS: iohexoL 350 MG/ML 100 ML INFUS..BTL 85 ML IV (04:29)
[2024-09-25] MEDS: Dextrose 5 % and 0.45 % NaCl 1,000 ML 250 ML IVCONT ×2 (04:49→09:44)
[2024-09-25] MEDS: Diatrizoate Meglumine, Sodium 30 ML SOLUTION PO (06:26)
[2024-09-25] MEDS: PHENobarbitaL sodium 130 MG/ML IM ONCE 262 MG IM (07:52)
[2024-09-25] MEDS: Folic Acid 1 MG TABLET PO (07:53)
[2024-09-25] MEDS: Thiamine HCL 100 MG TABLET PO (07:53)
[2024-09-25 08:40] LABS: Venous Blood Gas Refer to POC result
[2024-09-25 08:51] LABS: VBG Base Excess -17.9 mmol/L; VBG HCO3 8 mmol/L (22-26); VBG pCO2 21 mmHg; VBG pH 7.18 (7.32-7.43); VBG pO2 41 mmHg
[2024-09-25 08:56] LABS: Lactic Acid 1.1 mmol/L (0.5-2.0)
[2024-09-25 09:04] LABS: Anion Gap 30 (12-20); Blood Urea Nitrogen 8 mg/dL (9-16); Calcium 7.6 mg/dL (8.4-10.2); Carbon Dioxide 7 mmol/L (22-29); Chloride 101 mmol/L (96-108); Creatinine Clr Calc Pharmacy 65.5; Estimated Glomerular Filt Rate > 60; Glucose Random 203 mg/dL (60-115); Potassium 4.2 mmol/L (3.3-5.1); Sodium 134 mmol/L (135-145)
[2024-09-25 09:15] LABS: Beta-Hydroxybutyrate 10.95 mmol/L (0.02-0.27)
--- NOTE | 2024-09-25 09:22 | PHA.MEDREC ---
Addendum entered by Raz Vargas RPh 09/25/24 10:30: Med rec was reviewed by [facility]. Original Note: Pharmacy Consult ? Medication Reconciliation Pharmacy has completed the medication reconciliation. Spoke to patient to confirm med list. patient was able to state wheat she should be taking , however she hasn't been taking her home medications. Patient states she hasn't continued her home medication from last discharge 09/01/24, because she has been drinking and didn't want to mix with medications.
[2024-09-25] MEDS: Sodium Bicarbonate 8.4% 50 MEQ/50 ML SYRINGE IVPUSH (09:27)
[2024-09-25] MEDS: Sodium Bicarbonate 8.4% 150 MEQ in Dextrose 5 % 850 ML 125 MEQ IV (09:54)
--- NOTE | 2024-09-25 10:48 | PC.NURSE ---
Pt remains nauseated, but improved with Zofran; pt reports moderate pain control with meds gv (5/10); CIWA is 7, pt placed on phenobarb. protocol; pt currently resting in room; vss
[2024-09-25] MEDS: PHENobarbitaL sodium 130 MG/ML VIAL IM Q3Hx2 197 MG IM ×2 (10:56→14:21)
[2024-09-25 14:22] LABS: VBG Base Excess -7.2 mmol/L; VBG HCO3 17 mmol/L (22-26); VBG pCO2 29 mmHg; VBG pH 7.35 (7.32-7.43); VBG pO2 54 mmHg
[2024-09-25 14:23] LABS: Venous Blood Gas Refer to POC result
[2024-09-25 14:46] LABS: Anion Gap 22 (12-20); Blood Urea Nitrogen 6 mg/dL (9-16); Calcium 7.6 mg/dL (8.4-10.2); Carbon Dioxide 15 mmol/L (22-29); Chloride 101 mmol/L (96-108); Creatinine Clr Calc Pharmacy 75.6; Estimated Glomerular Filt Rate > 60; Glucose Random 123 mg/dL (60-115); Potassium 3.6 mmol/L (3.3-5.1); Sodium 134 mmol/L (135-145)
--- NOTE | 2024-09-25 14:52 | PC.NURSE ---
Pt's withdrawal sx's improved with 2 doses of phenobarbital; IV Bicarb continues; pt c/o abd pain; MD made aware; pt sleeping at this time
--- NOTE | 2024-09-25 16:05 | P.HPHOSP_ITS ---
History of Present Illness Date of Service: 09/25/24 Chief Complaint: Abdominal pain 28Year old female with a history of alcohol dependency, recurrent pancreatitis. Who is presenting to hospital today with abdominal pain since last night similar to prior abdominal pain associated with pancreatitis. He was last admitted in the middle of August for acute pancreatitis and alcohol withdrawal. Since that time she has continued to drink rather heavily drinking about a pt of Sofia a day. Workup include normal lipase of 55 today. He states that she last drank 2 days ago, although his alcohol level is 34. Bicab level was profoundly low reported as undetectable or < 5 and required bicab push and bicab drip Review of Systems 2 Review of Systems: Gen: no fever Resp: no sob, no cough CV: no chest, no NESBITT, no leg edema GI: + n/v, + abd pain Neuro: No confusion PMFSH Medical History Alcoholism Alcohol abuse Social History Household Members: Significant Other Housing: House Do you presently have visiting nurse or other home services: No Alcohol intake: current Alcohol intake frequency: a few times a week Alcohol type: hard liquor Comment: DECLINES BED ALARM, NOTED STEADY, DISCUSSION TO SAFETY Patient Tobacco Use Status: Current someday Tobacco user Tobacco use type: Cigarette e-Cigarette/Vaping Use: Never Used Second Hand Smoke Exposure: No Substance Use Type: Marijuana service: No Meds Allergies Allergy/AdvReac Type Severity Reaction Status Date / Time kiwi Allergy Rash Verified 08/29/24 17:38 Penicillins Allergy Unknown Verified 09/25/24 03:09 Active Medications: Current Medications Dextrose/Sodium Chloride (D51/2ns) 1,000 mls @ 250 mls/hr IVCONT .Q4H [facility] Last Admin: 09/25/24 04:49 Dose: 250 mls/hr Pharmacy Consult (Consult Rx Etoh Phenob Im/Po) 1 each MISCELLANE ONCE PRN; Protocol PRN Reason: Consult order Phenobarbital (Phenobarbital 15 Mg Tablet) 45 mg PO BID [facility]; Protocol Stop: 09/27/24 09:01 Phenobarbital (Phenobarbital 30 Mg Tablet) 30 mg PO BID [facility]; Protocol Stop: 09/29/24 09:01 Phenobarbital (Phenobarbital 30 Mg Tablet) 30 mg PO BEDTIME [facility]IA; Protocol Stop: 09/30/24 21:01 Phenobarbital Sodium (Phenobarbital Sodium 130 Mg/Ml Vial Im Q3hx2) 197 mg IM Q3H NGHIA; Protocol Stop: 09/25/24 13:01 Home Medications ?Medication ?Instructions ?Recorded ?Confirmed ?Last Taken ?Type propranolol 10 mg tablet 10 mg PO TID 02/22/24 09/25/24 08/23/24 History levetiracetam 500 mg tablet 500 mg PO BID 08/30/24 09/25/24 08/23/24 History naltrexone 50 mg tablet 50 mg PO DAILY 08/30/24 09/25/24 08/23/24 History trazodone 50 mg tablet 50 mg PO BEDTIME 08/30/24 09/25/24 08/23/24 History acamprosate 333 mg tablet,delayed 666 mg PO 3XD 09/25/24 09/25/24 Unknown History release Physical Exam 2 Vital Signs and Narrative: Vital Signs: Last Vital Signs Temp 98.8 F 09/25/24 04:09 Pulse 112 H 09/25/24 06:02 Resp 20 09/25/24 06:02 BP 151/110 H 09/25/24 06:02 Pulse Ox 97 09/25/24 06:02 O2 Del Method Room Air 09/25/24 06:02 BMI result Body Mass Index 17.0 Gen: very thin-built, no aacute distres Neck supple, no JVD Regular rate and rhythm, S1-S2 heard Regular breath sounds bilaterally, no wheezing or crackles appreciated Abdomen nonspecific epigastric tenderness, no distention, positive bowel sounds Patient is awake, alert and oriented to self, place, time and person ; no focal motor deficit Psych: Normal mood No pedal edema Results Labs 09/26/24 06:17 09/26/24 06:17 Labs: Laboratory Results - last 24 hr 09/25/24 03:38 MCV 94.3 MCH 32.3 MCHC 34.2 RDW 13.6 Plt Count 94 L D MPV 11.0 Immature Gran % (Auto) 0.4 Neut % (Auto) 89.1 H Lymph % (Auto) 5.3 L [place] % (Auto) 4.6 Eos % (Auto) 0.2 Baso % (Auto) 0.4 Lymph # (Auto) 0.5 L [place] # (Auto) 0.5 Eos # (Auto) 0.0 Baso # (Auto) 0.0 Abs Immat Gran (auto) 0.04 H Absolute Neuts (auto) 9.0 H Absolute Nucleated RBC 0.000 Nucleated RBC % (auto) 0.0 Anion Gap Not Reportable Estim Creat Clear Calc 79.6 Estimated GFR > 60 Random Glucose 83 Calcium 8.4 D Magnesium 1.7 Total Bilirubin 1.5 H AST 206 H ALT 68 H Alkaline Phosphatase 146 H Total Protein 8.5 H Albumin 4.6 Lipase 55 Beta HCG, Quant < 2 Ethyl Alcohol 34 Assessment and Plan (1) Alcohol use disorder, severe, dependence: Status: Acute (2) Acute alcoholic gastritis: Status: Acute (3) Nausea & vomiting: Status: Acute (4) Acute alcoholic hepatitis: Status: Acute Plan 28-year-old female with pertinent history of alcoholic pancreatitis, mood disorder, alcohol use disorder, hypertriglyceridemia, opiate use disorder who presents to the emergency department for evaluation of abdominal pain and found to have acute pancreatitis Nausea and vomitting, no pancreatitis this time, likely alcoholic gastritis -symptomatic treatment and advance diet, IV and antiemetics severe alcoholic ketoassis, life threatening, related alcohol use -IVF, Bicab push and drip, frequent bmp check , nephrology consult Alcohol use disorder at risk for withdrawal -continue phenobarbital protocol to mitigate withdrawal symptoms -Monitor CIWA, vitamin replacement - Counseled on abstinence -addiction med consult Elevated liver enzymes d/t above Pancytopenia, d/t aclohol liver disease -monitor cbc, avoid antiocoagulants Hypokalemia and hypomagnesemia -replete and rechec ?seizure --continue keppra Mood disorder: Continue home mood stabilizers DVT prophylaxis: no heparin or lovenox d/t low platlets early ambulation Quality Stroke Does the patient have a stroke diagnosis?: No VTE Prior VTE?: No VTE Risk Level:: Medical - moderate - high VTE Device Contraindication: Treatment Not Indicated VTE Drug Contraindication: N/A - Med Ordered
[2024-09-25] MEDS: Lactated Ringers 1,000 ML 100 ML IVCONT (16:13)
[2024-09-25] MEDS: Acamprosate Calcium 333 MG TABLET.DR 666 MG PO ×2 (17:33→22:02)
[2024-09-25] MEDS: levETIRAcetam 500 MG TABLET PO (20:39)
[2024-09-25] MEDS: traZODone HCL 50 MG TABLET PO (20:40)
[2024-09-25] MEDS: PHENobarbitaL 15 MG TABLET 45 MG PO (20:40)
[2024-09-25] MEDS: Magnesium Oxide 400 MG TABLET PO (20:40)
[2024-09-25] MEDS: Propranolol HCL 10 MG TABLET PO (20:40)
[2024-09-25 20:42] LABS: Blood Urea Nitrogen 5 mg/dL (9-16); Estimated Glomerular Filt Rate > 60; Glucose Random 91 mg/dL (60-115)
[2024-09-25 20:51] LABS: Anion Gap 20 (12-20); Carbon Dioxide 21 mmol/L (22-29); Chloride 95 mmol/L (96-108); Sodium 133 mmol/L (135-145)
[2024-09-25 21:12] LABS: Appearance Urine Clear; Color Urine Yellow; Glucose Urine UA Negative (Negative); Leukocyte Esterase Urine Negative (Negative); Nitrite Urine Negative (Negative); PH 6.5 (5.0-9.0); UMIC TRIGGER UACC YES; Urine Blood Trace (Negative); Urine Ketones 80 mg/dL (Negative); Urine Protein 30 (1+) mg/dL (Neg-Trace)
[2024-09-25 21:20] LABS: Bacteria Urine None Seen (None Seen); Hyaline Casts Urine 0-2 /LPF (0-2); RBC Urine 0-2 /HPF (0-2); Squamous Epithelial Cell Urine 0-2 /HPF (0-2); WBC Urine 0-5 /HPF (0-5)
[2024-09-25] MEDS: Acetaminophen 325 MG TABLET 650 MG PO (22:02)
[2024-09-26] VITALS (7 sets, daily range): BP systolic 115–130; BP diastolic 74–93; PULSE 80–104; RESP 16–20; TEMP 36.2–38; O2SAT 98–100; BMI 15.7
[2024-09-26] MEDS: Lactated Ringers 1,000 ML 100 ML IVCONT (05:05)
[2024-09-26 06:57] LABS: Alanine Aminotransferase 38 U/L (0-31); Albumin Level 3.8 g/dL (3.5-5.0); Alkaline Phosphatase 100 U/L (39-117); Anion Gap 18 (12-20); Aspartate Amino Transferase 87 U/L (5-31); Bilirubin Direct 0.5 mg/dL (0.0-0.5); Bilirubin Total 1.3 mg/dL (0.0-1.0); Blood Urea Nitrogen 4 mg/dL (9-16); Calcium 8.3 mg/dL (8.4-10.2); Carbon Dioxide 26 mmol/L (22-29); Chloride 93 mmol/L (96-108); Creatinine Clr Calc Pharmacy 81.3; Estimated Glomerular Filt Rate > 60; Glucose Random 124 mg/dL (60-115); Potassium 3.1 mmol/L (3.3-5.1); Sodium 134 mmol/L (135-145); Total Protein 6.4 g/dL (6.5-8.0)
[2024-09-26 07:07] LABS: Hematocrit 29.4 % (37.0-47.0); Hemoglobin 10.6 g/dl (12.0-16.0); Mean Corpuscular HGB Conc 36.1 g/dl (31.0-35.0); Mean Corpuscular Hemoglobin 32.5 pg (27.0-33.0); Mean Corpuscular Volume 90.2 fL (80.0-98.0); Mean Platelet Volume 10.9 fL (9.4-12.3); Red Blood Count 3.26 X10*6/uL (4.20-5.50); Red Cell Distribution Width 13.4 % (11.0-16.0)
[2024-09-26 07:14] LABS: Platelet Count 45 X10*3/uL (160-400); White Blood Count 3.4 X10*3/uL (4.8-10.8)
[2024-09-26 07:58] LABS: Estimated Average Glucose 82 mg/dL; Hemoglobin A1C 70.3475 umol/L; Hemoglobin A1c % 4.5 % (<6.0); Total Hemoglobin (HGBA1C) 2757.4467 umol/L
[2024-09-26 08:04] LABS: Magnesium 1.3 mg/dL (1.6-2.6)
[2024-09-26] MEDS: Magnesium Sulfate/H2O 2 GM/50 ML PIGGYBACK IV ×2 (08:39→11:36)
[2024-09-26] MEDS: PHENobarbitaL 15 MG TABLET 45 MG PO ×2 (08:39→21:36)
[2024-09-26] MEDS: Acamprosate Calcium 333 MG TABLET.DR 666 MG PO ×3 (08:39→21:36)
[2024-09-26] MEDS: Naltrexone HCl 50 MG TABLET PO (08:39)
[2024-09-26] MEDS: Magnesium Oxide 400 MG TABLET PO ×2 (08:40→16:49)
[2024-09-26] MEDS: Propranolol HCL 10 MG TABLET PO ×3 (08:40→21:36)
[2024-09-26] MEDS: levETIRAcetam 500 MG TABLET PO ×2 (08:40→21:36)
[2024-09-26] MEDS: Potassium Chloride ER 20 MEQ TAB.ER.PRT 40 MEQ PO (08:40)
[2024-09-26] MEDS: 0.9 % Sodium Chloride Flush 3 ML SYRINGE IVFLUSH ×3 (08:40→21:34)
--- NOTE | 2024-09-26 12:01 | MHC.CM.PN ---
Pt self-care, lives alone at home. HCP on file and verified, however pt states she doesn't want her mom/HCP to know that she is here. Pt will need assistance with transportation home at discharge. Pt doesn't have a PCP, and has been working on getting one.
--- NOTE | 2024-09-26 12:03 | HO.PM.IMPN ---
Subjective Subjective Date of Service: 09/26/24 Interval History: Follow-up on acute alcoholic ketoacidosis, Nausea and vomiting nausea resolved Metabolic acidosis has resolved. Physical Exam Vital Signs: Vital Signs: Last Vital Signs Temp 97.7 F 09/26/24 11:42 Pulse 80 09/26/24 11:42 Resp 20 09/26/24 11:42 BP 115/89 09/26/24 11:42 Pulse Ox 99 09/26/24 11:42 O2 Del Method Room Air 09/26/24 11:42 BMI result Body Mass Index 15.7 General: AO X 3, no acute distress, very think Resp: CTA bilateral CVS: S1,S2,RRR GI: +BS, NT, no distention Skin: No rash Neuro: motor grossly intact Psych: appropriate affect Objective Data Active Medications Acamprosate (Acamprosate Calcium 333 Mg Tablet.) 666 mg PO TID [facility] Last Admin: 09/26/24 08:39 Dose: 666 mg Documented By: IRVING Acetaminophen (Acetaminophen 325 Mg Tablet) 650 mg PO Q6H PRN PRN Reason: Pain, Mild 1-3,fever,headache Last Admin: 09/25/24 22:02 Dose: 650 mg Documented By: EVIN Calcium Carbonate (Calcium Carbonate 750 Mg Tab.Chew) 750 mg PO Q4H PRN PRN Reason: Heartburn Magnesium Sulfate (Magnesium Sulfate/H2o) 2 gm in 50 mls @ 25 mls/hr IV ONCE ONE Stop: 09/26/24 13:59 Last Admin: 09/26/24 11:36 Dose: 25 mls/hr Documented By: IRVING Levetiracetam (Levetiracetam 500 Mg Tablet) 500 mg PO BID [facility] Last Admin: 09/26/24 08:40 Dose: 500 mg Documented By: IRVING Magnesium Hydroxide (Milk Of Magnesia 30 Ml Oral.Susp) 30 ml PO DAILY PRN PRN Reason: Constipation [facility] ([facility] 400 Mg [facility] Last Admin: 09/26/24 08:40 Dose: 400 mg Documented By: IRVING Melatonin (Melatonin 3 Mg Tablet) 6 mg PO BEDTIME PRN PRN Reason: Insomnia Naltrexone HCl (Naltrexone Hcl 50 Mg Tablet) 50 mg PO DAILY [facility] Last Admin: 09/26/24 08:39 Dose: 50 mg Documented By: IRVING Ondansetron HCl (Ondansetron Hcl 4 Mg/2 Ml Vial) 4 mg IVPUSH Q8H PRN PRN Reason: Nausea and Vomiting Pharmacy Consult (Consult Rx Etoh Phenob Im/Po) 1 each MISCELLANE ONCE PRN; Protocol PRN Reason: Consult order Phenobarbital (Phenobarbital 15 Mg Tablet) 45 mg PO BID [facility]; Protocol Stop: 09/27/24 09:01 Last Admin: 09/26/24 08:39 Dose: 45 mg Documented By: IRVIGN Phenobarbital (Phenobarbital 30 Mg Tablet) 30 mg PO BID [facility]; Protocol Stop: 09/29/24 09:01 Phenobarbital (Phenobarbital 30 Mg Tablet) 30 mg PO BEDTIME [facility]; Protocol Stop: 09/30/24 21:01 Propranolol HCl (Propranolol Hcl 10 Mg Tablet) 10 mg PO TID [facility]; Protocol Last Admin: 09/26/24 08:40 Dose: 10 mg Documented By: IRVING Sodium Chloride (0.9 % Sodium Chloride Flush 3 Ml Syringe) 3 ml IVFLUSH QSHIFT [facility] Last Admin: 09/26/24 08:40 Dose: 3 ml Documented By: IRVING Trazodone HCl (Trazodone Hcl 50 Mg Tablet) 50 mg PO BEDTIME [facility] Last Admin: 09/25/24 20:40 Dose: 50 mg Documented By: EVIN Labs 09/26/24 06:17 09/26/24 06:17 Labs: Laboratory Results - last 24 hr 09/25/24 09/25/24 09/25/24 14:06 14:12 20:00 MCV MCH MCHC RDW Plt Count MPV Absolute Nucleated RBC Nucleated RBC % (auto) VBG pH 7.35 VBG pCO2 29 VBG pO2 54 VBG HCO3 17 L VBG O2 Saturation 87.0 VBG Base Excess -7.2 Anion Gap 22 H 20 Estim Creat Clear Calc 75.6 83.0 Estimated GFR > 60 > 60 Random Glucose 123 H 91 Estimat Average Glucose Hemoglobin A1c % Calcium 7.6 L 8.0 L Magnesium Total Bilirubin Direct Bilirubin AST ALT Alkaline Phosphatase Total Protein Albumin Urine Color Urine Appearance Urine pH Ur Specific [place] Urine Protein Urine Glucose (UA) Urine Ketones Urine Blood Urine Nitrite Ur Leukocyte Esterase Urine RBC Urine WBC Ur Squamous Epith Cells Urine Bacteria Hyaline Casts 09/25/24 09/26/24 21:10 06:17 MCV 90.2 MCH 32.5 MCHC 36.1 H RDW 13.4 Plt Count 45 L D MPV 10.9 Absolute Nucleated RBC 0.000 Nucleated RBC % (auto) 0.0 VBG pH VBG pCO2 VBG pO2 VBG HCO3 VBG O2 Saturation VBG Base Excess Anion Gap 18 Estim Creat Clear Calc 81.3 Estimated GFR > 60 Random Glucose 124 H Estimat Average Glucose 82 Hemoglobin A1c % 4.5 Calcium 8.3 L Magnesium 1.3 L* Total Bilirubin 1.3 H Direct Bilirubin 0.5 AST 87 H ALT 38 H Alkaline Phosphatase 100 Total Protein 6.4 L Albumin 3.8 Urine Color Yellow Urine Appearance Clear Urine pH 6.5 Ur Specific [place] 1.010 Urine Protein 30 (1+) H Urine Glucose (UA) Negative Urine Ketones 80 Urine Blood Trace H Urine Nitrite Negative Ur Leukocyte Esterase Negative Urine RBC 0-2 Urine WBC 0-5 Ur Squamous Epith Cells 0-2 Urine Bacteria None Seen Hyaline Casts 0-2 Assessment and Plan (1) Alcohol use disorder, severe, dependence: Status: Acute (2) Alcoholic ketoacidosis: Status: Acute Plan 28-year-old female with pertinent history of alcoholic pancreatitis, mood disorder, alcohol use disorder, hypertriglyceridemia, opiate use disorder who presents to the emergency department with abd pain, n/v and found to have severe alcoholic ketoacidosis Nausea and vomitting, no pancreatitis this time, likely alcoholic gastritis -symptomatic treatment and advance diet, IV and antiemetics, add ppi severe alcoholic ketoassis, life threatening, related alcohol use -resolved with bicab replacement, nephrology consult Alcohol use disorder at risk for withdrawal -continue phenobarbital protocol to mitigate withdrawal symptoms -Monitor CIWA, vitamin replacement - Counseled on abstinence -addiction med consult -the life threatening alcoholic ketoacidosis is raising, malnutrition have raised seriously concern and will therefore discuss with CARE, case management and addiction med to explore other possible intervention Elevated liver enzymes d/t above Pancytopenia, d/t aclohol liver disease -monitor cbc, avoid antiocoagulants Hypokalemia and hypomagnesemia -replete and rechec ?seizure --continue keppra DVT prophylaxis: no heparin or lovenox d/t low platlets, early ambulation Quality Stroke Does the patient have a stroke diagnosis?: No VTE Prior VTE?: No VTE Risk Level:: Medical - moderate - high VTE Device Contraindication: N/A - Device Ordered VTE Drug Contraindication: Treatment Not Indicated
--- NOTE | 2024-09-26 12:21 | MHC.CLN ---
RE; CONSULT PT IS MODERATELY MALNOURISHED QUALIFIES FOR NONSEVERE MALNUTRITION IN THE CONTEXT OF SOCIAL/BEHAVIORAL/ENVIRONMENTAL PT WITH MIDLY DEPLETED SUBCUTANEOUS FAT AND MUSCLE MASS WITH BMI 15 AND 6% NONSIGNIFICANT WT LOSS X6 MONTHS WITH CONTINUED ETOH ABUSE DIET ADVANCED TO REGULAR TODAY PT AT INCREASED RISK FOR [id number] K+, MG, PHOS AND NA RECOMMEND ADDING ENSURE BID TO INCREASE KCALS SUPP TO PROVIDE 700KCALS, 40G PROTEIN MONITOR PO INTAKE AND ENCOURAGE SUPPLEMENT SEE ALSO FULL CLINICAL NUTRITION ASSESSMENT
[2024-09-26 16:26] LABS: Anion Gap 17 (12-20); Carbon Dioxide 28 mmol/L (22-29); Chloride 93 mmol/L (96-108); Magnesium 2.3 mg/dL (1.6-2.6); Potassium 3.5 mmol/L (3.3-5.1); Sodium 134 mmol/L (135-145)
--- NOTE | 2024-09-26 17:52 | P.CONNP_ITS ---
History of Present Illness Reason for Consult Consult date: 09/26/24 Reason for consult: Metabolic acidosis Chief Complaint Chief complaint: severe alcoholic ketoacidosis History of Present Illness Narrative: 28 year old female with a history of alcohol dependency, recurrent pancreatitis who presented to hospital with abdominal pain similar to prior abdominal pain associated with pancreatitis. She was last admitted in the middle of August for acute pancreatitis and alcohol withdrawal. Since that time she has continued to drink rather heavily drinking about a pint of Sofia a day. Workup include normal lipase of 55 with Bicarb level of < 5 requiring bicarb push and bicarb drip. Nephrology has been consulted to assist in her clinical care during her current hospital stay Review of Systems Review of Systems Yes all other systems are reviewed and are negative PMFSH Past Medical History Medical History Alcoholism Alcohol abuse Social History Social History Household Members: Significant Other Housing: House Do you presently have visiting nurse or other home services: No Alcohol intake: current Alcohol intake frequency: a few times a week Alcohol type: hard liquor Comment: DECLINES BED ALARM, NOTED STEADY, DISCUSSION TO SAFETY Patient Tobacco Use Status: Current someday Tobacco user Tobacco use type: Cigarette Smoked in Last 30 Days: Yes e-Cigarette/Vaping Use: Never Used Patient Interested in Nicotine Replacement: No Patient Given Instructions on How to Stop Smoking: No (Declines) Second Hand Smoke Exposure: No Use of substances other than those prescribed or required for medical reasons: Yes Substance Use Type: Marijuana Last Used Substance Other:: approximately 2 weeks ago Currently Displaying Signs/Symptoms of Drug Intoxication Withdrawal: No Any prior treatment program specific to substance use: No Have you been hit, kicked, punched, or otherwise hurt by someone within the past year? If so, by whom?: No Do you feel safe in your current relationship?: Yes Is there a partner from a previous relationship who is making you feel unsafe now?: No Are you made to feel afraid or neglected: No Spiritual Healthcare Practices: No Advance Directives: No Advance Directives Information Provided: Yes Advance Directives on File: No Do you have a plan to hurt others: No Plan Recently lost weight without trying: Yes How much weight loss: 2-13 pounds Eating poorly because of decreased appetite: Yes Nutrition screen score: 4 Nutrition Risks: Acute nausea or vomiting x1 week Patient : No : No Poor oral hygiene: No service: No Meds Allergies Allergy/AdvReac Type Severity Reaction Status Date / Time kiwi Allergy Rash Verified 08/29/24 17:38 Penicillins Allergy Unknown Verified 09/25/24 03:09 Active Medications: Current Medications Acamprosate (Acamprosate Calcium 333 Mg Tablet.Dr) 666 mg PO TID [facility] Last Admin: 09/26/24 16:49 Dose: 666 mg Acetaminophen (Acetaminophen 325 Mg Tablet) 650 mg PO Q6H PRN PRN Reason: Pain, Mild 1-3,fever,headache Last Admin: 09/25/24 22:02 Dose: 650 mg Calcium Carbonate (Calcium Carbonate 750 Mg Tab.Chew) 750 mg PO Q4H PRN PRN Reason: Heartburn Levetiracetam (Levetiracetam 500 Mg Tablet) 500 mg PO BID [facility] Last Admin: 09/26/24 08:40 Dose: 500 mg Magnesium Hydroxide (Milk Of Magnesia 30 Ml Oral.Susp) 30 ml PO DAILY PRN PRN Reason: Constipation Magnesium Oxide (Magnesium Oxide 400 Mg Tablet) 400 mg PO BIDPC [facility] Last Admin: 09/26/24 16:49 Dose: 400 mg Melatonin (Melatonin 3 Mg Tablet) 6 mg PO BEDTIME PRN PRN Reason: Insomnia Naltrexone HCl (Naltrexone Hcl 50 Mg Tablet) 50 mg PO DAILY [facility] Last Admin: 09/26/24 08:39 Dose: 50 mg Ondansetron HCl (Ondansetron Hcl 4 Mg/2 Ml Vial) 4 mg IVPUSH Q8H PRN PRN Reason: Nausea and Vomiting Pharmacy Consult (Consult Rx Etoh Phenob Im/Po) 1 each MISCELLANE ONCE PRN; Protocol PRN Reason: Consult order Phenobarbital (Phenobarbital 15 Mg Tablet) 45 mg PO BID [facility]; Protocol Stop: 09/27/24 09:01 Last Admin: 09/26/24 08:39 Dose: 45 mg Phenobarbital (Phenobarbital 30 Mg Tablet) 30 mg PO BID [facility]; Protocol Stop: 09/29/24 09:01 Phenobarbital (Phenobarbital 30 Mg Tablet) 30 mg PO BEDTIME [facility]; Protocol Stop: 09/30/24 21:01 Propranolol HCl (Propranolol Hcl 10 Mg Tablet) 10 mg PO TID [facility]; Protocol Last Admin: 09/26/24 16:49 Dose: 10 mg Sodium Chloride (0.9 % Sodium Chloride Flush 3 Ml Syringe) 3 ml IVFLUSH QSHIFT [facility] Last Admin: 09/26/24 16:49 Dose: 3 ml Trazodone HCl (Trazodone Hcl 50 Mg Tablet) 50 mg PO BEDTIME [facility] Last Admin: 09/25/24 20:40 Dose: 50 mg Home Medications ?Medication ?Instructions ?Recorded ?Confirmed ?Last Taken ?Type propranolol 10 mg tablet 10 mg PO TID 02/22/24 09/25/24 08/23/24 History levetiracetam 500 mg tablet 500 mg PO BID 08/30/24 09/25/24 08/23/24 History naltrexone 50 mg tablet 50 mg PO DAILY 08/30/24 09/25/24 08/23/24 History trazodone 50 mg tablet 50 mg PO BEDTIME 08/30/24 09/25/24 08/23/24 History acamprosate 333 mg tablet,delayed 666 mg PO 3XD 09/25/24 09/25/24 Unknown History release Physical Exam Vital Signs: Last Vital Signs Temp 97.1 F 09/26/24 16:00 Pulse 84 09/26/24 16:00 Resp 20 09/26/24 16:00 BP 121/82 09/26/24 16:00 Pulse Ox 99 09/26/24 16:00 O2 Del Method Room Air 09/26/24 16:00 BMI result Body Mass Index 15.7 Const General: comfortable and no acute distress Orientation/consciousness: patient oriented x3 HEENT Head: Yes normocephalic Mouth: Normal oral and palatal mucosa present Eyes EOM: EOMs intact bilaterally Neck Neck: Yes supple Resp Auscultation: clear to auscultation bilaterally Cardio Jugular venous distension: no JVD Rate: regular rate GI Palpation (GI): Soft to palpation Auscultation: normal bowel sounds General: Yes no CVA tenderness Back/Spine/Pelvis Back: no CVA tenderness Skin General skin exam: no rashes or lesions noted Neuro General: patient oriented x3 and moves all extremities Extrem General: Yes no pedal edema Results Lab Results 09/26/24 06:17 09/26/24 15:48 Lab results: Chemistry 09/25/24 09/25/24 09/25/24 03:38 08:34 14:06 Sodium 139 134 L 134 L Potassium 4.1 D 4.2 3.6 Carbon Dioxide < 5 L* D 7 L* D 15 L BUN 12 8 L 6 L Creatinine 0.74 0.90 0.78 Calcium 8.4 D 7.6 L D 7.6 L 09/25/24 09/26/24 09/26/24 20:00 06:17 15:48 Sodium 133 L 134 L 134 L Potassium 3.0 L 3.1 L 3.5 Carbon Dioxide 21 L 26 28 BUN 5 L 4 L Creatinine 0.71 0.67 Calcium 8.0 L 8.3 L Hematology 09/25/24 09/26/24 03:38 06:17 WBC 10.1 3.4 L Hgb 13.0 D 10.6 L Plt Count 94 L D 45 L D Urinalysis 09/25/24 21:10 Urine Color Yellow Urine Appearance Clear Urine pH 6.5 Ur Specific [place] 1.010 Urine Protein 30 (1+) H Urine Glucose (UA) Negative Urine Ketones 80 Urine Blood Trace H Urine Nitrite Negative Ur Leukocyte Esterase Negative Urine RBC 0-2 Urine WBC 0-5 Ur Squamous Epith Cells 0-2 Hyaline Casts 0-2 Assessment and Plan (1) Metabolic acidosis: Status: Acute Plan Severe metabolic acidosis likely multifactorial Renal function normal; Serum NaHCO3 improved with replacement Anion gap improved; No further bicarb replacement needed Needs to minimize/ abstain for alcohol intake C/W rest of current management Procedures Date of Service Date of Service: 09/26/24
[2024-09-26] MEDS: traZODone HCL 50 MG TABLET PO (21:36)
[2024-09-27] VITALS: BP 136/87; PULSE 97; RESP 16; TEMP 36.9; O2SAT 99
[2024-09-27 03:38] VITALS: BP 123/80; PULSE 75; RESP 16; TEMP 37.1; O2SAT 100
[2024-09-27 07:45] LABS: Anion Gap 19 (12-20); Blood Urea Nitrogen 5 mg/dL (9-16); Calcium 8.8 mg/dL (8.4-10.2); Carbon Dioxide 24 mmol/L (22-29); Chloride 92 mmol/L (96-108); Creatinine Clr Calc Pharmacy 100.9; Estimated Glomerular Filt Rate > 60; Glucose Random 81 mg/dL (60-115); Magnesium 1.9 mg/dL (1.6-2.6); Potassium 2.8 mmol/L (3.3-5.1); Sodium 132 mmol/L (135-145)
[2024-09-27 08:00] VITALS: BP 124/96; PULSE 81; RESP 18; TEMP 36.8; O2SAT 100
[2024-09-27 08:09] LABS: MANUAL DIFF FLAG NO
[2024-09-27 08:19] LABS: Basophils Percent Auto 0.7 % (0-2); Eosinophils Absolute Auto 0.1 X10*3/uL (0.0-0.4); Eosinophils Percent Auto 3.1 % (0-4); Hematocrit 31.1 % (37.0-47.0); Imm Gran Abs Auto 0.01 X10*3/uL (0.00-0.03); Imm Gran Pct Auto 0.3 % (0.0-0.4); Lymphocytes Absolute Auto 0.9 X10*3/uL (1.2-4.9); Lymphocytes Percent Auto 30.3 % (20-40); Mean Corpuscular HGB Conc 35.4 g/dl (31.0-35.0); Mean Corpuscular Hemoglobin 32.5 pg (27.0-33.0); Mean Platelet Volume 12.4 fL (9.4-12.3); Monocytes Absolute Auto 0.3 X10*3/uL (0.1-1.2); Monocytes Percent Auto 9.9 % (2-11); Neutrophils Absolute Auto 1.6 x10*3/uL (2.0-8.3); Neutrophils Percent Auto 55.7 % (45-73); Red Blood Count 3.38 X10*6/uL (4.20-5.50); Red Cell Distribution Width 13.4 % (11.0-16.0); White Blood Count 2.9 X10*3/uL (4.8-10.8)
[2024-09-27 08:20] LABS: Platelet Count 48 X10*3/uL (160-400)
[2024-09-27] MEDS: levETIRAcetam 500 MG TABLET PO ×2 (09:00→20:54)
[2024-09-27] MEDS: Magnesium Oxide 400 MG TABLET PO ×2 (09:00→16:02)
[2024-09-27] MEDS: PHENobarbitaL 15 MG TABLET 45 MG PO (09:00)
[2024-09-27] MEDS: Acamprosate Calcium 333 MG TABLET.DR 666 MG PO ×3 (09:00→20:54)
[2024-09-27] MEDS: Propranolol HCL 10 MG TABLET PO ×3 (09:00→20:54)
[2024-09-27] MEDS: Naltrexone HCl 50 MG TABLET PO (09:00)
[2024-09-27] MEDS: 0.9 % Sodium Chloride Flush 3 ML SYRINGE IVFLUSH ×3 (09:01→20:55)
--- NOTE | 2024-09-27 10:24 | MHC.RECOVRN ---
Met with pt to check in and provide support. Pt feeling better, looking forward to discharge. 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 Pt reports she is planning on making a schedule and having consistency in her days. Pt denies questions or concerns for t/w.
[2024-09-27] MEDS: Potassium Chloride ER 20 MEQ TAB.ER.PRT 40 MEQ PO ×2 (10:33→13:21)
--- NOTE | 2024-09-27 11:02 | P.PNIM_ITS ---
Subjective Subjective Date of Service: 09/27/24 Interval History: Follow-up on acute alcoholic ketoacidosis, better, no sings of withdrawal, potassium low, mag corrected Physical Exam 2 Vital Signs: Vital Signs: Last Vital Signs Temp 98.2 F 09/27/24 08:00 Pulse 81 09/27/24 08:00 Resp 18 09/27/24 08:00 BP 124/96 H 09/27/24 08:00 Pulse Ox 100 09/27/24 08:00 O2 Del Method Room Air 09/27/24 08:00 BMI result Body Mass Index 15.7 General: AO X 3, no acute distress, very think Resp: CTA bilateral CVS: S1,S2,RRR GI: +BS, NT, no distention Skin: No rash Neuro: motor grossly intact Psych: appropriate affect Objective Data Active Medications Acamprosate (Acamprosate Calcium 333 Mg Tablet.) 666 mg PO TID [facility] Last Admin: 09/27/24 09:00 Dose: 666 mg Documented By: IRVING Acetaminophen (Acetaminophen 325 Mg Tablet) 650 mg PO Q6H PRN PRN Reason: Pain, Mild 1-3,fever,headache Last Admin: 09/25/24 22:02 Dose: 650 mg Documented By: EVIN Calcium Carbonate (Calcium Carbonate 750 Mg Tab.Chew) 750 mg PO Q4H PRN PRN Reason: Heartburn Levetiracetam (Levetiracetam 500 Mg Tablet) 500 mg PO BID [facility] Last Admin: 09/27/24 09:00 Dose: 500 mg Documented By: IRVING Magnesium Hydroxide (Milk Of Magnesia 30 Ml Oral.Susp) 30 ml PO DAILY PRN PRN Reason: Constipation [facility]esium [facility]ide ([facility]esium [facility] 400 Mg [facility]t) [facility] Last Admin: 09/27/24 09:00 Dose: 400 mg Documented By: IRVING Melatonin (Melatonin 3 Mg Tablet) 6 mg PO BEDTIME PRN PRN Reason: Insomnia Naltrexone HCl (Naltrexone Hcl 50 Mg Tablet) 50 mg PO DAILY [facility] Last Admin: 09/27/24 09:00 Dose: 50 mg Documented By: IRVING Ondansetron HCl (Ondansetron Hcl 4 Mg/2 Ml Vial) 4 mg IVPUSH Q8H PRN PRN Reason: Nausea and Vomiting Pharmacy Consult (Consult Rx Etoh Phenob Im/Po) 1 each MISCELLANE ONCE PRN; Protocol PRN Reason: Consult order Phenobarbital (Phenobarbital 30 Mg Tablet) 30 mg PO BID [facility]; Protocol Stop: 09/29/24 09:01 Phenobarbital (Phenobarbital 30 Mg Tablet) 30 mg PO BEDTIME [facility]; Protocol Stop: 09/30/24 21:01 Propranolol HCl (Propranolol Hcl 10 Mg Tablet) 10 mg PO TID [facility]; Protocol Last Admin: 09/27/24 09:00 Dose: 10 mg Documented By: IRVING Sodium Chloride (0.9 % Sodium Chloride Flush 3 Ml Syringe) 3 ml IVFLUSH QSHIFT [facility] Last Admin: 09/27/24 09:01 Dose: 3 ml Documented By: IRVING Trazodone HCl (Trazodone Hcl 50 Mg Tablet) 50 mg PO BEDTIME [facility] Last Admin: 09/26/24 21:36 Dose: 50 mg Documented By: ZHANNA Labs 09/27/24 06:26 09/27/24 06:26 Labs: Laboratory Results - last 24 hr 09/26/24 09/27/24 15:48 06:26 MCV 92.0 MCH 32.5 MCHC 35.4 H RDW 13.4 Plt Count 48 L MPV 12.4 H Immature Gran % (Auto) 0.3 Neut % (Auto) 55.7 Lymph % (Auto) 30.3 [place] % (Auto) 9.9 Eos % (Auto) 3.1 Baso % (Auto) 0.7 Lymph # (Auto) 0.9 L [place] # (Auto) 0.3 Eos # (Auto) 0.1 Baso # (Auto) 0.0 Abs Immat Gran (auto) 0.01 Absolute Neuts (auto) 1.6 L Absolute Nucleated RBC 0.000 Nucleated RBC % (auto) 0.0 Hold Purple Top SEE NOTE Anion Gap 17 19 Estim Creat Clear Calc 100.9 Estimated GFR > 60 Random Glucose 81 Calcium 8.8 D Magnesium 2.3 1.9 Assessment and Plan (1) Alcohol use disorder, severe, dependence: Status: Acute (2) Alcoholic ketoacidosis: Status: Acute Plan 28-year-old female with pertinent history of alcoholic pancreatitis, mood disorder, alcohol use disorder, hypertriglyceridemia, opiate use disorder who presents to the emergency department with abd pain, n/v and found to have severe alcoholic ketoacidosis Nausea and vomitting, no pancreatitis this time, likely alcoholic gastritis -symptomatic treatment and advance diet, IV and antiemetics, add ppi severe alcoholic ketoassis, life threatening bicab level, related alcohol use -resolved with bicab replacement, nephrology consult Alcohol use disorder at risk for withdrawal and seizure -continue phenobarbital protocol to mitigate withdrawal symptoms -Monitor CIWA, vitamin replacement - Counseled on abstinence -addiction med consult -the life threatening alcoholic ketoacidosis is raising concern for patient health and safety, malnutrition have raised seriously concern and will therefore pursuing section 35 for involuntary commitment and treatment to pt's health and safety Elevated liver enzymes d/t above Pancytopenia, d/t aclohol liver disease -monitor cbc, avoid antiocoagulants Hypokalemia and hypomagnesemia -replete and rechec ?seizure --continue keppra DVT prophylaxis: no heparin or lovenox d/t low platlets, early ambulation Quality Stroke Does the patient have a stroke diagnosis?: No VTE Prior VTE?: No VTE Risk Level:: Medical - moderate - high VTE Device Contraindication: N/A - Device Ordered VTE Drug Contraindication: Treatment Not Indicated
[2024-09-27 12:00] VITALS: BP 117/88; PULSE 82; RESP 18; TEMP 36.6; O2SAT 99
[2024-09-27 12:52] LABS: Anion Gap 17 (12-20); Carbon Dioxide 24 mmol/L (22-29); Chloride 93 mmol/L (96-108); Potassium 3.2 mmol/L (3.3-5.1); Sodium 131 mmol/L (135-145)
--- NOTE | 2024-09-27 13:32 | MHC.CLN ---
F/U PT IS MODERATELY MALNOURISHED SEE FULL CLINICAL NUTRITION ASSESSMENT DATED 09/26/24 PO INTAKE GOOD DIET RX REGULAR PT AT INCREASED RISK FOR [id number] K+, MG, PHOS AND NA RECEIVING ENSURE BID TO INCREASE KCALS SUPP PROVIDES 700KCALS, 40G PROTEIN MONITOR PO INTAKE AND ENCOURAGE SUPPLEMENT
--- NOTE | 2024-09-27 15:46 | MHC.CM.PN ---
Pt is medically cleared for discharge today. A section [address] today due to chronic alcohol use disorder.
[2024-09-27 15:52] VITALS: BP 114/95; PULSE 86; RESP 23; TEMP 36; O2SAT 100
[2024-09-27] MEDS: LORazepam 0.5 MG TABLET PO (16:02)
[2024-09-27 19:40] VITALS: BP 121/75; PULSE 84; RESP 20; TEMP 36.4; O2SAT 99
[2024-09-27 22:03] LABS: Anion Gap 14 (12-20); Carbon Dioxide 27 mmol/L (22-29); Chloride 94 mmol/L (96-108); Potassium 3.9 mmol/L (3.3-5.1); Sodium 131 mmol/L (135-145)
[2024-09-27] MEDS: traZODone HCL 50 MG TABLET PO (22:05)
[2024-09-28] VITALS: BP 96/65; PULSE 79; RESP 17; TEMP 36.2; O2SAT 100
[2024-09-28 03:32] VITALS: BP 106/69; PULSE 89; RESP 16; TEMP 36.8; O2SAT 99
[2024-09-28 07:59] LABS: Magnesium 1.8 mg/dL (1.6-2.6)
[2024-09-28 08:00] VITALS: BP 105/76; PULSE 86; RESP 18; TEMP 36.2; O2SAT 100
[2024-09-28] MEDS: Magnesium Oxide 400 MG TABLET PO (09:07)
[2024-09-28] MEDS: levETIRAcetam 500 MG TABLET PO (09:07)
[2024-09-28] MEDS: Naltrexone HCl 50 MG TABLET PO (09:07)
[2024-09-28] MEDS: Acamprosate Calcium 333 MG TABLET.DR 666 MG PO (09:07)
[2024-09-28] MEDS: 0.9 % Sodium Chloride Flush 3 ML SYRINGE IVFLUSH (09:08)
[2024-09-28 11:25] VITALS: BP 104/73; PULSE 82; RESP 18; TEMP 36.3; O2SAT 100
--- NOTE | 2024-09-28 12:34 | MHC.CM.PN ---
DC order is in; Security has been notified.
--- NOTE | 2024-09-28 12:36 | PM.DS ---
DS: Providers Provider Date of Service: 09/28/24 Date of admission: 09/25/24 15:33 Date of discharge: 09/28/24 Primary care physician: None Physician Consults: 09/25/24 15:41 Addiction Medicine Routine Consulting Provider: Judd Cueva Reason for consultation: etoh use Has provider been notified: No 09/25/24 16:33 Consult to Nephrology Routine Consulting Provider: [facility] Reason for consultation: severe metabolic acidosis Has provider been notified: Yes DS: Diagnosis Discharge Diagnosis (1) Alcohol use disorder, severe, dependence: Status: Acute (2) Alcoholic ketoacidosis: Status: Acute DS: Summary Hospital Course Hospital Course: admission hpi Chief Complaint: Abdominal pain 28Year old female with a history of alcohol dependency, recurrent pancreatitis. Who is presenting to hospital today with abdominal pain since last night similar to prior abdominal pain associated with pancreatitis. He was last admitted in the middle of August for acute pancreatitis and alcohol withdrawal. Since that time she has continued to drink rather heavily drinking about a pt of Sofia a day. Workup include normal lipase of 55 today. He states that she last drank 2 days ago, although his alcohol level is 34. Bicab level was profoundly low reported as undetectable or < 5 and required bicab push and bicab drip. Of note a CT of aboemen and pelvis and CT of chest showed pneumomediastinum and mild pneumopericardium. Gas also extends into the inferior neck soft tissues, bt no pneumothorax. The lungs are clear. She was not having chest pain or shortness of breath, the finding were discussed with thoracic surgery and there was no indication for anyinterveniton. Patient was admitted for furthe management of alcoholic ketoacidosis and impending alcohol withdrawal and electrolyte abnomralities. CT scan of the chest showed stable finding and patient currently assymptomatic. Hospital course: This patient, with a known history of serious alcohol dependency and recurrent hospitalizations for alcohol-related ailments such as pancreatitis and alcohol withdrawal, presented on this occasion with nausea, vomiting, and abdominal pain. She was found to have severe metabolic acidosis with a bicarbonate level of less than 5. A CT of the abdomen and chest showed pneumomediastinum and pneumopericardium, but no pneumothorax and no evidence of esophageal rupture, likely related to retching and vomiting. This was discussed with thoracic surgery, and there was no indication for any intervention. The nausea and vomiting were managed with IV fluids and antiemetics, and they quickly resolved. Her diet has been advanced to a regular diet, which she is tolerating well. A repeat CT of chest 2 days later showed 1. No significant change in pneumomediastinum mild pneumopericardium. Gas also extends into the inferior neck soft tissues. 2. There is no pneumothorax. The lungs are clear. No thoracic surgery follow up indicated Alcohol dependency and impending alcohol withdrawal were treated with the Phenobarbital protocol, along with folic acid and thiamine replacement. This prevented the development of full-blown alcohol withdrawal. She presently does not have any symptoms of alcohol withdrawal. Severe metabolic acidosis due to alcoholic ketoacidosis was aggressively treated with a bicarbonate push and IV bicarbonate drip, with serial metabolic panels monitored. By the next day, the acidosis had corrected under the guidance of Nephrology and remains stable. The patient had a life-threatening alcoholic ketoacidosis, complicated by alcohol-induced gastritis causing retching and vomiting, which resulted in pneumopericardium and pneumomediastinum. Fortunately, there was no esophageal rupture. Additionally, her ongoing heavy alcohol use (a pint of Sofia per day) has resulted in severe malnutrition resulting in electrolyte abnormalities that can also be life threatening. As such, we pursued a Section 35 to obtain a court-directed treatment to prevent further deterioration of her condition, which could jeopardize her health and potentially lead to early . A Section 35 petition was granted by [facility] [address] on 09/27/24. I also had the opportunity to talk to the patient's mother who was deeply concerned about the patient's drinking habit and having failed at mutiple recovery program and having had DUI and on probation, she welcomes this opportunity and redirect Chuyita toward sobriety. Ativan PRN is given for anxiety Elevated liver enzymes alcoholic liver disease, cirrhosis and fatty liver. Pancytopenia, d/t aclohol liver disease, Hypokalemia and hypomagnesemia--hypokalemia, related to bicab infusion and LR infusion, and chronic alcohol use, this has corrected, chronic magnesium wasting due to alcohol use, replace and las check normal, short course of magnesium supplement given seizure --continue keppra and campral Time Attestation Discharge Coordination Time (in mins): 40 Quality: Safe Use of Opioids Does Pt have an Active Cancer Diagnosis on the Problem List?: No Quality: Stroke Does the patient have a stroke diagnosis?: No Physical Exam Vital Signs: Vital Signs: Selected Entries 09/28/24 03:32 Temperature 98.2 F Pulse Rate 89 Respiratory Rate 16 Blood Pressure 106/69 Pulse Oximetry 99 Oxygen Delivery Me thod Room Air General: AO X 3, no acute distress, very think Resp: CTA bilateral CVS: S1,S2,RRR GI: +BS, NT, no distention Skin: No rash Neuro: motor grossly intact Psych: appropriate affect DS: Data Data Completed and Pending Completed studies during hospitalization [Text1]: Procedures Detoxification Services for Substance Abuse Treatment (08/29/24) Labs on day of discharge: Laboratory Results - last 24 hr 09/26/24 09/27/24 09/27/24 15:48 06:26 12:32 WBC 2.9 L RBC 3.38 L Hgb 11.0 L Hct 31.1 L MCV 92.0 MCH 32.5 MCHC 35.4 H RDW 13.4 Plt Count 48 L MPV 12.4 H Immature Gran % (Auto) 0.3 Neut % (Auto) 55.7 Lymph % (Auto) 30.3 [place] % (Auto) 9.9 Eos % (Auto) 3.1 Baso % (Auto) 0.7 Lymph # (Auto) 0.9 L [place] # (Auto) 0.3 Eos # (Auto) 0.1 Baso # (Auto) 0.0 Abs Immat Gran (auto) 0.01 Absolute Neuts (auto) 1.6 L Absolute Nucleated RBC 0.000 Nucleated RBC % (auto) 0.0 Hold Purple Top SEE NOTE Sodium 134 L 132 L 131 L Potassium 3.5 2.8 L* 3.2 L Chloride 93 L 92 L 93 L Carbon Dioxide 28 24 24 Anion Gap 17 19 17 BUN 5 L Creatinine 0.54 Estim Creat Clear Calc 100.9 Estimated GFR > 60 Random Glucose 81 Calcium 8.8 D Magnesium 2.3 1.9 Discharge Plan Discharge Anticipated Discharge Date/Time: 09/28/24 09:43 Patient Disposition: Home, Self-Care Discharge Diagnosis: Acute alcoholic ketoacidosis, pneumopericardium and pneumomediastinum Referrals: Physician,None [Primary Care Provider] - 1 Week Discharge Medications: New magnesium oxide 400 mg magnesium tablet 400 mg PO DAILY Qty: 14 0RF lorazepam 0.5 mg Tablet 0.5 mg PO Q6H PRN (Reason: Anxiety/Restlessness) Qty: 15 0RF Continued trazodone 50 mg tablet 50 mg PO BEDTIME levetiracetam 500 mg tablet 500 mg PO BID naltrexone 50 mg tablet 50 mg PO DAILY magnesium oxide 400 mg (241.3 mg magnesium) Tablet 400 mg PO BIDPC Qty: 60 0RF acamprosate 333 mg tablet,delayed release (DR/EC) 666 mg PO 3XD propranolol 10 mg tablet 10 mg PO TID Discharge Orders: Discharge Order (Routine); Ordered 09/28/24 Ordered By: Temo Casey Diet: Advance to usual diet Activity on Discharge: As tolerated Stand Alone Forms: Patient Portal Discharge page Print Language: Nepali Other Ambulatory Orders: Basic Metabolic Panel Fasting (Routine) Timeframe: 1 Week Facility: [facility] - Location: Laboratory Ordered By: Temo Casey Magnesium (Routine) Timeframe: 1 Week Facility: [facility] - Location: Laboratory Ordered By: Temo Casey Care Plan Goals: recovery from alcoholic ketoacidosis Health Concerns: alcoholic ketaoacidosis hypokalemia hypomagnesemia Plan of Treatment: take all your medications as recommended follow up with your Doctor in a week avoid alcohol at all cost Assessment: see above
== END 2024-09-28 14:29 | disposition home or self-care (01) | DRG 207 ==
LOC: HO.ED 07:34 → HO.EDOVER 16:09 → HO.IMC 17:13
PROVIDERS: Physician Assistant Medical; Admitting Provider Hospitalist; Emergency Provider Emergency Medicine Emergency Medical Services; Visit Provider Internal Medicine
DX: I31.9 Disease of pericardium, unspecified (principal); D61.818 Other pancytopenia; E87.29 Other acidosis; J98.2 Interstitial emphysema; K70.30 Alcoholic cirrhosis of liver without ascites; K70.0 Alcoholic fatty liver; F17.210 Nicotine dependence, cigarettes, uncomplicated; R56.9 Unspecified convulsions; F39 Unspecified mood [affective] disorder; F10.20 Alcohol dependence, uncomplicated; Y90.1 Blood alcohol level of 20-39 mg/100 ml; K29.20 Alcoholic gastritis without bleeding; E87.6 Hypokalemia; E83.42 Hypomagnesemia; Z71.6 Tobacco abuse counseling; Z79.899 Other long term (current) drug therapy
CPT/HCPCS: 36415; 71250; 74177; 80048; 80051; 80053; 80076; 80307; 81001; 82010; 82803; 83036; 83605; 83690; 83735; 84702; 85025; 85027; 93005; 99285; J2270; J2405; J2560; J3475; J7120; Q9967; S9485

== ENCOUNTER → 2024-09-25 03:24 | Outpatient (BNV) | payer OTHER, SELFPAY | PROVIDERS: Emergency Provider Emergency Medicine Emergency Medical Services; Visit Provider Specialist | DX: R10.12 Left upper quadrant pain (principal); J84.9 Interstitial pulmonary disease, unspecified | CPT/HCPCS: 71250; 74177 ==

== ENCOUNTER → 2024-09-25 04:10 | Outpatient (BNV) | payer OTHER, SELFPAY | PROVIDERS: Emergency Provider Emergency Medicine Emergency Medical Services; Visit Provider Internal Medicine Cardiovascular Disease | DX: R00.0 Tachycardia, unspecified (principal) | CPT/HCPCS: 93010 ==

== ENCOUNTER 2024-09-25 15:33 | Outpatient (BNV) | payer OTHER, SELFPAY | END 2024-09-27 13:45 | PROVIDERS: Admitting Provider Hospitalist; Emergency Provider Emergency Medicine Emergency Medical Services; Visit Provider Radiology Diagnostic Radiology | DX: J84.9 Interstitial pulmonary disease, unspecified (principal); F10.20 Alcohol dependence, uncomplicated | CPT/HCPCS: 71250 ==

== ENCOUNTER → 2024-09-25 15:33 | Outpatient (BNV) | payer OTHER, SELFPAY | PROVIDERS: Admitting Provider Hospitalist; Emergency Provider Emergency Medicine Emergency Medical Services; Visit Provider Internal Medicine Nephrology | DX: E87.20 Acidosis, unspecified (principal) | CPT/HCPCS: 99222 ==

== ENCOUNTER → 2024-09-25 15:33 | Outpatient (BNV) | payer OTHER, SELFPAY | PROVIDERS: Admitting Provider Hospitalist; Emergency Provider Emergency Medicine Emergency Medical Services; Visit Provider Internal Medicine | DX: F10.20 Alcohol dependence, uncomplicated (principal); K29.20 Alcoholic gastritis without bleeding; R11.2 Nausea with vomiting, unspecified; K70.10 Alcoholic hepatitis without ascites; E87.29 Other acidosis | CPT/HCPCS: 99223; 99232; 99239 ==

== ENCOUNTER 2025-06-08 08:18 | Outpatient (REF) | payer OTHER, SELFPAY ==
[2025-06-08 09:52] LABS: MANUAL DIFF FLAG NO
--- OUTSIDE RECORDS SUMMARY | 2025-06-08 10:44 | XMS_ITS | Data Portability ---
Author Organization [facility] Address [address] [place] [address] Assessment No assessment recorded. Plan of Treatment Reminders Order Date Submit Date Provider Last Modified By Organization Details Last Modified Time Details Appointments None recorded. Lab rapid strep group A, throat 2022 023 [facility], [address] [place] [address], [phone], 3 17:17:34 rapid flu (A+B) 2022 023 [facility], [address] [place] [address], [phone], 3 17:17:34 Referral None recorded. Procedures None recorded. Surgeries None recorded. Imaging None recorded. Medication Orders prednisone 20 mg tablet 2022 023 [facility], [address] [place], [address], 3 17:17:39 benzonatate 100 mg capsule 2022 023 [facility], [address] [place], [address], 3 17:17:37 fexofenadin e-pseudoeph edrine ER 180 mg-240 mg tablet,ext. release 24 hr 2022 023 [facility], [address] [place], [address], 3 17:17:36 amoxicillin 875 mg-lu cruz clavulanate 125 mg tablet 2022 023 [facility], [address] [place], [address], 3 12:39:59 prednisone 20 mg tablet 2022 023 [facility], [address] [place], [address], 12:40:01 Patient TargetsNo targets recorded. Patient Instructions Encounter Date Encounter Id Patient Instructions Last Modified By Organization Details Last Modified Time 08/31/2022 [id number] cough: care instructions Not available 08/31/2022 12:39:57 [...] care for yourself at home? Take an voos-gvo-ezkzxay pain medicine. Avoid Ibuprofen, Aleve and Aspirin if . If the doctor prescribed antibiotics, take them as directed. Do not stop taking them just because you feel better. You need to take the full course of antibiotics. Be careful when taking nryy-zav-ykntzqd cold or influenza (flu) medicines and Tylenol [...] can make your congestion worse. Not available 08/31/2022 12:39:01 09/07/2022 [id number] sore throat: car e instructions Not available [...] care for yourself at home? Take an utoz-tzr-tgvhcwk pain medicine. Avoid Ibuprofen, Aleve and Aspirin if . If the doctor prescribed antibiotics, take them as directed. Do not stop taking them just because you feel better. You need to take the full course of antibiotics. Be careful when taking hyej-xbj-aplzigi cold or influenza (flu) medicines and Tylenol [...] Negati ve Not Available [id number] [address] [place] [address], [place], [address], 09/07/2022 15:33:40 09/07/19 23 09/07/2022 rapid flu (A+B) Unknown Analyte Normal = Negati ve Not Available [address] [place] [address], [place], [address], 09/07/2022 15:33:40 09/07/19 23 09/07/2022 rapid flu (A+B) Unknown Analyte negati ve Not Available [address] [place] [address], [place], [address], 09/07/2022 15:33:40 09/07/19 23 09/07/2022 rapid flu (A+B) Unknown Analyte negati ve Not Available [address] [place] [address], [place], [address], 09/07/2022 15:33:40 09/07/1909/07/2022 rapid strep group A, throa t Unknown Analyte Normal = Negati ve Not Available [address] [place] [address], [place], [address], 09/07/2022 15:32:43 09/07/1909/07/2022 rapid strep group A, throa t Unknown Analyte negati ve Not Available [address] [place] [address], [place], [address], 09/07/2022 15:32:43 Result Notes None recorded. Problems Name Problem SNOMED Code Status Onset Date Resolution Date Notes Provider Name and Address Organization Details Recorded Time Anxiety 39505540 Active 2022 DEDE perez, [place] - [facility] 3 12:27:07 Hypomagnesemia 504761879 Active 2022 DEDE perez, [place] - [facility] 3 12:27:17 History of calculus of kidney 260426350 Active 2022 DEDE perez, [place] - [facility] 3 12:27:38 Problem Notes None recorded. Procedures Surgical History Date Name Laterality Status Provider Name and Address Organization Details Recorded Time ureterorenoscopy with fragmentation and removal of calculus of kidney completed DEDE ALVAREZ [place] - [facility] 08/31/2022 12:29:34 Imaging Results None recorded. Procedure Notes None recorded. Medical Equipment None Reported. Allergies Allergen ID Allergen Name Allergen Category Reaction Reaction Severity Criticality Documentation Date Start Date Code Code System Note Provider Name and Address Organization Details Recorded Time 798704 kiwi fruit extract food Not available Not available Not available 08/31/2022 47452 01 RxNorm DEDE ALVAREZ chris, [place] - [email or web address] 3 12:25:29 No known drug allergies Medications Name Sig Start Date Stop Date Status Note LastModified by Organization Details LastModified Time prednisone 20 mg tablet Take 2 tablets every day by oral route in the morning for 4 days. 023 active Not Available Not Available Not Avai lable benzonatate 100 mg capsule Take 1 capsule 3 times a day by oral route for 7 days. 023 active Not Available Not Available Not Avai lable amoxicillin 875 mg-potassium clavulanate 125 mg tablet Take 1 tablet every 12 hours by oral route with meals for 10 days. 023 active Not Available [...] t Available Tri-Estarylla (28) 0.18 mg(7)/0.215 mg(7)/0.25 mg(7)-0.035 mg tablet Take 1 tablet every day by oral route. active Not Available Not Available No t Available Vitals Date Recorded Body height Body mass index (BMI) Body weight Body temperature Oxygen saturation Oxygen saturation in Arterial blood by Pulse oximetry Heart rate Respiratory rate Systolic And Diastolic Provider Name and Address Organization Details Last Updated DateTime 3 162.56 cm 18.9 kg/m2 25869.1 6 g 97 [degF] 97 % 97 % 85 /min 16 /min 130/90 mm[Hg] DEDE ALVAREZ PA - [facility] 3 12:31:14 Date Recorded Body height Body mass index (BMI) Body weight Oxygen saturation Oxygen saturation in Arterial blood by Pulse oximetry Heart rate Respiratory rate Body temperature Systolic And Diastolic Provider Name and Address Organization Details Last Updated DateTime 3 162.56 cm 18.9 kg/m2 71727.1 6 g 98 % 98 % 98 /min 20 /min 98.3 [degF] 129/91 mm[Hg] Analilia Aguirrebe PA - [facility] 3 15:35:15 Social History Question Answer Notes LastModified by [employer] Details LastModified Time Tobacco Smoking Status Never Smoker DEDE ALVAREZ chris [place] - [facility] 08/31/2022 12:28:51 Which Illicit Or Recreational Drugs Have You Used? Marijuana Occas [email or web address] Information not available 08/31/2022 Have You Recently Traveled Abroad? No [email or web address] Information not available 08/31/2022 Sex: Unknown Functional Status Question Answer Note LastModified by [employer] Details LastModified Time Do you use any illicit or recreational drugs? Yes [email or web address] Information not available 08/31/2022 Do you or have you ever used any other forms of tobacco or nicotine? No [email or web address] Information not available 08/31/2022 What is your level of alcohol consumption? Occasional [email or web address] Information not available 08/31/2022 Mental Status None recorded. Family History Relationship [...] Diagnosis SNOMED-CT Code Diagnosis ICD10 Code Diagnosis IMO Codes Diagnosis Note [id number] [facility] [address] [place] [address] 05/13/2016 17:02:25 05/13/2016 17:37:45 [id number] [facility] [address] [place] [address] 11/21/2020 10:20:54 11/21/2020 12:04:31 [id number] [facility] [address] [place] [address] 10/18/2017 15:42:25 10/18/2017 16:31:39 [id number] [address] [address] [place] [address] 02/14/2020 17:49:34 02/14/2020 19:29:55 [id number] [place]une[place] [address] [address] [place] [address] 08/31/2022 12:07:07 08/31/2022 12:47:12 Acute sinusitis 16733631 J01.90 [id number] [place] [address] [address] [place] [address] 09/07/2022 14:20:20 09/07/2022 17:27:07 Acute sinusitis 67597354 J01.90 Health Concerns Section Related Observation LastModified by Organization Detai ls LastModified Time None Recorded Concern Status LastModified by Organization Details LastModified Time None Recorded Advance Directives Directive None Recorded Payers Insurance Date Sequence Insurance Name Policy Number Policy [place] Covered Member ID [place] Member ID Guarantor Name 08/31/2022 1 [facility] [employer] [facility] (O) [id number] Chuyita Boyle [id number] Chuyita Boyle 08/31/2022 PROMPT PAY Steve Boyle Notes Date Note Type Note Provider Name and Address Organization Details Recorded Time 08/31/2022 text/html CongestionReport ed by Patientnasal congestion with post nasal drip x 2 weeks. denies nay fever or fever with chills. no SOB or respiratory distress. CoughReported by Patient Gorge Nunez NP [address] [place], [address], [place] - [facility] 08/31/2022 12:40:31 09/07/2022 text/html Sore throatRepor demetrio by PatientSore ThroatFor associated symptoms, patient reportssore throatbut reportsno cough,no sputum production,no shortness of breath,no wheezing,no sinus pain,no vomiting,no nausea, andno hoarseness. For source of patient information, patient reportsinformation obtained from patient,patient arrived at urgent care ambulatory, andlearning styles: auditory. For location, patient reportsthroat. For severity, patient reportsmoderate. For quality, patient reportssharp. For onset/timing, patient reports1 weeks. For context, patient reportsno sick contacts,no foreign travel, andnon-smoker. Gorge Nunez NP [address] [place], [address], [place] - [facility] 09/07/2022 17:41:00 OBGyn Episode No OBEpisode recorded.
[2025-06-08 10:50] LABS: Hematocrit 37.8 % (37.0-47.0); Hemoglobin 12.5 g/dl (12.0-16.0); Imm Gran Abs Auto 0.14 X10*3/uL (0.00-0.03); Imm Gran Pct Auto 1.2 % (0.0-0.4); Lymphocytes Absolute Auto 1.9 X10*3/uL (1.2-4.9); Mean Corpuscular HGB Conc 33.1 g/dl (31.0-35.0); Mean Corpuscular Hemoglobin 29.8 pg (27.0-33.0); Mean Corpuscular Volume 90.2 fL (80.0-98.0); NRBC Abs Auto 0.000 X10*3/uL (0.0-0.012); NRBC Pct Auto 0.0 /100WBC (0.0-0.2); Platelet Count 229 X10*3/uL (160-400); Red Blood Count 4.19 X10*6/uL (4.20-5.50); White Blood Count 11.4 X10*3/uL (4.8-10.8)
[2025-06-08 11:32] LABS: Alanine Aminotransferase 11 U/L (0-31); Albumin Level 4.4 g/dL (3.5-5.0); Alkaline Phosphatase 93 U/L (39-117); Anion Gap 13 (12-20); Aspartate Amino Transferase 21 U/L (5-31); Blood Urea Nitrogen 10 mg/dL (9-16); Calcium 9.4 mg/dL (8.4-10.2); Carbon Dioxide 24 mmol/L (22-29); Chloride 104 mmol/L (96-108); Estimated Glomerular Filt Rate > 60; Iron 69 mcg/dL (30-160); Percent Iron Saturation 14 % (15-50); Potassium 3.7 mmol/L (3.3-5.1); Sodium 137 mmol/L (135-145); Total Iron Binding Capacity 503 mcg/dL (228-428); Total Protein 7.7 g/dL (6.5-8.0); Unsaturated Iron Binding 434 ug/dL
[2025-06-08 11:55] LABS: Vitamin B12 620 pg/mL (200-900)
[2025-06-14 06:38] LABS: Vitamin D 25-OH, D2 <4 ng/mL; Vitamin D 25-OH, D3 51 ng/mL; Vitamin D 25-OH, Total 51 ng/mL (30-100)
== END 2025-06-08 08:19 | disposition home or self-care (01) ==
LOC: HO.LAB 08:18
PROVIDERS: PCP Student in an Organized Health Care Education/Training Program; Visit Provider Student in an Organized Health Care Education/Training Program
DX: Z76.89 Persons encountering health services in other specified circumstances (principal); G25.81 Restless legs syndrome; R79.89 Other specified abnormal findings of blood chemistry; D64.9 Anemia, unspecified; E55.9 Vitamin D deficiency, unspecified
CPT/HCPCS: 36415; 80053; 82306; 82607; 83540; 85025